=== PATIENT | female | born 1930 | race Caucasian/White ===

== ENCOUNTER → 2017-05-22 | Day surgery (SDC) | payer OTHER ==
[2017-05-16 15:26] LABS: BASOPHILS # (AUTO) 0.1 (0.0-0.1); BASOPHILS % 0.7 % (0.0-1.0); EOSINOPHILS # (AUTO) 0.3 (0.0-0.4); EOSINOPHILS % 3.4 % (0.0-6.0); HEMATOCRIT 36.1 % (34.2-44.1); HEMOGLOBIN 10.7 g/dL (12.0-16.0); LYMPHOCYTES # (AUTO) 2.8 (1.0-3.2); LYMPHOCYTES % 33.1 % (18.0-39.1); MEAN CORPUSCULAR HEMOGLOBIN 23.6 pg (28-32); MEAN CORPUSCULAR HGB CONC 29.6 g/dL (31-35); MEAN CORPUSCULAR VOLUME 79.7 fL (81-99); MONOCYTES # (AUTO) 0.9 (0.2-0.8); MONOCYTES % 10.7 % (4.4-11.3); NEUTROPHILS # (AUTO) 4.4 (2.1-6.9); NEUTROPHILS % 51.7 % (38.7-80.0); PLATELET COUNT 224 x10e3/uL (140-360); RED BLOOD COUNT 4.53 x10e6/uL (3.6-5.1); RED CELL DISTRIBUTION WIDTH 17.5 % (11.7-14.4)
[2017-05-16 16:06] LABS: ANION GAP 12.4 mmol/L (8-16); CALCIUM 9.3 mg/dL (8.4-10.2); CREATININE, SERUM 1.35 mg/dL (0.57-1.11); POTASSIUM 4.4 mmol/L (3.5-5.1)
[~2017-05-22] MED LIST: ADVAIR 250-501 EACH; ADVAIR 250-501 EACH INH; ALBUTEROL2.5 MG/3 M NEB; ALDACTONE25 MG PO; ASCORBIC ACID500 MG PO; AZITHROMYCIN250 MG PO; Acyclovir PO; BUPIVACAINE HC 0.75% PF 10ML VIAL INJ ONE; CHONDR SU A NA/HYALUR SOD 1 EACH KIT IO ONE; CYCLOPENTOLATE HCL 2% OPTH SOLN 2 ML BTL OP ONE; Cefuroxime Axetil PO; DIOVAN80 MG PO; DOXYCYCLINE HY100 MG PO; EPINEPHRINE HCL INJ 1 MG/ML AMP ONE; FUROSEMIDE20 MG PO; GATIFLOXACIN(OPTH) 5 ML LIQD ONE; IPRATROPIU0.2 MG/1 M NEB; LASIX20 MG PO; LASIX40 MG PO; LEVALBUTER0.63 MG/3 NEB; LEVAQUIN500 MG PO; LIDOCAINE 2% /EPINEPHRINE 20 ML SDV INJ ONE; LIDOCAINE HCL-PF 4% 40 MG/1 ML 5ML AMP ONE; LORATADINE10 MG PO; LYRICA50 MG PO; LYRICA75 MG PO; MEDROL4 MG/DOSE- PO; METOPROLOL SUC100 MG PO; METOPROLOL TART50 MG PO; MIDAZOLAM HCL 2 MG/2 ML VIAL ONE; MUCINEX DM ER1 EACH PO; MUCINEX600 MG PO; NORVASC2.5 MG PO; PANTOPRAZOLE SO40 MG PO; PHENYLEPHRINE HCL 2 ML DROPS ONE; PILOCARPINE HCL(OPTH) 15 ML LIQD ONE; POVIDONE IODINE 5% (OPTH) 30 ML BTL ONE; PREDNISONE20 MG PO; PROAIR HFA INH8.5 GM; PROPOFOL IV EMULSION 10 MG/ML 20 ML VIAL ONE; SERTRALINE HCL50 MG PO; SIMVASTATIN40 MG PO; SPIRIVA18 MCG INH; TOBRAMYCIN/DEXAMETHASONE(OPTH) 3.5 GM TUBE ONE; WARFARIN SODIUM1 MG PO; WARFARIN SODIUM2 MG PO; XOPENEX HFA15 G1 IH; Z CHANTIX PO; Z.0.ADVAIR 250-501 E IH; Z.0.COUMADIN3 MG PO; Z.0.DIOVAN80 MG PO; Z.0.LASIX20 MG PO; Z.0.LEVAQUIN500 MG PO; Z.0.METOPROLOL SUC10 PO; Z.0.PANTOPRAZOLE SO4 PO; Z.0.PREDNISONE20 MG PO; Z.0.SERTRALINE HCL50 PO; Z.0.SIMVASTATIN80 MG PO; Z.0.SPIRIVA18 MCG IH; ZESTRIL10 MG PO
== END | disposition home or self-care (01) ==
LOC: OR 07:04
PROVIDERS: ATTEND Ophthalmology
DX: H25.11 Age-related nuclear cataract, right eye (principal); I10 Essential (primary) hypertension; I48.91 Unspecified atrial fibrillation; J44.9 Chronic obstructive pulmonary disease, unspecified; Z01.810 Encounter for preprocedural cardiovascular examination; Z01.812 Encounter for preprocedural laboratory examination; Z79.01 Long term (current) use of anticoagulants; Z95.1 Presence of aortocoronary bypass graft; Z95.0 Presence of cardiac pacemaker
CPT/HCPCS: 36415; 66982; 80048; 85025; 93005; J0171; J2001; J2250; V2632

== ENCOUNTER 2017-06-29 01:50 | Emergency (ER) | payer OTHER ==
[~2017-06-29] VITALS: Ht 160 cm; Wt 73.9 kg
[~2017-06-29 01:50] MED LIST changes: -BUPIVACAINE HC 0.75% PF 10ML VIAL INJ ONE; -CHONDR SU A NA/HYALUR SOD 1 EACH KIT IO ONE; -CYCLOPENTOLATE HCL 2% OPTH SOLN 2 ML BTL OP ONE; -EPINEPHRINE HCL INJ 1 MG/ML AMP ONE; -GATIFLOXACIN(OPTH) 5 ML LIQD ONE; -LIDOCAINE 2% /EPINEPHRINE 20 ML SDV INJ ONE; -LIDOCAINE HCL-PF 4% 40 MG/1 ML 5ML AMP ONE; -MIDAZOLAM HCL 2 MG/2 ML VIAL ONE; -PHENYLEPHRINE HCL 2 ML DROPS ONE; -PILOCARPINE HCL(OPTH) 15 ML LIQD ONE; -POVIDONE IODINE 5% (OPTH) 30 ML BTL ONE; -PROPOFOL IV EMULSION 10 MG/ML 20 ML VIAL ONE; -TOBRAMYCIN/DEXAMETHASONE(OPTH) 3.5 GM TUBE ONE
[2017-06-29] MEDS ORDERED: ALBUTEROL SULF 0.083% NEB SOLN 3 ML NEB NEB STA (02:20)
[2017-06-29] MEDS ORDERED: IPRATROPIUM BROMIDE 0.02% 2.5 ML NEB NEB ONE (02:30)
[2017-06-29] MEDS ORDERED: METHYLPREDNISOLONE SOD SUCC 125 MG/2ML VIAL IV ONE (02:30)
[2017-06-29 02:54] LABS: BASOPHILS % 0.5 % (0.0-1.0); EOSINOPHILS # (AUTO) 0.2 (0.0-0.4); EOSINOPHILS % 2.9 % (0.0-6.0); HEMATOCRIT 33.2 % (34.2-44.1); HEMOGLOBIN 10.2 g/dL (12.0-16.0); LYMPHOCYTES # (AUTO) 1.9 (1.0-3.2); LYMPHOCYTES % 23.3 % (18.0-39.1); MEAN CORPUSCULAR HEMOGLOBIN 23.7 pg (28-32); MEAN CORPUSCULAR HGB CONC 30.7 g/dL (31-35); MEAN CORPUSCULAR VOLUME 77.2 fL (81-99); MONOCYTES % 11.8 % (4.4-11.3); NEUTROPHILS % 61.1 % (38.7-80.0); PLATELET COUNT 188 x10e3/uL (140-360); RED CELL DISTRIBUTION WIDTH 18.2 % (11.7-14.4)
[2017-06-29 03:15] LABS: ALBUMIN 3.5 g/dL (3.5-5.0); ALBUMIN/GLOBULIN RATIO 1.7 (0.8-2.0); ANION GAP 12.4 mmol/L (8-16); CALCIUM 9.2 mg/dL (8.4-10.2); CREATININE, SERUM 1.34 mg/dL (0.57-1.11); POTASSIUM 3.4 mmol/L (3.5-5.1)
[2017-06-29 03:21] LABS: CREATINE KINASE MB 1.2 ng/mL (0-5.0)
--- NOTE | 2017-06-29 04:12 | Diagnostic Imaging Report ---
CHEST SINGLE (PORTABLE), 06/29/2017 1:51 AM Technique: CHEST SINGLE (PORTABLE) Comparison: 11/20/2016 Clinical history: Shortness of breath Findings: See Impression Impression: 1. Lines/Tubes: Stable left-sided ICD, median sternotomy wires and valve prosthesis. 2. Stable mildly enlarged cardiomediastinal silhouette. 3. Emphysema with stable bibasilar linear opacities, favor atelectasis or scarring. Signed by: Dr Kasey De Luna MD on 06/29/2017 4:09 AM
== END 2017-06-29 07:48 | disposition home or self-care (01) ==
LOC: ER 01:50
DX: R06.00 Dyspnea, unspecified (principal); J44.1 Chronic obstructive pulmonary disease with (acute) exacerbation; I10 Essential (primary) hypertension; I50.9 Heart failure, unspecified; K21.9 Gastro-esophageal reflux disease without esophagitis; E78.5 Hyperlipidemia, unspecified
CPT/HCPCS: 36415; 71045; 80053; 82550; 82553; 83880; 84484; 85025; 93005; 99284; J2930

== ENCOUNTER 2017-08-01 09:42 | Observation (INO) | payer MEDICARE, OTHER ==
[~2017-08-01] VITALS: Ht 160 cm; Wt 76.7 kg
--- OUTSIDE RECORDS SUMMARY | 2017-08-01 09:46 | XMS REPORT | Continuity of Care Document ---
Author Author [facility] Organization [facility] Address [address] [place] [address] Phone Unavailable Care Team Providers Care Medical Cash Poster Name Role Phone JIAN RUBIO DO PCP Insurance Providers Guarantor Keira Paz Address [address] [place] [address] Email NONE [facility] Policy Number [id number] Subscriber's Name Keira Paz Relationship 18 Self / Same As Patient Group Name RETIRED Effective Date 11 Payer [facility] Policy Number [id number] Subscriber's Name Keira Paz Relationship 18 Self / Same As Patient Group Number [id number] Advance Directives Directive Response Recorded Date/Time Does the patient have an advance directive? No 11/11/16 5:05pm If yes, is advance directive on file with [facility]? No 11/11/16 5:05pm If not on file with [facility] will patient provide a copy? No 06/29/17 1:49am Do you have a Directive to Physician? No 06/29/17 1:49am Do you have a Medical Power of Staffing Operations Manager? No 06/29/17 1:49am Do you have an out of hospital Do Not Resuscitate Order? No 06/29/17 1:49am Do you have any special needs we should be aware of? No 06/29/17 1:49am Do you have a support person here with you today? No 06/29/17 1:49am Did patient receive Notice of Privacy Practices? Yes 06/29/17 1:49am Did patient receive patient rights and responsibilities? Yes 06/29/17 1:49am Problems Medical Problem Onset Date Status Bronchitis 02/05/2015 Acute CHF (congestive heart failure) 06/06/2015 Acute CHF (congestive heart failure) 11/06/2015 Acute COPD (chronic obstructive pulmonary disease) Unknown COPD exacerbation Unknown Acute Generalized weakness Unknown Hypoxia 11/06/2015 Acute Shortness of breath Unknown Acute UTI (urinary tract infection) 11/06/2015 Acute Medications Current Home Medications Medication Dose Units Route Directions Days Qty Instructions Start Date Albuterol Sulfate (Proair Hfa Inhaler*) 8.5 Gm Inh Furosemide (Lasix) 20 Mg Tablet 20 Mg Oral Daily 30 Tab Levalbuterol Hcl 0.63 Mg/3 Ml Vial.neb 0.63 Mg Nebullizer Three Times A Day Metoprolol Succinate 100 Mg Tab.er.24h 100 Mg Oral Daily Pantoprazole Sodium (Protonix) 40 Mg Tablet.dr 40 Mg Oral Daily Pregabalin (Lyrica) 75 Mg Cap 75 Mg Oral Daily 30 Cap Sertraline Hcl 50 Mg Tablet 50 Mg Oral Daily 30 Tab Simvastatin 40 Mg Tablet 40 Mg Oral Today At 9:00PM 30 Tab Tiotropium Archer (Spiriva) 18 Mcg Cap.w.dev 18 Mcg Inhalation Daily Valsartan (Diovan) 80 Mg Tab 80 Mg Oral Daily Warfarin Sodium 2 Mg Tablet 2 Mg Oral Every Other Day Past Home Medications Medication Directions Ordered Status Albuterol Sulfate 2.5 Mg/3 Ml Vial.neb, 3 Ml Nebullizer Rt Q4h 08/27/16 Discontinued Albuterol Sulfate 2.5 Mg/3 Ml Vial.neb, 3 Ml Nebullizer Rt Q4h 06/03/16 Discontinued Amlodipine Besylate (Norvasc) 2.5 Mg Tablet, 5 Mg Oral Daily Discontinued Azithromycin (Z-Noe) 250 Mg Tablet, 500 Mg Oral Daily 08/27/16 Discontinued Doxycycline Hyclate 100 Mg Capsule, 100 Mg Oral Twice A Day 11/15/16 Discontinued Doxycycline Hyclate 100 Mg Capsule, 100 Mg Oral Twice A Day 08/08/16 Discontinued Fluticasone/Salmeterol (Advair 250-50 Diskus) 1 Each Disk.w.dev, 1 Dose Inhalation Twice A Day Discontinued Fluticasone/Salmeterol (Advair 250-50 Diskus) 1 Each Disk.w.dev, 1 Inh Inhalation Twice A Day Discontinued Furosemide (Lasix) 40 Mg Tablet, 40 Mg Oral Twice A Day 06/03/16 Discontinued Furosemide 20 Mg Tablet, 20 Mg Oral Daily Discontinued Furosemide (Lasix) 20 Mg Tablet, 20 Mg Oral Daily Discontinued Guaifenesin (Mucinex) 600 Mg Tablet.er, 600 Mg Oral Every 6 Hours 06/03/16 Discontinued Guaifenesin/Dextromethorphan (Mucinex Dm Er 600-30 Mg Tablet) 1 Each Tab.er.12h , 1 Each Oral Every 6 Hours 08/08/16 Discontinued Ipratropium Archer 0.2 Mg/1 Ml Solution, 2.5 Ml Nebullizer Rt Q4h 08/27/16 Discontinued Ipratropium Archer 0.2 Mg/1 Ml Solution, 2.5 Ml Nebullizer Rt Q4h 06/03/16 Discontinued Levalbuterol Hcl 0.63 Mg/3 Ml Vial.neb, 0.63 Mg Nebullizer Three Times A Day Discontinued Levalbuterol Tartrate (Xopenex Hfa) 15 Gm Hfa.aer.ad, 15 Gm Inhalation Three Times A Day Discontinued Levofloxacin (Levaquin) 500 Mg Tablet, 500 Mg Oral Daily 04/15/16 Discontinued Levofloxacin (Levaquin) 500 Mg Tablet, 500 Mg Oral Daily Discontinued Lisinopril (Zestril*) 10 Mg Tablet, 10 Mg Oral Daily for High Blood Pressure Discontinued Loratadine 10 Mg Tablet, 10 Mg Oral Daily 06/03/16 Discontinued Methylprednisolone (Medrol Dose Pack) 4 Mg/Dose Pack Tab, Unknown Dose Oral Daily Discontinued Metoprolol Succinate 100 Mg Tab.sr.24h, 100 Mg Oral Daily Discontinued Pantoprazole Sodium 40 Mg Tablet.dr, 40 Mg Oral Daily Discontinued Prednisone 20 Mg Tab, 20 Mg Oral Daily 08/08/16 Discontinued Prednisone 20 Mg Tab, 40 Mg Oral Twice A Day 06/03/16 Discontinued Prednisone 20 Mg Tab, 20 Mg Oral Daily 04/15/16 Discontinued Prednisone 20 Mg Tablet, 20 Mg Oral Daily Discontinued Prednisone 20 Mg Tablet, 20 Mg Oral Twice Day For 5 Days Discontinued Prednisone 20 Mg Tablet, 20 Mg Oral Once Daily For 5 Day Discontinued Pregabalin (Lyrica) 75 Mg Cap, 75 Mg Oral Daily Discontinued Pregabalin (Lyrica) 75 Mg Cap, 75 Mg Oral Daily 02/12/15 Discontinued Sertraline Hcl 50 Mg Tablet, 50 Mg Oral Daily Discontinued Sertraline Hcl 50 Mg Tablet, 50 Mg Oral Daily Discontinued Simvastatin 80 Mg Tablet, 40 Mg Oral Daily Discontinued Spironolactone (Aldactone) 25 Mg Tablet, 25 Mg Oral Daily Discontinued Tiotropium Archer (Spiriva) 18 Mcg Cap.w.dev, 18 Mcg Inhalation Daily Discontinued Valsartan (Diovan) 80 Mg Tab, 80 Mg Oral Daily Discontinued Valsartan (Diovan) 80 Mg Tab, 80 Mg Oral Daily Discontinued Valsartan (Diovan) 80 Mg Tablet, 80 Mg Oral Daily Discontinued Varenicline Tartrate (Chantix) 0.5 Mg Tablet, 0.5 Mg Oral Daily Discontinued Warfarin Sodium 1 Mg Tablet, 1 Mg Oral Every Other Day Discontinued Warfarin Sodium (Coumadin) 3 Mg Tablet, 3 Mg Oral Daily Discontinued Family History Relationship Condition Age at Onset Recorded Date/Time 21 Son FH: lymphoma Not Recorded 11/07/2015 12:52am Social History Social History Problem Response Recorded Date/Time Onset Date Status Hx Psychiatric Problems No 11/11/2016 5:05pm Not Applicable Not Applicable Hx Eating Disorder No 11/11/2016 5:05pm Not Applicable Not Applicable Hx Substance Use Disorder No 11/11/2016 5:05pm Not Applicable Not Applicable Hx Depression No 11/11/2016 5:05pm Not Applicable Not Applicable Hx Alcohol Use No 11/11/2016 5:05pm Not Applicable Not Applicable Hx Substance Use Treatment No 11/11/2016 5:05pm Not Applicable Not Applicable Hx Physical Abuse No 11/11/2016 5:05pm Not Applicable Not Applicable Hospital Discharge Instructions No hospital discharge instruction information available. Plan of Care Discharge Date 06/29/17 7:48am Disposition HOME, SELF-CARE Condition at Discharge Stable Instructions/Education Provided Bronchitis (Acute) - Adult Forms Provided Work/School Excuse Prescriptions See Medication Section Referrals JIAN RUBIO DO Order Date: Call for an appointment Address: [address] [place] [id number] Additional Instructions/Education DC HOME FOLLOW UP WITH PCP TAKE MEDS DIRCTED. Functional Status No functional status information available. Allergies, Adverse Reactions, Alerts Allergen Type Severity Reaction Status Last Updated Codeine Allergy Unknown Active 04/10/16 Immunizations No immunization information available. Vital Signs Acute Vital Signs Vital Response Date/Time Temperature (Fahrenheit) 97.9 degrees F (97.6 - 99.5) 11/15/2016 4:00pm Pulse Pulse Rate (adult) 70 bpm (60 - 90) 06/29/2017 2:30am Pulse Pulse Rate (adult) 70 bpm (60 - 90) 06/29/2017 2:30am Respiratory Rate 18 bpm (12 - 24) 06/29/2017 2:30am Blood Pressure 111/63 mm Hg 11/30/2016 3:23am Height 5 ft 3 in 06/29/2017 2:13am Weight 163 lb 06/29/2017 2:13am Body Mass Index 28.9 kg/m^2 06/29/2017 2:13am Results Laboratory Results Test Name Result Units Flags Reference Collection Date/Time Result Date/ Time Comments Magnesium Level 2.4 MG/DL H 1.3-2.1 11/11/2016 10:16am 11/11/2016 11: 28am Thyroid Stimulating Hormone (TSH) 0.301 uIU/mL L 0.350-4.940 11/12/2016 6 :24am 11/12/2016 7:52am Prothrombin Time 23.5 seconds H 11.9-14.5 11/30/2016 1:30am 11/30/2016 2 :25am Specimen ok Prothromb Time International Ratio 1.97 11/30/2016 1:30am 2016 2:25am Oral Anticoagulant Therapy INR Values: 1. Low Intensity Therapy 1.5 - 2.0 2. Moderate Intensity Therapy 2.0 - 3.0 3. High Intensity Therapy(1) 2.5 - 3.5 4. High Intensity Therapy(2) 3.0 - 4.0 5. Panic Value INR > 5.0 Activated Partial Thromboplast Time 31.7 seconds 23.8-35.5 11/30/2016 1: 30am 11/30/2016 2:25am White Blood Count 8.21 x10e3/uL 4.8-10.8 06/29/2017 2:50am 06/29/2017 2 :58am Red Blood Count 4.30 x10e6/uL 3.6-5.1 06/29/2017 2:50am 06/29/2017 2: 58am Hemoglobin 10.2 g/dL L 12.0-16.0 06/29/2017 2:50am 06/29/2017 2:58am Hematocrit 33.2 % L 34.2-44.1 06/29/2017 2:50am 06/29/2017 2:58am Mean Corpuscular Volume 77.2 fL L 81-99 06/29/2017 2:50am 06/29/2017 2: 58am Mean Corpuscular Hemoglobin 23.7 pg L 28-32 06/29/2017 2:50am 2017 2:58am Mean Corpuscular Hemoglobin Concent 30.7 g/dL L 31-35 06/29/2017 2:50am 06/29/2017 2:58am Red Cell Distribution Width 18.2 % H 11.7-14.4 06/29/2017 2:50am 2017 2:58am Platelet Count 188 x10e3/uL 140-360 06/29/2017 2:50am 06/29/2017 2: 58am Neutrophils (%) (Auto) 61.1 % 38.7-80.0 06/29/2017 2:50am 06/29/2017 2: 58am Lymphocytes (%) (Auto) 23.3 % 18.0-39.1 06/29/2017 2:50am 06/29/2017 2: 58am Monocytes (%) (Auto) 11.8 % H 4.4-11.3 06/29/2017 2:50am 06/29/2017 2: 58am Eosinophils (%) (Auto) 2.9 % 0.0-6.0 06/29/2017 2:50am 06/29/2017 2: 58am Basophils (%) (Auto) 0.5 % 0.0-1.0 06/29/2017 2:50am 06/29/2017 2:58am IM GRANULOCYTES % 0.4 % 0.0-1.0 06/29/2017 2:50am 06/29/2017 2:58am Neutrophils # (Auto) 5.0 2.1-6.9 06/29/2017 2:50am 06/29/2017 2:58am Lymphocytes # (Auto) 1.9 1.0-3.2 06/29/2017 2:50am 06/29/2017 2:58am Monocytes # (Auto) 1.0 H 0.2-0.8 06/29/2017 2:50am 06/29/2017 2:58am Eosinophils # (Auto) 0.2 0.0-0.4 06/29/2017 2:50am 06/29/2017 2:58am Basophils # (Auto) 0.0 0.0-0.1 06/29/2017 2:50am 06/29/2017 2:58am Absolute Immature Granulocyte (auto 0.03 x10e3/uL 0-0.1 06/29/2017 2: 50am 06/29/2017 2:58am Sodium Level 134 mmol/L L 136-145 06/29/2017 2:50am 06/29/2017 3:28am Potassium Level 3.4 mmol/L L 3.5-5.1 06/29/2017 2:50am 06/29/2017 3: 28am Chloride Level 99 mmol/L 98-107 06/29/2017 2:50am 06/29/2017 3:28am Carbon Dioxide Level 26 mmol/L 22-29 06/29/2017 2:50am 06/29/2017 3: 28am Anion Gap 12.4 mmol/L 8-16 06/29/2017 2:50am 06/29/2017 3:28am Blood Urea Nitrogen 15 mg/dL 7-26 06/29/2017 2:50am 06/29/2017 3:28am Creatinine 1.34 mg/dL H 0.57-1.11 06/29/2017 2:50am 06/29/2017 3:28am BUN/Creatinine Ratio 11 6-25 06/29/2017 2:50am 06/29/2017 3:28am Estimat Glomerular Filtration Rate 38 ML/MIN L 60- 06/29/2017 2:50am 3:28am Ranges were taken from the National Kidney Disease Education Program and the National Kidney Foundation literature. Reference ranges: 60 or greater: Normal 16-59 (for 3 consecutive months): Chronic kidney disease 15 or less: Kidney failure Glucose Level 115 mg/dL 74-118 06/29/2017 2:50am 06/29/2017 3:28am Calcium Level 9.2 mg/dL 8.4-10.2 06/29/2017 2:50am 06/29/2017 3:28am Total Bilirubin 0.5 mg/dL 0.2-1.2 06/29/2017 2:50am 06/29/2017 3:28am Aspartate Amino Transf (AST/SGOT) 12 IU/L 5-34 06/29/2017 2:50am 2017 3:28am Alanine Aminotransferase (ALT/SGPT) 9 IU/L 0-55 06/29/2017 2:50am 06/29 3:28am Total Protein 5.6 g/dL L 6.5-8.1 06/29/2017 2:50am 06/29/2017 3:28am Albumin 3.5 g/dL 3.5-5.0 06/29/2017 2:50am 06/29/2017 3:28am Globulin 2.1 g/dL L 2.3-3.5 06/29/2017 2:50am 06/29/2017 3:28am Albumin/Globulin Ratio 1.7 0.8-2.0 06/29/2017 2:50am 06/29/2017 3: 28am Alkaline Phosphatase 57 IU/L 40-150 06/29/2017 2:50am 06/29/2017 3: 28am B-Type Natriuretic Peptide 125.0 pg/mL H 0-100 06/29/2017 2:50am 2017 3:28am Creatine Kinase 66 IU/L 29-168 06/29/2017 2:50am 06/29/2017 3:28am Creatine Kinase MB 1.20 ng/mL 0-5.0 06/29/2017 2:50am 06/29/2017 3: 28am Troponin I 0.028 ng/mL 0-0.300 06/29/2017 2:50am 06/29/2017 3:28am Microbiology Results Procedure Source Organism/Result Collection Date/Time Result Date/Time Result Status Blood Culture Blood NO GROWTH AFTER 5 DAYS, FINAL REPORT 11/11/2016 2:40pm 11/16/2016 2:48pm Final Sputum Culture Sputum, Expectorated Sputum PSEUDOMONAS AERUGINOSA 2016 12:21am 11/17/2016 7:39pm Final Procedures Procedure Status Date Provider(s) CATARACT SURGERY COMPLEX Completed 05/22/17 CATHI PRAJAPATI MD Computed tomography of cervical spine without contrast Active 09/14/16 HASMUKH IVEY MD Computed tomography of brain without radiopaque contrast Active 09/14/[address] maxillofacial area wo contrast Active 09/14/16 HASMUKH IVEY MD X-ray of chest, two views Active 11/15/16 ARACELY FUCHS MD Encounters Encounter Location Arrival/Admit Date Discharge/Depart Date Attending Provider Departed Emergency Room [facility] 06/29/17 1:50am 7:48am TAD MOORE MD Registered Surgical Day Care [facility] 05/22/17 7:04am CATHI PRAJAPATI MD Departed Emergency Room [facility] 11/30/16 12:54am 11/30 3:52am TAD MOORE MD Discharged Inpatient [facility] 11/11/16 12:38pm 7:09pm COLLEEN HENDERSON MD Departed Emergency Room [facility] 09/14/16 12:33pm 09/14 4:08pm HASMUKH IVEY MD
--- OUTSIDE RECORDS SUMMARY | 2017-08-01 09:46 | XMS REPORT ---
Author Author [facility] Address Unknown Phone Unavailable Care Team Providers Care Administration Physician Name Role Phone TAD MOORE Unavailable Unavailable Problems This patient has no known problems. Allergies, Adverse Reactions, Alerts This patient has no known allergies or adverse reactions. Medications This patient has no known medications. Results Test Description Test Time Test Comments Text Results Atomic Results Result Comments CHEST SINGLE (PORTABLE) [address] [address] Patient Name: ABEL PAZ MR #: [id number] : 1930 Age/Sex: 86/F Req #: [id number] Adm Physician: Ordered by: TAD MOORE MD Report #: [id number] Location: ER Room/Bed: ___ Procedure: [id number] DX/CHEST SINGLE (PORTABLE) Exam Date: 06/29/17 Exam Time: 254 REPORT STATUS: Signed CHEST SINGLE (PORTABLE), 06/29/2017 1:51 AM Technique: CHEST SINGLE (PORTABLE) Comparison: 11/20/2016 Clinical history: Shortness of breath Findings: See Impression Impression: 1. Lines/Tubes: Stable left-sided ICD, median sternotomy wires and valve prosthesis. 2. Stable mildly enlarged cardiomediastinal silhouette. 3. Emphysema with stable bibasilar linear opacities, favor atelectasis or scarring. Signed by: Dr Roberto De Luna MD on 06/29/2017 4:09 AM Dictated By: ROBERTO DE LUNA MD 8 Transcribed By: ROSY on 06/29 COPY TO: TAD MOORE MD CHEST SINGLE (PORTABLE) [place] [address] Patient Name: ABEL PAZ MR #: [id number] : 1930 Age/Sex: 86/F Req #: [id number] Adm Physician: Ordered by: TAD MOORE MD Report #: [id number] Location: ER Room/Bed: ___ Procedure: [id number] DX/CHEST SINGLE (PORTABLE) Exam Date: 11/30/16 Exam Time: 0210 REPORT STATUS: Signed EXAMINATION: CHEST SINGLE (PORTABLE) INDICATION: Chest pain. COMPARISON: 11/11/2016 FINDINGS: TUBES and LINES: AICD is intact. LUNGS: Lungs are not well inflated. Lungs are clear. There is mild prominence of the central pulmonary vasculature, consistent with pulmonary venous congestion. PLEURA: No pleural effusion or pneumothorax. HEART AND MEDIASTINUM: Cardiac size is moderately enlarged. There are atherosclerotic calcifications within the aorta. BONES AND SOFT TISSUES: No acute osseous lesion. Soft tissues are unremarkable. UPPER ABDOMEN: No free air under the diaphragm. IMPRESSION: No acute thoracic abnormality. Signed by: Dr. Jus Hardy M.D. on 2016 2:49 AM Dictated By: JUS VALENTIN MD 8 Transcribed By: ROSY on 248 COPY TO: TAD MOORE MD
[2017-08-01] MEDS ORDERED: ALBUTEROL/IPRATROPIUM 3 ML NEB NEB ONE (10:00)
[2017-08-01] MEDS ORDERED: METHYLPREDNISOLONE SOD SUCC 125 MG/2ML VIAL IV SCH ×3 (10:00→21:00)
[2017-08-01] MEDS ORDERED: ASPIRIN 81 MG CHEW TAB PO ONE (10:00)
[2017-08-01 10:08] LABS: BASOPHILS # (AUTO) 0.1 (0.0-0.1); BASOPHILS % 0.7 % (0.0-1.0); EOSINOPHILS # (AUTO) 0.2 (0.0-0.4); HEMATOCRIT 34.2 % (34.2-44.1); HEMOGLOBIN 10.4 g/dL (12.0-16.0); LYMPHOCYTES # (AUTO) 2.7 (1.0-3.2); LYMPHOCYTES % 25.4 % (18.0-39.1); MEAN CORPUSCULAR HEMOGLOBIN 24.2 pg (28-32); MEAN CORPUSCULAR HGB CONC 30.4 g/dL (31-35); MEAN CORPUSCULAR VOLUME 79.5 fL (81-99); MONOCYTES # (AUTO) 0.8 (0.2-0.8); MONOCYTES % 7.4 % (4.4-11.3); NEUTROPHILS # (AUTO) 6.9 (2.1-6.9); PLATELET COUNT 228 x10e3/uL (140-360); RED CELL DISTRIBUTION WIDTH 17.6 % (11.7-14.4)
[2017-08-01 10:17] LABS: INR 2.42; PARTIAL THROMBOPLASTIN TIME 31.5 seconds (23.8-35.5); PROTHROMBIN TIME 24.7 seconds (11.9-14.5)
--- NOTE | 2017-08-01 10:20 | Diagnostic Imaging Report ---
PROCEDURE: CHEST SINGLE (PORTABLE) COMPARISON: 06/29/2017. INDICATIONS: SHORT OF BREATH FINDINGS: Left subclavian approach implantable cardiac device body and leads are unchanged, as is a valvular prosthesis. Stable cardiomegaly with postsurgical changes of the mediastinum. Tortuosity and atherosclerotic calcification of the thoracic aorta. Bibasilar opacities are unchanged, which likely represent atelectasis or scarring as previously discussed. No new consolidation. No acute osseous abnormality. CONCLUSION: No acute cardiopulmonary abnormality. Stable appearance of the chest relative 06/29/2017 when accounting for differences in technique. Dictated by: Francisco Craft M.D. on 08/01/2017 at 10:21 Electronically approved by: Francisco Craft M.D. on 08/01/2017 at 10:21
[2017-08-01 10:26] LABS: ALBUMIN 3.5 g/dL (3.5-5.0); ALBUMIN/GLOBULIN RATIO 1.3 (0.8-2.0); ANION GAP 15.9 mmol/L (8-16); CALCIUM 9.2 mg/dL (8.4-10.2); CREATININE, SERUM 1.13 mg/dL (0.57-1.11); POTASSIUM 4.9 mmol/L (3.5-5.1)
[2017-08-01 10:32] LABS: CREATINE KINASE MB 2.3 ng/mL (0-5.0)
[2017-08-01] MEDS: FUROSEMIDE INJ 10 MG/ML 2 ML VIAL IV SCH ×2 (11:34→16:56)
[2017-08-01] MEDS: DOXYCYCLINE 100MG/NS 100ML 100 ML IV SCH ×2 (11:35→21:00)
[2017-08-01] MEDS ORDERED: ACETAMINOPHEN 325 MG TAB PO PRN (12:00)
[2017-08-01 13:23] VITALS: BP 132/65
[2017-08-01 14:00] VITALS: BP 132/65
[2017-08-01] MEDS: ALBUTEROL/IPRATROPIUM 3 ML NEB NEB SCH ×3 (14:20→23:50)
[2017-08-01 14:39] VITALS: BP 132/65
[2017-08-01 15:56] VITALS: BP 98/56
[2017-08-01 16:46] VITALS: BP 123/59
[2017-08-01] MEDS: PREGABALIN 75 MG CAP PO SCH (16:56)
[2017-08-01] MEDS: SERTRALINE HCL 50 MG TAB PO SCH (16:56)
[2017-08-01] MEDS: WARFARIN SOD 2 MG TAB PO SCH (16:56)
[2017-08-01] MEDS: PANTOPRAZOLE SOD 40 MG TABEC PO SCH (16:56)
[2017-08-01] MEDS: GUAIFENESIN 600MG/DEXTROMETHORPHAN 30MG TABSR PO SCH (17:21)
--- NOTE | 2017-08-01 17:25 | History and Physical ---
PRIMARY CARE PROVIDER: Dr. Saul Grayson. CHIEF COMPLAINT: Shortness of breath. HISTORY OF PRESENT ILLNESS: Ms. Cevallos is an 86-year-old lady with COPD who presents with 2 days of increasing shortness of breath. Yesterday had increasing difficulty cooking food. This morning, was unable to walk to the bathroom without getting short of breath and came to the emergency room for evaluation. The patient does describe cough that is occasionally productive of sputum and some wheezing this morning that prompted her to come to the ER. REVIEW OF SYSTEMS: She denies fever, chills or weight loss. She denies sinus congestion or sore throat. She denies chest pain or palpitations. She has shortness of breath, wheezing and a nonproductive and productive cough. She denies abdominal pain, nausea, vomiting or melena. She denies dysuria or flank pain. She denies rash or pruritus. She denies joint pain or swelling. She denies bleeding or bruising. She denies headache, vertigo or loss of consciousness. She denies depression, agitation, homicidal or suicidal ideation. PAST MEDICAL HISTORY: Significant for longstanding hypertension. She has coronary artery disease. 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 She has had paroxysmal atrial fibrillation and has a pacemaker placed and is on high-dose metoprolol. She has chronic systolic heart failure. She had an echocardiogram in 2012 that showed an EF of 35% to 40%. Normal LV size with diminished LV function. She also has COPD. Besides a history of CABG 12 years ago, she had a pacemaker placed sometime after that because of the AFib and sick sinus syndrome. MEDICATIONS: Include: 1. Albuterol neb treatments. 2. Spiriva daily. 3. Lasix 20 mg daily. 4. Metoprolol 100 mg daily. 5. Protonix 40 mg daily. 6. Lyrica 75 mg daily. 7. Zoloft 50 mg daily. 8. Simvastatin 40 mg at bedtime. 9. Valsartan 80 mg daily. 10. Coumadin or warfarin 2 mg every other day. ALLERGIES: SHE HAS A STATED ALLERGY TO CODEINE. FAMILY HISTORY: Significant for hypertension and heart disease. SOCIAL HISTORY: The patient . Syrian is her primary language. She does not smoke, drink or use illegal drugs. She is generally independently functioning. PHYSICAL EXAMINATION PSYCHIATRIC: She is alert and oriented times 3 with normal mood and affect. CONSTITUTIONAL: She has a normal habitus. She is in no acute distress. VITAL SIGNS: Blood pressure 132/65. Pulse 80 and regular. Respiratory rate 20. O2 sat 94%. Temperature 96.1. HEENT: Head is atraumatic. Eyes are anicteric with clear conjunctivae. Ears and nares are without erythema or discharge. Oropharynx is clear. NECK: Supple. No mass or thyromegaly. LYMPHATIC SYSTEM: She has no palpable cervical, axillary or inguinal adenopathy. CARDIOVASCULAR: Her heart has a regular rate and rhythm without murmur or extra heart sound. She has no carotid bruit. She has no peripheral edema. She has 1+ dorsal pedal pulses. RESPIRATORY: Lungs reveal markedly diminished breath sounds throughout with otherwise normal breath sounds with no wheezing. She does have a dry, hacking cough at times. She is in no acute respiratory distress. GASTROINTESTINAL: Abdomen is soft without organomegaly, masses or tenderness. She has normal bowel sounds present. CUTANEOUS: Skin is warm and dry to touch with no rash or skin breakdown. MUSCULOSKELETAL: Her joints are in normal alignment without erythema or swelling. She has no calf tenderness. NEUROLOGIC: Exam is nonfocal with intact cranial nerves and intact motor and sensory functions with no focal motor or sensory deficits. DIAGNOSTIC STUDIES: Chest x-ray shows pacemaker in place, sternotomy wires, cardiomegaly and bibasilar opacities that are unchanged from last year. She had an echo in 2013 that showed normal LV size, some mildly impaired LV function with an EF of 35% to 40%. Her EKG is fully paced. Her BNP is 203.9. Troponin 0.010. Her chemistry shows normal electrolytes. CO2 is 27, creatinine 1.13, BUN 20 for a GFR of 46, which is actually a little better than her baseline which is around 38 to 40. Calcium is 9.2. Glucose is 88. Transaminases, bilirubin and alk phos are all normal. CBC shows a white count of 10.7, which is slightly elevated, with 64% neutrophils and 25% lymphocytes. Hemoglobin 10.4, hematocrit 34.2, platelet count 228,000. Her pro time is 24.7 with an INR of 2.42, and PTT is 31.5. IMPRESSION AND PLAN 1. Acute exacerbation of chronic obstructive pulmonary disease. The patient will be given supplemental oxygen, aggressive nebulizer treatments q.4 h., IV Solu-Medrol initially loaded with 120 mg and then 60 mg q.12 h. She will begin IV doxycycline 100 mg q.12 h. and Mucinex q.6 h. as needed for expectoration. 2. Paroxysmal atrial fibrillation. The patient remains on metoprolol and Coumadin. He is currently in normal sinus rhythm and asymptomatic. 3. Hypertension complicated by coronary artery disease, chronic systolic heart failure and chronic kidney disease, stage 3. Will be using valsartan, aspirin, Plavix and Lasix. 4. Chronic systolic heart failure. IV Lasix. 5. Chronic kidney disease, stage 3. Will be using valsartan and Lasix b.i.d. 6. For prophylaxis, will use Protonix for GI prophylaxis and Coumadin for stroke and DVT prophylaxis. COLLEEN HENDERSON MD Job#: [id number]
[2017-08-01 18:33] LABS: CREATINE KINASE MB 2.9 ng/mL (0-5.0)
[2017-08-01 20:00] VITALS: BP 116/64
[2017-08-01] MEDS ORDERED: SODIUM CHLORIDE 0.9% 250ML 250 ML ONE (20:50)
[2017-08-01] MEDS: METHYLPREDNISOLONE SOD SUCC 40 MG/ML VIAL IV SCH (21:00)
[2017-08-01] MEDS: SIMVASTATIN 40 MG TAB PO SCH (21:00)
[2017-08-02] VITALS (9 sets, daily range): BP systolic 113–161; BP diastolic 56–78
[2017-08-02] MEDS: ALBUTEROL/IPRATROPIUM 3 ML NEB NEB SCH ×6 (03:00→23:25)
[2017-08-02 03:25] LABS: CREATINE KINASE MB 3.6 ng/mL (0-5.0)
[2017-08-02] MEDS: GUAIFENESIN 600MG/DEXTROMETHORPHAN 30MG TABSR PO SCH ×5 (06:00→23:08)
[2017-08-02 07:03] LABS: BASOPHILS % 0.1 % (0.0-1.0); HEMATOCRIT 31.7 % (34.2-44.1); HEMOGLOBIN 9.8 g/dL (12.0-16.0); LYMPHOCYTES % 12.8 % (18.0-39.1); MEAN CORPUSCULAR HEMOGLOBIN 24.3 pg (28-32); MEAN CORPUSCULAR HGB CONC 30.9 g/dL (31-35); MEAN CORPUSCULAR VOLUME 78.5 fL (81-99); MONOCYTES # (AUTO) 0.3 (0.2-0.8); MONOCYTES % 3.7 % (4.4-11.3); NEUTROPHILS # (AUTO) 6.3 (2.1-6.9); NEUTROPHILS % 82.9 % (38.7-80.0); PLATELET COUNT 216 x10e3/uL (140-360); RED BLOOD COUNT 4.04 x10e6/uL (3.6-5.1); RED CELL DISTRIBUTION WIDTH 17.3 % (11.7-14.4)
[2017-08-02 07:23] LABS: ANION GAP 15.6 mmol/L (8-16); CALCIUM 9.3 mg/dL (8.4-10.2); CREATININE, SERUM 1.12 mg/dL (0.57-1.11); MAGNESIUM 1.9 MG/DL (1.3-2.1); POTASSIUM 4.6 mmol/L (3.5-5.1)
[2017-08-02 07:48] LABS: THYROID STIMULATING HORMONE 0.338 uIU/mL (0.350-4.940)
[2017-08-02] MEDS: VALSARTAN 80 MG TAB PO SCH (09:00)
[2017-08-02] MEDS ORDERED: NON-FORMULARY MEDICATION (Metoprolol Succinate 100 MG) PO SCH (09:00)
[2017-08-02] MEDS: METOPROLOL SUCCINATE 50 MG TAB XL PO SCH (09:52)
[2017-08-02] MEDS: PREGABALIN 75 MG CAP PO SCH (09:52)
[2017-08-02] MEDS: FUROSEMIDE INJ 10 MG/ML 2 ML VIAL IV SCH ×2 (09:52→16:53)
[2017-08-02] MEDS: METHYLPREDNISOLONE SOD SUCC 40 MG/ML VIAL IV SCH (09:52)
[2017-08-02] MEDS: PANTOPRAZOLE SOD 40 MG TABEC PO SCH (09:52)
[2017-08-02] MEDS: SERTRALINE HCL 50 MG TAB PO SCH (09:53)
[2017-08-02] MEDS: DOXYCYCLINE 100MG/NS 100ML 100 ML IV SCH ×2 (10:08→20:33)
[2017-08-02] MEDS ORDERED: ONDANSETRON HCL 4 MG ORAL DISINTEGRATING TAB PO PRN (13:45)
[2017-08-02] MEDS ORDERED: HYDRALAZINE HCL 20 MG/ML VIAL IV PRN (13:45)
[2017-08-02 15:43] LABS: INR 2.75; PROTHROMBIN TIME 27.3 seconds (11.9-14.5)
[2017-08-02] MEDS: WARFARIN SOD 2 MG TAB PO SCH (16:12)
[2017-08-02] MEDS: SIMVASTATIN 40 MG TAB PO SCH (20:33)
[2017-08-03] MEDS: ALBUTEROL/IPRATROPIUM 3 ML NEB NEB SCH ×4 (03:00→15:00)
[2017-08-03 03:50] VITALS: BP 127/69
[2017-08-03] MEDS: GUAIFENESIN 600MG/DEXTROMETHORPHAN 30MG TABSR PO SCH ×3 (05:21→17:38)
[2017-08-03 06:32] LABS: EOSINOPHILS % 0.1 % (0.0-6.0); HEMATOCRIT 30.8 % (34.2-44.1); HEMOGLOBIN 9.4 g/dL (12.0-16.0); LYMPHOCYTES # (AUTO) 2.3 (1.0-3.2); LYMPHOCYTES % 19.7 % (18.0-39.1); MEAN CORPUSCULAR HGB CONC 30.5 g/dL (31-35); MEAN CORPUSCULAR VOLUME 78.8 fL (81-99); MONOCYTES # (AUTO) 1.1 (0.2-0.8); MONOCYTES % 9.5 % (4.4-11.3); NEUTROPHILS # (AUTO) 8.1 (2.1-6.9); NEUTROPHILS % 70.1 % (38.7-80.0); PLATELET COUNT 206 x10e3/uL (140-360); RED BLOOD COUNT 3.91 x10e6/uL (3.6-5.1); RED CELL DISTRIBUTION WIDTH 17.4 % (11.7-14.4)
[2017-08-03 07:12] LABS: ANION GAP 11.6 mmol/L (8-16); CALCIUM 9.2 mg/dL (8.4-10.2); CREATININE, SERUM 1.16 mg/dL (0.57-1.11); MAGNESIUM 1.9 MG/DL (1.3-2.1); POTASSIUM 4.6 mmol/L (3.5-5.1)
[2017-08-03 08:09] VITALS: BP 160/68
[2017-08-03] MEDS: FUROSEMIDE INJ 10 MG/ML 2 ML VIAL IV SCH ×2 (08:58→16:08)
[2017-08-03] MEDS: PREGABALIN 75 MG CAP PO SCH (08:58)
[2017-08-03] MEDS: PANTOPRAZOLE SOD 40 MG TABEC PO SCH (08:58)
[2017-08-03] MEDS: DOXYCYCLINE 100MG/NS 100ML 100 ML IV SCH (08:58)
[2017-08-03] MEDS: VALSARTAN 80 MG TAB PO SCH (08:58)
[2017-08-03] MEDS: METOPROLOL SUCCINATE 50 MG TAB XL PO SCH (08:59)
[2017-08-03] MEDS: SERTRALINE HCL 50 MG TAB PO SCH (08:59)
[2017-08-03] MEDS ORDERED: PREDNISONE 20 MG TAB PO SCH (09:00)
[2017-08-03 09:24] VITALS: BP 160/68
[2017-08-03] MEDS ORDERED: DOXYCYCLINE HY100 MG PO (10:00)
[2017-08-03] MEDS ORDERED: MUCINEX DM ER1 EACH PO (10:00)
[2017-08-03] MEDS ORDERED: PREDNISONE20 MG PO (10:00)
[2017-08-03 12:00] VITALS: BP 121/60
[2017-08-03 15:37] LABS: INR 2.45
[2017-08-03] MEDS: WARFARIN SOD 2 MG TAB PO SCH (16:08)
[2017-08-03 16:26] VITALS: BP 148/63
--- NOTE | 2017-08-04 00:47 | Discharge Summary ---
ADMISSION DIAGNOSES: 1. Acute exacerbation of chronic obstructive pulmonary disease. 2. Paroxysmal atrial fibrillation. 3. Hypertension, complicated by coronary artery disease. 4. Congestive heart failure. 5. Chronic kidney disease 3. 6. Chronic systolic heart failure. DISCHARGE DIAGNOSES: 1. Acute exacerbation of chronic obstructive pulmonary disease. 2. Paroxysmal atrial fibrillation. 3. Hypertension, complicated by coronary artery disease. 4. Congestive heart failure. 5. Chronic kidney disease 3. 6. Chronic systolic heart failure. 7. Anemia. HISTORY: Patient has a history of hypertension, CAD, CABG 12 years ago, paroxysmal AFib, pacemaker, chronic systolic heart failure with an echo in 2012 that showed an EF of 35% to 40%, COPD, and sick sinus syndrome. HOSPITAL COURSE: Y[age]kh[age]bm[age]rssv-old female with COPD, presents with 2 days of increasing shortness of breath. Yesterday, she had difficulty cooking and this morning was able to walk to the bathroom without getting short of breath. She also complains of an occasional cough with sputum and some wheezing. On admission to the ER, she was started on doxycycline IV 100 q.12., Mucinex, IV Solu-Medrol, oxygen, and nebulizers. She was continued on her home dose of metoprolol and Coumadin. She runs V-paced per tele monitor. Chest x-ray on admission showed no acute cardiopulmonary abnormality. After about 2 days of antibiotics and IV steroids, patient was weaned down to p.o. steroids and was stable to discharge home. She already uses oxygen at home, so she did not need any equipment. She lives with her daughter. She was sent home with doxycycline, Mucinex, and tapered p.o. prednisone. She will follow up with primary care in 1 to 2 weeks. Dictated by Ashley Plaza NP COLLEEN HENDERSON MD Job#: [id number]
== END 2017-08-03 18:10 | disposition home or self-care (01) ==
LOC: ER 09:42 → ERHOLD 11:01 → IMCU 13:00
PROVIDERS: ADMIT Internal Medicine; ATTEND Internal Medicine
DX: J44.1 Chronic obstructive pulmonary disease with (acute) exacerbation (principal); I13.0 Hypertensive heart and chronic kidney disease with heart failure and stage 1 through stage 4 chronic kidney disease, or unspecified chronic kidney disease; I50.22 Chronic systolic (congestive) heart failure; N18.3 Chronic kidney disease, stage 3 (moderate); I25.10 Atherosclerotic heart disease of native coronary artery without angina pectoris; Z95.1 Presence of aortocoronary bypass graft; Z95.0 Presence of cardiac pacemaker; I48.0 Paroxysmal atrial fibrillation; Z88.5 Allergy status to narcotic agent; Z79.01 Long term (current) use of anticoagulants; D64.9 Anemia, unspecified
CPT/HCPCS: 36415 ×3; 71045; 80048 ×2; 80053; 82550 ×2; 82553 ×2; 83605; 83690; 83735 ×2; 83880 ×2; 84443; 84484 ×2; 85025 ×3; 85610 ×3; 85730; 93005; 94640 ×6; 96374; 99284; G0378 ×3; J1940 ×3; J2920 ×2; J2930; J7050

== ENCOUNTER → 2017-10-02 | Day surgery (SDC) | payer MEDICARE, OTHER ==
[2017-09-25 13:08] LABS: BASOPHILS # (AUTO) 0.1 (0.0-0.1); BASOPHILS % 0.5 % (0.0-1.0); EOSINOPHILS # (AUTO) 0.2 (0.0-0.4); EOSINOPHILS % 2.4 % (0.0-6.0); HEMATOCRIT 34.8 % (34.2-44.1); HEMOGLOBIN 10.3 g/dL (12.0-16.0); LYMPHOCYTES # (AUTO) 2.6 (1.0-3.2); LYMPHOCYTES % 28.3 % (18.0-39.1); MEAN CORPUSCULAR HEMOGLOBIN 24.1 pg (28-32); MEAN CORPUSCULAR HGB CONC 29.6 g/dL (31-35); MEAN CORPUSCULAR VOLUME 81.5 fL (81-99); MONOCYTES # (AUTO) 0.8 (0.2-0.8); MONOCYTES % 8.6 % (4.4-11.3); NEUTROPHILS # (AUTO) 5.5 (2.1-6.9); PLATELET COUNT 196 x10e3/uL (140-360); RED BLOOD COUNT 4.27 x10e6/uL (3.6-5.1); RED CELL DISTRIBUTION WIDTH 17.1 % (11.7-14.4)
[2017-09-25 13:20] LABS: ANION GAP 13.6 mmol/L (8-16); CALCIUM 9.7 mg/dL (8.4-10.2); CREATININE, SERUM 1.14 mg/dL (0.57-1.11); POTASSIUM 4.6 mmol/L (3.5-5.1)
[~2017-10-02] MED LIST changes: +BUPIVACAINE HC 0.75% PF 10ML VIAL INJ ONE; +CHONDR SU A NA/HYALUR SOD 1 EACH KIT IO ONE; +CYCLOPENTOLATE HCL 2% OPTH SOLN 2 ML BTL OP ONE; +EPINEPHRINE HCL INJ 1 MG/ML AMP ONE; +GATIFLOXACIN(OPTH) 5 ML LIQD ONE; +LIDOCAINE 2% /EPINEPHRINE 20 ML SDV INJ ONE; +LIDOCAINE HCL 2% LOCAL INJ 5 ML SDV VIAL INJ ONE; +LIDOCAINE HCL-PF 4% 40 MG/1 ML 5ML AMP ONE; +PHENYLEPHRINE HCL 2 ML DROPS ONE; +PILOCARPINE HCL(OPTH) 15 ML LIQD ONE; +POVIDONE IODINE 5% (OPTH) 30 ML BTL ONE; +PROPOFOL IV EMULSION 10 MG/ML 20 ML VIAL ONE; +TOBRAMYCIN/DEXAMETHASONE(OPTH) 3.5 GM TUBE ONE
[2017-10-02 08:33] LABS: INR 1.27; PARTIAL THROMBOPLASTIN TIME 27.9 seconds (23.8-35.5); PROTHROMBIN TIME 14.9 seconds (11.9-14.5)
--- OUTSIDE RECORDS SUMMARY | 2018-01-14 13:49 | XMS REPORT | Continuity of Care Document ---
Author Author [facility] Organization [facility] Address [address] [place] [address] Phone Unavailable Care Team Providers Care Collar Turner Operator Name Role Phone JIAN RUBIO DO PCP Insurance Providers Guarantor Keira Paz Address [address] [address] Email PTDECLINED [facility] Policy Number [id number] Subscriber's Name Keira Paz Relationship 18 Self / Same As Patient Effective Date 17 [facility] Policy Number [id number] Subscriber's Name Keira Paz Relationship 18 Self / Same As Patient Group Name RETIRED Effective Date 11 Advance Directives Directive Response Recorded Date/Time Does the patient have an advance directive? No 08/01/17 1:30pm If yes, is advance directive on file with [facility]? No 08/01/17 1:30pm If not on file with [facility] will patient provide a copy? No 06/29/17 1:49am Do you have a Directive to Physician? No 08/01/17 10:59am Do you have a Medical Power of Monument Letterer? No 08/01/17 10:59am Do you have an out of hospital Do Not Resuscitate Order? No 08/01/17 10:59am Do you have any special needs we should be aware of? No 08/01/17 10:59am Do you have a support person here with you today? Yes 08/01/17 10:59am Did patient receive Notice of Privacy Practices? Yes 08/01/17 10:59am Did patient receive patient rights and responsibilities? Yes 08/01/17 10:59am Problems Medical Problem Onset Date Status Bronchitis [...] Sulfate (Proair Hfa Inhaler*) 8.5 Gm Inh Doxycycline Hyclate 100 Mg Capsule 100 Mg Oral Twice A Day 5 Days 08/03/17 Furosemide (Lasix) 20 Mg Tablet 20 Mg Oral Daily 30 Tab Guaifenesin/Dextromethorphan (Mucinex Dm Er 600-30 Mg Tablet) 1 Each Tab.er.12h 1 Each Oral Every 6 Hours 7 Days 08/03/17 Levalbuterol Hcl 0.63 Mg/3 Ml Vial.neb 0.63 Mg Nebullizer Three Times A Day Metoprolol Succinate 100 Mg Tab.er.24h 100 Mg Oral Daily Pantoprazole Sodium (Protonix) 40 Mg Tablet.dr 40 Mg Oral Daily Prednisone 20 Mg Tab 10 Mg Oral Daily 12 Days TAKE 20MG PO DAILY X 4 DAYS THEN TAKE 10MG PO DAILY X4 DAYS THEN TAKE 5MG PO DAILY X4 DAYS THEN STOP 08/03/17 Pregabalin (Lyrica) 75 Mg Cap 75 Mg Oral Daily 30 Cap Sertraline Hcl 50 Mg Tablet 50 Mg Oral Daily 30 Tab Simvastatin 40 Mg Tablet 40 Mg Oral Today At 9:00PM 30 Tab Tiotropium [place] (Spiriva) 18 Mcg Cap.w.dev 18 Mcg Inhalation [...] Oral Every 6 Hours 08/08/16 Discontinued Ipratropium [place] 0.2 Mg/1 Ml Solution, 2.5 Ml Nebullizer Rt Q4h 08/27/16 Discontinued Ipratropium [place] 0.2 Mg/1 Ml Solution, 2.5 Ml Nebullizer [...] Tablet, 25 Mg Oral Daily Discontinued Tiotropium [place] (Spiriva) 18 Mcg Cap.w.dev, 18 Mcg Inhalation [...] Onset Date Status Hx Psychiatric Problems No 08/01/2017 1:30pm Not Applicable Not Applicable Hx Eating Disorder No 08/01/2017 1:30pm Not Applicable Not Applicable Hx Substance Use Disorder No 08/01/2017 1:30pm Not Applicable Not Applicable Hx Depression No 08/01/2017 1:30pm Not Applicable Not Applicable Hx Alcohol Use No 08/01/2017 1:30pm Not Applicable Not Applicable Hx Substance Use Treatment No 08/01/2017 1:30pm Not Applicable Not Applicable Hx Physical Abuse No 08/01/2017 1:30pm Not Applicable Not Applicable Smoking Status Start Date Stop Date Former smoker Hospital Discharge Instructions No hospital discharge instruction information available. Plan of Care Discharge Date 08/03/17 6:10pm Disposition HOME, SELF-CARE Instructions/Education Provided COPD Prescriptions See Medication Section Additional Instructions/Education take medication as ordered F/U WITH PCP IN 1-2 WEEKS Functional Status Query Response Date Recorded Assistive Devices Standard Walker August 01, 2017 2:00pm Ambulation Ability Minimum Assistance August 01, 2017 2:00pm Toileting Ability Minimum Assistance August 01, 2017 2:00pm Allergies, Adverse Reactions, Alerts Allergen Type Severity Reaction Status Last Updated Codeine Allergy Unknown Active 04/10/16 Immunizations No immunization information available. Vital Signs Acute Vital Signs Vital Response Date/Time Temperature (Fahrenheit) 97.6 degrees F (97.6 - 99.5) 08/03/2017 4:26pm Pulse Pulse Rate (adult) 73 bpm (60 - 90) 08/03/2017 4:26pm Respiratory Rate 20 bpm (12 - 24) 08/03/2017 4:26pm Blood Pressure 148/63 mm Hg 08/03/2017 4:26pm Height 5 ft 3 in 08/01/2017 9:52am Weight 169 lb 08/02/2017 12:22am Body Mass Index 29.9 kg/m^2 08/02/2017 12:22am Results Laboratory Results Test Name Result Units Flags Reference Collection Date/Time Result Date/ Time Comments White Blood Count 11.53 x10e3/uL # H 4.8-10.8 08/03/2017 6:00am 2017 6:47am Red Blood Count 3.91 x10e6/uL 3.6-5.1 08/03/2017 6:00am 08/03/2017 6: 47am Hemoglobin 9.4 g/dL L 12.0-16.0 08/03/2017 6:00am 08/03/2017 6:47am Hematocrit 30.8 % L 34.2-44.1 08/03/2017 6:00am 08/03/2017 6:47am Mean Corpuscular Volume 78.8 fL L 81-99 08/03/2017 6:00am 08/03/2017 6: 47am Mean Corpuscular Hemoglobin 24.0 pg L 28-32 08/03/2017 6:00am 2017 6:47am Mean Corpuscular Hemoglobin Concent 30.5 g/dL L 31-35 08/03/2017 6:00am 08/03/2017 6:47am Red Cell Distribution Width 17.4 % H 11.7-14.4 08/03/2017 6:00am 2017 6:47am Platelet Count 206 x10e3/uL 140-360 08/03/2017 6:00am 08/03/2017 6: 47am Neutrophils (%) (Auto) 70.1 % 38.7-80.0 08/03/2017 6:00am 08/03/2017 6: 47am Lymphocytes (%) (Auto) 19.7 % 18.0-39.1 08/03/2017 6:00am 08/03/2017 6: 47am Monocytes (%) (Auto) 9.5 % 4.4-11.3 08/03/2017 6:00am 08/03/2017 6: 47am Eosinophils (%) (Auto) 0.1 % 0.0-6.0 08/03/2017 6:00am 08/03/2017 6: 47am Basophils (%) (Auto) 0.0 % 0.0-1.0 08/03/2017 6:00am 08/03/2017 6:47am IM GRANULOCYTES % 0.6 % 0.0-1.0 08/03/2017 6:00am 08/03/2017 6:47am Neutrophils # (Auto) 8.1 H 2.1-6.9 08/03/2017 6:00am 08/03/2017 6: 47am Lymphocytes # (Auto) 2.3 1.0-3.2 08/03/2017 6:00am 08/03/2017 6:47am Monocytes # (Auto) 1.1 H 0.2-0.8 08/03/2017 6:00am 08/03/2017 6:47am Eosinophils # (Auto) 0.0 0.0-0.4 08/03/2017 6:00am 08/03/2017 6:47am Basophils # (Auto) 0.0 0.0-0.1 08/03/2017 6:00am 08/03/2017 6:47am Absolute Immature Granulocyte (auto 0.07 x10e3/uL 0-0.1 08/03/2017 6: 00am 08/03/2017 6:47am Prothrombin Time 25.0 seconds H 11.9-14.5 08/03/2017 3:18pm 08/03/2017 3 :38pm Prothromb Time International Ratio 2.45 08/03/2017 3:18pm 2017 3:38pm Oral Anticoagulant Therapy INR Values: 1. Low Intensity Therapy 1.5 - 2.0 2. Moderate Intensity Therapy 2.0 - 3.0 3. High Intensity Therapy(1) 2.5 - 3.5 4. High Intensity Therapy(2) 3.0 - 4.0 5. Panic Value INR > 5.0 Activated Partial Thromboplast Time 31.5 seconds 23.8-35.5 08/01/2017 9: 52am 08/01/2017 10:19am Sodium Level 142 mmol/L 136-145 08/03/2017 6:00am 08/03/2017 7:18am Potassium Level 4.6 mmol/L 3.5-5.1 08/03/2017 6:00am 08/03/2017 7:18am Chloride Level 105 mmol/L 98-107 08/03/2017 6:00am 08/03/2017 7:18am Carbon Dioxide Level 30 mmol/L H 22-08/03/2017 6:00am 08/03/2017 7: 18am Anion Gap 11.6 mmol/L 8-08/03/2017 6:00am 08/03/2017 7:18am Blood Urea Nitrogen 30 mg/dL H 7-08/03/2017 6:00am 08/03/2017 7:18am Creatinine 1.16 mg/dL H 0.57-1.11 08/03/2017 6:00am 08/03/2017 7:18am BUN/Creatinine Ratio 26 H 6-25 08/03/2017 6:00am 08/03/2017 7:18am Estimat Glomerular Filtration Rate 45 ML/MIN L 60- 08/03/2017 6:00am 7:18am Ranges were taken from the National Kidney Disease Education Program and the National Kidney Foundation literature. Reference ranges: 60 or greater: Normal 16-59 (for 3 consecutive months): Chronic kidney disease 15 or less: Kidney failure Glucose Level 113 mg/dL 74-118 08/03/2017 6:00am 08/03/2017 7:18am Calcium Level 9.2 mg/dL 8.4-10.2 08/03/2017 6:00am 08/03/2017 7:18am Lactic Acid Level 45.4 MG/DL H 4.5-19.8 08/01/2017 6:00pm 08/01/2017 6: 24pm Magnesium Level 1.9 MG/DL 1.3-2.1 08/03/2017 6:00am 08/03/2017 7:18am Total Bilirubin 0.6 mg/dL 0.2-1.2 08/01/2017 9:52am 08/01/2017 10:28am Aspartate Amino Transf (AST/SGOT) 28 IU/L 5-34 08/01/2017 9:52am 2017 10:28am Alanine Aminotransferase (ALT/SGPT) 18 IU/L 0-55 08/01/2017 9:52am 10:28am Total Protein 6.1 g/dL L 6.5-8.1 08/01/2017 9:52am 08/01/2017 10:28am Albumin 3.5 g/dL 3.5-5.0 08/01/2017 9:52am 08/01/2017 10:28am Globulin 2.6 g/dL 2.3-3.5 08/01/2017 9:5208/01/2017 10:28am Albumin/Globulin Ratio 1.3 0.8-2.0 08/01/2017 9:5208/01/2017 10: 28am Alkaline Phosphatase 52 IU/L 40-150 08/01/2017 9:5208/01/2017 10: 28am B-Type Natriuretic Peptide 228.0 pg/mL H 0-100 08/02/2017 6:22am 2017 7:40am Creatine Kinase 77 IU/L 29-168 08/02/2017 2:54am 08/02/2017 3:19am Creatine Kinase MB 3.60 ng/mL 0-5.0 08/02/2017 2:54am 08/02/2017 3: 29am Troponin I 0.025 ng/mL 0-0.300 08/02/2017 2:54am 08/02/2017 3:29am Lipase 13 U/L 8-78 08/01/2017 9:52am 08/01/2017 10:28am Thyroid Stimulating Hormone (TSH) 0.338 uIU/mL L 0.350-4.940 08/02/2017 6 :22am 08/02/2017 7:52am Microbiology Results Procedure Source Organism/Result Collection Date/Time Result Date/Time Result Status Blood Culture Blood NO GROWTH AFTER 5 DAYS, FINAL REPORT 11/11/2016 2:40pm 11/16/2016 2:48pm Final Sputum Culture Sputum, Expectorated Sputum PSEUDOMONAS AERUGINOSA 2016 12:21am 11/17/2016 7:39pm Final Procedures Procedure Status Date Provider(s) CATARACT SURGERY COMPLEX Completed 05/22/17 CATHI PRAJAPATI MD X-ray of chest, two views Active 11/15/16 ARACELY FUCHS MD Encounters Encounter Location Arrival/Admit Date Discharge/Depart Date Attending Provider Discharged Inpatient (obs) [facility] 08/01/17 11:01am 6:10pm COLLEEN HENDERSON MD Departed Emergency Room [facility] 06/29/17 1:50am 7:48am TAD MOORE MD Registered Surgical Day Care [facility] 05/22/17 7:04am CATHI PRAJAPATI MD Departed Emergency Room [facility] 11/30/16 12:54am 11/30 3:52am TAD MOORE MD Discharged Inpatient [facility] 11/11/16 12:38pm 7:09pm COLLEEN HENDERSON MD
== END | disposition home or self-care (01) ==
LOC: OR 07:21
PROVIDERS: ATTEND Ophthalmology
DX: H25.12 Age-related nuclear cataract, left eye (principal); J44.9 Chronic obstructive pulmonary disease, unspecified; I25.810 Atherosclerosis of coronary artery bypass graft(s) without angina pectoris; I10 Essential (primary) hypertension; D64.9 Anemia, unspecified; K21.9 Gastro-esophageal reflux disease without esophagitis; Z88.5 Allergy status to narcotic agent; Z01.812 Encounter for preprocedural laboratory examination; Z79.01 Long term (current) use of anticoagulants; Z95.1 Presence of aortocoronary bypass graft; Z95.0 Presence of cardiac pacemaker; Z87.891 Personal history of nicotine dependence
CPT/HCPCS: 36415 ×2; 66982; 80048; 85025; 85610; 85730; J0171; J2001 ×2; V2632

== ENCOUNTER 2018-01-21 00:53 | Inpatient (IN) | payer MEDICARE, OTHER ==
[~2018-01-21] VITALS: Ht 160 cm; Wt 79.6 kg
[~2018-01-21 00:53] MED LIST changes: -BUPIVACAINE HC 0.75% PF 10ML VIAL INJ ONE; -CHONDR SU A NA/HYALUR SOD 1 EACH KIT IO ONE; -CYCLOPENTOLATE HCL 2% OPTH SOLN 2 ML BTL OP ONE; -EPINEPHRINE HCL INJ 1 MG/ML AMP ONE; -GATIFLOXACIN(OPTH) 5 ML LIQD ONE; -LIDOCAINE 2% /EPINEPHRINE 20 ML SDV INJ ONE; -LIDOCAINE HCL 2% LOCAL INJ 5 ML SDV VIAL INJ ONE; -LIDOCAINE HCL-PF 4% 40 MG/1 ML 5ML AMP ONE; -PHENYLEPHRINE HCL 2 ML DROPS ONE; -PILOCARPINE HCL(OPTH) 15 ML LIQD ONE; -POVIDONE IODINE 5% (OPTH) 30 ML BTL ONE; -PROPOFOL IV EMULSION 10 MG/ML 20 ML VIAL ONE; -TOBRAMYCIN/DEXAMETHASONE(OPTH) 3.5 GM TUBE ONE
[2018-01-21] MEDS ORDERED: ALBUTEROL SULF 0.083% NEB SOLN 3 ML NEB NEB STA (01:04)
[2018-01-21] MEDS ORDERED: IPRATROPIUM BROMIDE 0.02% 2.5 ML NEB NEB ONE (01:15)
[2018-01-21] MEDS ORDERED: AZITHROMYCIN 500MG/NS 250 ML 250 ML IV SCH (01:15)
[2018-01-21] MEDS ORDERED: METHYLPREDNISOLONE SOD SUCC 125 MG/2ML VIAL IV ONE (01:15)
[2018-01-21 01:49] LABS: BASOPHILS # (AUTO) 0.1 (0.0-0.1); BASOPHILS % 0.7 % (0.0-1.0); EOSINOPHILS # (AUTO) 0.3 (0.0-0.4); EOSINOPHILS % 3.6 % (0.0-6.0); HEMATOCRIT 39.8 % (34.2-44.1); HEMOGLOBIN 12.2 g/dL (12.0-16.0); LYMPHOCYTES # (AUTO) 2.1 (1.0-3.2); LYMPHOCYTES % 24.8 % (18.0-39.1); MEAN CORPUSCULAR HEMOGLOBIN 27.2 pg (28-32); MEAN CORPUSCULAR HGB CONC 30.7 g/dL (31-35); MEAN CORPUSCULAR VOLUME 88.8 fL (81-99); MONOCYTES % 11.2 % (4.4-11.3); NEUTROPHILS # (AUTO) 5.1 (2.1-6.9); NEUTROPHILS % 59.1 % (38.7-80.0); PLATELET COUNT 178 x10e3/uL (140-360); RED BLOOD COUNT 4.48 x10e6/uL (3.6-5.1); RED CELL DISTRIBUTION WIDTH 15.1 % (11.7-14.4)
[2018-01-21 01:57] LABS: INR 1.55; PROTHROMBIN TIME 19.9 seconds (11.9-14.5)
[2018-01-21] MEDS: CEFTRIAXONE SOD 1 GM VIAL IV SCH ×2 (02:02→14:20)
[2018-01-21 02:08] LABS: ALBUMIN 3.4 g/dL (3.5-5.0); ALBUMIN/GLOBULIN RATIO 1.3 (0.8-2.0); ANION GAP 15.3 mmol/L (8-16); CALCIUM 9.5 mg/dL (8.4-10.2); CREATININE, SERUM 1.25 mg/dL (0.57-1.11); MAGNESIUM 2.1 MG/DL (1.3-2.1); POTASSIUM 4.3 mmol/L (3.5-5.1)
[2018-01-21 02:15] LABS: CREATINE KINASE MB 1.5 ng/mL (0-5.0)
--- NOTE | 2018-01-21 02:23 | Diagnostic Imaging Report ---
EXAM: CHEST SINGLE (PORTABLE), AP 1 view INDICATION: Shortness of breath, cough COMPARISON: AP view of the chest August 01, 2017 FINDINGS: LINES/TUBES: Stable position left approach cardiac device. LUNGS: No consolidations. Stable bibasilar bronchial thickening. PLEURA: No effusions or pneumothorax. HEART AND MEDIASTINUM: Stable cardiomegaly. BONES AND SOFT TISSUES: No acute findings. Stable median sternotomy wires. IMPRESSION: Stable appearance of the chest. Signed by: Dr. Reba Bustamante M.D. on 01/21/2018 2:20 AM
[2018-01-21 04:17] LABS: CLARITY,URINE CLEAR (CLEAR); COLOR,URINE YELLOW (YELLOW); LEUKOCYTE ESTERASE ,URINE NEGATIVE (NEGATIVE); NITRITE,URINE NEGATIVE (NEGATIVE); PROTEIN,URINE DIPSTICK NEGATIVE (NEGATIVE)
[2018-01-21 04:18] LABS: BILIRUBIN,URINE NEGATIVE (NEGATIVE); KETONES,URINE NEGATIVE (NEGATIVE); URINE UROBILINOGEN 0.2 mg/dL (0.2 - 1)
[2018-01-21 04:22] LABS: BACTERIA,URINE MODERATE /HPF; EPITHELIAL CELLS,URINE FEW /LPF; RBC,URINE 0-5 /HPF (0-5); WBC,URINE (MAN) 0-5 /HPF (0-5)
[2018-01-21 06:17] LABS: CREATINE KINASE MB 1.6 ng/mL (0-5.0)
[2018-01-21] MEDS: METHYLPREDNISOLONE SOD SUCC 125 MG/2ML VIAL IV SCH ×3 (06:56→21:01)
[2018-01-21 12:14] VITALS: BP 150/68
[2018-01-21 12:31] VITALS: BP 150/68
[2018-01-21 12:34] VITALS: BP 150/68
[2018-01-21 14:26] LABS: CREATINE KINASE MB 1.9 ng/mL (0-5.0)
[2018-01-21 15:28] VITALS: BP 135/63
--- NOTE | 2018-01-21 16:49 | Consultation ---
DATE OF CONSULTATION: January 21, 2018 PULMONARY/CRITICAL CARE CONSULTATION REFERRING PHYSICIAN: Dr. Kev Barragan CHIEF COMPLAINT: Worsening dyspnea and congestion. HISTORY OF PRESENT ILLNESS: The patient is an 87-year-old woman. 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 She also has atrial fibrillation. She uses oxygen at home as well as bronchodilators. Over the past week, she has noticed increasing dyspnea and congestion. She reports a cough. She does not complain of any fevers. She denies any chest pain. She went to see her primary doctor who gave her azithromycin, which did not help. She subsequently came to the emergency department. PAST SURGICAL HISTORY 1. Status post coronary artery bypass grafting. 2. Status post pacemaker placement. PAST MEDICAL HISTORY 1. COPD with PFTs demonstrating severe obstructive lung disease. 2. Atrial fibrillation. 3. Systolic congestive heart failure. 4. Hypertension. SOCIAL HISTORY: The patient quit smoking 10 years ago. She does not drink alcohol. FAMILY HISTORY: Noncontributory. ALLERGIES: THE PATIENT IS ALLERGIC TO CODEINE. REVIEW OF SYSTEMS: There is no fever. She has no headache. She is not complaining of sore throat. There is no neck pain. She does not have any chest pain. She had some congestion and cough. She denies abdominal pain. There is no nausea or vomiting. She does not have any leg pain. She has no focal neurological complaints. PHYSICAL EXAMINATION VITAL SIGNS: The blood pressure is 135/63, and the saturation is 94% on 2 liters. HEENT: No facial swelling or erythema. Nasal mucosa is normal. The oropharynx is normal. LYMPHATIC: No submandibular, cervical or supraclavicular adenopathy. CARDIAC: Regular rate and rhythm with normal S1 and S2. LUNGS: Auscultation of the lungs reveals rhonchus breath sounds bilaterally. There is no wheezing. ABDOMEN: Soft and nontender. There is no rebound or guarding. EXTREMITIES: No leg edema or calf tenderness. There is no cyanosis or clubbing. SKIN: Examination shows no rash. NEUROLOGIC: Exam shows no focal abnormalities. RADIOGRAPHIC DATA: The chest x-ray shows no acute findings. There is some cardiomegaly. LABORATORY DATA: The TSC-xm-jtrkjkqyff ratio is 19:1.25. The other electrolytes are within normal limits. White blood cell count is 8.6 and hemoglobin 12.2. Platelet count is 178. IMPRESSION 1. Aykwx-wx-gwcnlbi respiratory failure. 2. Chronic obstructive pulmonary disease with acute exacerbation. 3. Chronic systolic congestive heart failure. 4. Acute kidney injury. PLAN 1. Patient will have Solu-Medrol along with bronchodilators. 2. Continue current cardiac regimen. 3. Antibiotics. 4. Repeat CMP and CBC in a.m. 5. Repeat chest x-ray in a.m. Job#: [id number]
[2018-01-21] MEDS: GUAIFENESIN 600MG/DEXTROMETHORPHAN 30MG TABSR PO SCH (17:01)
[2018-01-21 19:44] VITALS: BP 155/70
[2018-01-21] MEDS: IPRATROPIUM BROMIDE 0.02% 2.5 ML NEB NEB SCH ×2 (19:50→22:50)
[2018-01-21] MEDS: ALBUTEROL SULF 0.083% NEB SOLN 3 ML NEB NEB SCH ×2 (19:50→22:45)
[2018-01-21 20:00] VITALS: BP 155/70
[2018-01-21] MEDS: SIMVASTATIN 40 MG TAB PO SCH (21:01)
[2018-01-21] MEDS: PREGABALIN 75 MG CAP PO SCH (23:33)
[2018-01-22] VITALS (8 sets, daily range): BP systolic 118–137; BP diastolic 58–67
[2018-01-22] MEDS: AZITHROMYCIN 500MG/NS 250 ML 250 ML IV SCH ×2 (01:22→09:03)
[2018-01-22 02:08] LABS: BASOPHILS % 0.1 % (0.0-1.0); HEMATOCRIT 38.4 % (34.2-44.1); HEMOGLOBIN 12.2 g/dL (12.0-16.0); LYMPHOCYTES # (AUTO) 0.8 (1.0-3.2); LYMPHOCYTES % 11.3 % (18.0-39.1); MEAN CORPUSCULAR HEMOGLOBIN 27.3 pg (28-32); MEAN CORPUSCULAR HGB CONC 31.8 g/dL (31-35); MEAN CORPUSCULAR VOLUME 85.9 fL (81-99); MONOCYTES # (AUTO) 0.2 (0.2-0.8); MONOCYTES % 2.7 % (4.4-11.3); NEUTROPHILS # (AUTO) 5.9 (2.1-6.9); NEUTROPHILS % 85.3 % (38.7-80.0); PLATELET COUNT 176 x10e3/uL (140-360); RED BLOOD COUNT 4.47 x10e6/uL (3.6-5.1)
[2018-01-22 02:42] LABS: ALANINE AMINOTRANSFERASE 6 IU/L (0-55); ALBUMIN 2.4 g/dL (3.5-5.0); ALBUMIN/GLOBULIN RATIO 1.4 (0.8-2.0); ALKALINE PHOSPHATASE 37 IU/L (40-150); BLOOD UREA NITROGEN 18 mg/dL (7-26); CARBON DIOXIDE 15 mmol/L (22-29); GLUCOSE 132 mg/dL (74-118)
[2018-01-22 02:58] LABS: ANION GAP 14.9 mmol/L (8-16); BUN/CREATININE RATIO 27 (6-25); CHLORIDE 116 mmol/L (98-107); CREATININE, SERUM 0.66 mg/dL (0.57-1.11); EST GLOMERULAR FILTRATION RATE > 60 ML/MIN (60-); SODIUM 143 mmol/L (136-145)
[2018-01-22] MEDS: CEFTRIAXONE SOD 1 GM VIAL IV SCH ×2 (03:04→14:12)
[2018-01-22 03:07] LABS: POTASSIUM 2.9 mmol/L (3.5-5.1)
[2018-01-22 03:08] LABS: CALCIUM 6.3 mg/dL (8.4-10.2)
[2018-01-22] MEDS: IPRATROPIUM BROMIDE 0.02% 2.5 ML NEB NEB SCH ×5 (07:26→23:15)
[2018-01-22] MEDS: TIOTROPIUM 18 MCG INH POWDER INH SCH (07:26)
[2018-01-22] MEDS: ALBUTEROL SULF 0.083% NEB SOLN 3 ML NEB NEB SCH ×5 (07:26→23:15)
[2018-01-22] MEDS ORDERED: CALCIUM GLUCONATE 10% INJ 9.3 MEQ in SODIUM CHLORIDE 0.9% 100 ML 100 ML IV ONE (07:30)
[2018-01-22] MEDS ORDERED: MAGNESIUM SULFATE 2GM/50ML 50 ML IV ONE (07:30)
[2018-01-22] MEDS ORDERED: NON-FORMULARY MEDICATION (Metoprolol Succinate 100 MG) PO SCH (09:00)
[2018-01-22] MEDS: METHYLPREDNISOLONE SOD SUCC 125 MG/2ML VIAL IV SCH ×2 (09:03→20:27)
[2018-01-22] MEDS: VALSARTAN 80 MG TAB PO SCH (09:04)
[2018-01-22] MEDS: SERTRALINE HCL 50 MG TAB PO SCH (09:04)
[2018-01-22] MEDS: PREGABALIN 75 MG CAP PO SCH (09:04)
[2018-01-22] MEDS: METOPROLOL SUCCINATE 50 MG TAB XL PO SCH (09:04)
[2018-01-22] MEDS: GUAIFENESIN 600MG/DEXTROMETHORPHAN 30MG TABSR PO SCH ×2 (09:04→17:12)
[2018-01-22] MEDS: PANTOPRAZOLE SOD 40 MG TABEC PO SCH (09:04)
[2018-01-22] MEDS ORDERED: SODIUM CHLORIDE 0.9% 250ML 250 ML ONE ×2 (09:10→11:05)
[2018-01-22] MEDS ORDERED: POTASSIUM CHLORIDE 20 MEQ TAB CR PO ONE ×3 (09:30→18:15)
--- NOTE | 2018-01-22 09:55 | Diagnostic Imaging Report ---
PROCEDURE: Frontal and lateral views of the chest. COMPARISON: None. INDICATIONS: COPD FINDINGS: Lines/tubes: Left sided AICD device and leads are unchanged. Valvular prothesis is noted. Lungs: Moderately inflated lungs. Bibasilar opacities are unchanged and likely reflect atelectasis or scarring. No new consolidation. No evidence of pulmonary edema. Pleura: There is no pleural effusion or pneumothorax. Heart and mediastinum: Mild enlargement of the cardiomediastinal silhouette. Post surgical changes are present. Bones: No acute bony abnormality. IMPRESSION: No acute radiographic abnormality. Dictated by: SONIA SHELTON M.D. on 01/22/2018 at 10:04 Electronically approved by: SONIA SHELTON M.D. on 01/22/2018 at 10:04
[2018-01-22] MEDS ORDERED: POTASSIUM CHLORIDE 20MEQ/100ML 200 ML IV ONE ×2 (10:15→15:00)
[2018-01-22 10:56] LABS: INR 1.83; PROTHROMBIN TIME 22.6 seconds (11.9-14.5)
[2018-01-22] MEDS ORDERED: MAGNESIUM SULFATE 2GM/50ML 50 ML IV SCH (11:00)
[2018-01-22] MEDS: WARFARIN SOD 1 MG TAB PO SCH (17:13)
[2018-01-22] MEDS: NITROGLYCERIN 0.4 MG SUBL SL PRN (18:25)
[2018-01-22] MEDS ORDERED: NITROGLYCERIN 0.4 MG SUBL ONE (18:25)
[2018-01-22] MEDS: SIMVASTATIN 40 MG TAB PO SCH (20:27)
[2018-01-23] MEDS: CEFTRIAXONE SOD 1 GM VIAL IV SCH ×2 (01:51→13:59)
[2018-01-23] MEDS: IPRATROPIUM BROMIDE 0.02% 2.5 ML NEB NEB SCH ×6 (03:00→23:45)
[2018-01-23] MEDS: ALBUTEROL SULF 0.083% NEB SOLN 3 ML NEB NEB SCH ×6 (03:00→23:45)
[2018-01-23 04:00] VITALS: BP 127/65
[2018-01-23 05:15] LABS: INR 1.8; PROTHROMBIN TIME 22.3 seconds (11.9-14.5)
[2018-01-23] MEDS: TIOTROPIUM 18 MCG INH POWDER INH SCH (07:00)
[2018-01-23 07:53] LABS: ALBUMIN 3.3 g/dL (3.5-5.0); ALBUMIN/GLOBULIN RATIO 1.3 (0.8-2.0); ANION GAP 17.3 mmol/L (8-16); CALCIUM 9.3 mg/dL (8.4-10.2); CREATININE, SERUM 1.08 mg/dL (0.57-1.11); MAGNESIUM 2.4 MG/DL (1.3-2.1)
[2018-01-23 07:56] LABS: POTASSIUM 5.3 mmol/L (3.5-5.1)
[2018-01-23 08:15] VITALS: BP 133/61
[2018-01-23] MEDS: PANTOPRAZOLE SOD 40 MG TABEC PO SCH (08:53)
[2018-01-23] MEDS: VALSARTAN 80 MG TAB PO SCH (08:53)
[2018-01-23] MEDS: PREGABALIN 75 MG CAP PO SCH (08:53)
[2018-01-23] MEDS: AZITHROMYCIN 500MG/NS 250 ML 250 ML IV SCH (08:53)
[2018-01-23] MEDS: METOPROLOL SUCCINATE 50 MG TAB XL PO SCH (08:53)
[2018-01-23] MEDS: GUAIFENESIN 600MG/DEXTROMETHORPHAN 30MG TABSR PO SCH (08:53)
[2018-01-23] MEDS: METHYLPREDNISOLONE SOD SUCC 125 MG/2ML VIAL IV SCH ×2 (08:53→20:07)
[2018-01-23] MEDS: SERTRALINE HCL 50 MG TAB PO SCH (08:53)
[2018-01-23] MEDS ORDERED: WARFARIN SOD 2 MG TAB PO SCH (09:00)
[2018-01-23 12:00] VITALS: BP 138/63
[2018-01-23] MEDS ORDERED: SODIUM CHLORIDE 0.45% 1,000 ML IV ONE (14:30)
--- NOTE | 2018-01-23 15:10 | Progress Note ---
DATE: January 23, 2018 PULMONARY PROGRESS NOTE The patient still reports dyspnea with minimal exertion. She becomes short of breath walking to the bathroom. She still has some cough. OBJECTIVE VITAL SIGNS: The blood pressure is 133/61, saturation 96% on 4 liters. Respiratory rate 18. Pulse 78. HEENT: No facial swelling or erythema. The oropharynx is normal. LYMPHATICS: No submandibular, cervical or supraclavicular adenopathy. NECK: No JVD or thyromegaly. There is no nuclear rigidity. CARDIAC EXAM: Regular rate and rhythm with normal S1 and S2. There are no murmurs or rubs. LUNGS: Auscultation of the lungs reveals prolonged expiratory phase bilaterally. There is no wheezing. ABDOMEN: Soft and nontender. There is no rebound or guarding. EXTREMITIES: No leg edema or calf tenderness. LABORATORY DATA: The creatinine has increased from 0.66 to 1.08. The potassium is 5.3 and the magnesium is 2.4. Chloride 105 and bicarbonate is 24. The sodium is 141. IMPRESSION 1. Acute kidney injury. 2. Chronic obstructive pulmonary disease with acute exacerbation. 3. Chronic systolic congestive heart failure. PLAN: 1. The patient will need mild hydration and repeat BUN and creatinine and electrolytes in the morning. 2. Renal ultrasound along with bladder scan to rule out any urinary retention and obstruction. 3. Continue Solu-Medrol twice daily. 4. Continue current antibiotics. 5. Repeat echocardiogram. 6. I discussed the case with the patient as well as with the daughter, Krystle Tsang, and the nursing staff. Job#: [id number]
[2018-01-23 16:00] VITALS: BP 158/87
--- NOTE | 2018-01-23 16:28 | Diagnostic Imaging Report ---
EXAM: Renal Ultrasound INDICATION: \S\Increasing Creatinine COMPARISON: None TECHNIQUE: Transverse and longitudinal images of the kidneys and bladder were obtained. FINDINGS: Right Kidney: Length: 10.4 cm Appearance: Normal echogenicity. Collecting system: No hydronephrosis Stones: None Cyst/Mass: Few simple cysts as follow: 1. 2.4 x 1.7 x 2.3 cm in the interpolar region 2. 1.9 x 1.9 x 1.6 cm cyst in the upper pole 3. 2.9 x 1.4 x 2.5 cm cyst in the interpolar region Left Kidney: Length: 10.9 cm Appearance: Normal echogenicity. Collecting system: No hydronephrosis Stones: None Cyst/Mass: Few simple left renal cysts as follow: 1. 3.9 x 2.5 x 3.5 cm cyst in the upper pole 2. 2.6 x 2.8 x 2.2 cm simple cyst in the interpolar region Bladder: Normal IMPRESSION: Normal echogenicity and size of the kidneys. Few bilateral simple cysts. Signed by: Dr. Stacey Villa M.D. on 01/23/2018 4:25 PM
[2018-01-23] MEDS: WARFARIN SOD 1 MG TAB PO SCH (16:49)
[2018-01-23 18:59] LABS: CLARITY,URINE CLEAR (CLEAR); COLOR,URINE YELLOW (YELLOW); KETONES,URINE NEGATIVE (NEGATIVE); LEUKOCYTE ESTERASE ,URINE NEGATIVE (NEGATIVE); NITRITE,URINE NEGATIVE (NEGATIVE); PROTEIN,URINE DIPSTICK NEGATIVE (NEGATIVE)
[2018-01-23 19:00] LABS: BILIRUBIN,URINE NEGATIVE (NEGATIVE); URINE UROBILINOGEN 0.2 mg/dL (0.2 - 1)
[2018-01-23 19:01] LABS: EPITHELIAL CELLS,URINE RARE /LPF
[2018-01-23] MEDS: SIMVASTATIN 40 MG TAB PO SCH (20:07)
[2018-01-23 20:29] VITALS: BP 161/71
[2018-01-24 00:07] VITALS: BP 148/76
[2018-01-24] MEDS: LORAZEPAM 1 MG TAB PO PRN ×2 (01:12→20:41)
[2018-01-24] MEDS: IPRATROPIUM BROMIDE 0.02% 2.5 ML NEB NEB SCH ×5 (03:00→23:00)
[2018-01-24] MEDS: ALBUTEROL SULF 0.083% NEB SOLN 3 ML NEB NEB SCH ×5 (03:00→23:00)
[2018-01-24 05:17] LABS: BASOPHILS % 0.1 % (0.0-1.0); HEMATOCRIT 37.5 % (34.2-44.1); HEMOGLOBIN 11.7 g/dL (12.0-16.0); LYMPHOCYTES # (AUTO) 0.7 (1.0-3.2); LYMPHOCYTES % 3.4 % (18.0-39.1); MEAN CORPUSCULAR HEMOGLOBIN 27.4 pg (28-32); MEAN CORPUSCULAR HGB CONC 31.2 g/dL (31-35); MEAN CORPUSCULAR VOLUME 87.8 fL (81-99); MONOCYTES % 10.7 % (4.4-11.3); NEUTROPHILS % 84.7 % (38.7-80.0); PLATELET COUNT 195 x10e3/uL (140-360); RED BLOOD COUNT 4.27 x10e6/uL (3.6-5.1); RED CELL DISTRIBUTION WIDTH 15.1 % (11.7-14.4)
[2018-01-24 05:27] LABS: INR 1.72; PROTHROMBIN TIME 21.5 seconds (11.9-14.5)
[2018-01-24 05:33] LABS: ALBUMIN 3.3 g/dL (3.5-5.0); ALBUMIN/GLOBULIN RATIO 1.4 (0.8-2.0); ANION GAP 16.3 mmol/L (8-16); CREATININE, SERUM 1.15 mg/dL (0.57-1.11); POTASSIUM 5.3 mmol/L (3.5-5.1)
[2018-01-24 05:41] LABS: MAGNESIUM 2.3 MG/DL (1.3-2.1); PHOSPHORUS 4.7 MG/DL (2.3-4.7)
[2018-01-24 06:00] VITALS: BP 151/63
[2018-01-24] MEDS: TIOTROPIUM 18 MCG INH POWDER INH SCH (06:00)
[2018-01-24 07:15] LABS: BAND NEUTROPHILS % (MANUAL) 1 %; LYMPHOCYTES % (MANUAL) 6 % (19-48); MONOCYTES % (MANUAL) 16 % (3.4-9.0); NEUTROPHILS % (MANUAL) 77 % (40-74); PLATELET ESTIMATE ADEQUATE; PLATELET MORPHOLOGY COMMENT NORMAL; RBC MORPHOLOGY COMMENT NORMAL
[2018-01-24 08:00] VITALS: BP 152/65
[2018-01-24] MEDS: SERTRALINE HCL 50 MG TAB PO SCH (09:02)
[2018-01-24] MEDS: METOPROLOL SUCCINATE 50 MG TAB XL PO SCH (09:02)
[2018-01-24] MEDS: PREGABALIN 75 MG CAP PO SCH (09:02)
[2018-01-24] MEDS: PANTOPRAZOLE SOD 40 MG TABEC PO SCH (09:02)
[2018-01-24] MEDS: AZITHROMYCIN 500MG/NS 250 ML 250 ML IV SCH (10:25)
[2018-01-24] MEDS: CEFTRIAXONE SOD 1 GM VIAL IV SCH (10:25)
[2018-01-24] MEDS: METHYLPREDNISOLONE SOD SUCC 125 MG/2ML VIAL IV SCH ×2 (10:25→20:41)
[2018-01-24 12:00] VITALS: BP 152/65
[2018-01-24] MEDS ORDERED: SODIUM CHLORIDE 0.9% 1000ML 1,000 ML IV SCH (12:15)
[2018-01-24] MEDS ORDERED: SOD POLYSTYRENE SULFONATE SUSP 15 GM/60 ML BTL PO ONE (13:00)
[2018-01-24 16:00] VITALS: BP 144/65
[2018-01-24] MEDS: WARFARIN SOD 1 MG TAB PO SCH (16:28)
[2018-01-24 17:17] LABS: BILIRUBIN,URINE NEGATIVE (NEGATIVE); CLARITY,URINE CLEAR (CLEAR); COLOR,URINE STRAW (YELLOW); KETONES,URINE NEGATIVE (NEGATIVE); LEUKOCYTE ESTERASE ,URINE NEGATIVE (NEGATIVE); NITRITE,URINE NEGATIVE (NEGATIVE); PROTEIN,URINE DIPSTICK NEGATIVE (NEGATIVE); URINE UROBILINOGEN 0.2 mg/dL (0.2 - 1)
[2018-01-24 17:19] LABS: BACTERIA,URINE RARE /HPF; EPITHELIAL CELLS,URINE MANY /LPF; WBC,URINE (MAN) 0-5 /HPF (0-5)
[2018-01-24 17:55] LABS: EOSINOPHIL SMEAR,URINE NONE SEEN (NONE SEEN)
[2018-01-24] MEDS ORDERED: FUROSEMIDE INJ 10 MG/ML 2 ML VIAL IV ONE (18:30)
--- NOTE | 2018-01-24 19:35 | Consultation ---
DATE OF CONSULTATION: REQUESTING PHYSICIAN: Dr. Hill. REASON FOR CONSULTATION: Acute kidney disease. Thanks for allowing us to participate in Ms. Cevallos's care. HISTORY OF PRESENT ILLNESS: This is an 87-year-old female who has a history of COPD as well as systolic cardiomyopathy, home oxygen use and atrial fibrillation, came in with worsening dyspnea, felt to have acute on chronic respiratory failure, seen by pulmonary service. Presumably, this is from acute exacerbation of her COPD. It appears that her creatinine actually is quite variable looking in the past records, but for the most part stays around the 1.5 range. Briefly, it dropped to 0.6 here and subsequently come up to about 1.2 mg, but I suspect she is close to baseline when fluid status optimized. Renal ultrasound showed 2 cysts on the left, 3 on the right. There is inadequate to call it polycystic kidney disease, normal echogenicity was noted. She herself is mostly concerned with abdominal distension. Her breathing, she says she uses oxygen at home. Denies any nausea or vomiting. UA was showing hyaline cast. PAST MEDICAL HISTORY 1. Suspect the true baseline renal function is actually where it should be around now. 2. CHF. 3. Atrial fibrillation. 4. COPD, home oxygen use. 5. Hypertension. HOME MEDICATIONS: Please see list. FAMILY HISTORY: She is not sure of kidney problems. REVIEW OF SYSTEMS CONSTITUTIONAL: No fevers or chills. RESPIRATORY: Dyspnea. CARDIAC: No angina, syncope. No palpitations. GI: Some abdominal distension. NEUROLOGIC: Denies headache or seizures. Has chronic hearing loss. SKIN: No new ulcers or sores. Rest of the review is negative. SOCIAL HISTORY: Remote history of smoking. PHYSICAL EXAMINATION GENERAL: Sitting up, some labored breathing. VITAL SIGNS: Temperature 96.5, pulse 77, respiratory rate 20, blood pressure 152/65. HEENT: Atraumatic. Nasal canula in place. NECK: No JVD. CHEST: Clear with diminished breath sounds on both sides, appears to be symmetric. CARDIAC: Normal heart tones. Irregular rhythm. EXTREMITIES: Trace edema. ABDOMEN: Minimal distension. No definite guarding, rigidity, or tenderness. NEURO: Alert and appropriate. Hearing is decreased. SKIN: Evidence of sun damage. LABS: Potassium is 5.3, serum CO2 of 23, creatinine 1.15, BUN 38, sodium 140. Urine was bland with evidence of hyaline cast and some bacteria earlier on, specific gravity was 1.025. Hemoglobin is 11.7, white count is elevated since she started steroids, platelets are 195. ASSESSMENT 1. Acute kidney injury (although this is entirely not clear). 2. May have volume depletion. 3. Congestive heart failure and it seems to be compensated. 4. Mild hyperkaliemia. PLAN: Limited IV fluid. A.m. chemistries. One dose of Kayexalate. Keep low-salt intake. We will follow along. Job#: [id number] MAYCO
[2018-01-24 20:00] VITALS: BP 140/65
[2018-01-24] MEDS: SIMVASTATIN 40 MG TAB PO SCH (20:41)
[2018-01-25] VITALS: BP 136/76
[2018-01-25] MEDS: ALBUTEROL SULF 0.083% NEB SOLN 3 ML NEB NEB SCH ×6 (03:00→23:25)
[2018-01-25] MEDS: IPRATROPIUM BROMIDE 0.02% 2.5 ML NEB NEB SCH ×6 (03:00→23:25)
[2018-01-25 04:00] VITALS: BP 161/70
[2018-01-25] MEDS: TIOTROPIUM 18 MCG INH POWDER INH SCH (06:00)
[2018-01-25 07:05] LABS: ANION GAP 18.4 mmol/L (8-16); CALCIUM 8.9 mg/dL (8.4-10.2); CREATININE, SERUM 1.04 mg/dL (0.57-1.11); MAGNESIUM 2.2 MG/DL (1.3-2.1); PHOSPHORUS 4.6 MG/DL (2.3-4.7); POTASSIUM 4.4 mmol/L (3.5-5.1)
[2018-01-25 07:19] LABS: INR 1.64; PROTHROMBIN TIME 20.8 seconds (11.9-14.5)
[2018-01-25 07:38] VITALS: BP 145/64
--- NOTE | 2018-01-25 07:42 | Diagnostic Imaging Report ---
EXAM: XR CHEST 1 VIEW DATE: 01/25/2018 5:00 AM INDICATION: CHF COMPARISON: 01/22/2018, no report available FINDINGS: Lines and Tubes: Sternotomy wires, left chest wall ICD, aortic valve replacement changes, stable. Heart and Mediastinum: Enlarged. Lungs and Pleura: Mild to moderate edema. Probable small effusions. Bones and Soft Tissues: No acute findings. IMPRESSION: 1. Edema with small effusions. Signed by: Dr. Yanick Garcia MD on 01/25/2018 7:39 AM
[2018-01-25] MEDS: METHYLPREDNISOLONE SOD SUCC 125 MG/2ML VIAL IV SCH ×2 (08:51→21:57)
[2018-01-25] MEDS: CEFTRIAXONE SOD 1 GM VIAL IV SCH (08:51)
[2018-01-25] MEDS: AZITHROMYCIN 500MG/NS 250 ML 250 ML IV SCH (08:51)
[2018-01-25] MEDS: PANTOPRAZOLE SOD 40 MG TABEC PO SCH (08:52)
[2018-01-25] MEDS: SERTRALINE HCL 50 MG TAB PO SCH (08:52)
[2018-01-25] MEDS: PREGABALIN 75 MG CAP PO SCH (08:52)
[2018-01-25] MEDS: METOPROLOL SUCCINATE 50 MG TAB XL PO SCH (08:52)
[2018-01-25 11:38] VITALS: BP 147/69
[2018-01-25] MEDS ORDERED: FUROSEMIDE INJ 10 MG/ML 2 ML VIAL IV ONE (13:30)
[2018-01-25] MEDS: NITROGLYCERIN 0.4 MG SUBL SL PRN (15:15)
[2018-01-25] MEDS: LORAZEPAM 1 MG TAB PO PRN ×2 (15:57→21:57)
[2018-01-25 16:07] VITALS: BP 159/70
[2018-01-25] MEDS: WARFARIN SOD 1 MG TAB PO SCH (16:29)
[2018-01-25 20:00] VITALS: BP 158/71
[2018-01-25] MEDS: SIMVASTATIN 40 MG TAB PO SCH (21:57)
[2018-01-26] VITALS (8 sets, daily range): BP systolic 139–188; BP diastolic 63–77
[2018-01-26] MEDS: IPRATROPIUM BROMIDE 0.02% 2.5 ML NEB NEB SCH ×6 (03:22→23:35)
[2018-01-26] MEDS: ALBUTEROL SULF 0.083% NEB SOLN 3 ML NEB NEB SCH ×6 (03:22→23:35)
[2018-01-26 07:12] LABS: ANION GAP 17.3 mmol/L (8-16); CALCIUM 9.2 mg/dL (8.4-10.2); CREATININE, SERUM 1.08 mg/dL (0.57-1.11); POTASSIUM 4.3 mmol/L (3.5-5.1)
[2018-01-26] MEDS: TIOTROPIUM 18 MCG INH POWDER INH SCH (07:45)
[2018-01-26] MEDS: AZITHROMYCIN 500MG/NS 250 ML 250 ML IV SCH (09:25)
[2018-01-26] MEDS: METHYLPREDNISOLONE SOD SUCC 125 MG/2ML VIAL IV SCH ×2 (09:25→22:13)
[2018-01-26] MEDS: SERTRALINE HCL 50 MG TAB PO SCH (09:26)
[2018-01-26] MEDS: TORSEMIDE 10 MG TAB PO SCH (09:26)
[2018-01-26] MEDS: PREGABALIN 75 MG CAP PO SCH (09:26)
[2018-01-26] MEDS: METOPROLOL SUCCINATE 50 MG TAB XL PO SCH (09:26)
[2018-01-26] MEDS: PANTOPRAZOLE SOD 40 MG TABEC PO SCH (09:26)
[2018-01-26] MEDS: CHLORTHALIDONE 25 MG TAB PO SCH (09:26)
[2018-01-26] MEDS ORDERED: LORAZEPAM 0.5 MG TAB PO PRN (16:15)
[2018-01-26] MEDS: WARFARIN SOD 1 MG TAB PO SCH (17:10)
[2018-01-26] MEDS: SIMVASTATIN 40 MG TAB PO SCH (22:13)
[2018-01-27] VITALS (8 sets, daily range): BP systolic 111–165; BP diastolic 53–71
[2018-01-27] MEDS: IPRATROPIUM BROMIDE 0.02% 2.5 ML NEB NEB SCH ×6 (03:00→23:30)
[2018-01-27] MEDS: ALBUTEROL SULF 0.083% NEB SOLN 3 ML NEB NEB SCH ×6 (03:00→23:30)
[2018-01-27 06:56] LABS: ANION GAP 14.5 mmol/L (8-16); CALCIUM 9.2 mg/dL (8.4-10.2); CREATININE, SERUM 1.23 mg/dL (0.57-1.11); MAGNESIUM 2.2 MG/DL (1.3-2.1); PHOSPHORUS 3.6 MG/DL (2.3-4.7); POTASSIUM 4.5 mmol/L (3.5-5.1)
[2018-01-27 07:16] LABS: INR 2.07; PROTHROMBIN TIME 24.9 seconds (11.9-14.5)
[2018-01-27] MEDS: TIOTROPIUM 18 MCG INH POWDER INH SCH (07:57)
[2018-01-27] MEDS: AZITHROMYCIN 500MG/NS 250 ML 250 ML IV SCH (08:01)
[2018-01-27] MEDS: METHYLPREDNISOLONE SOD SUCC 125 MG/2ML VIAL IV SCH (08:01)
[2018-01-27] MEDS: PANTOPRAZOLE SOD 40 MG TABEC PO SCH (08:02)
[2018-01-27] MEDS: CHLORTHALIDONE 25 MG TAB PO SCH (08:02)
[2018-01-27] MEDS: TORSEMIDE 10 MG TAB PO SCH (08:02)
[2018-01-27] MEDS: PREGABALIN 75 MG CAP PO SCH (08:02)
[2018-01-27] MEDS: METOPROLOL SUCCINATE 50 MG TAB XL PO SCH (08:03)
[2018-01-27] MEDS: SERTRALINE HCL 50 MG TAB PO SCH (08:03)
[2018-01-27 10:46] LABS: BASOPHILS % 0.3 % (0.0-1.0); HEMATOCRIT 39.9 % (34.2-44.1); HEMOGLOBIN 12.6 g/dL (12.0-16.0); LYMPHOCYTES # (AUTO) 0.9 (1.0-3.2); LYMPHOCYTES % 9.2 % (18.0-39.1); MEAN CORPUSCULAR HEMOGLOBIN 27.6 pg (28-32); MEAN CORPUSCULAR HGB CONC 31.6 g/dL (31-35); MEAN CORPUSCULAR VOLUME 87.5 fL (81-99); MONOCYTES # (AUTO) 0.6 (0.2-0.8); NEUTROPHILS % 81.2 % (38.7-80.0); PLATELET COUNT 206 x10e3/uL (140-360); RED BLOOD COUNT 4.56 x10e6/uL (3.6-5.1); RED CELL DISTRIBUTION WIDTH 14.9 % (11.7-14.4)
[2018-01-27] MEDS ORDERED: FUROSEMIDE INJ 10 MG/ML 2 ML VIAL IV NR (11:30)
--- NOTE | 2018-01-27 12:17 | Diagnostic Imaging Report ---
Examination: Single AP view of the chest. COMPARISON: Portable chest 01/25/2018 INDICATION: Bronchitis, CHF IMPRESSION: 1. Lines and Tubes: Stable left chest wall ICD 2. No significant interval change in small bilateral pleural effusions and likely associated atelectasis. Interval improvement in bilateral mild pulmonary edema. No definite consolidation. 3. Enlarged cardiac silhouette is stable. Central pulmonary venous congestion, improved 4. No acute bony abnormalities. Signed by: Dr. Pankaj Noriega M.D. on 01/27/2018 12:13 PM
[2018-01-27 14:33] LABS: LYMPHOCYTES % (MANUAL) 13 % (19-48); MONOCYTES % (MANUAL) 5 % (3.4-9.0); NEUTROPHILS % (MANUAL) 81 % (40-74); PLATELET ESTIMATE ADEQUATE; PLATELET MORPHOLOGY COMMENT NORMAL; RBC MORPHOLOGY COMMENT NORMAL
[2018-01-27] MEDS: WARFARIN SOD 1 MG TAB PO SCH (16:39)
[2018-01-27] MEDS ORDERED: METHYLPREDNISOLONE SOD SUCC 125 MG/2ML VIAL IV SCH (21:00)
[2018-01-27] MEDS: METHYLPREDNISOLONE SOD SUCC 40 MG/ML VIAL IV SCH (21:25)
[2018-01-27] MEDS: SIMVASTATIN 40 MG TAB PO SCH (21:25)
[2018-01-28 00:21] VITALS: BP 167/76
[2018-01-28] MEDS: ALBUTEROL SULF 0.083% NEB SOLN 3 ML NEB NEB SCH ×4 (03:00→14:51)
[2018-01-28] MEDS: IPRATROPIUM BROMIDE 0.02% 2.5 ML NEB NEB SCH ×4 (03:00→14:51)
[2018-01-28 05:10] VITALS: BP 110/56
[2018-01-28] MEDS: TIOTROPIUM 18 MCG INH POWDER INH SCH (06:00)
[2018-01-28 07:00] LABS: BASOPHILS # (AUTO) 0.1 (0.0-0.1); BASOPHILS % 0.4 % (0.0-1.0); HEMATOCRIT 43.4 % (34.2-44.1); HEMOGLOBIN 13.7 g/dL (12.0-16.0); LYMPHOCYTES # (AUTO) 1.1 (1.0-3.2); LYMPHOCYTES % 9.8 % (18.0-39.1); MEAN CORPUSCULAR HEMOGLOBIN 27.4 pg (28-32); MEAN CORPUSCULAR HGB CONC 31.6 g/dL (31-35); MEAN CORPUSCULAR VOLUME 86.8 fL (81-99); MONOCYTES # (AUTO) 0.9 (0.2-0.8); MONOCYTES % 8.1 % (4.4-11.3); NEUTROPHILS % 78.7 % (38.7-80.0); PLATELET COUNT 198 x10e3/uL (140-360)
[2018-01-28 07:20] LABS: ANION GAP 18.5 mmol/L (8-16); CALCIUM 9.4 mg/dL (8.4-10.2); CREATININE, SERUM 1.31 mg/dL (0.57-1.11); MAGNESIUM 2.7 MG/DL (1.3-2.1); POTASSIUM 4.5 mmol/L (3.5-5.1)
[2018-01-28 08:00] VITALS: BP 168/70
[2018-01-28] MEDS ORDERED: PREDNISONE20 MG PO (08:18)
[2018-01-28] MEDS ORDERED: ATIVAN0.5 MG PO (08:18)
[2018-01-28] MEDS ORDERED: IPRATROPIU0.2 MG/1 M NEB (08:18)
[2018-01-28] MEDS ORDERED: LEVALBUTER0.63 MG/3 NEB (08:18)
[2018-01-28 08:20] VITALS: BP 168/70
[2018-01-28] MEDS: TORSEMIDE 10 MG TAB PO SCH (08:56)
[2018-01-28] MEDS: PREGABALIN 75 MG CAP PO SCH (08:56)
[2018-01-28] MEDS: PANTOPRAZOLE SOD 40 MG TABEC PO SCH (08:56)
[2018-01-28] MEDS: METOPROLOL SUCCINATE 50 MG TAB XL PO SCH (08:56)
[2018-01-28] MEDS: CHLORTHALIDONE 25 MG TAB PO SCH (08:56)
[2018-01-28] MEDS: SERTRALINE HCL 50 MG TAB PO SCH (08:56)
[2018-01-28] MEDS: METHYLPREDNISOLONE SOD SUCC 40 MG/ML VIAL IV SCH (08:56)
[2018-01-28] MEDS ORDERED: FUROSEMIDE INJ 10 MG/ML 4 ML VIAL IV ONE (09:00)
[2018-01-28 12:00] VITALS: BP 145/86
[2018-01-28 16:00] VITALS: BP 141/63
[2018-01-28] MEDS: WARFARIN SOD 1 MG TAB PO SCH (16:23)
--- NOTE | 2018-01-28 19:25 | Discharge Summary ---
ADMISSION DIAGNOSES 1. Acute exacerbation of chronic obstructive pulmonary disease with bronchitis. 2. Hypertension complicated by coronary artery disease. 3. Hyperlipidemia. 4. Gastroesophageal reflux disease. 5. Chronic kidney disease, 3. 6. Anemia. 7. Paroxysmal atrial fibrillation. 8. Congestive heart failure. DISCHARGE DIAGNOSES 1. Acute exacerbation of chronic obstructive pulmonary disease with bronchitis. 2. Hypertension complicated by coronary artery disease. 3. Hyperlipidemia. 4. Gastroesophageal reflux disease. 5. Chronic kidney disease, 3. 6. Anemia. 7. Paroxysmal atrial fibrillation. 8. Congestive heart failure. 9. Hypermagnesemia. 10. Hypernatremia. HISTORY: The patient has a history of COPD, sick sinus syndrome with paroxysmal atrial fibrillation, hypertension, CAD, chronic systolic CHF, chronic kidney disease 3, anemia, GERD, hyperlipidemia. PAST SURGICAL HISTORY: The patient has a surgical history of coronary artery bypass graft and pacer. FAMILY HISTORY: One of the patient's sons had a stroke. The other son had cancer and another son had a heart attack. SOCIAL HISTORY: The patient denies alcohol or illicit drug use. She admits to smoking. She quit about 3 years ago. HOSPITAL COURSE: An 87-year-old female who complains of worsening dyspnea on exertion over the last 2 weeks. Last night she could not breathe despite all efforts. Shortness of breath is worse with movement. The patient uses oxygen at home, 2-3 liters per minute. She admits to productive cough with yellow sputum and denies fever, dizziness, bilateral lower extremity edema. On admission, the patient was started on , Rocephin, IV steroids, Mucinex, and oxygen. She resumed her home medicines for hypertension, hyperlipidemia, GERD, paroxysmal atrial fibrillation and CHF. On admission, her creatinine was 1.25 with a GFR of 41. The patient had an echo that showed an EF of 35% to 40%. EKG showed V pacing at a rate of 70. Chest x-ray showed stable appearance of the chest. Renal ultrasound showed normal echogenicity and size of the kidneys, few bilateral simple cysts. The patient's BNP slowly trended up, so a repeat chest x-ray was done after giving a few doses of Lasix that showed improvement in pulmonary edema and improved central pulmonary venous congestion. Blood cultures were negative. After about a week of IV antibiotics and IV steroids, the patient is feeling much better. She will discharge home with her daughter. She has nebulizer and oxygen at home already as well as a walker. I refilled her nebs for her, gave her a prescription for a taper dosing of p.o. steroids and Ativan p.r.n. She will resume all other home medicines. She will follow up with Dr. Darby in one week and primary care in 1-2 weeks. The patient understands discharge instructions and agrees to plan. Vital signs stable. The patient afebrile. Dictated by: Ashley Plaza NP COLLEEN HENDERSON MD Job#: [id number]
== END 2018-01-28 17:09 | disposition home or self-care (01) | DRG 291 ==
LOC: ER 00:53 → ERHOLD 06:21 → MED/SURG2 12:05
PROVIDERS: ADMIT Internal Medicine; ATTEND Internal Medicine
DX: I13.0 Hypertensive heart and chronic kidney disease with heart failure and stage 1 through stage 4 chronic kidney disease, or unspecified chronic kidney disease (principal); J96.20 Acute and chronic respiratory failure, unspecified whether with hypoxia or hypercapnia; I50.23 Acute on chronic systolic (congestive) heart failure; J44.1 Chronic obstructive pulmonary disease with (acute) exacerbation; N17.9 Acute kidney failure, unspecified; J44.0 Chronic obstructive pulmonary disease with (acute) lower respiratory infection; N18.3 Chronic kidney disease, stage 3 (moderate); J20.9 Acute bronchitis, unspecified; Z95.1 Presence of aortocoronary bypass graft; Z95.810 Presence of automatic (implantable) cardiac defibrillator; K21.9 Gastro-esophageal reflux disease without esophagitis; E78.5 Hyperlipidemia, unspecified; Z99.81 Dependence on supplemental oxygen; D64.9 Anemia, unspecified; Z88.5 Allergy status to narcotic agent; Z82.49 Family history of ischemic heart disease and other diseases of the circulatory system; Z82.3 Family history of stroke; Z80.9 Family history of malignant neoplasm, unspecified; I48.91 Unspecified atrial fibrillation; Z87.891 Personal history of nicotine dependence; E87.5 Hyperkalemia; E83.51 Hypocalcemia; E87.6 Hypokalemia; D63.1 Anemia in chronic kidney disease; Z79.01 Long term (current) use of anticoagulants; I48.0 Paroxysmal atrial fibrillation
CPT/HCPCS: 36415; 71045; 71046; 76770; 80048; 80053; 81001; 81015; 82550; 82553; 83605; 83735; 83880; 84100; 84165; 84484; 84550; 85025; 85610; 85730; 87040; 87086; 93005; 93306; 94640; 96360; 99284; J0456; J0610; J0696; J1940; J2920; J2930; J3475; J3480; J7030; J7050

== ENCOUNTER 2018-05-20 07:50 | Inpatient (IN) | payer MEDICARE, OTHER ==
[~2018-05-20] VITALS: Ht 152.4 cm; Wt 80.7 kg
[~2018-05-20 07:50] MED LIST changes: +ATIVAN0.5 MG PO
[2018-05-20] MEDS ORDERED: METHYLPREDNISOLONE SOD SUCC 125 MG/2ML VIAL IV ONE (08:15)
[2018-05-20] MEDS ORDERED: ASPIRIN 81 MG CHEW TAB PO ONE (08:15)
[2018-05-20] MEDS ORDERED: ALBUTEROL/IPRATROPIUM 3 ML NEB NEB ONE (08:15)
[2018-05-20 08:21] LABS: BASOPHILS % 0.5 % (0.0-1.0); EOSINOPHILS # (AUTO) 0.3 (0.0-0.4); EOSINOPHILS % 3.1 % (0.0-6.0); HEMATOCRIT 40.3 % (34.2-44.1); HEMOGLOBIN 12.5 g/dL (12.0-16.0); LYMPHOCYTES # (AUTO) 2.5 (1.0-3.2); LYMPHOCYTES % 29.1 % (18.0-39.1); MEAN CORPUSCULAR HEMOGLOBIN 28.7 pg (28-32); MEAN CORPUSCULAR VOLUME 92.4 fL (81-99); MONOCYTES # (AUTO) 0.6 (0.2-0.8); MONOCYTES % 6.9 % (4.4-11.3); NEUTROPHILS # (AUTO) 5.1 (2.1-6.9); PLATELET COUNT 167 x10e3/uL (140-360); RED BLOOD COUNT 4.36 x10e6/uL (3.6-5.1); RED CELL DISTRIBUTION WIDTH 13.2 % (11.7-14.4)
[2018-05-20 08:38] LABS: ALBUMIN 3.5 g/dL (3.5-5.0); ALBUMIN/GLOBULIN RATIO 1.5 (0.8-2.0); ANION GAP 14.5 mmol/L (8-16); CALCIUM 9.2 mg/dL (8.4-10.2); CREATININE, SERUM 1.32 mg/dL (0.57-1.11); POTASSIUM 4.5 mmol/L (3.5-5.1)
[2018-05-20 09:24] LABS: CLARITY,URINE HAZY (CLEAR); COLOR,URINE YELLOW (YELLOW); LEUKOCYTE ESTERASE ,URINE NEGATIVE (NEGATIVE); NITRITE,URINE NEGATIVE (NEGATIVE)
[2018-05-20 09:25] LABS: BILIRUBIN,URINE NEGATIVE (NEGATIVE); KETONES,URINE NEGATIVE (NEGATIVE); PROTEIN,URINE DIPSTICK 2+ (NEGATIVE); URINE UROBILINOGEN 0.2 mg/dL (0.2 - 1)
--- NOTE | 2018-05-20 09:34 | Diagnostic Imaging Report ---
EXAMINATION: CHEST SINGLE (PORTABLE) INDICATION: Chest pain. COMPARISON: Chest radiograph 01/27/18. FINDINGS: TUBES and LINES: Left chest wall AICD device in unchanged position. Status post aortic valve replacement. LUNGS: Mild bilateral perihilar and interstitial opacities. Patchy opacities at the bilateral lung bases. PLEURA: Possible small bilateral pleural effusions. No evidence of pneumothorax. HEART AND MEDIASTINUM: The cardiomediastinal silhouette is unremarkable. Atherosclerotic calcifications of the aortic arch. BONES AND SOFT TISSUES: No acute osseous abnormality. Status post median sternotomy. UPPER ABDOMEN: No free air under the diaphragm. IMPRESSION: Mild pulmonary interstitial edema with possible small bilateral pleural effusions. Patchy opacities at the lung bases, which could represent atelectasis or pneumonia in the appropriate clinical context. Follow-up chest radiograph suggested in 6-8 weeks. Signed by: Dr. Reyna Malave MD on 05/20/2018 9:30 AM
[2018-05-20 09:35] LABS: BACTERIA,URINE FEW /HPF; EPITHELIAL CELLS,URINE MODERATE /LPF; MUCUS,URINE FEW (RARE)
[2018-05-20] MEDS ORDERED: AZITHROMYCIN 500MG/SOD CHL 0.9% 250ML BAG IV SCH (10:00)
[2018-05-20] MEDS ORDERED: CEFTRIAXONE SOD 1 GM VIAL IV SCH (10:00)
[2018-05-20] MEDS: CEFTRIAXONE SOD 1 GM/NS 50 ML 50 ML IV SCH (10:19)
[2018-05-20] MEDS: AZITHROMYCIN 500MG/NS 250 ML 250 ML IV SCH (10:56)
[2018-05-20] MEDS ORDERED: HYDROCODONE/APAP 5MG-325MG TAB PO ONE (11:30)
--- NOTE | 2018-05-20 11:55 | NUR ---
RECEIVED PT FROM ER AT THIS TIME, PT ON 3L VIA NC PT SOB WITH AMBULATION, PT ORIENTED TO ROOM AND HOSPITAL POLICY. CALL LIGHT WITH REACH SIDE RAILS UP X2 WILL CONTINUE TO MONITOR.
[2018-05-20 12:07] VITALS: BP 142/64
[2018-05-20 12:55] VITALS: BP 142/64
[2018-05-20 15:44] VITALS: BP 126/78
[2018-05-20 16:53] LABS: CREATINE KINASE MB 3.7 ng/mL (0-5.0)
--- NOTE | 2018-05-20 19:00 | NUR ---
received report from day nurse. patient is resting comfortably in bed. bed is in lowest position and call rodriguez is within reach. will continue to monitor patient.
[2018-05-20 20:00] VITALS: BP 136/63
--- NOTE | 2018-05-20 21:01 | History and Physical ---
PRIMARY CARE PROVIDER: Dr. Saul Grayson CHIEF COMPLAINT: Shortness of breath. HISTORY OF PRESENT ILLNESS: Ms. Cevallos is an 87-year-old lady with COPD and congestive heart failure, who presents with increasing shortness of breath and a dry hacking cough and wheezing. REVIEW OF SYSTEMS: She denies fever, chills, or weight loss. She denies sinus congestion or sore throat. She denies chest pain or palpitations. She has had shortness of breath, dyspnea with exertion, a dry hacking cough. She denies abdominal pain, nausea, vomiting, or melena. She denies rash or pruritus. She denies bleeding or bruising. She denies joint pain or swelling. She denies headache, vertigo, or loss of consciousness. She denies depression, agitation, homicidal or suicidal ideation. PAST MEDICAL HISTORY: Significant for long-standing hypertension. She has coronary artery disease, status post CABG 12 years ago. She has had paroxysmal atrial fibrillation and a pacemaker placed and is on high-dose metoprolol for AFib and sick sinus syndrome that occurred after the CABG 12 years ago. She also has chronic systolic heart failure with an echo a couple of years ago that showed an EF of 35% to 40% with normal LV size and diminished LV function. She also has long-standing COPD. MEDICATIONS: Include Xopenex and ipratropium neb treatments, Spiriva daily, Lasix 20 mg daily, metoprolol XL 100 mg daily, Protonix 40 mg daily, Lyrica 75 mg daily, Zoloft 50 mg daily, simvastatin 40 mg at bedtime, valsartan 80 mg daily, and Coumadin 2 mg every other day. ALLERGIES: SHE HAS A STATED ALLERGY TO CODEINE. FAMILY HISTORY: Significant for hypertension and heart disease. SOCIAL HISTORY: The patient is . Maltese is her primary language. She does not smoke, drink, or use illegal drugs, and she is generally independently functioning. PHYSICAL EXAMINATION: PSYCHIATRIC: She is alert and oriented x3 with normal mood and affect. CONSTITUTIONAL: She has a normal body habitus, is in some mild respiratory distress. VITAL SIGNS: As follows: Blood pressure 142/64. Pulse 88 and regular. She is paced on her EKG. Respiratory rate 18. O2 sat 93% on 4 liter nasal cannula. Temperature 98.8. HEENT: Her head is atraumatic. Her eyes are anicteric with clear conjunctivae. Ears and nares are without erythema or discharge. Oropharynx is clear. NECK: Supple with no mass or thyromegaly. LYMPHATIC SYSTEM: She has no palpable cervical, axillary, or inguinal adenopathy. CARDIOVASCULAR SYSTEM: Her heart has a regular rate and rhythm, again paced on her EKG. No murmur. RESPIRATORY: Lungs revealed generally diminished breath sounds with hacking cough and expiratory wheezing and some mild respiratory distress. She is on 4 liter nasal cannula. GASTROINTESTINAL: Her abdomen is soft without organomegaly, masses, or tenderness. She has normal bowel sounds present. CUTANEOUS: Her skin is warm and dry to touch with no rash or skin breakdown. MUSCULOSKELETAL: Her joints are in normal alignment without erythema or swelling. She has no calf tenderness. NEUROLOGIC: Nonfocal with intact cranial nerves and no motor or sensory deficits. DIAGNOSTIC STUDIES: Chest x-ray shows mild pulmonary edema and small bilateral effusions. She also has patchy opacities at both lung bases. Her EKG is paced. Her UA is clear. Her troponin 0.015, 0.192, both within normal limits. BNP is 242.7. Her chemistry shows normal electrolytes, CO2 28, creatinine 1.32, BUN 21 for a GFR of 38 which is roughly her baseline. Her calcium is 9.2. Glucose is 137. CBC shows a white count of 8.5 with normal differential, hemoglobin 12.5, hematocrit 40.3, and platelet count 167,000. ASSESSMENT AND PLAN: 1. Bibasilar pneumonia. Intravenous Zithromax and Rocephin. 2. Acute exacerbation of chronic obstructive pulmonary disease. Aggressive nebulizers and p.o. prednisone. 3. Hypertension, complicated by congestive heart failure and chronic kidney disease 3. Controlled. Will continue valsartan. 4. Chronic atrial fibrillation/sick sinus syndrome, status post pacemaker. Patient is fully paced. Will continue metoprolol and Coumadin. 5. Chronic kidney disease 3. Stable at the moment. Will continue to monitor. 6. For prophylaxis, the patient will be on Coumadin for deep venous thrombosis prophylaxis and stroke prophylaxis as well as Protonix for gastrointestinal prophylaxis. Job#: [id number]
[2018-05-20 21:16] LABS: INR 1.44; PROTHROMBIN TIME 18.7 seconds (11.9-14.5)
[2018-05-20] MEDS: SIMVASTATIN 40 MG TAB PO SCH (21:22)
[2018-05-20] MEDS: LORAZEPAM 0.5 MG TAB PO PRN (21:22)
[2018-05-20] MEDS: FUROSEMIDE 20 MG TAB PO SCH (21:22)
[2018-05-20] MEDS: GUAIFENESIN 600MG/DEXTROMETHORPHAN 30MG TABSR PO SCH (23:58)
[2018-05-21] VITALS (7 sets, daily range): BP systolic 118–139; BP diastolic 56–64
[2018-05-21 03:45] LABS: CREATINE KINASE MB 4.5 ng/mL (0-5.0)
[2018-05-21] MEDS: GUAIFENESIN 600MG/DEXTROMETHORPHAN 30MG TABSR PO SCH ×3 (05:13→18:47)
[2018-05-21 05:20] LABS: HEMATOCRIT 34.2 % (34.2-44.1); HEMOGLOBIN 10.6 g/dL (12.0-16.0); LYMPHOCYTES % 15.7 % (18.0-39.1); MEAN CORPUSCULAR HEMOGLOBIN 28.6 pg (28-32); MEAN CORPUSCULAR VOLUME 92.2 fL (81-99); MONOCYTES # (AUTO) 0.4 (0.2-0.8); MONOCYTES % 5.7 % (4.4-11.3); NEUTROPHILS # (AUTO) 4.8 (2.1-6.9); NEUTROPHILS % 78.3 % (38.7-80.0); PLATELET COUNT 160 x10e3/uL (140-360); RED BLOOD COUNT 3.71 x10e6/uL (3.6-5.1); RED CELL DISTRIBUTION WIDTH 13.1 % (11.7-14.4)
[2018-05-21 05:36] LABS: INR 1.53; PROTHROMBIN TIME 19.7 seconds (11.9-14.5)
[2018-05-21 05:45] LABS: ANION GAP 13.9 mmol/L (8-16); CALCIUM 8.9 mg/dL (8.4-10.2); CREATININE, SERUM 1.08 mg/dL (0.57-1.11); POTASSIUM 4.9 mmol/L (3.5-5.1)
[2018-05-21 06:52] LABS: CHOL/HDL RATIO 2.5 (3.0-3.6); MAGNESIUM 2.2 MG/DL (1.3-2.1)
[2018-05-21 07:11] LABS: THYROID STIMULATING HORMONE 0.356 uIU/mL (0.350-4.940)
[2018-05-21] MEDS: IPRATROPIUM BROMIDE 0.02% 2.5 ML NEB NEB SCH ×3 (07:30→19:18)
[2018-05-21] MEDS: LEVALBUTEROL HCL SOLN NEBU 0.63 MG/3 ML NEB IH SCH ×3 (07:30→19:18)
--- NOTE | 2018-05-21 07:55 | NUR ---
patient resting in bed, Alert with no distress, on O2 3L NC, Call light in reach,
[2018-05-21] MEDS: PREDNISONE 10 MG TAB PO SCH (08:43)
[2018-05-21] MEDS: PANTOPRAZOLE SOD 40 MG TABEC PO SCH (08:43)
[2018-05-21] MEDS: FUROSEMIDE 20 MG TAB PO SCH (08:43)
[2018-05-21] MEDS: SERTRALINE HCL 50 MG TAB PO SCH (08:43)
[2018-05-21] MEDS: PREGABALIN 75 MG CAP PO SCH (08:43)
[2018-05-21] MEDS: AZITHROMYCIN 500MG/NS 250 ML 250 ML IV SCH (08:59)
[2018-05-21] MEDS: VALSARTAN 80 MG TAB PO SCH (08:59)
[2018-05-21] MEDS ORDERED: PREDNISONE 20 MG TAB PO SCH (09:00)
[2018-05-21] MEDS: METOPROLOL SUCCINATE 50 MG TAB XL PO SCH (09:00)
[2018-05-21] MEDS ORDERED: NON-FORMULARY MEDICATION (Metoprolol Succinate 100 MG) PO SCH (09:00)
[2018-05-21] MEDS ORDERED: PANTOPRAZOLE SOD 40 MG TABEC PO SCH (09:00)
[2018-05-21] MEDS: CEFTRIAXONE SOD 1 GM/NS 50 ML 50 ML IV SCH (10:12)
--- NOTE | 2018-05-21 10:32 | Consultation ---
DATE OF CONSULTATION: May 20, 2018 CARDIOLOGY CONSULTATION REASON FOR CONSULTATION: CAD, CHF. REFERRING PHYSICIAN: Dr. Barragan HPI: This is a pleasant, 87-year-old female with multiple medical problems that presented with shortness of breath. According to the patient, for the last week she has been having shortness of breath, unable to carry out activities of daily living, accompanied with dry, hacking cough. She was brought to the emergency room for further evaluation. She was found to have acute COPD exacerbation and pneumonia. She has a history of chronic AFib, anticoagulated with Coumadin. She also has a history of chronic systolic CHF with biventricular ICD that was recently interrogated with good function. She denied any chest pain, any palpitations, any diaphoresis, any headache, nausea or vomiting. Troponin was negative. EKG showed sinus rhythm with some V pacing and BNP of 953. PAST MEDICAL HISTORY: Chronic AFib, systolic CHF, hypertension, COPD, VA, CAD with CABG, herpes, renal insufficiency, GERD, sick sinus syndrome, hyperlipidemia, AAA. PAST SURGICAL HISTORY: Aneurysm repair, open heart surgery, ICD biventricular placement. FAMILY HISTORY: Positive for heart disease and CCA. SOCIAL HISTORY: She quit smoking. She lives at home with daughter. No use of drugs. MEDICATIONS: See med list. ALLERGIES: ALLERGIC TO CODEINE. REVIEW OF SYSTEMS: Negative except those mentioned above. She is positive for shortness of breath. PHYSICAL EXAMINATION VITAL SIGNS: Temperature 98, heart rate 80, blood pressure 138/64, respirations 18, oxygen saturation 95% on 2 liters nasal cannula. GENERAL: She is awake, alert and oriented x3. HEENT: Mucous membranes moist. NECK: Supple. LUNGS: Bilateral with decreased breath sounds. CARDIOVASCULAR: Irregular with V pacing. EXTREMITIES: No edema. NEUROLOGIC: Intact. LABS: Sodium 141, potassium 4.9, chloride 105, CO2 27, BUN 26, creatinine 1.08. Glucose 135. White blood cells 6.10, hemoglobin 10.6, hematocrit 34.2, platelets 160. PT 19.7, INR 1.53. IMPRESSION 1. Efzpr-mt-csucgzb systolic congestive heart failure exacerbation. 2. Acute exacerbation of chronic obstructive pulmonary disease. 3. Chronic atrial fibrillation. 4. Coronary artery disease with implantable cardioverter-defibrillator. 5. Pneumonia. 6. Anemia. 7. Hypertension. ASSESSMENT AND PLAN 1. Will go ahead and get an echocardiogram to reassess the LV and valve function. Last echo was done in 2016 with EF 35% to 40%. 2. She had biventricular ICD that was recently interrogated in the office with good function. 3. Heart rate is controlled, and she is anticoagulated. Will continue her home medications, beta tabby, diuretic and valsartan. 4. Will put her on a low salt diet and fluid restriction. 5. Further cardiac workup pending clinical course. Thank you for this consultation. DICTATED BY: Madeline Cohen NP Job#: [id number]
[2018-05-21 10:48] LABS: CREATINE KINASE MB 4.8 ng/mL (0-5.0)
--- NOTE | 2018-05-21 11:21 | NUR ---
patient transferred to room 208, stable, no distress or SOB, Report given to floor nurse
--- NOTE | 2018-05-21 11:30 | NUR ---
PT RECEIVED TRANSFER FROM RM 178, [id number], ON N/C 3L AND GETS SOB WITH AMBULATION. PT ORIENTED TO ROOM, CALL LIGHT WITHIN REACH. DENIES PAIN OR DISCOMFORT. WILL CONTINUE TO MONITOR
--- NOTE | 2018-05-21 14:39 | NUR ---
SOCIAL WORK INITIAL ASSESSMENT Vp Account Director to bedside to discuss plan of care with patient/family. CM/SW role and care transitions discussed. Anticipated discharge plan discussed along with duration of care. CM/SW discussed patients right to make decisions in care. CM/SW work hours given. Patient lives: IN OWN HOUSE WITH DAUGHTER JEVON WHOM IS A PASS WORKER AT [employer] ON [address] Admit/Transfer: VIA ED FROM HOME POA/Emergency contact: DAUGHTER JEVON [phone] Current/Previous Home Health: HAS BUT CANNOT REMEMBER NAME DEFERS TO DAUGHTER WHOM TAKES CARE OF STUFF PCP/Follow-up Care: JOANNE Current/Previous DME: WALKER, O2 AND WHEELCHAIR AT HOME Other Services: NA Employment Status: RETIRED Areas of Concerns: NONE Referral Needs: NONE Education Needs: NONE IMM/YANG given and signed (if applicable): UPON ADMISSION Goal for discharge: RETURN HOME CM/SW left business card at the bedside with contact information. Name and number was also written on the patients whiteboard. Patient verbalized understanding of discussion. CM will follow-up with ongoing discharge and transition of care needs.
[2018-05-21] MEDS: WARFARIN SOD 2 MG TAB PO SCH (16:34)
[2018-05-21] MEDS ORDERED: METHYLPREDNISOLONE SOD SUCC 40 MG/ML VIAL 1ML IV ONE (17:00)
[2018-05-21] MEDS: FUROSEMIDE INJ 10 MG/ML 2 ML VIAL IV SCH (18:57)
--- NOTE | 2018-05-21 19:30 | NUR ---
patient received. Patient is resting in bed. Resp even and unlabored with O2 at 3l. No acute distress noted. Patient denies of any pain or discomfort. call light within reach. instruct to call for assistance. bed low/locked. continue to monitor closely
[2018-05-21] MEDS: LORAZEPAM 0.5 MG TAB PO PRN (21:12)
[2018-05-21] MEDS: SIMVASTATIN 40 MG TAB PO SCH (21:12)
--- NOTE | 2018-05-21 22:44 | Consultation ---
DATE OF CONSULTATION: PULMONARY/CRITICAL CARE CONSULTATION CHIEF COMPLAINT: Dyspnea and wheezing. HISTORY OF PRESENT ILLNESS: The patient is an 87-year-old woman. 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 She also has atrial fibrillation. She uses oxygen as well as bronchodilators at home. The patient came in complaining of worsening dyspnea and cough. She noticed wheezing. She did not complain of any chest pain. She has no fevers. She did have some leg edema. PAST SURGICAL HISTORY 1. Status post coronary artery bypass grafting. 2. Status post permanent pacemaker. PAST MEDICAL HISTORY 1. COPD with severe obstructive lung disease on PFTs. 2. Atrial fibrillation. 3. Hypertension. 4. Systolic congestive heart failure. SOCIAL HISTORY: The patient quit smoking 10 years ago. She does not drink alcohol. FAMILY HISTORY: Family history is noncontributory. ALLERGIES: THE PATIENT IS ALLERGIC TO CODEINE. REVIEW OF SYSTEMS: She has no fever. She has no headache. She has no sore throat or neck pain. She does not have any chest pain. She has no cough or congestion. She denies any abdominal pain. She does have some leg swelling. PHYSICAL EXAMINATION VITAL SIGNS: The blood pressure is 120/58 and the pulse ox 96% on 3 L. Pulse is 70 and the respiratory rate is 22. HEENT: No facial swelling or erythema. The nasal mucosa is normal. The oropharynx is normal. LYMPHATIC: No submandibular, cervical, or supraclavicular adenopathy. CARDIAC: Regular rate and rhythm with normal S1 and S2. There are no murmurs or rubs. LUNGS: Auscultation of lungs shows wheezing in both lung ang. The patient has some crackles at the lung bases. ABDOMEN: Soft and nontender. There is no rebound or guarding. EXTREMITIES: Shows 1+ to 2+ leg edema. RADIOGRAPHIC DATA: Chest x-ray shows mild interstitial edema with some small pleural effusions. LABORATORY DATA: BUN to creatinine ratio is 26 to 1.08 and the other electrolytes within normal limits. The BNP is 953. White blood cell count is 6.1 and hemoglobin is 10.6. The platelet count is 160,000. IMPRESSIONS 1. Qdpku-zn-hmzuzni systolic congestive heart failure. 2. Chronic obstructive pulmonary disease with acute exacerbation. 3. Acute kidney injury. 4. Leg edema. PLAN 1. Continue diuretics. 2. Cardiology evaluation. 3. Solu-Medrol and bronchodilators. 4. Oxygen. 5. Venous duplex studies of the legs to rule out DVT. Job#: [id number]
[2018-05-22] VITALS (8 sets, daily range): BP systolic 117–155; BP diastolic 56–67
[2018-05-22] MEDS: GUAIFENESIN 600MG/DEXTROMETHORPHAN 30MG TABSR PO SCH ×4 (00:53→17:36)
[2018-05-22] MEDS: LEVALBUTEROL HCL SOLN NEBU 0.63 MG/3 ML NEB IH SCH ×4 (01:25→20:35)
[2018-05-22] MEDS: IPRATROPIUM BROMIDE 0.02% 2.5 ML NEB NEB SCH ×4 (01:25→20:35)
[2018-05-22] MEDS: FUROSEMIDE INJ 10 MG/ML 2 ML VIAL IV SCH (05:09)
[2018-05-22 05:30] LABS: HEMATOCRIT 35.3 % (34.2-44.1); LYMPHOCYTES # (AUTO) 0.8 (1.0-3.2); LYMPHOCYTES % 11.5 % (18.0-39.1); MEAN CORPUSCULAR HEMOGLOBIN 28.3 pg (28-32); MEAN CORPUSCULAR HGB CONC 31.2 g/dL (31-35); MEAN CORPUSCULAR VOLUME 90.7 fL (81-99); MONOCYTES # (AUTO) 0.3 (0.2-0.8); MONOCYTES % 4.4 % (4.4-11.3); NEUTROPHILS # (AUTO) 6.1 (2.1-6.9); NEUTROPHILS % 83.8 % (38.7-80.0); PLATELET COUNT 154 x10e3/uL (140-360); RED BLOOD COUNT 3.89 x10e6/uL (3.6-5.1); RED CELL DISTRIBUTION WIDTH 13.2 % (11.7-14.4)
[2018-05-22 05:41] LABS: INR 1.57; PROTHROMBIN TIME 20.1 seconds (11.9-14.5)
[2018-05-22 05:56] LABS: ALBUMIN 3.4 g/dL (3.5-5.0); ALBUMIN/GLOBULIN RATIO 1.6 (0.8-2.0); ANION GAP 14.7 mmol/L (8-16); CALCIUM 9.1 mg/dL (8.4-10.2); CREATININE, SERUM 1.14 mg/dL (0.57-1.11); POTASSIUM 4.7 mmol/L (3.5-5.1)
--- NOTE | 2018-05-22 07:00 | NUR ---
SHIFT REPORT DONE WHILE ROUNDING ON PT WITH NIGHT RN. PT DENIES NEEDS AT THIS TIME.
[2018-05-22] MEDS: PREGABALIN 75 MG CAP PO SCH (08:22)
[2018-05-22] MEDS: AZITHROMYCIN 500MG/NS 250 ML 250 ML IV SCH (08:22)
[2018-05-22] MEDS: VALSARTAN 80 MG TAB PO SCH (08:22)
[2018-05-22] MEDS: PREDNISONE 10 MG TAB PO SCH (08:22)
[2018-05-22] MEDS: PANTOPRAZOLE SOD 40 MG TABEC PO SCH (08:22)
[2018-05-22] MEDS: METOPROLOL SUCCINATE 50 MG TAB XL PO SCH (08:23)
[2018-05-22] MEDS: SERTRALINE HCL 50 MG TAB PO SCH (08:23)
--- NOTE | 2018-05-22 09:04 | Progress Note ---
DATE: SUBJECTIVE: Patient received additional Lasix and Solu-Medrol last night. She reports some decrease in dyspnea and wheezing. She notes some decrease in leg edema. PHYSICAL EXAMINATION: VITAL SIGNS: The blood pressure is 147/67 and the saturation is 95%. Pulse is 78. Respiratory rate is 18. HEENT: Shows no facial swelling or erythema. CARDIAC: Reveals a regular rate and rhythm with a normal S1 and S2. There are no murmurs or rubs. CHEST: Auscultation of lungs reveals decreased wheezing and decreased crackles bilaterally. ABDOMEN: Soft and nontender. EXTREMITIES: There is decreased leg edema. LABORATORY DATA: BUN to creatinine ratio is 24 to 1.14. Other electrolytes are within normal limits. BNP has decreased to 874. IMPRESSION: 1. Nizzu-yj-xqfrzjg systolic congestive heart failure. 2. Chronic obstructive pulmonary disease with acute exacerbation. 3. Acute kidney injury. 4. Leg edema. PLAN: 1. Continue diuresis. 2. Repeat Solu-Medrol today. 3. Continue bronchodilators. 4. Oxygen. 5. Venous duplex study is pending. 6. Repeat chest x-ray and comprehensive metabolic profile tomorrow morning. Job#: [id number]
[2018-05-22] MEDS ORDERED: METHYLPREDNISOLONE SOD SUCC 40 MG/ML VIAL 1ML IV ONE (09:10)
[2018-05-22] MEDS: CEFTRIAXONE SOD 1 GM/NS 50 ML 50 ML IV SCH (10:09)
[2018-05-22] MEDS: FUROSEMIDE INJ 10 MG/ML 4 ML VIAL IV SCH (17:35)
[2018-05-22] MEDS: WARFARIN SOD 2 MG TAB PO SCH (17:35)
[2018-05-22] MEDS: SIMVASTATIN 40 MG TAB PO SCH (21:11)
[2018-05-22] MEDS: METHYLPREDNISOLONE SOD SUCC 40 MG/ML VIAL 1ML IV SCH (21:14)
[2018-05-22] MEDS: LORAZEPAM 0.5 MG TAB PO PRN (21:19)
[2018-05-23] VITALS (7 sets, daily range): BP systolic 105–139; BP diastolic 55–66
[2018-05-23] MEDS: GUAIFENESIN 600MG/DEXTROMETHORPHAN 30MG TABSR PO SCH ×5 (00:32→23:54)
[2018-05-23] MEDS: IPRATROPIUM BROMIDE 0.02% 2.5 ML NEB NEB SCH ×4 (01:00→20:15)
[2018-05-23] MEDS: LEVALBUTEROL HCL SOLN NEBU 0.63 MG/3 ML NEB IH SCH ×4 (01:00→20:15)
[2018-05-23 04:11] LABS: LYMPHOCYTES # (AUTO) 0.9 (1.0-3.2); LYMPHOCYTES % 13.3 % (18.0-39.1); MEAN CORPUSCULAR HEMOGLOBIN 28.4 pg (28-32); MEAN CORPUSCULAR HGB CONC 31.4 g/dL (31-35); MEAN CORPUSCULAR VOLUME 90.2 fL (81-99); MONOCYTES # (AUTO) 0.3 (0.2-0.8); MONOCYTES % 4.2 % (4.4-11.3); NEUTROPHILS # (AUTO) 5.7 (2.1-6.9); NEUTROPHILS % 81.9 % (38.7-80.0); PLATELET COUNT 158 x10e3/uL (140-360); RED BLOOD COUNT 3.88 x10e6/uL (3.6-5.1); RED CELL DISTRIBUTION WIDTH 13.2 % (11.7-14.4)
[2018-05-23 04:25] LABS: ALBUMIN 3.4 g/dL (3.5-5.0); ALBUMIN/GLOBULIN RATIO 1.6 (0.8-2.0); ANION GAP 15.6 mmol/L (8-16); CALCIUM 8.9 mg/dL (8.4-10.2); CREATININE, SERUM 1.16 mg/dL (0.57-1.11); MAGNESIUM 2.4 MG/DL (1.3-2.1); POTASSIUM 4.6 mmol/L (3.5-5.1)
[2018-05-23] MEDS: FUROSEMIDE INJ 10 MG/ML 4 ML VIAL IV SCH ×2 (05:28→17:26)
--- NOTE | 2018-05-23 07:00 | NUR ---
SHIFT REPORT DONE WHILE ROUNDING ON PT WITH NIGHT RN. PT DENIES NEEDS AT THIS TIME.
--- NOTE | 2018-05-23 07:06 | NUR ---
REPORT GIVEN TO ONCOMING NURSE,WALKING ROUNDS MADE.PT RESTING IN BED WITH NO S/S OF DISTRESS.
[2018-05-23] MEDS: AZITHROMYCIN 500MG/NS 250 ML 250 ML IV SCH (08:20)
[2018-05-23] MEDS: PREGABALIN 75 MG CAP PO SCH (08:20)
[2018-05-23] MEDS: PANTOPRAZOLE SOD 40 MG TABEC PO SCH (08:20)
[2018-05-23] MEDS: METHYLPREDNISOLONE SOD SUCC 40 MG/ML VIAL 1ML IV SCH ×2 (08:20→20:46)
[2018-05-23] MEDS: SERTRALINE HCL 50 MG TAB PO SCH (08:21)
[2018-05-23] MEDS ORDERED: FUROSEMIDE INJ 10 MG/ML 4 ML VIAL IV NR (08:45)
[2018-05-23] MEDS: VALSARTAN 80 MG TAB PO SCH (08:47)
[2018-05-23] MEDS: METOPROLOL SUCCINATE 50 MG TAB XL PO SCH (08:48)
--- NOTE | 2018-05-23 08:53 | Diagnostic Imaging Report ---
EXAMINATION: CHEST 2 VIEWS INDICATION: CHF COMPARISON: Chest radiograph 05/20/2017. FINDINGS: TUBES and LINES: Left chest wall AICD device in unchanged position. Status post aortic valve replacement. Multiple overlying leads. LUNGS: Interval resolution of bilateral perihilar and interstitial opacities. Mild central vascular congestion without evidence of pulmonary edema. Mild patchy bibasilar opacities, improved from the prior study. PLEURA: No evidence of pleural effusion or pneumothorax. HEART AND MEDIASTINUM: The cardiomediastinal silhouette is mildly enlarged. Atherosclerotic calcifications of the aortic arch. BONES AND SOFT TISSUES: No acute osseous abnormality. Status post median sternotomy. UPPER ABDOMEN: No free air under the diaphragm. IMPRESSION: Mild central vascular congestion with interval resolution of pulmonary interstitial edema. Improving patchy opacities of the lung bases, likely atelectasis. Signed by: Dr. Reyna Malave MD on 05/23/2018 8:50 AM
[2018-05-23 09:15] LABS: INR 1.81; PROTHROMBIN TIME 22.4 seconds (11.9-14.5)
[2018-05-23] MEDS: CEFTRIAXONE SOD 1 GM/NS 50 ML 50 ML IV SCH (09:54)
[2018-05-23] MEDS: WARFARIN SOD 2 MG TAB PO SCH (17:26)
[2018-05-23] MEDS: SIMVASTATIN 40 MG TAB PO SCH (20:44)
[2018-05-23] MEDS: LORAZEPAM 0.5 MG TAB PO PRN (20:49)
[2018-05-24] VITALS (9 sets, daily range): BP systolic 107–139; BP diastolic 53–68
[2018-05-24] MEDS: LEVALBUTEROL HCL SOLN NEBU 0.63 MG/3 ML NEB IH SCH ×4 (01:00→19:30)
[2018-05-24] MEDS: IPRATROPIUM BROMIDE 0.02% 2.5 ML NEB NEB SCH ×4 (01:00→19:30)
[2018-05-24 04:03] LABS: BASOPHILS % 0.2 % (0.0-1.0); HEMATOCRIT 37.5 % (34.2-44.1); HEMOGLOBIN 11.5 g/dL (12.0-16.0); LYMPHOCYTES # (AUTO) 0.9 (1.0-3.2); LYMPHOCYTES % 13.6 % (18.0-39.1); MEAN CORPUSCULAR HEMOGLOBIN 28.7 pg (28-32); MEAN CORPUSCULAR HGB CONC 30.7 g/dL (31-35); MONOCYTES # (AUTO) 0.3 (0.2-0.8); MONOCYTES % 4.5 % (4.4-11.3); NEUTROPHILS # (AUTO) 5.4 (2.1-6.9); NEUTROPHILS % 80.9 % (38.7-80.0); PLATELET COUNT 152 x10e3/uL (140-360); RED BLOOD COUNT 4.01 x10e6/uL (3.6-5.1)
[2018-05-24 04:04] LABS: MEAN CORPUSCULAR VOLUME 93.5 fL (81-99)
[2018-05-24 04:23] LABS: ANION GAP 14.7 mmol/L (8-16); CALCIUM 8.8 mg/dL (8.4-10.2); CREATININE, SERUM 1.18 mg/dL (0.57-1.11); MAGNESIUM 2.3 MG/DL (1.3-2.1); POTASSIUM 4.7 mmol/L (3.5-5.1)
[2018-05-24] MEDS: GUAIFENESIN 600MG/DEXTROMETHORPHAN 30MG TABSR PO SCH ×3 (06:03→17:11)
[2018-05-24] MEDS: FUROSEMIDE INJ 10 MG/ML 4 ML VIAL IV SCH ×2 (06:03→17:11)
--- NOTE | 2018-05-24 07:00 | NUR ---
SHIFT REPORT DONE WHILE ROUNDING ON PT WITH NIGHT RN. PT DENIES NEEDS AT THIS TIME.
--- NOTE | 2018-05-24 07:05 | NUR ---
REPORT GIVEN TO ONCOMING NURSE.WALKING ROUNDS MADE.PT RESTING IN BED WITH NO S/S OF DISTRESS.
[2018-05-24] MEDS: METHYLPREDNISOLONE SOD SUCC 40 MG/ML VIAL 1ML IV SCH ×2 (08:13→20:23)
[2018-05-24] MEDS: AZITHROMYCIN 500MG/NS 250 ML 250 ML IV SCH (08:13)
[2018-05-24] MEDS: PANTOPRAZOLE SOD 40 MG TABEC PO SCH (08:13)
[2018-05-24] MEDS: SERTRALINE HCL 50 MG TAB PO SCH (08:14)
[2018-05-24] MEDS: METOPROLOL SUCCINATE 50 MG TAB XL PO SCH (08:14)
[2018-05-24] MEDS: VALSARTAN 80 MG TAB PO SCH (08:14)
[2018-05-24] MEDS: PREGABALIN 75 MG CAP PO SCH (08:14)
[2018-05-24 08:29] LABS: INR 1.96; PROTHROMBIN TIME 23.9 seconds (11.9-14.5)
[2018-05-24] MEDS: CEFTRIAXONE SOD 1 GM/NS 50 ML 50 ML IV SCH (10:29)
--- NOTE | 2018-05-24 11:14 | Progress Note ---
DATE: PULMONARY PROGRESS NOTE SUBJECTIVE: The patient notes less dyspnea. She has less cough and less congestion. PHYSICAL EXAMINATION VITAL SIGNS: Patient is afebrile. The blood pressure is 132/62 and the saturation is 94%. HEENT: Shows no facial swelling or erythema. The nasal mucosa is normal. The oropharynx is normal. LYMPHATIC: Shows no submandibular, cervical or supraclavicular adenopathy. NECK: Shows no JVD or thyromegaly. There is no nuchal rigidity. CARDIAC: Reveals a regular rate and rhythm with normal S1 and S2. There are no murmurs or rubs. LUNGS: Auscultation of lungs reveals clear breath sounds bilaterally. There is no wheezing. ABDOMEN: Soft, nontender. There is no rebound or guarding. IMPRESSION 1. Hmmpt-dp-qxkacye systolic congestive heart failure. 2. Chronic obstructive pulmonary disease with acute exacerbation. 3. Acute kidney injury. PLAN 1. Decrease Solu-Medrol. 2. Continue oxygen and bronchodilators. 3. Wean diuretics. Job#: [id number]
[2018-05-24] MEDS ORDERED: FUROSEMIDE INJ 10 MG/ML 4 ML VIAL IV NR (11:45)
[2018-05-24] MEDS: WARFARIN SOD 2 MG TAB PO SCH (17:11)
--- NOTE | 2018-05-24 19:32 | NUR ---
PT IS RESTING IN BED. NO RESPIRATORY DISTRESS NOTED. BED IN THE LOWEST POSITION, LOCKED, AND CALL LIGHT WITHIN REACH. WILL CONTINUE TO MONITOR.
[2018-05-24] MEDS: SIMVASTATIN 40 MG TAB PO SCH (20:23)
[2018-05-24] MEDS: LORAZEPAM 0.5 MG TAB PO PRN (20:32)
[2018-05-24] MEDS ORDERED: METHYLPREDNISOLONE SOD SUCC 40 MG/ML VIAL 1ML IV SCH (21:00)
[2018-05-25] VITALS (10 sets, daily range): BP systolic 94–133; BP diastolic 54–60
[2018-05-25] MEDS: GUAIFENESIN 600MG/DEXTROMETHORPHAN 30MG TABSR PO SCH ×4 (00:19→16:54)
[2018-05-25 03:55] LABS: BASOPHILS % 0.1 % (0.0-1.0); HEMATOCRIT 41.3 % (34.2-44.1); HEMOGLOBIN 12.9 g/dL (12.0-16.0); LYMPHOCYTES # (AUTO) 1.3 (1.0-3.2); LYMPHOCYTES % 16.5 % (18.0-39.1); MEAN CORPUSCULAR HEMOGLOBIN 28.5 pg (28-32); MEAN CORPUSCULAR HGB CONC 31.2 g/dL (31-35); MEAN CORPUSCULAR VOLUME 91.4 fL (81-99); MONOCYTES # (AUTO) 0.5 (0.2-0.8); MONOCYTES % 5.8 % (4.4-11.3); NEUTROPHILS # (AUTO) 6.1 (2.1-6.9); NEUTROPHILS % 76.6 % (38.7-80.0); PLATELET COUNT 181 x10e3/uL (140-360); RED BLOOD COUNT 4.52 x10e6/uL (3.6-5.1)
[2018-05-25 04:13] LABS: ANION GAP 17.8 mmol/L (8-16); CALCIUM 9.2 mg/dL (8.4-10.2); CREATININE, SERUM 1.42 mg/dL (0.57-1.11); MAGNESIUM 2.6 MG/DL (1.3-2.1); POTASSIUM 4.8 mmol/L (3.5-5.1)
[2018-05-25 06:00] LABS: INR 2.29; PROTHROMBIN TIME 26.9 seconds (11.9-14.5)
[2018-05-25] MEDS: FUROSEMIDE INJ 10 MG/ML 4 ML VIAL IV SCH (06:37)
[2018-05-25] MEDS: IPRATROPIUM BROMIDE 0.02% 2.5 ML NEB NEB SCH ×4 (07:00→20:05)
[2018-05-25] MEDS: LEVALBUTEROL HCL SOLN NEBU 0.63 MG/3 ML NEB IH SCH ×4 (07:00→20:05)
--- NOTE | 2018-05-25 07:02 | NUR ---
Received patient mid fowlers position, side rails upx2, call light within reach. AAOX4 to time, person, place, situation. Respirations even and unlabored. O2 3L NC. Instructed patient to use call light for assistance. Voiced understanding.
[2018-05-25] MEDS ORDERED: SODIUM CHLORIDE 0.9% 250ML 250 ML ONE (09:14)
[2018-05-25] MEDS: PANTOPRAZOLE SOD 40 MG TABEC PO SCH (09:21)
[2018-05-25] MEDS: VALSARTAN 80 MG TAB PO SCH (09:21)
[2018-05-25] MEDS: METHYLPREDNISOLONE SOD SUCC 40 MG/ML VIAL 1ML IV SCH ×2 (09:21→21:00)
[2018-05-25] MEDS: CEFTRIAXONE SOD 1 GM/NS 50 ML 50 ML IV SCH (09:22)
[2018-05-25] MEDS: SERTRALINE HCL 50 MG TAB PO SCH (09:22)
[2018-05-25] MEDS: PREGABALIN 75 MG CAP PO SCH (09:22)
[2018-05-25] MEDS: METOPROLOL SUCCINATE 50 MG TAB XL PO SCH (09:22)
--- NOTE | 2018-05-25 15:02 | Progress Note ---
DATE: PULMONARY PROGRESS NOTE Patient still has some dyspnea with exertion and mild wheezing. She has less leg swelling. She does not have fever. PHYSICAL EXAMINATION VITALS: The blood pressure is 120/57 and saturation is 96% on 4 L. The pulse is 75. HEENT: Shows no facial swelling or erythema. The nasal mucosa is normal. The oropharynx is normal. LYMPHATIC: Shows no submandibular, cervical or suprapubic adenopathy. CARDIAC: Reveals a regular rate and rhythm with a normal S1 and S2. There are no murmurs or rubs. LUNGS: Auscultation of the lungs reveals a few expiratory wheezes bilaterally. There are no crackles. ABDOMEN: Soft and nontender. There is no rebound or guarding. EXTREMITIES: Shows no leg edema or calf tenderness. There is cyanosis or clubbing. SKIN: Shows no rashes. NEUROLOGICAL: Shows no focal abnormalities. LABORATORY DATA: BUN to creatinine ratio is increased to 44 to 1.42. The other electrolytes are within normal limits. The BNP is reduced to 208. IMPRESSION 1. Bgzmz-ve-wtfvbop systolic congestive heart failure. 2. Chronic obstructive pulmonary disease with acute exacerbation. 3. Acute kidney injury. PLAN 1. Change to p.o. Lasix because of the elevated creatinine. 2. Repeat creatinine and electrolytes in the morning. 3. Wean Solu-Medrol. 4. Continue oxygen and bronchodilators. Job#: [id number] DEE DEE
--- NOTE | 2018-05-25 15:35 | NUR ---
IMM letter delivered and explained to pt and her daughter Krystle at bedside. They verbalized understanding. Pt asked to have her daughter sign. Signed copy placed in chart. Copy to pt's daughter
[2018-05-25] MEDS: WARFARIN SOD 2 MG TAB PO SCH (16:54)
--- NOTE | 2018-05-25 19:05 | NUR ---
Bedside rounds completed with morning nurse. Pt lying in bed HOB 30 degrees. Alert to name, place, time, and situation. Denies pain at this time. O2 @3L via NC. No acute distress noted. Call rodriguez within reach. Bed low and locked. Will continue to monitor.
--- NOTE | 2018-05-25 19:25 | NUR ---
Report given to oncoming nurse of patients status. No s/s of acute distress noted.
[2018-05-25] MEDS: SIMVASTATIN 40 MG TAB PO SCH (21:00)
[2018-05-26] VITALS (7 sets, daily range): BP systolic 121–136; BP diastolic 56–65
[2018-05-26] MEDS: GUAIFENESIN 600MG/DEXTROMETHORPHAN 30MG TABSR PO SCH ×5 (00:55→23:43)
[2018-05-26] MEDS: LEVALBUTEROL HCL SOLN NEBU 0.63 MG/3 ML NEB IH SCH ×4 (01:08→19:10)
[2018-05-26] MEDS: IPRATROPIUM BROMIDE 0.02% 2.5 ML NEB NEB SCH ×4 (01:08→19:10)
[2018-05-26 06:41] LABS: ALBUMIN 3.3 g/dL (3.5-5.0); ALBUMIN/GLOBULIN RATIO 1.6 (0.8-2.0); ANION GAP 14.7 mmol/L (8-16); CALCIUM 8.8 mg/dL (8.4-10.2); CREATININE, SERUM 1.19 mg/dL (0.57-1.11); POTASSIUM 4.7 mmol/L (3.5-5.1)
[2018-05-26 06:44] LABS: BASOPHILS % 0.3 % (0.0-1.0); HEMATOCRIT 38.3 % (34.2-44.1); HEMOGLOBIN 11.8 g/dL (12.0-16.0); LYMPHOCYTES # (AUTO) 1.1 (1.0-3.2); LYMPHOCYTES % 17.1 % (18.0-39.1); MEAN CORPUSCULAR HEMOGLOBIN 28.3 pg (28-32); MEAN CORPUSCULAR HGB CONC 30.8 g/dL (31-35); MEAN CORPUSCULAR VOLUME 91.8 fL (81-99); MONOCYTES # (AUTO) 0.3 (0.2-0.8); MONOCYTES % 4.4 % (4.4-11.3); NEUTROPHILS # (AUTO) 4.9 (2.1-6.9); NEUTROPHILS % 76.6 % (38.7-80.0); PLATELET COUNT 161 x10e3/uL (140-360); RED BLOOD COUNT 4.17 x10e6/uL (3.6-5.1)
[2018-05-26 07:00] LABS: INR 2.9; PROTHROMBIN TIME 32.4 seconds (11.9-14.5)
--- NOTE | 2018-05-26 07:02 | NUR ---
Received patient walking in room. AAOX4 to time, person,place, situation. O2 3LNC Respirations even and unlabored. Denies pain at this time. Instructed to use call light for assistance. Voiced understanding.
[2018-05-26 07:04] LABS: MAGNESIUM 2.6 MG/DL (1.3-2.1); PHOSPHORUS 4.2 MG/DL (2.3-4.7)
[2018-05-26] MEDS: PANTOPRAZOLE SOD 40 MG TABEC PO SCH (08:37)
[2018-05-26] MEDS: METHYLPREDNISOLONE SOD SUCC 40 MG/ML VIAL 1ML IV SCH ×2 (08:37→20:27)
[2018-05-26] MEDS: FUROSEMIDE 40 MG TAB PO SCH (08:38)
[2018-05-26] MEDS: PREGABALIN 75 MG CAP PO SCH (08:38)
[2018-05-26] MEDS: METOPROLOL SUCCINATE 50 MG TAB XL PO SCH (08:38)
[2018-05-26] MEDS: SERTRALINE HCL 50 MG TAB PO SCH (08:38)
[2018-05-26] MEDS: VALSARTAN 80 MG TAB PO SCH (08:38)
[2018-05-26] MEDS: CEFTRIAXONE SOD 1 GM/NS 50 ML 50 ML IV SCH (10:23)
--- NOTE | 2018-05-26 13:33 | Progress Note ---
DATE: PULMONARY PROGRESS NOTE Patient reports less dyspnea. She has less cough. Overall, she feels improved. PHYSICAL EXAMINATION VITALS: The patient is afebrile. The blood pressure is 136/63 and saturation is 93%. HEENT: Shows no facial swelling or erythema. The nasal mucosa is normal. The oropharynx is normal. LYMPHATIC: Shows no submandibular, cervical or supraclavicular adenopathy. CARDIAC: Reveals a regular rate and rhythm with a normal S1 and S2. LUNGS: Auscultation of the lungs reveals clear breath sounds bilaterally. There is no wheezing. ABDOMEN: Soft and nontender. There is no rebound or guarding. EXTREMITIES: Shows no leg edema or calf tenderness. There is no cyanosis or clubbing. LABORATORY DATA: The BUN to creatinine ratio is 45 to 1.19. The other electrolytes are within normal limits. The CBC is within normal limits. IMPRESSION 1. Mcaom-dd-mqlbyvh systolic congestive heart failure. 2. Chronic obstructive pulmonary disease with acute exacerbation. 3. Acute kidney injury. PLAN 1. Taper steroids. 2. Continue current cardiac regimen. 3. Continue oxygen and bronchodilators. 4. Patient is ready for discharge from my perspective. Job#: [id number] DEE DEE
--- NOTE | 2018-05-26 14:54 | NUR ---
Nutrition Screen Note RD Recommendation for Physician: -Continue cardiac diet as ordered Plan of Care: RD following, monitoring for tolerance and adequacy Nutrition reason for involvement: LOS Primary Diagnose(s): 1. Lgnbf-[id number]-[id number] systolic congestive heart failure. 2. Chronic obstructive pulmonary disease with acute exacerbation. 3. Acute kidney injury. PMH: HTN, COPD, CHF, CAD, Afib Ht: 60in Wt:177.12lb BMI: 34.6kg/m2 IBW: 100lb RD Assessment: (05/26) Chart reviewed. Labs and meds reviewed. 87yo F, who was admitted for SOB. Visited pt in the room. Pt reported fair appetite with ~75-100% recorded meal intake. No GI complains noted. LBM 05/25. Pt denied any chewing or swallowing difficulty. No recent weight loss noted. Will continue to monitor and follow. Current Diet: Cardiac diet Malnutrition Evaluation (05/26/18) The patient does not meet criteria for a specified degree of malnutrition at this time. Will re-evaluate at follow-up as appropriate. Diet Education Needs Assessment: Diet education not indicated. Nutrition Care Level: low Signed: Tricia Alexandre, MS, RD, LD
--- NOTE | 2018-05-26 18:30 | NUR ---
Paged for clarification on coumadin orders. PT32.4 INR 2.94. Awaiting for call back
[2018-05-26] MEDS: WARFARIN SOD 2 MG TAB PO SCH (18:40)
--- NOTE | 2018-05-26 18:40 | NUR ---
Per orders. Coumadin to be held if INR >3.0. INR 2.90. Coumadin given as ordered
--- NOTE | 2018-05-26 19:26 | NUR ---
Walking rounds done, bedside report given. NO s/s of acute distress noted.
--- NOTE | 2018-05-26 19:40 | NUR ---
Received change of shift report from AM nurse. Bedside report received.
[2018-05-26] MEDS: SIMVASTATIN 40 MG TAB PO SCH (20:28)
[2018-05-26] MEDS: LORAZEPAM 0.5 MG TAB PO PRN (20:50)
--- NOTE | 2018-05-26 22:21 | NUR ---
Patient in bed at this time. Asst to BR with use of walker. O@ at 2.5 L n/c. Tele #29 AV pacing 63. IV to right arm dry and intact 22G. Denies pain but c/o anxiety. Meds given to help with anxiety. Patient received neb tx. Continue monitor.
[2018-05-27] VITALS: BP 126/61
--- NOTE | 2018-05-27 00:33 | NUR ---
Patient resting quitly at this time. Continue monitor.
[2018-05-27] MEDS: LEVALBUTEROL HCL SOLN NEBU 0.63 MG/3 ML NEB IH SCH ×3 (01:12→13:00)
[2018-05-27] MEDS: IPRATROPIUM BROMIDE 0.02% 2.5 ML NEB NEB SCH ×3 (01:12→13:00)
[2018-05-27 04:00] VITALS: BP 137/63
[2018-05-27] MEDS: GUAIFENESIN 600MG/DEXTROMETHORPHAN 30MG TABSR PO SCH ×3 (05:05→18:13)
[2018-05-27 06:54] LABS: BASOPHILS % 0.1 % (0.0-1.0); HEMATOCRIT 37.9 % (34.2-44.1); HEMOGLOBIN 12.1 g/dL (12.0-16.0); LYMPHOCYTES # (AUTO) 1.5 (1.0-3.2); LYMPHOCYTES % 15.9 % (18.0-39.1); MEAN CORPUSCULAR HEMOGLOBIN 28.7 pg (28-32); MEAN CORPUSCULAR HGB CONC 31.9 g/dL (31-35); MONOCYTES # (AUTO) 0.8 (0.2-0.8); MONOCYTES % 8.2 % (4.4-11.3); NEUTROPHILS # (AUTO) 7.1 (2.1-6.9); NEUTROPHILS % 74.3 % (38.7-80.0); PLATELET COUNT 190 x10e3/uL (140-360); RED BLOOD COUNT 4.21 x10e6/uL (3.6-5.1)
[2018-05-27 07:10] LABS: ANION GAP 12.9 mmol/L (8-16); CALCIUM 9.1 mg/dL (8.4-10.2); CREATININE, SERUM 0.99 mg/dL (0.57-1.11); POTASSIUM 4.9 mmol/L (3.5-5.1)
--- NOTE | 2018-05-27 07:10 | NUR ---
Change of shift report given to incoming nurse.
[2018-05-27 07:22] LABS: INR 2.82; PROTHROMBIN TIME 31.7 seconds (11.9-14.5)
[2018-05-27 07:47] VITALS: BP 137/64
[2018-05-27 08:26] VITALS: BP 137/64
[2018-05-27] MEDS: FUROSEMIDE 40 MG TAB PO SCH (08:58)
[2018-05-27] MEDS: VALSARTAN 80 MG TAB PO SCH (08:58)
[2018-05-27] MEDS: PREGABALIN 75 MG CAP PO SCH (08:58)
[2018-05-27] MEDS: METHYLPREDNISOLONE SOD SUCC 40 MG/ML VIAL 1ML IV SCH (08:58)
[2018-05-27] MEDS: PANTOPRAZOLE SOD 40 MG TABEC PO SCH (08:59)
[2018-05-27] MEDS: METOPROLOL SUCCINATE 50 MG TAB XL PO SCH (08:59)
[2018-05-27] MEDS: SERTRALINE HCL 50 MG TAB PO SCH (08:59)
--- NOTE | 2018-05-27 09:23 | NUR ---
IMM letter delivered and explained to pt. She verbalized understanding. Signed copy placed in chart. Copy to pt.
[2018-05-27 11:37] VITALS: BP 123/61
[2018-05-27 15:52] VITALS: BP 108/58
--- NOTE | 2018-05-27 16:46 | NUR ---
patient refused shower stating "its too cold."
[2018-05-27] MEDS: WARFARIN SOD 2 MG TAB PO SCH (18:13)
--- NOTE | 2018-05-27 19:12 | NUR ---
PIV removed with tip intact. pt escorted to front lobby entrance where daughter awaited in private auto. all personal belongings, and d/c instructions in hand at time of d/c. no RX per Dr. Barragan, pt instructed to continue home Meds and f/u with PCP.
--- NOTE | 2018-05-28 00:18 | Discharge Summary ---
PRIMARY CARE PROVIDER: Dr. Saul Grayson. BREAD RACKER: Dr. Lenin Darby. GAS ENGINE PERFORMANCE ENGINEER: Dr. Francisco Darby. ADMITTING DIAGNOSES 1. Shortness of breath. 2. Bibasilar pneumonia. 3. Acute exacerbation of chronic obstructive pulmonary disease. 4. Hypertension complicated by congestive heart failure and chronic kidney disease 3. 5. Chronic atrial fibrillation/sick sinus syndrome with pacemaker in place. 6. Chronic kidney disease stage 3. DISCHARGE DIAGNOSES 1. Shortness of breath. 2. Bibasilar pneumonia. 3. Acute exacerbation of chronic obstructive pulmonary disease. 4. Hypertension complicated by congestive heart failure and chronic kidney disease 3. 5. Chronic atrial fibrillation/sick sinus syndrome with pacemaker in place. 6. Chronic kidney disease stage 3. BRIEF HISTORY: Ms. Cevallos is an 87-year-old lady who is oxygen dependent at home due to CHF, COPD. Patient presented short of breath with audible wheezing and bibasilar infiltrates. HOSPITAL COURSE: She was admitted to the hospital, started on Zithromax and Rocephin along with a course of nebs and Mucinex. She also received some IV methylprednisolone. She was continued on the rest of her regular home meds which included Coumadin, metoprolol for her AFib, losartan for her blood pressure, and Lasix 40 mg daily. She slowly improved. She completed her course of antibiotics. Her steroids were tapered. She was feeling comfortable on 2 L nasal cannula with clear lung exam and she was discharged home to resume all of her home meds. She will resume a regular diet. Activity as tolerated. She will continue to use her home oxygen, and she will follow up with her PCP within 2 weeks. COLLEEN HENDERSON MD Job#: [id number] CF
== END 2018-05-27 19:14 | disposition home or self-care (01) | DRG 291 ==
LOC: ER 07:54 → OBSVTOIN 09:49 → ERHOLD 09:49 → IMCU 11:58 → MED/SURG2 05-21 11:18
PROVIDERS: ADMIT Internal Medicine; ATTEND Internal Medicine
DX: I13.0 Hypertensive heart and chronic kidney disease with heart failure and stage 1 through stage 4 chronic kidney disease, or unspecified chronic kidney disease (principal); J18.9 Pneumonia, unspecified organism; I50.23 Acute on chronic systolic (congestive) heart failure; J44.0 Chronic obstructive pulmonary disease with (acute) lower respiratory infection; J44.1 Chronic obstructive pulmonary disease with (acute) exacerbation; I50.22 Chronic systolic (congestive) heart failure; N17.9 Acute kidney failure, unspecified; I49.5 Sick sinus syndrome; N18.3 Chronic kidney disease, stage 3 (moderate); I25.10 Atherosclerotic heart disease of native coronary artery without angina pectoris; Z95.1 Presence of aortocoronary bypass graft; I11.0 Hypertensive heart disease with heart failure; Z95.810 Presence of automatic (implantable) cardiac defibrillator; D64.9 Anemia, unspecified; I48.2 Chronic atrial fibrillation
CPT/HCPCS: 36415; 71045; 71046; 80048; 80053; 80061; 81001; 82550; 82553; 83735; 83880; 84100; 84145; 84443; 84484; 85025; 85610; 87040; 93005; 93306; 93970; 94640; 99284; J0456; J0696; J1940; J2920; J2930; J7050; J7512

== ENCOUNTER 2018-06-16 05:22 | Inpatient (IN) | payer MEDICARE, OTHER ==
[~2018-06-16] VITALS: Ht 152.4 cm; Wt 80.7 kg
[~2018-06-16 05:22] MED LIST changes: -PROAIR HFA INH8.5 GM; +PROAIR HFA INH8.5 GM INH
[2018-06-16] MEDS ORDERED: ALBUTEROL SULF 0.083% NEB SOLN 3 ML NEB NEB STA (05:25)
[2018-06-16] MEDS ORDERED: IPRATROPIUM BROMIDE 0.02% 2.5 ML NEB NEB ONE (05:30)
[2018-06-16] MEDS ORDERED: METHYLPREDNISOLONE SOD SUCC 125 MG/2ML VIAL IV ONE (05:30)
[2018-06-16 05:44] LABS: BASOPHILS % 0.4 % (0.0-1.0); EOSINOPHILS # (AUTO) 0.4 (0.0-0.4); HEMATOCRIT 37.3 % (34.2-44.1); HEMOGLOBIN 11.3 g/dL (12.0-16.0); LYMPHOCYTES # (AUTO) 3.2 (1.0-3.2); LYMPHOCYTES % 34.1 % (18.0-39.1); MEAN CORPUSCULAR HEMOGLOBIN 28.3 pg (28-32); MEAN CORPUSCULAR HGB CONC 30.3 g/dL (31-35); MEAN CORPUSCULAR VOLUME 93.3 fL (81-99); MONOCYTES # (AUTO) 0.6 (0.2-0.8); MONOCYTES % 6.2 % (4.4-11.3); NEUTROPHILS # (AUTO) 5.1 (2.1-6.9); PLATELET COUNT 185 x10e3/uL (140-360); RED CELL DISTRIBUTION WIDTH 13.2 % (11.7-14.4)
--- NOTE | 2018-06-16 05:44 | NUR ---
pt reports unable to urinate at this time, refuses straight cath, er md aware
[2018-06-16] MEDS ORDERED: CITALOPRAM HBR20 MG PO (05:45)
[2018-06-16] MEDS ORDERED: LEVALBUTER0.63 MG/3 NEB (05:49)
[2018-06-16] MEDS ORDERED: LYRICA50 MG PO (05:51)
[2018-06-16] MEDS ORDERED: ADVAIR 500/501 EA INH (05:51)
[2018-06-16] MEDS ORDERED: WARFARIN SODIUM1 MG PO (05:53)
[2018-06-16] MEDS ORDERED: LORAZEPAM0.5 MG PO (05:55)
[2018-06-16 05:56] LABS: INR 1.38; PROTHROMBIN TIME 17.6 seconds (11.9-14.5)
[2018-06-16 05:57] LABS: PARTIAL THROMBOPLASTIN TIME 31.6 seconds (23.8-35.5)
[2018-06-16 06:03] LABS: ALANINE AMINOTRANSFERASE 17 IU/L (0-55); ALBUMIN 3.2 g/dL (3.5-5.0); ALBUMIN/GLOBULIN RATIO 1.1 (0.8-2.0); ALKALINE PHOSPHATASE 54 IU/L (40-150); ANION GAP 14.4 mmol/L (8-16); BLOOD UREA NITROGEN 18 mg/dL (7-26); BUN/CREATININE RATIO 13 (6-25); CALCIUM 9.4 mg/dL (8.4-10.2); CARBON DIOXIDE 29 mmol/L (22-29); CHLORIDE 98 mmol/L (98-107); CREATINE KINASE 49 IU/L (29-168); CREATININE, SERUM 1.36 mg/dL (0.57-1.11); EST GLOMERULAR FILTRATION RATE 37 ML/MIN (60-); GLUCOSE 209 mg/dL (74-118); POTASSIUM 4.4 mmol/L (3.5-5.1); SODIUM 137 mmol/L (136-145)
[2018-06-16 06:03] LABS: ABG HCO3 31 mmol/L (23-28); ABG PCO2 63 mmHg (41-51); ABG PO2 144 mmHg (80-105)
--- NOTE | 2018-06-16 06:13 | Diagnostic Imaging Report ---
EXAMINATION: CHEST SINGLE (PORTABLE) INDICATION: sob COMPARISON: Chest x-ray 05/23/2018 FINDINGS: AP view TUBES and LINES: Left chest wall cardiac device. LUNGS: Central vascular congestion with interstitial and bibasilar opacities. PLEURA: No pleural effusion or pneumothorax. HEART AND MEDIASTINUM: Stable mild enlargement of the cardiac silhouette. Aortic calcifications. Mediastinal surgical clips. BONES AND SOFT TISSUES: No acute osseous lesion. Median sternotomy wires. Soft tissues are unremarkable. UPPER ABDOMEN: No free air under the diaphragm. IMPRESSION: Mild cardiomegaly with mild interstitial edema. Signed by: DR. Amado Humphrey MD on 06/16/2018 6:10 AM
--- NOTE | 2018-06-16 06:28 | NUR ---
bipap removed, pt placed on 3lnc per md order
--- NOTE | 2018-06-16 06:30 | NUR ---
pt placed back on bipap sats 93%
[2018-06-16] MEDS ORDERED: CEFTRIAXONE SOD 1 GM VIAL ONE (06:35)
[2018-06-16] MEDS: AZITHROMYCIN 500MG/NS 250 ML 250 ML IV SCH (06:36)
[2018-06-16] MEDS: CEFTRIAXONE SOD 1 GM/NS 50 ML 50 ML IV SCH (06:36)
[2018-06-16] MEDS ORDERED: FUROSEMIDE INJ 10 MG/ML 2 ML VIAL IV ONE (06:45)
[2018-06-16] MEDS ORDERED: SODIUM CHLORIDE FLUSH 10 ML SYR INJ PRN (06:45)
--- NOTE | 2018-06-16 06:48 | NUR ---
received report from off going nurse. patient in room in bed. on bipap, pt awake and alert. no s/s of acute distress. patient offered guaman and declined. patient requested to be placed on bed rios. was on bed rios for roughly 2 minutes and poduced 125ml urine. pending room assignment, will continue to monitor.
[2018-06-16 07:42] LABS: CLARITY,URINE CLOUDY (CLEAR); COLOR,URINE YELLOW (YELLOW)
[2018-06-16 07:44] LABS: LEUKOCYTE ESTERASE ,URINE NEGATIVE (NEGATIVE)
[2018-06-16 07:45] LABS: KETONES,URINE NEGATIVE (NEGATIVE); NITRITE,URINE NEGATIVE (NEGATIVE); PROTEIN,URINE DIPSTICK 1+ (NEGATIVE)
[2018-06-16 07:46] LABS: BILIRUBIN,URINE NEGATIVE (NEGATIVE); URINE UROBILINOGEN 0.2 mg/dL (0.2 - 1)
[2018-06-16 07:47] LABS: BACTERIA,URINE FEW /HPF; EPITHELIAL CELLS,URINE MANY /LPF
[2018-06-16 07:48] LABS: MUCUS,URINE MODERATE (RARE)
--- NOTE | 2018-06-16 08:04 | NUR ---
moved patient from stretcher to hospital bed.
[2018-06-16] MEDS ORDERED: VALSARTAN 80 MG TAB PO SCH (09:00)
[2018-06-16] MEDS ORDERED: NON-FORMULARY MEDICATION (Metoprolol Succinate 100 MG) PO SCH (09:00)
[2018-06-16] MEDS: TIOTROPIUM 18 MCG INH POWDER INH SCH (09:00)
[2018-06-16] MEDS: PANTOPRAZOLE SOD 40 MG TABEC PO SCH (09:35)
[2018-06-16] MEDS: FUROSEMIDE INJ 10 MG/ML 2 ML VIAL IV SCH ×2 (09:35→17:25)
[2018-06-16] MEDS: METOPROLOL SUCCINATE 50 MG TAB XL PO SCH (09:36)
[2018-06-16] MEDS: ALBUTEROL/IPRATROPIUM 3 ML NEB NEB SCH ×5 (11:00→23:00)
[2018-06-16] MEDS: GUAIFENESIN 600MG/DEXTROMETHORPHAN 30MG TABSR PO SCH ×2 (12:31→17:20)
[2018-06-16] MEDS: METHYLPREDNISOLONE SOD SUCC 40 MG/ML VIAL 1ML IV SCH ×2 (12:31→17:20)
[2018-06-16] MEDS: PREGABALIN 50 MG CAP PO SCH (17:20)
[2018-06-16 17:50] LABS: CREATINE KINASE MB 3.1 ng/mL (0-5.0)
[2018-06-16] MEDS: SIMVASTATIN 40 MG TAB PO SCH (21:23)
[2018-06-16] MEDS: LORAZEPAM 0.5 MG TAB PO PRN (21:23)
--- NOTE | 2018-06-17 00:03 | Consultation ---
DATE OF CONSULTATION: Pulmonary Critical Care Consultation. CHIEF COMPLAINT: The patient reports some hemoptysis and some worsening dyspnea. HISTORY OF PRESENT ILLNESS: The patient is an 87-year-old woman. 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 She also has atrial fibrillation and is on warfarin at home. She has COPD and uses oxygen as well as bronchodilators. She has noticed worsening dyspnea and wheezing over the past several days. She also has increased coughing. This morning she coughed up some blood. She does not complain of any fevers. She is not having chest pain. PAST SURGICAL HISTORY: 1. Status post coronary artery bypass grafting. 2. Status post pacemaker. PAST MEDICAL HISTORY: 1. COPD. 2. Atrial fibrillation. 3. Hypertension. 4. Chronic systolic congestive heart failure. SOCIAL HISTORY: The patient quit smoking 10 years ago. She does not drink alcohol. ALLERGIES: THE PATIENT IS ALLERGIC TO CODEINE. FAMILY HISTORY: Family history is noncontributory. REVIEW OF SYSTEMS: The patient has no fever. She has no headache. She is not complaining of any neck pain. She does not have any chest pain. She has no nausea or vomiting. She has no leg swelling. PHYSICAL EXAMINATION: VITAL SIGNS: The patient is afebrile. The blood pressure is 100/84 and pulse is 78. The respiratory rate is 18. HEENT: Shows no facial swelling or erythema. The nasal mucosa is normal. The oropharynx is normal. LYMPHATIC: Shows no submandibular, cervical, or supraclavicular adenopathy. CARDIAC: Reveals a regular rate and rhythm with normal S1 and S2. There are no murmurs or rubs. CHEST: Auscultation of lungs reveals a few expiratory wheezes. There is prolonged expiratory phase bilaterally. There are few crackles at the bases. ABDOMEN: Soft and nontender. There is no rebound or guarding. EXTREMITIES: Show no leg edema or calf tenderness. There is no cyanosis or clubbing. SKIN: Shows no rashes. NEUROLOGIC: Shows no focal abnormalities. LABORATORY DATA: White blood cell count is 9.2 and hemoglobin is 11.3. The platelet count is 185. The BUN to creatinine ratio is 18 to 1.36. The other electrolytes are within normal limits. The BNP is 425. The INR is 1.39 and the PT is 17.6. RADIOGRAPHIC DATA: Chest x-ray shows mild cardiomegaly with interstitial edema. IMPRESSION: 1. Hemoptysis of unclear etiology. 2. Chronic obstructive pulmonary disease with acute exacerbation. 3. Acute on chronic systolic congestive heart failure. 4. Atrial fibrillation. 5. Chronic renal insufficiency. PLAN: 1. The patient went for CT scan. We are awaiting results. 2. Hold warfarin. 3. Diuretics. 4. Solu-Medrol, bronchodilators. 5. Antibiotics. 6. Cardiology evaluation. Lenin Darby MD [facility]/MODL /[id number]
[2018-06-17] MEDS: METHYLPREDNISOLONE SOD SUCC 40 MG/ML VIAL 1ML IV SCH ×4 (02:54→20:48)
[2018-06-17] MEDS: GUAIFENESIN 600MG/DEXTROMETHORPHAN 30MG TABSR PO SCH ×3 (02:54→18:28)
[2018-06-17 03:04] LABS: HEMATOCRIT 33.2 % (34.2-44.1); HEMOGLOBIN 10.5 g/dL (12.0-16.0); LYMPHOCYTES # (AUTO) 0.6 (1.0-3.2); LYMPHOCYTES % 16.8 % (18.0-39.1); MEAN CORPUSCULAR HEMOGLOBIN 28.5 pg (28-32); MEAN CORPUSCULAR HGB CONC 31.6 g/dL (31-35); MONOCYTES # (AUTO) 0.1 (0.2-0.8); MONOCYTES % 2.4 % (4.4-11.3); NEUTROPHILS # (AUTO) 2.6 (2.1-6.9); NEUTROPHILS % 80.5 % (38.7-80.0); PLATELET COUNT 160 x10e3/uL (140-360); RED BLOOD COUNT 3.69 x10e6/uL (3.6-5.1); RED CELL DISTRIBUTION WIDTH 13.2 % (11.7-14.4)
[2018-06-17 03:08] LABS: INR 1.44; PROTHROMBIN TIME 18.1 seconds (11.9-14.5)
[2018-06-17 03:24] LABS: MAGNESIUM 1.4 MG/DL (1.3-2.1)
[2018-06-17 03:30] LABS: ANION GAP 16.1 mmol/L (8-16); CALCIUM 9.2 mg/dL (8.4-10.2); CREATININE, SERUM 1.14 mg/dL (0.57-1.11); POTASSIUM 4.1 mmol/L (3.5-5.1)
[2018-06-17] MEDS: ALBUTEROL/IPRATROPIUM 3 ML NEB NEB SCH ×6 (03:42→23:00)
[2018-06-17 03:49] LABS: CREATINE KINASE MB 2.9 ng/mL (0-5.0)
[2018-06-17 03:51] LABS: FREE T4 (FREE THYROXINE) 1.1 ng/dL (0.9-1.8); THYROID STIMULATING HORMONE 0.227 uIU/mL (0.350-4.940)
[2018-06-17] MEDS: CEFTRIAXONE SOD 1 GM/NS 50 ML 50 ML IV SCH (05:57)
[2018-06-17] MEDS: AZITHROMYCIN 500MG/NS 250 ML 250 ML IV SCH (06:35)
--- NOTE | 2018-06-17 07:00 | NUR ---
REPORT TO ERICA MCCAIN
--- NOTE | 2018-06-17 08:25 | Diagnostic Imaging Report ---
EXAM: CT Chest without contrast INDICATION: Shortness of breath. COMPARISON: CTA chest 06/04/2012. Chest radiograph 06/16/2018. TECHNIQUE: Chest was scanned utilizing a multidetector helical scanner from the lung apex through the level of the adrenal glands without administration of IV contrast. Coronal and sagittal reformations were obtained. Routine protocol was performed. RADIATION DOSE: Total DLP: 510.3 mGy*cm Dose modulation, iterative reconstruction, and/or weight based adjustment of the mA/kV was utilized to reduce the radiation dose to as low as reasonably achievable. COMPLICATIONS: None FINDINGS: LINES/ TUBES: Left-sided AICD device with leads terminating the coronary sinus, right atrium, and right ventricle. LUNGS, AIRWAYS, AND PLEURA: The central airways are patent. Severe predominately centrilobular emphysematous changes of bilateral lungs. Streak artifact from AICD limits evaluation of the adjacent lung parenchyma. There are 1.5 and 1.2 cm somewhat nodular-appearing dependent consolidative opacities in the right upper lobe on images 59 and 36 respectively. There is a 7 mm right middle lobe nodule on series 3, image 79, unchanged from CT on 04/03/2013, and consistent with benign etiology. Scattered bilateral 2 mm pulmonary nodules, for example in the right upper lobe on image 66. There is consolidative opacity and bilateral lower lobes, right greater than left. No evidence of pleural effusion or pneumothorax. There is biapical pleural-parenchymal opacity. HEART AND MEDIASTINUM: There is a 1.9 cm hypodense lesion within the left thyroid lobe. Bilateral thyroid calcifications. There is moderate cardiomegaly. Extensive atherosclerotic calcifications of the coronary arteries and scattered atherosclerotic calcifications of the thoracic aorta. LAD stent is present. Likely pericardial calcification is present along the anterior aspect of the left ventricle. There is also somewhat curvilinear calcification along the peripheral aspects of the left ventricle (unclear if within the ventricle or external to the ventricle on series 2, image 93); The degree of calcification has increased on the inferior aspect and is unchanged superiorly. No evidence of pericardial effusion. Ectatic mid ascending aorta measuring up to 3.9 cm is noted, previously measuring up to 3.7 cm on CTA chest from 04/03/2013. Enlarged main pulmonary artery, measuring up to 3.7 cm. Status post mitral valve replacement. UPPER ABDOMEN: Limited non-contrast views of the upper abdomen. Subcentimeter hypodense lesion in the left hepatic lobe is too small to characterize, but likely represents a cyst. Cholelithiasis. Multiple bilateral renal cysts. An exophytic right upper pole hypodense lesion measuring up to 1.3 cm is indeterminate (series 2, image 104; 31 HU). There is a 3.3 cm cyst in the left upper pole with smooth peripheral calcifications. BONES AND SOFT TISSUES: No suspicious lytic or blastic lesions. Status post median sternotomy. Age indeterminate mild loss of vertebral body height at the T12 level. Diffuse osteopenia. IMPRESSION: Multifocal consolidative opacities in the bilateral lower lobes and right upper lobe, suspicious for aspiration or pneumonia. Given the somewhat nodular appearance of the opacities in the right upper lobe and severe emphysematous changes of the lungs, close follow-up chest CT in 3 months is recommended to assess for resolution and exclude underlying neoplasm. Calcifications along the pericardium abutting the left ventricle. Additional curvilinear calcifications along the peripheral aspect of the left ventricle, somewhat increased along the inferior aspect compared to CTA on 04/03/2013. These are indeterminate on this non-contrast study, and could reflect a combination of post-surgical changes and coronary calcifications. Underlying ventricular aneurysm is not excluded on this study, and correlation with recent prior cardiac echo is recommended. A 1.9 cm hypodense nodule in the left thyroid lobe. Thyroid ultrasound may be considered for further evaluation. Bilateral renal cysts with an indeterminate hypodense exophytic lesion in the right upper pole. If clinically indicated, renal protocol CT or MRI may be considered for further evaluation. Ectatic mid ascending aorta measuring up to 3.9 cm, previously 3.7 cm on 04/03/2013. Age indeterminate mild wedge compression deformity at T12. Signed by: Dr. Reyna Malave MD on 06/17/2018 8:41 AM
[2018-06-17] MEDS: TIOTROPIUM 18 MCG INH POWDER INH SCH (08:39)
[2018-06-17] MEDS: CITALOPRAM HYDROBROMIDE 20 MG TAB PO SCH (08:46)
[2018-06-17] MEDS: METOPROLOL SUCCINATE 50 MG TAB XL PO SCH (08:46)
[2018-06-17] MEDS: PANTOPRAZOLE SOD 40 MG TABEC PO SCH (08:46)
[2018-06-17] MEDS: FUROSEMIDE INJ 10 MG/ML 2 ML VIAL IV SCH (08:46)
[2018-06-17] MEDS: PREGABALIN 50 MG CAP PO SCH ×2 (08:46→18:27)
[2018-06-17] MEDS: SERTRALINE HCL 50 MG TAB PO SCH (08:47)
[2018-06-17 09:03] LABS: BASOPHILS % 0.2 % (0.0-1.0); HEMATOCRIT 40.7 % (34.2-44.1); HEMOGLOBIN 12.1 g/dL (12.0-16.0); LYMPHOCYTES # (AUTO) 0.6 (1.0-3.2); LYMPHOCYTES % 9.4 % (18.0-39.1); MEAN CORPUSCULAR HEMOGLOBIN 28.6 pg (28-32); MEAN CORPUSCULAR HGB CONC 29.7 g/dL (31-35); MEAN CORPUSCULAR VOLUME 96.2 fL (81-99); MONOCYTES # (AUTO) 0.2 (0.2-0.8); MONOCYTES % 2.8 % (4.4-11.3); NEUTROPHILS # (AUTO) 5.6 (2.1-6.9); NEUTROPHILS % 87.1 % (38.7-80.0); RED BLOOD COUNT 4.23 x10e6/uL (3.6-5.1); RED CELL DISTRIBUTION WIDTH 13.5 % (11.7-14.4)
[2018-06-17] MEDS: LORAZEPAM 0.5 MG TAB PO PRN ×2 (09:30→20:48)
[2018-06-17 09:54] LABS: PLATELET COUNT 128 x10e3/uL (140-360)
[2018-06-17 10:22] LABS: LYMPHOCYTES % (MANUAL) 11 % (19-48); MONOCYTES % (MANUAL) 2 % (3.4-9.0); NEUTROPHILS % (MANUAL) 87 % (40-74)
[2018-06-17 10:23] LABS: PLATELET ESTIMATE MODERATELY DECREASED
[2018-06-17 10:24] LABS: PLATELET MORPHOLOGY COMMENT NORMAL; RBC MORPHOLOGY COMMENT NORMAL
--- NOTE | 2018-06-17 11:30 | NUR ---
Cruz luong in EDM - 06/17/18 at [address] Nila GAYLE PRDER WOUND CONSULT, WOUND CULTURE, URINE CULTURE, AND TYLENOL #3 2 TABS PO Q6H PRN PAIN
--- NOTE | 2018-06-17 13:01 | NUR ---
PER DR HENDERSON ORDER BARIUM SWALLOW STUDY
--- NOTE | 2018-06-17 15:00 | NUR ---
RECEIVED PATIENT FROM ER PATIENT ARRIVED IN BED SHE IS ALERT AND ORIENTED X3, PLACED ON TELEMETRY, AND HIGH FLOW, 6 LITERS. SHE IS PACING, DENIES PAIN, SKIN ASSESSED NO OPEN AREAS NOTED, MULTIPLE BRUISES NOTED SHE IS ON COUMADIN. I CALLED DAUGHTER TO BRING MEDICATION BOTTLE FOR COUMADIN TO CLARIFY DOSAGE. PATIENT ORIENTED TO ROOM , AND USE OF CALL LIGHT BELONGINGS AND CALL LIGHT WITHIN REACH. INSTRUCTED TO CALL WHEN NEEDING TO USE BEDSIDE COMMODE, VERBALIZED UNDERSTANDING.
[2018-06-17 16:00] VITALS: BP_SYST 115; BP_SYST 142; BP_DIAS 55; BP_DIAS 82
--- NOTE | 2018-06-17 16:40 | Consultation ---
DATE OF CONSULTATION: 06/16/2018 REASON FOR CONSULTATION: CHF and shortness of breath. CONSULTING PHYSICIAN: Kev Barragan M.D. HISTORY OF PRESENT ILLNESS: This is a pleasant 87-year-old female, who presented with shortness of breath. According to the patient, she was having difficulty breathing. She started coughing and she threw up a whole lot of blood and she came into the emergency room for evaluation. She was recently admitted and discharged last month due to respiratory distress. She has history of chronic AFib and has been on Coumadin. She also has a history of chronic systolic CHF and ICD placement in the past. She denied any chest pain, any palpitation, any dizziness, any diaphoresis, or headache. Troponin was negative. EKG with no ST abnormalities. BNP is 1070. PAST MEDICAL HISTORY: Chronic AFib, chronic systolic CHF, hypertension, COPD, [place], CAD with CABG, herpes, renal insufficiency, GERD, sick sinus syndrome, hyperlipidemia, and AAA. PAST SURGICAL HISTORY: Aneurysm repair, CABG, ICD. FAMILY HISTORY: Positive for heart disease. SOCIAL HISTORY: She quit smoking in the past. She lives at her home with her daughter. MEDICATIONS: See med list. ALLERGIES: SHE IS ALLERGIC TO CODEINE. REVIEW OF SYSTEMS: Negative except those mentioned above. She is positive for shortness of breath and hemoptysis. PHYSICAL EXAMINATION: VITAL SIGNS: Temperature 98, heart rate 65, blood pressure 136/60, and respirations 17, on BiPAP. GENERAL: She is awake, alert, and oriented x3. HEENT: Mucous membranes are moist. NECK: Supple. LUNGS: Bilateral with decreased breath sounds. CARDIOVASCULAR: Irregular with V pacing. EXTREMITIES: With trace edema. NEUROLOGIC: Intact. LABORATORY DATA: Sodium 140, potassium 4.1, chloride 100, CO2 of 28, BUN 24, creatinine 1.14, and glucose 169. White blood cells 3.28, hemoglobin 10.5, hematocrit 33.2, and platelets 160. PT 18.1, PTT 32.7, and INR 1.44. IMPRESSION: 1. Acute chronic obstructive pulmonary disease exacerbation. 2. Hemoptysis. 3. Chronic atrial fibrillation. 4. Chronic systolic congestive heart failure. 5. Coronary artery disease with implantable cardioverter-defibrillator. 6. Hypertension. 7. Renal insufficiency. PLAN: 1. She was recently admitted and discharged in May. She had an echocardiogram with severe systolic function, EF 25% to 30%. 2. She is on BiPAP. 3. We will go ahead and put Coumadin on hold for now. Hematology is on board. 4. Heart rate is controlled. We will continue the same medication. Further cardiac workup pending clinical course. Thank you for this consultation. Dictated by Madeline Cohen, IGGY MD BUFFY Casanova/ANGELA /[id number]
--- NOTE | 2018-06-17 16:55 | Consultation ---
DATE OF CONSULTATION: 06/17/[address] Barragan for this consultation. REASON FOR CONSULTATION: Anemia, hemoptysis, and anticoagulation management. HISTORY OF PRESENT ILLNESS: She is a very pleasant 87 year old female with a history of COPD, atrial fibrillation, hypertension, chronic systolic congestive heart failure. The patient was on anticoagulation at home, admitted through emergency with worsening shortness of breath, fatigue, lethargic and tiredness. She also had wheezing for a few days. The patient also complaining of worsening cough associated with hemoptysis. No fevers or chills reported. At the time of admission, the patient's blood work showed INR was 1.39, hemoglobin was 11, white cell count was 9, and platelet count 185. She had CT chest, which showed severe predominantly centrilobular emphysematous changes of the bilateral lung, 1.5 to 1.2 cm somewhat nodular-appearing dependent consolidative opacities in the right upper lobe, and also it shows thyroid nodule. The patient being followed with sewer pipe layer helper. She was started on BiPAP breathing treatment. Clinically doing better. PAST MEDICAL HISTORY: Atrial fibrillation on warfarin, COPD, hypertension, chronic congestive heart failure. SOCIAL HISTORY: Active smoker, stopped smoking 10 years back. No alcohol or drugs. ALLERGIES: CODEINE. FAMILY HISTORY: Reviewed, noncontributory. REVIEW OF SYSTEMS: As per HPI. PHYSICAL EXAMINATION: GENERAL: Alert, awake, lethargic, tired, short of breath. HEENT: Normocephalic, atraumatic. Sclerae pale. Conjunctivae clear. NECK: Supple. CHEST: Bilateral wheezing. Decreased breath sounds in the bases. Crackles in the bases. CARDIOVASCULAR: Regular rate and rhythm. ABDOMEN: Soft, nontender. EXTREMITIES: No edema. PRESCHOOL TEACHER'S ASSISTANT: Intact. LABORATORY DATA: Reviewed. IMAGING DATA: Reviewed as per the HPI. ASSESSMENT AND PLAN: The patient with history of multiple medical conditions, currently in hospital with chronic obstructive pulmonary disease with acute exacerbation, acute and chronic congestive heart failure, cough with hemoptysis, and renal insufficiency. The patient's CAT scan showed severe COPD changes with some pulmonary nodules. So far, no clear etiology of hemoptysis. The patient's INR was subtherapeutic at admission. The patient's clinical condition has improved. No more hemoptysis noted. At this point, I will continue to hold anticoagulation. Monitor the patient's symptoms closely. Possibility of cough associated damage with possible hemoptysis. Monitor CBC closely. Resume anticoagulation after condition improved. The patient's INR was subtherapeutic, maybe she might benefit with Xarelto with some other anticoagulation treatment. We will continue remaining care. We will follow the patient. MD JOSE J Guerin/ANGELA /[id number]
[2018-06-17] MEDS ORDERED: FUROSEMIDE INJ 10 MG/ML 2 ML VIAL IV SCH (17:00)
[2018-06-17 17:50] VITALS: BP 142/82
[2018-06-17] MEDS: FUROSEMIDE INJ 10 MG/ML 4 ML VIAL IV SCH (18:27)
--- NOTE | 2018-06-17 18:36 | Progress Note ---
DATE: SUBJECTIVE: The patient reports no further hemoptysis. She still has some dyspnea, but it is improved slightly. She has no fever. OBJECTIVE: VITAL SIGNS: Blood pressure is 115/55 and the pulse is 68. Saturation is 100%. HEENT: Shows no facial swelling or erythema. The nasal mucosa is normal. The oropharynx is normal. LYMPHATIC: Shows no submandibular, cervical or supraclavicular adenopathy. NECK: Shows no JVD or thyromegaly. There is no nuchal rigidity. CARDIAC: Reveals regular rate and rhythm with a normal S1 and S2. There are no murmurs or rubs. LUNGS: Auscultation of lungs reveals crackles in both lung ang. ABDOMEN: Soft and nontender. There is no rebound or guarding. EXTREMITIES: Show no leg edema or calf tenderness. LABORATORY DATA: BUN to creatinine ratio has improved to 24:1.14. The other electrolytes are within normal limits. The BNP is 1070. White blood cell count is 6.4 and the hemoglobin is 12.1. Platelet count is 128. RADIOGRAPHIC DATA: Chest CT shows consolidated opacities in the lower lobes and right upper lobe. IMPRESSION: 1. Aspiration pneumonia. 2. Thrombocytopenia. 3. Chronic obstructive pulmonary disease with acute exacerbation. 4. Acute on chronic systolic congestive heart failure. 5. Atrial fibrillation. PLAN: 1. Continue antibiotics. 2. Hold warfarin. 3. Solu-Medrol. 4. Bronchodilators. 5. Oxygen. Lenin Darby MD LM/ANGELA /[id number]
[2018-06-17 19:49] VITALS: BP 124/57
[2018-06-17] MEDS: SIMVASTATIN 40 MG TAB PO SCH (20:48)
[2018-06-17 20:58] VITALS: BP 124/57
[2018-06-18] VITALS (8 sets, daily range): BP systolic 103–151; BP diastolic 55–75
[2018-06-18] MEDS: ALBUTEROL/IPRATROPIUM 3 ML NEB NEB SCH ×6 (03:30→23:00)
[2018-06-18 04:05] LABS: HEMOGLOBIN 10.3 g/dL (12.0-16.0); LYMPHOCYTES # (AUTO) 0.7 (1.0-3.2); LYMPHOCYTES % 8.8 % (18.0-39.1); MEAN CORPUSCULAR HEMOGLOBIN 27.8 pg (28-32); MEAN CORPUSCULAR HGB CONC 31.2 g/dL (31-35); MONOCYTES # (AUTO) 0.4 (0.2-0.8); NEUTROPHILS # (AUTO) 7.1 (2.1-6.9); NEUTROPHILS % 85.7 % (38.7-80.0); PLATELET COUNT 200 x10e3/uL (140-360); RED CELL DISTRIBUTION WIDTH 13.5 % (11.7-14.4)
[2018-06-18 04:17] LABS: MEAN CORPUSCULAR VOLUME 89.2 fL (81-99)
[2018-06-18 04:20] LABS: ANION GAP 13.6 mmol/L (8-16); CALCIUM 9.3 mg/dL (8.4-10.2); CREATININE, SERUM 1.2 mg/dL (0.57-1.11); MAGNESIUM 2.3 MG/DL (1.3-2.1); POTASSIUM 4.6 mmol/L (3.5-5.1)
[2018-06-18] MEDS: CEFTRIAXONE SOD 1 GM/NS 50 ML 50 ML IV SCH (05:30)
[2018-06-18] MEDS: AZITHROMYCIN 500MG/NS 250 ML 250 ML IV SCH (06:22)
[2018-06-18] MEDS: TIOTROPIUM 18 MCG INH POWDER INH SCH (07:00)
[2018-06-18] MEDS: FUROSEMIDE INJ 10 MG/ML 4 ML VIAL IV SCH ×2 (08:35→16:18)
[2018-06-18] MEDS: PREGABALIN 50 MG CAP PO SCH ×2 (08:35→16:18)
[2018-06-18] MEDS: CITALOPRAM HYDROBROMIDE 20 MG TAB PO SCH (08:35)
[2018-06-18] MEDS: PANTOPRAZOLE SOD 40 MG TABEC PO SCH (08:35)
[2018-06-18] MEDS: GUAIFENESIN 600MG/DEXTROMETHORPHAN 30MG TABSR PO SCH ×2 (08:35→16:18)
[2018-06-18] MEDS: METOPROLOL SUCCINATE 50 MG TAB XL PO SCH (08:35)
[2018-06-18] MEDS: METHYLPREDNISOLONE SOD SUCC 40 MG/ML VIAL 1ML IV SCH ×2 (08:35→20:39)
[2018-06-18] MEDS: SERTRALINE HCL 50 MG TAB PO SCH (08:36)
[2018-06-18] MEDS: LORAZEPAM 0.5 MG TAB PO PRN ×2 (08:42→20:51)
--- NOTE | 2018-06-18 10:27 | NUR ---
LINDA CARE PROVIDED. NEW PUREWICK APPLIED. 400 ML CLEAR YELLOW URINE EMPTIED.
--- NOTE | 2018-06-18 11:33 | NUR ---
PT CURRENTLY HAVING MBS STUDY AT BEDSIDE.
--- NOTE | 2018-06-18 12:15 | Progress Note ---
DATE: SUBJECTIVE: The patient is seen and examined today. The patient appeared comfortable, breathing improving, but still short of breath and some wheezing. OBJECTIVE: GENERAL: Alert, awake, and communicative. HEENT: Normocephalic and atraumatic. Sclerae pale. Conjunctivae clear. NECK: Supple. CHEST: She has decreased breath sounds in the bases. CARDIOVASCULAR: Regular rate and rhythm. ABDOMEN: Soft. EXTREMITIES: No edema. LABORATORY DATA AND IMAGING: Reviewed. ASSESSMENT AND PLAN: The patient with history of multiple medical conditions includes anemia, currently on anticoagulation for atrial fibrillation, admitted with shortness of breath and hemoptysis. The patient is clinically doing better. No more hemoptysis noted. The patient's hemoglobin is staying at stable when platelet count is stable. Discussed in detail with the patient's family including daughter and also talked with smash hand. Plan to start the patient on anticoagulation in 1 to 2 days. Choice of anticoagulation will be Xarelto this time to Xarelto or Eliquis depends on the patient's kidney function and try to prevent hypercoagulable state. We will continue to monitor hemoglobin closely. Continue we will follow the patient. MD JOSE J Guerin/ANGELA /[id number]
--- NOTE | 2018-06-18 18:41 | Progress Note ---
DATE: Pulmonary Progress Note SUBJECTIVE: The patient has no further hemoptysis. She reports less dyspnea. She did get up with physical therapy today. PHYSICAL EXAMINATION: VITAL SIGNS: The patient is afebrile. She is saturating 100% on 3 L. Her pulse is 70. HEENT: Shows no facial swelling or erythema. The nasal mucosa is normal. The oropharynx is normal. LYMPHATIC: Shows no submandibular, cervical, or supraclavicular adenopathy. CARDIAC: Reveals a regular rate and rhythm with a normal S1 and S2. There are no murmurs or rubs. LUNGS: Auscultation of lungs reveals few crackles at the bases. There is no wheezing. ABDOMEN: Soft, nontender. There is no rebound or guarding. EXTREMITIES: Show no leg edema or calf tenderness. There is no cyanosis or clubbing. SKIN: Shows no rashes. NEUROLOGICAL: Shows no focal abnormalities. LABORATORY DATA: The BUN to creatinine ratio is 34:1.2 and the other electrolytes are within normal limits. The BNP is down to 652. White blood cell count is 8.2 and the hemoglobin is 10.3. The platelet count is 200. IMPRESSION: 1. Aspiration pneumonia. 2. Chronic obstructive pulmonary disease with acute exacerbation. 3. Thrombocytopenia. 4. Acute on chronic systolic congestive heart failure. 5. Atrial fibrillation. PLAN: 1. Continue antibiotics. 2. Wean Solu-Medrol. 3. Physical therapy. 4. Bronchodilators. 5. Wean oxygen. MD CRIS Marinelli/ANGELA /[id number]
--- NOTE | 2018-06-18 20:00 | NUR ---
pt received. pt assessed. no ss of distress noted. no co pain at time. 02 nc noted. bedside monitor in place. purewick suctioning to canister. will cont to follow poc. call rodriguez within reach.
[2018-06-18] MEDS: SIMVASTATIN 40 MG TAB PO SCH (20:43)
[2018-06-19 00:15] VITALS: BP 124/66
--- NOTE | 2018-06-19 02:26 | NUR ---
pt stated she needed to have bm. assisted pt to bedside commode. 400ml clear yellow urine noted. no bm noted. linen changed. sponge bath given. oral care provided. tele replaced. assisted pt back to bed with purewick in place. pt tolerated well. no distress noted. call rodriguez within reach.
[2018-06-19] MEDS: ALBUTEROL/IPRATROPIUM 3 ML NEB NEB SCH ×5 (02:45→23:38)
[2018-06-19 02:55] VITALS: BP 124/66
--- NOTE | 2018-06-19 04:05 | NUR ---
pt resting. no ss of distress noted. call rodriguez within reach.
[2018-06-19 04:27] VITALS: BP 139/51
[2018-06-19 05:17] LABS: HEMATOCRIT 34.9 % (34.2-44.1); HEMOGLOBIN 10.7 g/dL (12.0-16.0); LYMPHOCYTES # (AUTO) 0.6 (1.0-3.2); LYMPHOCYTES % 8.4 % (18.0-39.1); MEAN CORPUSCULAR HEMOGLOBIN 28.1 pg (28-32); MEAN CORPUSCULAR HGB CONC 30.7 g/dL (31-35); MEAN CORPUSCULAR VOLUME 91.6 fL (81-99); MONOCYTES # (AUTO) 0.4 (0.2-0.8); MONOCYTES % 5.8 % (4.4-11.3); NEUTROPHILS # (AUTO) 6.5 (2.1-6.9); NEUTROPHILS % 84.7 % (38.7-80.0); PLATELET COUNT 201 x10e3/uL (140-360); RED BLOOD COUNT 3.81 x10e6/uL (3.6-5.1); RED CELL DISTRIBUTION WIDTH 13.3 % (11.7-14.4)
[2018-06-19] MEDS: CEFTRIAXONE SOD 1 GM/NS 50 ML 50 ML IV SCH (05:35)
[2018-06-19 05:38] LABS: ANION GAP 13.3 mmol/L (8-16); CALCIUM 9.1 mg/dL (8.4-10.2); CREATININE, SERUM 1.27 mg/dL (0.57-1.11); MAGNESIUM 2.4 MG/DL (1.3-2.1); POTASSIUM 4.3 mmol/L (3.5-5.1)
[2018-06-19] MEDS: AZITHROMYCIN 500MG/NS 250 ML 250 ML IV SCH (06:11)
[2018-06-19] MEDS: TIOTROPIUM 18 MCG INH POWDER INH SCH (07:05)
--- NOTE | 2018-06-19 07:37 | NUR ---
pt resting in bed. no c/o pain or s/s distress. will continue to monitor.
[2018-06-19 07:56] VITALS: BP 134/99
[2018-06-19] MEDS: PANTOPRAZOLE SOD 40 MG TABEC PO SCH (08:00)
[2018-06-19] MEDS: CITALOPRAM HYDROBROMIDE 20 MG TAB PO SCH (08:00)
[2018-06-19] MEDS: SERTRALINE HCL 50 MG TAB PO SCH (08:00)
[2018-06-19] MEDS: FUROSEMIDE INJ 10 MG/ML 4 ML VIAL IV SCH ×2 (08:00→17:00)
[2018-06-19] MEDS: PREGABALIN 50 MG CAP PO SCH ×2 (08:00→17:00)
[2018-06-19] MEDS: METOPROLOL SUCCINATE 50 MG TAB XL PO SCH (08:00)
[2018-06-19] MEDS: METHYLPREDNISOLONE SOD SUCC 40 MG/ML VIAL 1ML IV SCH ×2 (08:00→20:48)
[2018-06-19] MEDS: GUAIFENESIN 600MG/DEXTROMETHORPHAN 30MG TABSR PO SCH ×2 (08:00→17:00)
[2018-06-19 08:37] LABS: LYMPHOCYTES % (MANUAL) 5 % (19-48); MONOCYTES % (MANUAL) 4 % (3.4-9.0); NEUTROPHILS % (MANUAL) 90 % (40-74)
--- NOTE | 2018-06-19 09:12 | NUR ---
Nutrition Screen Note RD Recommendation for Physician: -Continue cardiac diet as ordered; diet texture per POSTIE Plan of Care: RD following, monitoring for tolerance and adequacy Nutrition reason for involvement: RN Consult no reason stated Primary Diagnose(s): Aspiration PNA, hemoptysis PMH: COPD, Afib, HTN, CHF Ht: 60in Wt:178lb BMI: 34.8kg/m2 IBW: 100lb RD Assessment: (06/19) Chart reviewed. Labs and meds reviewed. 87yo F, who was admitted for SOB. Currently on Solu-Medrol and Lasix. BG 140 160. MBS was completed; POSTIE placed diet order. Visited pt in the room. Pt reported improvement in her appetite with ~75% meal intake. No GI complains noted. Pt denied any chewing or swallowing difficulty. No recent weight loss noted with reported UBW ~170lbs. Will continue to monitor and follow. Please consult as needed. Current Diet: cardiac diet Malnutrition Evaluation (06/19) The patient does not meet criteria for a specified degree of malnutrition at this time. Will re-evaluate at follow-up as appropriate. Diet Education Needs Assessment: Diet education not indicated. Nutrition Care Level: low Signed: Tricia Alexandre, MS, RD, LD
--- NOTE | 2018-06-19 10:04 | NUR ---
pt downgraded to ms status, trans rm
--- NOTE | 2018-06-19 10:36 | NUR ---
per Dr Andino, wants to restart pt on xarelto 15mg po daily if ok with other MDs.
--- NOTE | 2018-06-19 12:40 | NUR ---
patient and all personal belongings transferred to room 215.
--- NOTE | 2018-06-19 12:45 | Progress Note ---
DATE: Pulmonary Critical Care Progress Note SUBJECTIVE: The patient reports some cough and congestion. Overall, she feels better. She has less fever. She has less chest pain. PHYSICAL EXAMINATION: CARDIAC: Reveals a regular rate and rhythm with a normal S1 and S2. LUNGS: Auscultation of lungs reveals rhonchorous breath sounds bilaterally. There is no wheezing. ABDOMEN: Soft and nontender. There is no rebound or guarding. EXTREMITIES: Show no leg edema or calf tenderness. There is no cyanosis or clubbing. SKIN: Shows no rashes. NEUROLOGICAL: Shows no focal abnormalities. LABORATORY DATA: BUN to creatinine ratio is 37 to 1.27. The other electrolytes are within normal limits. The platelet count is 201 and the white blood cell count is 7.6. The hemoglobin is 10.7. IMPRESSION: 1. Aspiration pneumonia. 2. Chronic obstructive pulmonary disease with acute exacerbation. 3. Thrombocytopenia. 4. Acute on chronic systolic congestive heart failure. 5. Atrial fibrillation. PLAN: 1. Continue antibiotics. 2. Wean Solu-Medrol. 3. Physical therapy. 4. Wean oxygen. Lenin Darby MD LM/MCKENNAL /[id number]
--- NOTE | 2018-06-19 12:47 | NUR ---
RCD PT FROM IMCU BY BED PT IS ALERT AND ORIENTED VITALS CHECKED PT RESTING ON BED BED LOW AND LOCKED CALL LIGHT IN REACH
--- NOTE | 2018-06-19 12:56 | Progress Note ---
DATE: SUBJECTIVE: The patient seen and examined today. The patient appeared comfortable, clinically doing better. OBJECTIVE: GENERAL: Alert, awake, communicative. HEENT: Normocephalic and atraumatic. Sclerae pale. Conjunctivae clear. NECK: Supple. CHEST: Decreased breath sounds in the bases. CARDIOVASCULAR: Regular rate and rhythm. ABDOMEN: Soft. EXTREMITIES: No edema. LABORATORY DATA AND IMAGING: Reviewed. ASSESSMENT AND PLAN: The patient with history of congestive heart failure, chronic obstructive pulmonary disease, atrial fibrillation. Clinical condition stable. Hemoglobin stable. Labs were reviewed. Anticoagulation, we will start the patient on Xarelto 15 a day. care. We will follow the patient closely. MD JOSE J Guerin/ANGELA /[id number]
--- NOTE | 2018-06-19 14:32 | NUR ---
EDUCATED ABOUT IMM, SIGNED, FILED IN CHART, WITH COPY LEFT WITH FAMILY AT BEDSIDE.
[2018-06-19 15:41] VITALS: BP 142/64
--- NOTE | 2018-06-19 18:52 | NUR ---
PT REFUSED PURE WICK SO TAKE IT OUT
--- NOTE | 2018-06-19 19:29 | NUR ---
PT RESTING ON BED BED SIDE REPORT GIVEN TO ONCOMING NURSE
--- NOTE | 2018-06-19 19:34 | NUR ---
Patient received sitting up in bed. AAO x 3. Patient had no complaints of pain. Respirations even and non-labored. Fall precautions in place. Patient instructed to call for assistance when needed. Call light within reach.
[2018-06-19 20:00] VITALS: BP 134/62
--- NOTE | 2018-06-19 20:20 | NUR ---
Patient assisted to BSC and safely transferred to bed.
[2018-06-19] MEDS: SIMVASTATIN 40 MG TAB PO SCH (20:48)
[2018-06-19] MEDS: LORAZEPAM 0.5 MG TAB PO PRN (21:34)
[2018-06-20] VITALS (8 sets, daily range): BP systolic 106–162; BP diastolic 53–67
[2018-06-20] MEDS ORDERED: SODIUM CHLORIDE 0.9% 250ML 250 ML ONE (05:08)
[2018-06-20] MEDS: CEFTRIAXONE SOD 1 GM/NS 50 ML 50 ML IV SCH (05:14)
[2018-06-20 06:09] LABS: BASOPHILS % 0.3 % (0.0-1.0); HEMATOCRIT 36.4 % (34.2-44.1); LYMPHOCYTES # (AUTO) 0.8 (1.0-3.2); LYMPHOCYTES % 11.7 % (18.0-39.1); MEAN CORPUSCULAR HEMOGLOBIN 27.4 pg (28-32); MEAN CORPUSCULAR HGB CONC 30.2 g/dL (31-35); MEAN CORPUSCULAR VOLUME 90.8 fL (81-99); MONOCYTES # (AUTO) 0.5 (0.2-0.8); MONOCYTES % 6.5 % (4.4-11.3); NEUTROPHILS # (AUTO) 5.4 (2.1-6.9); NEUTROPHILS % 78.7 % (38.7-80.0); PLATELET COUNT 204 x10e3/uL (140-360); RED BLOOD COUNT 4.01 x10e6/uL (3.6-5.1); RED CELL DISTRIBUTION WIDTH 13.3 % (11.7-14.4)
[2018-06-20] MEDS: AZITHROMYCIN 500MG/NS 250 ML 250 ML IV SCH (06:30)
[2018-06-20 06:37] LABS: ANION GAP 12.7 mmol/L (8-16); CREATININE, SERUM 1.17 mg/dL (0.57-1.11); MAGNESIUM 2.4 MG/DL (1.3-2.1); POTASSIUM 4.7 mmol/L (3.5-5.1)
[2018-06-20] MEDS: ALBUTEROL/IPRATROPIUM 3 ML NEB NEB SCH ×6 (07:00→22:30)
--- NOTE | 2018-06-20 07:00 | NUR ---
RECEIVED BEDSIDE SHIFT REPORT FROM NIGHT RN. PT DENIES NEEDS AT THIS TIME.
[2018-06-20] MEDS: TIOTROPIUM 18 MCG INH POWDER INH SCH (09:00)
[2018-06-20] MEDS: METOPROLOL SUCCINATE 50 MG TAB XL PO SCH (09:30)
[2018-06-20] MEDS: PREGABALIN 50 MG CAP PO SCH ×2 (09:30→17:23)
[2018-06-20] MEDS: APIXAB 2.5 MG TABLET PO SCH ×2 (09:30→17:23)
[2018-06-20] MEDS: CITALOPRAM HYDROBROMIDE 20 MG TAB PO SCH (09:30)
[2018-06-20] MEDS: SERTRALINE HCL 50 MG TAB PO SCH (09:30)
[2018-06-20] MEDS: GUAIFENESIN 600MG/DEXTROMETHORPHAN 30MG TABSR PO SCH ×2 (09:30→17:23)
[2018-06-20] MEDS: METHYLPREDNISOLONE SOD SUCC 40 MG/ML VIAL 1ML IV SCH ×2 (09:30→21:40)
[2018-06-20] MEDS: PANTOPRAZOLE SOD 40 MG TABEC PO SCH (09:30)
[2018-06-20] MEDS: FUROSEMIDE INJ 10 MG/ML 4 ML VIAL IV SCH ×2 (09:30→17:23)
--- NOTE | 2018-06-20 12:50 | Progress Note ---
DATE: SUBJECTIVE: The patient is seen and examined today. The patient appears comfortable. Clinically, condition is improving. No worsening event noted. OBJECTIVE: GENERAL: Alert, awake, and communicative. HEENT: Normocephalic and atraumatic. Sclerae pale. Conjunctivae clear. NECK: Supple. CHEST: Decreased breath sounds in the bases. CARDIOVASCULAR: Regular rate and rhythm. EXTREMITIES: No edema. LABORATORY DATA AND IMAGING: Reviewed. ASSESSMENT AND PLAN: The patient with history of multiple medical conditions. I am currently following for anemia. Hemoglobin has improved. Clinical condition is improving. The patient was on warfarin at home. Plan to resume anticoagulation treatment. We will communicate with block greaser and primary care team. We will start the patient on direct thrombin inhibitors the kidney function, plan is to start with Eliquis 2.5 twice a day right now. We will continue remaining here. We will follow the patient closely. MD JOSE J Guerin/ANGELA /[id number]
[2018-06-20 15:25] LABS: BAND NEUTROPHILS % (MANUAL) 2 %; LYMPHOCYTES % (MANUAL) 13 % (19-48); MONOCYTES % (MANUAL) 7 % (3.4-9.0); NEUTROPHILS % (MANUAL) 78 % (40-74); PLATELET ESTIMATE ADEQUATE; PLATELET MORPHOLOGY COMMENT NORMAL
[2018-06-20 15:26] LABS: RBC MORPHOLOGY COMMENT NORMAL
[2018-06-20] MEDS: SIMVASTATIN 40 MG TAB PO SCH (21:45)
[2018-06-20] MEDS: LORAZEPAM 0.5 MG TAB PO PRN (22:38)
[2018-06-21] VITALS (9 sets, daily range): BP systolic 116–176; BP diastolic 57–76
--- NOTE | 2018-06-21 00:10 | NUR ---
ASSESSMENT DONE.NO RESP.DISTRESS.NO PAIN VOICED.USE BED SIDE COMMODE AND VOIDED.RESTED WELL DURING NIGHT.PT REFUSED TO PUT BED ALARM.BED LOCKED AND IN LOWEST POSITION.PHONE AND CALL LIGHT WITHIN REACH.INSTRUCTED TO CALL FOR ASSISTANCE NEEDED.
[2018-06-21] MEDS: ALBUTEROL/IPRATROPIUM 3 ML NEB NEB SCH ×6 (03:00→23:00)
[2018-06-21] MEDS: CEFTRIAXONE SOD 1 GM/NS 50 ML 50 ML IV SCH (05:30)
[2018-06-21 06:00] LABS: ANION GAP 11.7 mmol/L (8-16); CALCIUM 9.1 mg/dL (8.4-10.2); CREATININE, SERUM 1.22 mg/dL (0.57-1.11); MAGNESIUM 2.5 MG/DL (1.3-2.1); POTASSIUM 4.7 mmol/L (3.5-5.1)
[2018-06-21] MEDS: AZITHROMYCIN 500MG/NS 250 ML 250 ML IV SCH (06:11)
--- NOTE | 2018-06-21 06:50 | NUR ---
REPORT GIVEN TO THE ONCOMING RN.WALKING ROUNDS DONE.STABLE CONDITION.
--- NOTE | 2018-06-21 07:00 | NUR ---
RECEIVED BEDSIDE SHIFT REPORT FROM NIGHT RN. PT DENIES NEEDS AT THIS TIME.
[2018-06-21] MEDS: TIOTROPIUM 18 MCG INH POWDER INH SCH (09:00)
[2018-06-21] MEDS: PREGABALIN 50 MG CAP PO SCH ×2 (09:56→18:04)
[2018-06-21] MEDS: FUROSEMIDE INJ 10 MG/ML 4 ML VIAL IV SCH (09:56)
[2018-06-21] MEDS: APIXAB 2.5 MG TABLET PO SCH ×2 (09:56→18:04)
[2018-06-21] MEDS: GUAIFENESIN 600MG/DEXTROMETHORPHAN 30MG TABSR PO SCH ×2 (09:56→18:04)
[2018-06-21] MEDS: METHYLPREDNISOLONE SOD SUCC 40 MG/ML VIAL 1ML IV SCH ×2 (09:56→21:30)
[2018-06-21] MEDS: SERTRALINE HCL 50 MG TAB PO SCH (09:57)
[2018-06-21] MEDS: METOPROLOL SUCCINATE 50 MG TAB XL PO SCH (09:57)
[2018-06-21] MEDS: PANTOPRAZOLE SOD 40 MG TABEC PO SCH (09:57)
[2018-06-21] MEDS: CITALOPRAM HYDROBROMIDE 20 MG TAB PO SCH (10:01)
--- NOTE | 2018-06-21 18:20 | Progress Note ---
DATE: Pulmonary Critical Care Progress Note SUBJECTIVE: The patient has no further hemoptysis. Her dyspnea has improved. She does not have any chest pain. PHYSICAL EXAMINATION: VITAL SIGNS: The patient is afebrile. The vital signs are stable. HEENT: Shows no facial swelling or erythema. The nasal mucosa is normal. The oropharynx is normal. LYMPHATIC: Shows no submandibular, cervical, or supraclavicular adenopathy. CARDIAC: Reveals regular rate and rhythm with normal S1 and S2. There are no murmurs or rubs. LUNGS: Auscultation of lungs reveals clear breath sounds bilaterally. There is no wheezing. IMPRESSION: 1. Rbuuu-oa-hanljjh systolic congestive heart failure. 2. Aspiration pneumonia. 3. Chronic obstructive pulmonary disease with acute exacerbation. 4. Atrial fibrillation. PLAN: 1. Complete course of antibiotics. 2. Restart the patient on Eliquis as opposed to Coumadin. 3. Continue bronchodilators. 4. Wean corticosteroids. 5. Tentative discharge for tomorrow. Lenin Darby MD [facility]/MODL /[id number]
--- NOTE | 2018-06-21 20:30 | NUR ---
ASSESSMENT DONE.NO RESP.DISTRESS.NO PAIN VOICED.VOIDED.HIGH FLOW O2 5L GETTING .BED LOCKED AND IN LOWEST POSITION.PHONE AND CALL LIGHT WITHIN REACH.INSTRUCTED TO CALL FOR ASSISTANCE NEEDED.
[2018-06-21] MEDS: SIMVASTATIN 40 MG TAB PO SCH (21:30)
[2018-06-21] MEDS: LORAZEPAM 0.5 MG TAB PO PRN (22:05)
[2018-06-22] VITALS: BP 134/59
[2018-06-22] MEDS: ALBUTEROL/IPRATROPIUM 3 ML NEB NEB SCH ×4 (03:00→15:36)
[2018-06-22 04:00] VITALS: BP 132/63
[2018-06-22] MEDS: CEFTRIAXONE SOD 1 GM/NS 50 ML 50 ML IV SCH (05:30)
[2018-06-22] MEDS: AZITHROMYCIN 500MG/NS 250 ML 250 ML IV SCH (06:00)
--- NOTE | 2018-06-22 07:00 | NUR ---
REPORT GIVEN TO THE ONCOMING RN.WALKING ROUNDS DONE.STABLE CONDITION.
[2018-06-22 07:05] LABS: BASOPHILS # (AUTO) 0.1 (0.0-0.1); BASOPHILS % 0.7 % (0.0-1.0); HEMATOCRIT 36.5 % (34.2-44.1); HEMOGLOBIN 11.4 g/dL (12.0-16.0); LYMPHOCYTES # (AUTO) 1.3 (1.0-3.2); LYMPHOCYTES % 12.9 % (18.0-39.1); MEAN CORPUSCULAR HEMOGLOBIN 27.9 pg (28-32); MEAN CORPUSCULAR HGB CONC 31.2 g/dL (31-35); MEAN CORPUSCULAR VOLUME 89.5 fL (81-99); MONOCYTES # (AUTO) 0.7 (0.2-0.8); MONOCYTES % 7.3 % (4.4-11.3); NEUTROPHILS # (AUTO) 7.3 (2.1-6.9); NEUTROPHILS % 73.1 % (38.7-80.0); PLATELET COUNT 247 x10e3/uL (140-360); RED BLOOD COUNT 4.08 x10e6/uL (3.6-5.1); RED CELL DISTRIBUTION WIDTH 13.2 % (11.7-14.4)
--- NOTE | 2018-06-22 07:15 | NUR ---
pt alert resp even and unlabored at this time no distress noted at this time, no has no c/o pain when asked, pt able to make needs known, call light in reach. will cont to monitor.
[2018-06-22 07:43] LABS: ANION GAP 11.9 mmol/L (8-16); CREATININE, SERUM 1.07 mg/dL (0.57-1.11); MAGNESIUM 2.5 MG/DL (1.3-2.1); PHOSPHORUS 4.5 MG/DL (2.3-4.7); POTASSIUM 4.9 mmol/L (3.5-5.1)
[2018-06-22 07:55] VITALS: BP 121/56
[2018-06-22 08:32] VITALS: BP 121/56
[2018-06-22] MEDS: SERTRALINE HCL 50 MG TAB PO SCH (09:00)
[2018-06-22] MEDS: APIXAB 2.5 MG TABLET PO SCH ×2 (09:00→17:43)
[2018-06-22] MEDS: METOPROLOL SUCCINATE 50 MG TAB XL PO SCH (09:00)
[2018-06-22] MEDS: METHYLPREDNISOLONE SOD SUCC 40 MG/ML VIAL 1ML IV SCH (09:00)
[2018-06-22] MEDS: GUAIFENESIN 600MG/DEXTROMETHORPHAN 30MG TABSR PO SCH ×2 (09:00→17:43)
[2018-06-22] MEDS: PREGABALIN 50 MG CAP PO SCH ×2 (09:00→17:43)
[2018-06-22] MEDS ORDERED: FUROSEMIDE INJ 10 MG/ML 4 ML VIAL IV SCH (09:00)
[2018-06-22] MEDS: PANTOPRAZOLE SOD 40 MG TABEC PO SCH (09:00)
[2018-06-22] MEDS: CITALOPRAM HYDROBROMIDE 20 MG TAB PO SCH (09:58)
[2018-06-22] MEDS ORDERED: PREDNISONE10 MG PO (11:14)
[2018-06-22] MEDS ORDERED: Apixab PO (11:14)
[2018-06-22 11:35] VITALS: BP 138/62
[2018-06-22 13:52] LABS: LYMPHOCYTES % (MANUAL) 10 % (19-48); METAMYELOCYTES % (MANUAL) 1 % (0-0); MONOCYTES % (MANUAL) 4 % (3.4-9.0); NEUTROPHILS % (MANUAL) 85 % (40-74)
[2018-06-22 13:53] LABS: ANISOCYTOSIS SLIGHT; HYPOCHROMASIA SLIGHT; PLATELET ESTIMATE ADEQUATE; RBC MORPHOLOGY COMMENT NORMAL
[2018-06-22 13:54] LABS: PLATELET MORPHOLOGY COMMENT MODERATE LARGE
--- NOTE | 2018-06-22 14:44 | NUR ---
CM SPOKE TO PATIENT AT BEDSIDE REGARDING IMM LETTER. IMM LETTER GIVEN WITH EXPLANATION. ORIGINAL SIGNED AND PLACED IN CHART; COPY OF ORIGINAL DOCUMENT GIVEN TO PATIENT AT BEDSIDE AND PLACED IN CARE TRANSITION FOLDER. CM CONTACT INFORMATION GIVEN TO PATIENT FOR ANY NEEDS OR CONCERNS. PATIENT WITH NO FURTHER QUESTIONS.
[2018-06-22 16:45] VITALS: BP 148/67
--- NOTE | 2018-06-22 17:39 | NUR ---
pt discharge home , pt and daughter educated on medications, iv site removed, no swelling no redness to site. pt was asked to follow up with PCP and Social Media Marketing Specialist.
[2018-06-22] MEDS: LORAZEPAM 0.5 MG TAB PO PRN (17:41)
--- NOTE | 2018-06-23 13:50 | Discharge Summary ---
ADMISSION DIAGNOSES: 1. Hemoptysis. 2. Acute on chronic systolic congestive heart failure. 3. Acute exacerbation of chronic obstructive pulmonary disease. 4. Acute on chronic respiratory failure. 5. Hypertension with congestive heart failure and chronic kidney disease 3. 6. Chronic atrial fibrillation with pacemaker. 7. Chronic kidney disease 3. DISCHARGE DIAGNOSES: 1. Hemoptysis. 2. Acute on chronic systolic congestive heart failure. 3. Acute exacerbation of chronic obstructive pulmonary disease. 4. Acute on chronic respiratory failure. 5. Hypertension with congestive heart failure and chronic kidney disease 3. 6. Chronic atrial fibrillation with pacemaker. 7. Chronic kidney disease 3. 8. Multifocal pneumonia present on admission. HISTORY: The patient has a history of COPD, CKD 3, atrial fibrillation, hypertension, chronic systolic CHF, sick sinus syndrome with pacemaker, CAD, GERD, anemia, hyperlipidemia. The patient is oxygen dependent at home. SURGICAL HISTORY: Pacemaker placement and CABG. FAMILY HISTORY: The patient's son had a stroke, another son had cancer, and another son had an NE. SOCIAL HISTORY: The patient denies current alcohol, tobacco, or illicit drug use. She quit smoking about 3 years ago. HOSPITAL COURSE: An 87-year-old female complains of coughing up blood around 4 a.m. prior to discharge while getting out of bed to give herself a breathing treatment. She denies any other bleeding. Hemoglobin is 11.3 on admission to the ER. She complains of chronic cough and wheeze secondary to COPD. She denies edema, but admits to intermittent shortness of breath. She says she takes medications as prescribed and follows the fluid restrictions given to her by her laminated plastics assembler and gluer. On admission, chest x-ray showed mild cardiomegaly and mild interstitial edema. CT of the chest showed multifocal consolidative opacities in the bilateral lower lobes and right upper lobe, suspicion for aspiration or pneumonia; a 1.9 cm hypodense nodule in the left thyroid lobe; bilateral renal cysts; ectatic mild descending aorta measuring up to 3.9 cm, previously 3.7 cm on 04/03/2013; age indeterminate mild wedge compression deformity at T12. Blood cultures were negative. Flu culture negative. The patient started on Zithromax, Rocephin, IV Solu-Medrol, and aggressive neb treatments. Initially in the ER, she was on BiPAP with FiO2 of 60%. At the time of discharge, the patient is on nasal cannula, which she uses at home. Antibiotic course has been completed. She will go home with a tapering dose of steroids p.o. and her Coumadin was switched to Eliquis 2.5 b.i.d. per Hematology. She will follow up with primary care in 1-2 weeks and Pulmonology as discussed. The patient understands discharge instructions and agrees to plan. Vital signs stable, the patient afebrile. Dictated by Ashley Plaza NP MD SADE Villanueva/MODL /[id number]
--- NOTE | 2018-06-24 10:00 | Diagnostic Imaging Report ---
PROCEDURE: X-RAY MODIFIED BARIUM SWALLOW COMPARISON: None. INDICATION: Aspiration pneumonia. Radiation Details: Fluoroscopy time: 1.5 minutes Cumulative dose: 8.2 mGy DISCUSSION: Fluoroscopic examination was performed in conjunction with speech pathology during swallowing a variety of thin and thick liquid consistencies. Provided images demonstrate no laryngeal penetration or aspiration. CONCLUSION: Modified barium swallow demonstrating no laryngeal penetration or aspiration. Please refer to the speech pathology report for further details. Signed by: Dr. Reyna Malave MD on 06/24/2018 9:57 AM
== END 2018-06-22 17:39 | disposition home or self-care (01) | DRG 177 ==
LOC: ER 05:22 → ERHOLD 06:48 → IMCU 06-17 15:39 → MED/SURG2 06-19 12:41
PROVIDERS: ADMIT Internal Medicine; ATTEND Internal Medicine
DX: J69.0 Pneumonitis due to inhalation of food and vomit (principal); I50.23 Acute on chronic systolic (congestive) heart failure; J96.20 Acute and chronic respiratory failure, unspecified whether with hypoxia or hypercapnia; I13.0 Hypertensive heart and chronic kidney disease with heart failure and stage 1 through stage 4 chronic kidney disease, or unspecified chronic kidney disease; J44.1 Chronic obstructive pulmonary disease with (acute) exacerbation; D68.32 Hemorrhagic disorder due to extrinsic circulating anticoagulants; M48.54XA Collapsed vertebra, not elsewhere classified, thoracic region, initial encounter for fracture; N18.3 Chronic kidney disease, stage 3 (moderate); I48.2 Chronic atrial fibrillation; Z79.01 Long term (current) use of anticoagulants; Z95.0 Presence of cardiac pacemaker; Z99.81 Dependence on supplemental oxygen; K21.9 Gastro-esophageal reflux disease without esophagitis; E78.5 Hyperlipidemia, unspecified; N28.1 Cyst of kidney, acquired; E04.1 Nontoxic single thyroid nodule; T45.515A Adverse effect of anticoagulants, initial encounter; D69.6 Thrombocytopenia, unspecified
CPT/HCPCS: 36415; 36600; 71045; 71250; 74230; 80048; 80053; 81001; 82550; 82553; 82805; 83036; 83605; 83735; 83880; 84100; 84145; 84439; 84443; 84484; 85025; 85610; 85730; 86850; 86900; 87040; 87400; 93005; 93306; 94640; 94660; 96367; 96374; 96376; 97139; 99285; J0456; J0696; J1940; J2920; J2930; J7050

== ENCOUNTER → 2018-08-07 | Outpatient (CLI) | payer OTHER ==
[~2018-08-07] MED LIST changes: +ADVAIR 500/501 EA INH; +Apixab PO; +CITALOPRAM HBR20 MG PO; +LORAZEPAM0.5 MG PO; +PREDNISONE10 MG PO
--- NOTE | 2018-08-07 17:00 | Diagnostic Imaging Report ---
EXAMINATION: CT of the chest without contrast TECHNIQUE: Spiral CT images of the chest were performed from the lung apices through the level of the adrenal glands without IV or oral contrast material. Coronal and sagittal reformations were accomplished. Dose reduction techniques were utilized. COMPARISON: 06/16/[address] CLINICAL HISTORY: Hemoptysis DLP: 476.92 mGy-cm DISCUSSION: Lines/Tubes: No change in the left-sided cardiac device with 3 leads present. Lungs: Again noted are severe emphysematous changes. Right lower lobe nodular consolidation slightly improved. Vague infiltrate in the right upper lobe along the minor fissure. Improved left lower lobe opacity. Airways: <The major airways are clear.> Pleura: <There is no evidence of pleural effusion or pneumothorax.> Heart and mediastinum: Again noted is the hypodense lesion in the left thyroid lobe. Moderate cardiomegaly persists. Extensive atherosclerotic calcification in the coronary arteries and thoracic aorta is present. Pericardial calcification is also identified. Left ventricular calcification likely represents an old infarct. Abdomen: Multiple renal cysts are present. Bones and soft tissues: Extensive degenerative changes of the spine with wedge deformity previously noted. IMPRESSION: Persistent right lower lobe nodular consolidation. Signed by: Dr. Mina Kwan DO on 08/07/2018 4:57 PM
== END ==
LOC: CT 13:27
PROVIDERS: ATTEND Internal Medicine Critical Care Medicine
DX: R04.2 Hemoptysis (principal)
CPT/HCPCS: 71250

== ENCOUNTER 2018-09-29 23:58 | Emergency (ER) | payer OTHER ==
[~2018-09-29] VITALS: Ht 152.4 cm; Wt 80.7 kg
[2018-09-30] MEDS ORDERED: ALBUTEROL SULF 0.083% NEB SOLN 3 ML NEB NEB STA (00:06)
[2018-09-30] MEDS ORDERED: IPRATROPIUM BROMIDE 0.02% 2.5 ML NEB NEB STA (00:06)
[2018-09-30 03:53] LABS: BASOPHILS % 0.1 % (0.0-1.0); EOSINOPHILS % 0.3 % (0.0-6.0); HEMATOCRIT 34.5 % (34.2-44.1); HEMOGLOBIN 10.8 g/dL (12.0-16.0); LYMPHOCYTES # (AUTO) 0.5 (1.0-3.2); LYMPHOCYTES % 6.3 % (18.0-39.1); MEAN CORPUSCULAR HEMOGLOBIN 27.8 pg (28-32); MEAN CORPUSCULAR HGB CONC 31.3 g/dL (31-35); MEAN CORPUSCULAR VOLUME 88.9 fL (81-99); MONOCYTES # (AUTO) 0.1 (0.2-0.8); MONOCYTES % 1.3 % (4.4-11.3); NEUTROPHILS # (AUTO) 6.9 (2.1-6.9); NEUTROPHILS % 91.7 % (38.7-80.0); PLATELET COUNT 128 x10e3/uL (140-360); RED BLOOD COUNT 3.88 x10e6/uL (3.6-5.1); RED CELL DISTRIBUTION WIDTH 14.5 % (11.7-14.4)
--- NOTE | 2018-09-30 04:03 | Diagnostic Imaging Report ---
EXAMINATION: CHEST SINGLE (PORTABLE) INDICATION: ^ERMD ORDER ^[id number] ^0116 ^Y COMPARISON: Chest CT dated 08/07/2018 and x-ray dated 06/16/2018 FINDINGS: AP view TUBES and LINES: Stable left chest wall cardiac device. LUNGS: Limited by body habitus. Pulmonary vascular congestion on mild interstitial edema. Right basilar atelectasis/scarring. PLEURA: No significant pleural effusion or pneumothorax. HEART AND MEDIASTINUM: The cardiomediastinal silhouette is enlarged. Median sternotomy wires and mediastinal surgical clips. BONES AND SOFT TISSUES: No acute osseous lesion. Soft tissues are unremarkable. UPPER ABDOMEN: No free air under the diaphragm. IMPRESSION: Limited as above. Enlarged cardiomediastinal silhouette, pulmonary vascular congestion, and mild interstitial edema. Signed by: Dr. Hernando Styles MD on 09/30/2018 4:00 AM
[2018-09-30 04:05] LABS: BILIRUBIN,URINE NEGATIVE (NEGATIVE); CLARITY,URINE CLEAR (CLEAR); COLOR,URINE YELLOW (YELLOW); KETONES,URINE NEGATIVE (NEGATIVE); LEUKOCYTE ESTERASE ,URINE NEGATIVE (NEGATIVE); NITRITE,URINE NEGATIVE (NEGATIVE); PROTEIN,URINE DIPSTICK NEGATIVE (NEGATIVE); URINE UROBILINOGEN 0.2 mg/dL (0.2 - 1)
[2018-09-30 04:12] LABS: BACTERIA,URINE FEW /HPF; EPITHELIAL CELLS,URINE FEW /LPF; MUCUS,URINE FEW (RARE)
[2018-09-30 04:14] LABS: ALBUMIN 3.6 g/dL (3.5-5.0); ALBUMIN/GLOBULIN RATIO 1.3 (0.8-2.0); CALCIUM 9.6 mg/dL (8.4-10.2); CREATININE, SERUM 1.71 mg/dL (0.57-1.11)
[2018-09-30 04:20] LABS: CREATINE KINASE MB 3.2 ng/mL (0-5.0)
[2018-09-30] MEDS ORDERED: FUROSEMIDE INJ 10 MG/ML 4 ML VIAL IV ONE (05:00)
[2018-09-30 09:59] LABS: EOSINOPHILS % (MANUAL) 2 % (0-7); LYMPHOCYTES % (MANUAL) 5 % (19-48); MONOCYTES % (MANUAL) 1 % (3.4-9.0); NEUTROPHILS % (MANUAL) 92 % (40-74); PLATELET ESTIMATE MODERATELY DECREASED; PLATELET MORPHOLOGY COMMENT NORMAL; RBC MORPHOLOGY COMMENT NORMAL
== END 2018-09-30 06:55 | disposition home or self-care (01) ==
LOC: ER 23:58
DX: R06.00 Dyspnea, unspecified (principal); J44.1 Chronic obstructive pulmonary disease with (acute) exacerbation; I50.22 Chronic systolic (congestive) heart failure
CPT/HCPCS: 36415; 71045; 80053; 81001; 82550; 82553; 83880; 84484; 85025; 93005; 99284; J1940

== ENCOUNTER 2018-10-25 02:42 | Inpatient (IN) | payer MEDICARE, OTHER ==
[~2018-10-25] VITALS: Ht 152.4 cm; Wt 79.8 kg
[2018-10-25] VITALS (9 sets, daily range): BP systolic 92–114; BP diastolic 55–72
[2018-10-25] MEDS ORDERED: ACETAMINOPHEN 1000 MG/100 ML IV STA (02:50)
[2018-10-25] MEDS ORDERED: ACETAMINOPHEN 1000 MG/100 ML 100 ML IV ONE (02:51)
[2018-10-25 03:10] LABS: BASOPHILS % 0.2 % (0.0-1.0); EOSINOPHILS # (AUTO) 0.1 (0.0-0.4); EOSINOPHILS % 0.7 % (0.0-6.0); HEMATOCRIT 37.2 % (34.2-44.1); HEMOGLOBIN 11.6 g/dL (12.0-16.0); LYMPHOCYTES # (AUTO) 2.2 (1.0-3.2); LYMPHOCYTES % 11.9 % (18.0-39.1); MEAN CORPUSCULAR HEMOGLOBIN 27.6 pg (28-32); MEAN CORPUSCULAR HGB CONC 31.2 g/dL (31-35); MEAN CORPUSCULAR VOLUME 88.4 fL (81-99); MONOCYTES # (AUTO) 1.4 (0.2-0.8); MONOCYTES % 7.5 % (4.4-11.3); NEUTROPHILS # (AUTO) 14.6 (2.1-6.9); PLATELET COUNT 175 x10e3/uL (140-360); RED BLOOD COUNT 4.21 x10e6/uL (3.6-5.1); RED CELL DISTRIBUTION WIDTH 14.4 % (11.7-14.4)
[2018-10-25 03:33] LABS: ALBUMIN 3.9 g/dL (3.5-5.0); ALBUMIN/GLOBULIN RATIO 1.3 (0.8-2.0); ANION GAP 15.2 mmol/L (8-16); CALCIUM 9.9 mg/dL (8.4-10.2); CREATININE, SERUM 1.99 mg/dL (0.57-1.11); POTASSIUM 5.2 mmol/L (3.5-5.1)
[2018-10-25 04:06] LABS: CREATINE KINASE MB 1.6 ng/mL (0-5.0)
[2018-10-25] MEDS ORDERED: VANCOMYCIN HCL 1GM/NS 250 ML BAG IV SCH (04:15)
[2018-10-25] MEDS ORDERED: LEVOFLOXACIN 750MG/D5W 150ML IV SCH (04:15)
[2018-10-25] MEDS ORDERED: VANCOMYCIN 1GM/NS 250 ML 250 ML IV SCH (04:15)
[2018-10-25] MEDS ORDERED: SPIRONOLACTONE50 MG PO (04:33)
[2018-10-25] MEDS ORDERED: SPIRIVA18 MCG INH (04:33)
[2018-10-25] MEDS ORDERED: SERTRALINE HCL100 MG PO (04:33)
[2018-10-25] MEDS ORDERED: TORSEMIDE10 MG PO (04:33)
[2018-10-25] MEDS ORDERED: PROAIR HFA INH8.5 GM INH (04:35)
--- NOTE | 2018-10-25 04:37 | NUR ---
pt placed on tele box 11
[2018-10-25] MEDS ORDERED: SOD POLYSTYRENE SULFONATE SUSP 15 GM/60 ML BTL PO ONE (05:00)
--- NOTE | 2018-10-25 05:15 | NUR ---
patient received from ER.
[2018-10-25] MEDS ORDERED: CEFEPIME HCL 2 GM/SOD CHL 0.9% 100 ML BAG IV SCH (06:00)
--- NOTE | 2018-10-25 06:04 | Diagnostic Imaging Report ---
EXAMINATION: CHEST SINGLE (PORTABLE) INDICATION: Short of breath, fever COMPARISON: Chest CT 08/07/2018, chest radiograph 09/30/2018 FINDINGS: AP view Patient rotated right. TUBES and LINES: Stable left chest wall cardiac device with leads in the right atrium and right ventricle. LUNGS: There is prominence of the central pulmonary vasculature, consistent with pulmonary venous congestion. Persistent linear opacities in the right lung. PLEURA: No pleural effusion or pneumothorax. HEART AND MEDIASTINUM: Cardiac size is moderately enlarged. BONES AND SOFT TISSUES: Sternotomy wires intact. No gross osseous or soft tissue abnormalities. UPPER ABDOMEN: No free air under the diaphragm. IMPRESSION: Moderate cardiomegaly and pulmonary vascular congestion. Chronic linear opacities in the right lung likely reflect subsegmental atelectasis. Signed by: Pillo Boss DO on 10/25/2018 6:00 AM
--- NOTE | 2018-10-25 07:00 | NUR ---
Patient endorsed to next shift for continuity of care.
--- NOTE | 2018-10-25 07:05 | NUR ---
RCD PT AT BED PT IS ALERT AND ORIENTED PT RESTING ON BED NO SIGNS OF ANY DISTRESS NOTED IV PATENT BED LOW AND LOCKED CALL LIGHT IN REACH
[2018-10-25] MEDS: CEFTRIAXONE SOD 1 GM/NS 50 ML 50 ML IV SCH (12:45)
[2018-10-25] MEDS: AZITHROMYCIN 500MG/NS 250 ML 250 ML IV SCH (12:45)
[2018-10-25] MEDS ORDERED: ALBUTEROL/IPRATROPIUM 3 ML NEB NEB PRN (12:45)
[2018-10-25 12:54] LABS: CREATINE KINASE MB 1.6 ng/mL (0-5.0)
[2018-10-25] MEDS ORDERED: LACTULOSE SYRUP 20 GM/30 ML UDC PO ONE (13:00)
[2018-10-25] MEDS ORDERED: SODIUM CHLORIDE 0.9% 250ML 250 ML ONE (13:50)
--- NOTE | 2018-10-25 14:00 | NUR ---
DEBI MARTINO TALKED TO [facility] PHARMACIST AND [facility]
[2018-10-25] MEDS: ALBUTEROL/IPRATROPIUM 3 ML NEB NEB SCH ×2 (14:20→19:40)
--- NOTE | 2018-10-25 15:00 | NUR ---
PAGED AND NOTIFIED [facility] CHANGES AND FEVER 100.6 GOT NEW ORDERS
[2018-10-25] MEDS ORDERED: ELIQUIS PO (15:30)
[2018-10-25] MEDS ORDERED: LASIX40 MG PO (15:30)
--- NOTE | 2018-10-25 16:20 | Consultation ---
DATE OF CONSULTATION: 10/25/2018 Pulmonary Critical Care Consultation CHIEF COMPLAINT: Dyspnea and congestion. HISTORY OF PRESENT ILLNESS: The patient is an 88-year-old woman. She has a history of COPD as well as systolic congestive heart failure. She has required multiple admissions for COPD exacerbation and heart failure. She uses oxygen at home as well as bronchodilators. She now comes in complaining of more fatigue and dyspnea. She does not complain of chest pain. She has no phlegm production. PAST SURGICAL HISTORY: 1. Status post coronary artery bypass grafting. 2. Status post pacemaker. PAST MEDICAL HISTORY: 1. COPD. 2. Atrial fibrillation. 3. Hypertension. 4. Chronic systolic congestive heart failure. SOCIAL HISTORY: The patient quit smoking 10 years ago. She does not drink alcohol. ALLERGIES: THE PATIENT IS ALLERGIC TO CODEINE. FAMILY HISTORY: Family history is noncontributory. REVIEW OF SYSTEMS: There are no fevers. She has no headache. She has no neck pain. She has no cough or chest congestion. She does not complain of any phlegm production. She has no abdominal pain. She has no nausea or vomiting. She has no leg edema. PHYSICAL EXAMINATION: VITAL SIGNS: The patient is afebrile. The blood pressure is 111/58 and the saturation is 96%. The pulse is 87 and the temperature is 99.3. The respiratory rate is 16. HEENT: Shows no facial swelling or erythema. The nasal mucosa is normal. The oropharynx is normal. LYMPHATIC: Shows no submandibular, cervical, or supraclavicular adenopathy. CARDIAC: Reveals regular rate and rhythm with a normal S1 and S2. There are no murmurs or rubs. LUNGS: Auscultation of lungs reveals clear breath sounds bilaterally. There is no wheezing. ABDOMEN: Soft and nontender. There is no rebound or guarding. EXTREMITIES: Show no leg edema or calf tenderness. RADIOGRAPHIC DATA: Chest x-ray shows cardiomegaly and pulmonary vascular congestion. LABORATORY DATA: White blood cell count is 18.8 and the hemoglobin is 11.6. The platelet count is 175. BUN to creatinine ratio is 29:1.99 and the potassium is 5.2. IMPRESSION: 1. Acute on chronic systolic congestive heart failure. 2. Fever with leukocytosis of unclear etiology. 3. Chronic obstructive pulmonary disease with acute exacerbation. 4. Acute on chronic renal failure. 5. Atrial fibrillation. PLAN: 1. Continue antibiotics and await culture results. 2. Continue bronchodilators. 3. Diuretics. 4. Corticosteroids. 5. Continue inhalers. MD CRIS Marinelli/ANGELA /[id number]
[2018-10-25] MEDS: PREGABALIN 50 MG CAP PO SCH (16:50)
[2018-10-25] MEDS ORDERED: ACETAMINOPHEN 325 MG TAB PO PRN (17:15)
--- NOTE | 2018-10-25 18:49 | NUR ---
PT RESTING ON BED BED SIDE REPORT GIVEN TO ONCOMING NURSE
[2018-10-25 20:23] LABS: CREATINE KINASE MB 1.6 ng/mL (0-5.0)
[2018-10-25] MEDS ORDERED: SERTRALINE HCL 100 MG TAB PO SCH (21:00)
[2018-10-25] MEDS: SIMVASTATIN 40 MG TAB PO SCH (21:25)
[2018-10-25] MEDS: FUROSEMIDE INJ 10 MG/ML 4 ML VIAL IV SCH (21:25)
[2018-10-25] MEDS: METHYLPREDNISOLONE SOD SUCC 40 MG/ML VIAL 1ML IV SCH (21:25)
--- NOTE | 2018-10-25 22:16 | Consultation ---
DATE OF CONSULTATION: Cardiology Consultation CHIEF COMPLAINT: The patient has had fatigue and dyspnea. HISTORY OF PRESENT ILLNESS: The patient is an 88-year-old female with a long history of chronic congestive heart failure and COPD, and the patient has a biventricular ICD. The patient has home oxygen. The patient has had frequent admissions for congestive heart failure and COPD exacerbation. PAST MEDICAL HISTORY: Significant for: 1. Previous coronary artery bypass grafting. 2. Biventricular ICD placement. 3. Chronic atrial fibrillation. 4. Chronic obstructive pulmonary disease. 5. Known chronic systolic congestive heart failure. SOCIAL HISTORY: The patient reports that she quit smoking. The patient does not drink. FAMILY HISTORY: There is a family history of hypertension and coronary artery disease. PHYSICAL EXAMINATION: GENERAL: The patient is an older female, in no obvious distress. VITAL SIGNS: Temperature is 98.8, pulse is 70, blood pressure is 120/70. HEAD, EARS, EYES, NOSE, AND THROAT: The patient's cranium was normocephalic and atraumatic. Extraocular muscles intact. Sclerae were anicteric. Pupils were equal, round, and reactive to light. There was no pallor or cyanosis of the oral mucosa. NECK: Supple. No jugular venous distention. No carotid bruits. CHEST: Demonstrated rhonchi bilaterally. CARDIAC: Demonstrated normal S1 and S2 with a short 2/6 systolic murmur. ABDOMEN: There is good bowel sounds. No tenderness. No masses. EXTREMITIES: No clubbing, no cyanosis, and no edema. NEUROLOGIC: The patient was alert and oriented. Cranial nerves are intact. Motor strength was intact in all limbs. IMAGING STUDIES: The patient's EKG demonstrated ventricular pacing. IMPRESSION: The patient is an 88-year-old, admitted with worsening [id number] systolic congestive heart failure and chronic obstructive pulmonary disease exacerbation. RECOMMENDATIONS: 1. The patient will need to be diuresed with IV Lasix. 2. The patient will require corticosteroids and bronchodilators for chronic obstructive pulmonary disease. 3. Hypertension. The patient's TEZ inhibitors and beta-blockers will need to be continued. MD JANEEN Castaneda/MCKENNAL /[id number] cc: Kev Barragan MD
[2018-10-26] VITALS (7 sets, daily range): BP systolic 94–109; BP diastolic 50–56
[2018-10-26] MEDS: ALBUTEROL/IPRATROPIUM 3 ML NEB NEB SCH ×4 (01:00→19:40)
[2018-10-26 04:39] LABS: BASOPHILS % 0.1 % (0.0-1.0); HEMATOCRIT 32.2 % (34.2-44.1); LYMPHOCYTES # (AUTO) 0.6 (1.0-3.2); LYMPHOCYTES % 5.2 % (18.0-39.1); MEAN CORPUSCULAR HEMOGLOBIN 27.1 pg (28-32); MEAN CORPUSCULAR HGB CONC 31.1 g/dL (31-35); MEAN CORPUSCULAR VOLUME 87.3 fL (81-99); MONOCYTES # (AUTO) 0.2 (0.2-0.8); MONOCYTES % 1.6 % (4.4-11.3); NEUTROPHILS # (AUTO) 10.6 (2.1-6.9); NEUTROPHILS % 92.3 % (38.7-80.0); PLATELET COUNT 136 x10e3/uL (140-360); RED BLOOD COUNT 3.69 x10e6/uL (3.6-5.1); RED CELL DISTRIBUTION WIDTH 14.6 % (11.7-14.4)
[2018-10-26 04:58] LABS: ANION GAP 16.3 mmol/L (8-16); CALCIUM 9.1 mg/dL (8.4-10.2); CREATININE, SERUM 1.9 mg/dL (0.57-1.11); MAGNESIUM 1.8 MG/DL (1.3-2.1); POTASSIUM 4.3 mmol/L (3.5-5.1)
[2018-10-26 05:11] LABS: B-TYPE NATRIURETIC PEPTIDE2 143.7 pg/mL (0-100)
[2018-10-26 05:23] LABS: FREE T4 (FREE THYROXINE) 1.12 ng/dL (0.8-1.8); THYROID STIMULATING HORMONE 0.516 uIU/mL (0.350-4.940)
[2018-10-26 05:44] LABS: BILIRUBIN,DIRECT 0.3 mg/dL (0.0-0.5)
--- NOTE | 2018-10-26 07:15 | NUR ---
patient endorsed to next shift for continuity of care.
[2018-10-26] MEDS: TIOTROPIUM 18 MCG INH POWDER INH SCH (07:20)
--- NOTE | 2018-10-26 07:30 | NUR ---
REC'D PT AAOX3, ON 4L/MIN VIA NC, TELE #11 PACED WITH CON'T PULSE OX, IV TO LT. FA INTACT AND PATENT, NO S/S OF DISTRESS. BED IN LOWEST POSITION, SIDE RAILS UP X2, AND CALL [facility] WITHIN REACH.
[2018-10-26] MEDS ORDERED: NON-FORMULARY MEDICATION (Spironolactone 50 MG) PO SCH (09:00)
[2018-10-26] MEDS ORDERED: TORSEMIDE 10 MG TAB PO SCH (09:00)
[2018-10-26] MEDS: FUROSEMIDE INJ 10 MG/ML 4 ML VIAL IV SCH (09:00)
[2018-10-26] MEDS ORDERED: FUROSEMIDE INJ 10 MG/ML 4 ML VIAL IV SCH (09:00)
[2018-10-26] MEDS: PANTOPRAZOLE SOD 40 MG TABEC PO SCH (09:58)
[2018-10-26] MEDS: PREGABALIN 50 MG CAP PO SCH ×2 (09:58→16:27)
[2018-10-26] MEDS: CITALOPRAM HYDROBROMIDE 20 MG TAB PO SCH (09:58)
[2018-10-26] MEDS: METHYLPREDNISOLONE SOD SUCC 40 MG/ML VIAL 1ML IV SCH ×2 (09:58→20:46)
[2018-10-26] MEDS: SPIRONOLACTONE 25 MG TAB PO SCH (09:58)
--- NOTE | 2018-10-26 10:40 | Diagnostic Imaging Report ---
EXAMINATION: CHEST 2 VIEWS INDICATION: Congestive heart failure COMPARISON: Multiple prior chest radiograph, most recently of 10/25/2018, chest CT of 08/07/2018 FINDINGS: TUBES and LINES: Left chest AICD with leads in unchanged position. EKG leads overlie the thorax. Median sternotomy wires intact. Cardiac valvular prosthesis. LUNGS: The lungs are hyperinflated. Bilateral upper lobe predominant emphysematous changes. No focal consolidation or pulmonary edema. Pulmonary nodules seen on prior chest CT are beyond the resolution of this radiograph. PLEURA: No pleural effusion or pneumothorax. HEART AND MEDIASTINUM: Cardiomediastinal silhouette is stably enlarged. BONES AND SOFT TISSUES: No acute fracture or dislocation. UPPER ABDOMEN: No free air under the diaphragm. IMPRESSION: Stable cardiomegaly. No pulmonary edema or focal pneumonia. Hyperinflated lungs with bilateral upper lobe predominant emphysema Signed by: Radha Jaramillo MD on 10/26/2018 10:36 AM
[2018-10-26] MEDS: CEFTRIAXONE SOD 1 GM/NS 50 ML 50 ML IV SCH (12:45)
[2018-10-26] MEDS: AZITHROMYCIN 500MG/NS 250 ML 250 ML IV SCH (14:00)
--- NOTE | 2018-10-26 16:06 | Progress Note ---
DATE: Pulmonary Critical Care Progress Note SUBJECTIVE: The patient notes some improvement. She has less dyspnea and less chest pain. She is not complaining of cough or congestion. PHYSICAL EXAMINATION: VITAL SIGNS: Blood pressure is 99/50, saturation 99% on 3 L. HEENT: No facial swelling or erythema. The nasal mucosa is normal. The oropharynx is normal. LYMPHATIC: No submandibular, cervical, or supraclavicular adenopathy. CARDIAC: Regular rate and rhythm with normal S1, S2. There are no murmurs or rubs. LUNGS: Auscultation of lungs shows clear breath sounds bilaterally. There is no wheezing. ABDOMEN: Soft, nontender. There is no rebound or guarding. RADIOGRAPHIC DATA: Chest x-ray shows hyperinflated lung ang consistent with COPD. IMPRESSION: 1. Chronic obstructive pulmonary disease with acute exacerbation. 2. Acute on chronic systolic congestive heart failure. 3. Paroxysmal atrial fibrillation. 4. Acute on chronic renal failure. PLAN: 1. Continue Solu-Medrol and bronchodilators. 2. Continue to monitor creatinine. 3. Hold Lasix for now as the BNP is back to normal and patient is improving. Lenin Darby MD [facility] /[id number]
--- NOTE | 2018-10-26 18:19 | NUR ---
ASSISTED PATIENT TO THE RESTROOM USING WALKER. PATIENT VOIDED WITHOUT ANY DIFFICULTIES. ASSISTED PATIENT BACK TO BED. ELEVATED HOB TO 45 DEGREES. OXYGEN DELIVERED VIA NC. NO S/S OF DISTRESS. SIDE RAILS UP X2, BED IN LOWEST POSITION, AND CALL CARLSON WITHIN REACH.
--- NOTE | 2018-10-26 19:51 | NUR ---
Received change of shift report from AM nurse. Walking rounds completed.
--- NOTE | 2018-10-26 20:29 | NUR ---
Patient c/o of chest pain while repositioning in bed. Pt states just hurt. Call Sai Chicas Informed of CP BP 129/61 104. Received order for SL Nitro. Ordered. Patient states she dont need it right now.
[2018-10-26] MEDS: LORAZEPAM 0.5 MG TAB PO PRN (20:46)
[2018-10-26] MEDS: SIMVASTATIN 40 MG TAB PO SCH (20:46)
--- NOTE | 2018-10-27 00:49 | NUR ---
PATIENT RESTING QUITLY AT THIS TIME WITH NO C/O NOTED.
[2018-10-27] MEDS: ALBUTEROL/IPRATROPIUM 3 ML NEB NEB SCH ×4 (00:50→19:35)
[2018-10-27 04:00] VITALS: BP 106/58
[2018-10-27 04:13] LABS: HEMATOCRIT 30.3 % (34.2-44.1); HEMOGLOBIN 9.5 g/dL (12.0-16.0); LYMPHOCYTES # (AUTO) 0.7 (1.0-3.2); LYMPHOCYTES % 7.2 % (18.0-39.1); MEAN CORPUSCULAR HEMOGLOBIN 27.5 pg (28-32); MEAN CORPUSCULAR HGB CONC 31.4 g/dL (31-35); MEAN CORPUSCULAR VOLUME 87.6 fL (81-99); MONOCYTES # (AUTO) 0.4 (0.2-0.8); MONOCYTES % 4.1 % (4.4-11.3); NEUTROPHILS # (AUTO) 8.4 (2.1-6.9); PLATELET COUNT 135 x10e3/uL (140-360); RED BLOOD COUNT 3.46 x10e6/uL (3.6-5.1); RED CELL DISTRIBUTION WIDTH 14.6 % (11.7-14.4)
[2018-10-27 04:28] LABS: ANION GAP 12.3 mmol/L (8-16); CALCIUM 9.2 mg/dL (8.4-10.2); CREATININE, SERUM 1.92 mg/dL (0.57-1.11); POTASSIUM 4.3 mmol/L (3.5-5.1)
[2018-10-27] MEDS: TIOTROPIUM 18 MCG INH POWDER INH SCH (07:18)
[2018-10-27 07:30] VITALS: BP 101/55
--- NOTE | 2018-10-27 07:30 | NUR ---
REC'D PT SLEEPING WITH NO S/S OF DISTRESS. CHEST RISING UP AND DOWN EFFORTLESSLY. IV TO THE RIGHT FA INTACT AND PATENT. WALKER AND BSC AT BEDSIDE. O2 DELIVERED VIA NC AT 3L/MIN. BED IN LOWEST POSITION, SIDE RAILS UPX2, AND CALL CARLSON WITHIN REACH.
[2018-10-27 07:52] VITALS: BP 101/55
[2018-10-27] MEDS: FUROSEMIDE INJ 10 MG/ML 4 ML VIAL IV SCH (09:00)
[2018-10-27] MEDS: PANTOPRAZOLE SOD 40 MG TABEC PO SCH (09:12)
[2018-10-27] MEDS: PREGABALIN 50 MG CAP PO SCH ×2 (09:12→17:20)
[2018-10-27] MEDS: SPIRONOLACTONE 25 MG TAB PO SCH (09:12)
[2018-10-27] MEDS: METHYLPREDNISOLONE SOD SUCC 40 MG/ML VIAL 1ML IV SCH ×2 (09:12→23:15)
[2018-10-27] MEDS: CITALOPRAM HYDROBROMIDE 20 MG TAB PO SCH (09:12)
[2018-10-27 12:05] VITALS: BP 118/56
[2018-10-27] MEDS: CEFTRIAXONE SOD 1 GM/NS 50 ML 50 ML IV SCH (12:45)
[2018-10-27] MEDS: AZITHROMYCIN 500MG/NS 250 ML 250 ML IV SCH (13:30)
[2018-10-27] MEDS: LORAZEPAM 0.5 MG TAB PO PRN (14:16)
--- NOTE | 2018-10-27 14:18 | NUR ---
PT C/O CHEST PAIN. CHECKED VITAL SIGNS. VITAL SIGNS STABLE. ADMINISTERED NITROGLYCERIN PRN SCHEDULED.
--- NOTE | 2018-10-27 14:23 | NUR ---
RE-CHECKED PT CHEST PAIN. PATIENT STATED THAT HER CHEST PAIN WENT AWAY. SIDE RAILS UP X2, BED IN LOWEST POSITION, AND CALL CARLSON WITHIN REACH.
[2018-10-27] MEDS: NITROGLYCERIN 0.4 MG SUBL SL PRN (14:28)
--- NOTE | 2018-10-27 14:57 | NUR ---
SPOKE WITH PATIENT WHOM TOLD ME HER DAUGHTER IS OUT OF STATE BUT TO CALL HER JEVON [phone], CALLED JEVON WHOM STATES HER MOTHER JUST CANCELLED HOME HEALTH AND THERAPY AND WILL DEFER TO HER BUT CANCEL SOON SHE GETS HOME, SHE GOES ON TO STATE HER MOTHER WILL NOT DO FOR HERSELF AND STATES IT ISNT DOING ANY GOOD AND REFUSING ALL HELP FROM THEM AT HOME SO SHE THINKS ITS POINTLESS TO COMPLETE THE REFERRAL, WILL LET MD KNOW.
[2018-10-27] MEDS ORDERED: LORAZEPAM 0.5 MG TAB PO PRN (15:15)
--- NOTE | 2018-10-27 15:41 | Progress Note ---
DATE: SUBJECTIVE: The patient is more wheezing and more dyspnea today. She does not have fever or cough. She has no chest pain. PHYSICAL EXAMINATION: VITAL SIGNS: Blood pressure is 99/55 and saturation is 98%. Pulse is 84. HEENT: No facial swelling or erythema. LYMPHATIC: No submandibular, cervical, or supraclavicular adenopathy. CARDIAC: Reveals regular rate and rhythm with normal S1 and S2. There are no murmurs or rubs heard. LUNGS: Auscultation of lungs reveals expiratory wheezing bilaterally. ABDOMEN: Soft, nontender. There is no rebound or guarding. EXTREMITIES: No leg edema or calf tenderness. There is no cyanosis or clubbing. SKIN: No rashes. IMPRESSION: 1. Chronic obstructive pulmonary disease with acute exacerbation. 2. Ptxlx-tq-sdczhtg systolic congestive heart failure. 3. Paroxysmal atrial fibrillation. 4. Dtrgx-pz-konxsza renal failure. PLAN: 1. Increase Solu-Medrol. 2. Continue current cardiac regimen. 3. Repeat chest x-ray in the morning. MD CRIS Marinelli/ANGELA /[id number]
[2018-10-27 16:10] VITALS: BP 113/57
--- NOTE | 2018-10-27 18:57 | NUR ---
PATIENT IS RESTING IN BED WITH EYES OPENED. NO S/S OF DISTRESS. OXYGEN BEING DELIVERED VIA NC. NON-SKID SOCKS ON, SIDE RAILS UPX2, BED IN LOWEST POSITION, AND CALL CARLSON WITHIN REACH.
[2018-10-27 20:00] VITALS: BP 123/56
[2018-10-27] MEDS: SIMVASTATIN 40 MG TAB PO SCH (22:29)
[2018-10-28] VITALS (9 sets, daily range): BP systolic 100–136; BP diastolic 56–80
[2018-10-28] MEDS: ALBUTEROL/IPRATROPIUM 3 ML NEB NEB SCH ×4 (01:00→19:31)
[2018-10-28 06:30] LABS: BASOPHILS % 0.1 % (0.0-1.0); HEMATOCRIT 30.7 % (34.2-44.1); HEMOGLOBIN 9.5 g/dL (12.0-16.0); LYMPHOCYTES # (AUTO) 0.7 (1.0-3.2); LYMPHOCYTES % 5.7 % (18.0-39.1); MEAN CORPUSCULAR HEMOGLOBIN 27.1 pg (28-32); MEAN CORPUSCULAR HGB CONC 30.9 g/dL (31-35); MEAN CORPUSCULAR VOLUME 87.5 fL (81-99); MONOCYTES # (AUTO) 0.4 (0.2-0.8); MONOCYTES % 3.2 % (4.4-11.3); NEUTROPHILS # (AUTO) 10.9 (2.1-6.9); NEUTROPHILS % 90.2 % (38.7-80.0); PLATELET COUNT 166 x10e3/uL (140-360); RED BLOOD COUNT 3.51 x10e6/uL (3.6-5.1); RED CELL DISTRIBUTION WIDTH 14.6 % (11.7-14.4)
[2018-10-28 06:53] LABS: ANION GAP 14.8 mmol/L (8-16); CALCIUM 9.1 mg/dL (8.4-10.2); CREATININE, SERUM 1.55 mg/dL (0.57-1.11); POTASSIUM 4.8 mmol/L (3.5-5.1)
--- NOTE | 2018-10-28 07:08 | NUR ---
RECEIVED PATIENT RESTING IN BED. NO ACUTE DISTRESS NOTED. DENIES PAIN OR DISCOMFORT. CALL LIGHT WITHIN REACH. BED IN THE LOWEST POSITION.
[2018-10-28] MEDS: TIOTROPIUM 18 MCG INH POWDER INH SCH (08:26)
[2018-10-28] MEDS: FUROSEMIDE INJ 10 MG/ML 4 ML VIAL IV SCH (08:51)
[2018-10-28] MEDS: METHYLPREDNISOLONE SOD SUCC 40 MG/ML VIAL 1ML IV SCH ×2 (08:51→23:50)
[2018-10-28] MEDS: SPIRONOLACTONE 25 MG TAB PO SCH (08:51)
[2018-10-28] MEDS: CITALOPRAM HYDROBROMIDE 20 MG TAB PO SCH (08:51)
[2018-10-28] MEDS: PANTOPRAZOLE SOD 40 MG TABEC PO SCH (08:51)
[2018-10-28] MEDS: PREGABALIN 50 MG CAP PO SCH ×2 (08:51→17:19)
--- NOTE | 2018-10-28 09:25 | NUR ---
ASSESSMENT: Spiritual distress Steeler referred by Physical Therapy. Pt lamenting losses in life. Pt states she has buried most family members including two of her sons. Pt states she lives with one of her daughters in [place] and prefers to live in [place], which is home. Pt identifies as Temple. Intervention: Provided empathic listening. Facilitated identification of emotions. Provided information about communion. Outcome: Will follow as able. AISHWARYA Ruckerin Spiritual Care Department O: [phone] Pager: [phone] ([phone] number calling from)
--- NOTE | 2018-10-28 09:57 | Diagnostic Imaging Report ---
EXAMINATION: CHEST 2 VIEWS INDICATION: COPD, shortness of breath COMPARISON: Multiple prior chest radiographs, most recently of 10/26/2018 FINDINGS: TUBES and LINES: Left chest AICD, leads in unchanged position. Sternotomy wires intact. EKG leads overlie the chest. LUNGS: The lungs are hyperinflated. Bilateral upper lobe predominant emphysematous changes. Biapical pleural parenchymal thickening/scarring. No focal consolidation or pulmonary edema. Pulmonary nodules seen on prior chest CT are beyond the resolution of this radiograph. PLEURA: No pleural effusion or pneumothorax. HEART AND MEDIASTINUM: Cardiomediastinal silhouette is stably enlarged. BONES AND SOFT TISSUES: No acute fracture or dislocation. UPPER ABDOMEN: No free air under the diaphragm. IMPRESSION: Hyperinflated lungs with bilateral upper lobe predominant emphysema. No focal pneumonia or pulmonary edema. Signed by: Radha Jaramillo MD on 10/28/2018 9:54 AM
[2018-10-28] MEDS: NITROGLYCERIN 0.4 MG SUBL SL PRN (09:58)
[2018-10-28] MEDS: CEFTRIAXONE SOD 1 GM/NS 50 ML 50 ML IV SCH (12:00)
[2018-10-28] MEDS: AZITHROMYCIN 500MG/NS 250 ML 250 ML IV SCH (12:35)
--- NOTE | 2018-10-28 13:52 | Progress Note ---
DATE: SUBJECTIVE: The patient feels better today. She has less dyspnea. She has no chest pain. She has no nausea or vomiting. PHYSICAL EXAMINATION: VITAL SIGNS: The patient is afebrile. The blood pressure is 136/64 and saturation is 98% on 4 L. Pulse is 75. HEENT: No facial swelling or erythema. The nasal mucosa is normal. The oropharynx is normal. LYMPHATIC: No submandibular, cervical, or supraclavicular adenopathy. CARDIAC: Reveals regular rate and rhythm with normal S1 and S2. There are no murmurs or rubs. LUNGS: Auscultation of lungs reveals crackles at the bases. There is no wheezing. ABDOMEN: Soft, nontender. There is no rebound or guarding. EXTREMITIES: No leg edema or calf tenderness. IMPRESSION: 1. Chronic obstructive pulmonary disease with acute exacerbation. 2. Chronic systolic cardiomyopathy. 3. Paroxysmal atrial fibrillation. PLAN: 1. Continue current regimen. 2. Out of bed as tolerated. 3. Monitor laboratory values. Lenin Darby MD [facility] /[id number]
--- NOTE | 2018-10-28 16:11 | NUR ---
SPOKE WITH PT TODAY AGAIN REGARDING HOME HEALTH CARE AGAIN, PT IS REFUSING TO HAVE HOME HEALTH HAS EVERYTHING SHE NEEDS AT HOME T MAX 101.4, HR UNCONTROLLED AT 136 PLAN DC HOME WHEN TEM AND HR CONTROLLED SOLUMEDROL INCREASED BY PULMONARY
--- NOTE | 2018-10-28 19:18 | NUR ---
REPORT GIVEN TO ONCOMING NURSE, PATIENT IS RESTING IN BED. RESPIRATIONS EVEN AND UNLABORED, NO ACUTE DISTRESS NOTED. CALL LIGHT WITHIN REACH. BED IN THE LOWEST POSITION. BED ALARM ON.
[2018-10-28] MEDS: SIMVASTATIN 40 MG TAB PO SCH (20:47)
[2018-10-29] VITALS: BP 115/59
[2018-10-29] MEDS: ALBUTEROL/IPRATROPIUM 3 ML NEB NEB SCH ×3 (01:00→14:01)
[2018-10-29 03:33] LABS: HEMATOCRIT 31.4 % (34.2-44.1); HEMOGLOBIN 9.8 g/dL (12.0-16.0); LYMPHOCYTES % 6.3 % (18.0-39.1); MEAN CORPUSCULAR HEMOGLOBIN 27.5 pg (28-32); MEAN CORPUSCULAR HGB CONC 31.2 g/dL (31-35); MEAN CORPUSCULAR VOLUME 88.2 fL (81-99); MONOCYTES % 3.9 % (4.4-11.3); NEUTROPHILS % 88.5 % (38.7-80.0); PLATELET COUNT 159 x10e3/uL (140-360); RED BLOOD COUNT 3.56 x10e6/uL (3.6-5.1); RED CELL DISTRIBUTION WIDTH 14.6 % (11.7-14.4)
[2018-10-29 03:34] LABS: LYMPHOCYTES # (AUTO) 0.5 (1.0-3.2); MONOCYTES # (AUTO) 0.3 (0.2-0.8); NEUTROPHILS # (AUTO) 7.4 (2.1-6.9)
[2018-10-29 03:49] LABS: ANION GAP 12.9 mmol/L (8-16); CALCIUM 9.1 mg/dL (8.4-10.2); CREATININE, SERUM 1.44 mg/dL (0.57-1.11); POTASSIUM 4.9 mmol/L (3.5-5.1)
[2018-10-29 04:00] VITALS: BP 119/58
--- NOTE | 2018-10-29 06:58 | NUR ---
RECEIVED PATIENT RESTING IN BED. NO ACUTE DISTRESS NOTED. DENIES PAIN OR DISCOMFORT AT THIS TIME. CALL LIGHT WITHIN REACH. BED IN THE LOWEST POSITION. BED ALARM ON.
[2018-10-29] MEDS: TIOTROPIUM 18 MCG INH POWDER INH SCH (07:28)
[2018-10-29 07:45] VITALS: BP 142/64
[2018-10-29 07:49] VITALS: BP 142/64
[2018-10-29] MEDS ORDERED: CEFTIN PO (07:55)
[2018-10-29] MEDS ORDERED: PREDNISONE10 MG PO (07:55)
[2018-10-29] MEDS: FUROSEMIDE INJ 10 MG/ML 4 ML VIAL IV SCH (08:32)
[2018-10-29] MEDS: SPIRONOLACTONE 25 MG TAB PO SCH (08:33)
[2018-10-29] MEDS: METHYLPREDNISOLONE SOD SUCC 40 MG/ML VIAL 1ML IV SCH (08:33)
[2018-10-29] MEDS: CITALOPRAM HYDROBROMIDE 20 MG TAB PO SCH (08:33)
[2018-10-29] MEDS: PREGABALIN 50 MG CAP PO SCH (08:33)
[2018-10-29] MEDS: PANTOPRAZOLE SOD 40 MG TABEC PO SCH (08:33)
[2018-10-29] MEDS: NITROGLYCERIN 0.4 MG SUBL SL PRN (09:56)
[2018-10-29 11:14] VITALS: BP 124/58
[2018-10-29] MEDS: CEFTRIAXONE SOD 1 GM/NS 50 ML 50 ML IV SCH (12:48)
[2018-10-29] MEDS: AZITHROMYCIN 500MG/NS 250 ML 250 ML IV SCH (13:52)
[2018-10-29 15:21] VITALS: BP 129/58
--- NOTE | 2018-10-29 16:06 | NUR ---
RECEIVED DC ORDER FROM IGGY MARTINO EARLIER TODAY. PER DIRECTOR INSTRUCTIONAL MATERIAL OK FOR PATIENT TO BE DISCHARGED WITHOUT PULMONARY MD CLEARANCE. PATIENT IS IN STABLE CONDITION. IV LINE TO RIGHT FOREARM DCD WITH TIP INTACT, PRESSURE APPLIED TO SITE, NO BLEEDING NOTED. DISCHARGE TEACHING PROVIDED TO PATIENT AND SON IN LAW ([place] DIAZ), THEY BOTH VERBALIZED UNDERSTANDING. DISCHARGE FOLDER WITH PRESCRIPTIONS AND DC PAPERWORK ON HAND. ALL PERSONAL ITEMS ON HAND. PATIENT ACCOMPANIED TO PRIVATE AUTO VIA WHEELCHAIR BY STAFF.
--- NOTE | 2018-10-30 00:18 | Discharge Summary ---
ADMISSION DIAGNOSES: Acute exacerbation of chronic obstructive pulmonary disease with sepsis, sdvhp-yb-mcpohxl systolic congestive heart failure, hypertension complicated by chronic kidney disease 3 and chronic systolic congestive heart failure, anxiety, gastroesophageal reflux disease, atrial fibrillation, hyperkalemia, acute kidney injury on chronic kidney disease 3. DISCHARGE DIAGNOSES: Acute exacerbation of chronic obstructive pulmonary disease with sepsis, ceofr-el-zsokogt systolic congestive heart failure, hypertension complicated by chronic kidney disease 3 and chronic systolic congestive heart failure, anxiety, gastroesophageal reflux disease, atrial fibrillation, hyperkalemia, acute kidney injury on chronic kidney disease 3, rule out flu. HISTORY: The patient has a history of COPD, CKD 3, atrial fibrillation, hypertension, chronic systolic CHF, sick sinus syndrome with pacer, CAD, GERD, anemia, anxiety, hyperlipidemia, AAA. SURGICAL HISTORY: Aneurysm repair, CABG, pacer. FAMILY HISTORY: The patient's son had a stroke, another son had cancer, and another son had a heart attack. SOCIAL HISTORY: Noncontributory. HOSPITAL COURSE: An 88-year-old female with complaints of shortness of breath, productive cough, and wheezing, that worsened over the last 2 days. She had a fever of 102.5 on admission. She had associated nausea and poor appetite. On admission, the patient was started on Zithromax, Rocephin, nebs, Mucinex, IV Solu-Medrol, and home medicines of Lasix and Aldactone. The patient's flu screen was negative. Chest x-ray showed moderate cardiomegaly and pulmonary vascular congestion, chronic linear opacities in the right lung, likely reflects subsegmental atelectasis. Repeat chest x-ray showed no focal pneumonia or pulmonary edema. Hyperinflated lungs with bilateral upper lobe predominant emphysema. Sputum culture was negative. Blood culture was negative. After a few days of antibiotics, the patient is feeling much better and is ready to discharge home. She uses oxygen at home and lives with family. Vital signs stable, the patient afebrile. The patient understands discharge instructions and agrees to plan. She will follow up with primary care and Pulmonology in 1 to 2 weeks. Dictated by Ashley Plaza NP Kev Barragan MD [facility] /[id number]
== END 2018-10-29 16:06 | disposition home or self-care (01) | DRG 871 ==
LOC: ER 02:42 → ERHOLD 04:20 → MED/SURG3 04:59
PROVIDERS: ADMIT Internal Medicine; ATTEND Internal Medicine
DX: A41.9 Sepsis, unspecified organism (principal); I50.23 Acute on chronic systolic (congestive) heart failure; J44.1 Chronic obstructive pulmonary disease with (acute) exacerbation; I13.0 Hypertensive heart and chronic kidney disease with heart failure and stage 1 through stage 4 chronic kidney disease, or unspecified chronic kidney disease; N18.3 Chronic kidney disease, stage 3 (moderate); I25.10 Atherosclerotic heart disease of native coronary artery without angina pectoris; Z95.1 Presence of aortocoronary bypass graft; I48.2 Chronic atrial fibrillation; Z79.01 Long term (current) use of anticoagulants; Z95.810 Presence of automatic (implantable) cardiac defibrillator; F41.9 Anxiety disorder, unspecified
CPT/HCPCS: 36415; 71045; 71046; 80048; 80053; 80076; 82550; 82553; 83036; 83605; 83690; 83735; 83880; 84439; 84443; 84484; 85025; 87040; 87070; 87205; 87400; 93005; 94640; 94664; 97139; 99284; J0456; J0696; J1940; J2920; J3370; J7050

== ENCOUNTER 2018-11-11 13:12 | Inpatient (IN) | payer MEDICARE, OTHER ==
[~2018-11-11] VITALS: Ht 152.4 cm; Wt 79.8 kg
[~2018-11-11 13:12] MED LIST changes: +CEFTIN PO; +ELIQUIS PO; +SERTRALINE HCL100 MG PO; +SPIRONOLACTONE50 MG PO; +TORSEMIDE10 MG PO
[2018-11-11] MEDS ORDERED: ASPIRIN 81 MG CHEW TAB PO ONE (13:30)
[2018-11-11] MEDS ORDERED: IPRATROPIUM BROMIDE 0.02% 2.5 ML NEB NEB STA (13:37)
[2018-11-11] MEDS ORDERED: METHYLPREDNISOLONE SOD SUCC 125 MG/2ML VIAL IV ONE (13:37)
[2018-11-11] MEDS ORDERED: ALBUTEROL SULF 0.083% NEB SOLN 3 ML NEB NEB ONE (13:37)
--- NOTE | 2018-11-11 13:46 | NUR ---
rt called for neb tx
[2018-11-11 13:59] LABS: BASOPHILS % 0.2 % (0.0-1.0); EOSINOPHILS # (AUTO) 0.2 (0.0-0.4); EOSINOPHILS % 1.5 % (0.0-6.0); HEMATOCRIT 38.1 % (34.2-44.1); HEMOGLOBIN 11.8 g/dL (12.0-16.0); LYMPHOCYTES # (AUTO) 2.2 (1.0-3.2); LYMPHOCYTES % 17.5 % (18.0-39.1); MEAN CORPUSCULAR HEMOGLOBIN 27.4 pg (28-32); MEAN CORPUSCULAR VOLUME 88.4 fL (81-99); MONOCYTES # (AUTO) 1.1 (0.2-0.8); NEUTROPHILS # (AUTO) 8.9 (2.1-6.9); NEUTROPHILS % 70.1 % (38.7-80.0); PLATELET COUNT 142 x10e3/uL (140-360); RED BLOOD COUNT 4.31 x10e6/uL (3.6-5.1); RED CELL DISTRIBUTION WIDTH 15.7 % (11.7-14.4)
[2018-11-11 14:12] LABS: INR 0.92; PROTHROMBIN TIME 12.8 seconds (11.9-14.5)
--- NOTE | 2018-11-11 14:17 | Diagnostic Imaging Report ---
EXAMINATION: CHEST SINGLE (PORTABLE) INDICATION: Chest pain COMPARISON: Multiple prior chest radiograph, most recently 10/28/2018 FINDINGS: LINES/TUBES:Left chest AICD with leads in unchanged position. EKG leads overlie the chest. Sternotomy wires intact. LUNGS:The lung volumes are low. There are patchy opacities at both lung bases. No bipin edema. PLEURA:No pleural effusion or pneumothorax. MEDIASTINUM:Cardiomediastinal silhouette is stably enlarged. Atherosclerotic calcifications of the thoracic aorta. BONES/SOFT TISSUES:No acute osseous injury. ABDOMEN:No free air under the diaphragm. IMPRESSION: Low lung volumes. Patchy opacities at both lung bases, most likely subsegmental atelectasis. No bipin pulmonary edema. Unchanged cardiomegaly. Signed by: Radha Jaramillo MD on 11/11/2018 2:14 PM
[2018-11-11 14:21] LABS: ALBUMIN 3.2 g/dL (3.5-5.0); ANION GAP 17.6 mmol/L (8-16); CALCIUM 9.5 mg/dL (8.4-10.2); CREATININE, SERUM 2.07 mg/dL (0.57-1.11); POTASSIUM 4.6 mmol/L (3.5-5.1)
[2018-11-11 14:27] LABS: CREATINE KINASE MB 2.2 ng/mL (0-5.0)
[2018-11-11 14:48] LABS: BILIRUBIN,URINE NEGATIVE (NEGATIVE); CLARITY,URINE SL CLOUDY (CLEAR); COLOR,URINE YELLOW (YELLOW); KETONES,URINE NEGATIVE (NEGATIVE); LEUKOCYTE ESTERASE ,URINE NEGATIVE (NEGATIVE); NITRITE,URINE NEGATIVE (NEGATIVE); PROTEIN,URINE DIPSTICK NEGATIVE (NEGATIVE); URINE UROBILINOGEN 0.2 mg/dL (0.2 - 1)
[2018-11-11 15:00] LABS: BACTERIA,URINE RARE /HPF
[2018-11-11] MEDS ORDERED: SODIUM CHLORIDE 0.9% 1000ML 2,390 ML IV SCH (15:15)
--- NOTE | 2018-11-11 16:47 | NUR ---
RCD PT FROM ER BY BED PT IS ALERT AND ORIENTED PT RESTING ON BED NO SIGNS OF ANY DISTRESS NOTED VITALS CHECKED PT ON O2 2L BY NC ,IV PATENT BY SALINE FLUSH ADMISSION ASSESSMENT AND HISTORY DONE INSTRUCTED PT REGARDING HOSPITAL POLICY AND ROUTINE BED LOW AND LOCKED CALL LIGHT IN REACH
[2018-11-11 17:00] VITALS: BP 159/67
[2018-11-11 17:55] VITALS: BP 159/67
[2018-11-11 18:18] VITALS: BP 159/67
--- NOTE | 2018-11-11 18:33 | NUR ---
PT REQUESTED MEDICATION FOR ANXIETY PAGED AND NOTIFIED SALENA PARKINSON GOT THE ORDER TO RENEW THE HOME MEDS LORAZEPAM
[2018-11-11] MEDS: LORAZEPAM 0.5 MG TAB PO PRN (18:37)
--- NOTE | 2018-11-11 18:51 | NUR ---
PT RESTING ON BED BED SIDE REPORT GIVEN TO ONCOMING NURSE
[2018-11-11] MEDS: ALBUTEROL SULF 0.083% NEB SOLN 3 ML NEB NEB SCH (20:05)
[2018-11-11] MEDS: IPRATROPIUM BROMIDE 0.02% 2.5 ML NEB NEB SCH (20:05)
[2018-11-11 20:12] VITALS: BP 101/51
[2018-11-11 20:13] VITALS: BP 101/51
[2018-11-12] VITALS (8 sets, daily range): BP systolic 91–124; BP diastolic 50–62
[2018-11-12] MEDS: IPRATROPIUM BROMIDE 0.02% 2.5 ML NEB NEB SCH ×2 (01:00→07:20)
[2018-11-12] MEDS: ALBUTEROL SULF 0.083% NEB SOLN 3 ML NEB NEB SCH ×2 (01:00→07:20)
[2018-11-12] MEDS ORDERED: ALBUTEROL/IPRATROPIUM 3 ML NEB NEB PRN (09:00)
[2018-11-12] MEDS ORDERED: ACETAMINOPHEN 325 MG TAB PO PRN (09:15)
[2018-11-12] MEDS ORDERED: HYDRALAZINE HCL 20 MG/ML VIAL IV PRN (09:15)
[2018-11-12] MEDS ORDERED: ONDANSETRON HCL INJ 2MG/ML 2ML 2 MG/ML VIAL IV PRN (09:15)
[2018-11-12] MEDS: CEFTRIAXONE SOD 1 GM/NS 50 ML 50 ML IV SCH (10:08)
[2018-11-12] MEDS: AZITHROMYCIN 500MG/NS 250 ML 250 ML IV SCH (10:09)
[2018-11-12] MEDS: PANTOPRAZOLE SOD 40 MG TABEC PO SCH (10:09)
[2018-11-12] MEDS: SPIRONOLACTONE 25 MG TAB PO SCH (10:09)
[2018-11-12] MEDS: GUAIFENESIN 600MG/DEXTROMETHORPHAN 30MG TABSR PO SCH ×2 (10:09→17:21)
[2018-11-12] MEDS: PREGABALIN 50 MG CAP PO SCH ×2 (10:09→17:21)
[2018-11-12] MEDS: APIXAB 2.5 MG TABLET PO SCH ×2 (10:09→17:21)
[2018-11-12] MEDS: FUROSEMIDE 40 MG TAB PO SCH (10:09)
[2018-11-12] MEDS: CITALOPRAM HYDROBROMIDE 20 MG TAB PO SCH (10:09)
[2018-11-12] MEDS: TORSEMIDE 10 MG TAB PO SCH (10:09)
[2018-11-12] MEDS: ALBUTEROL/IPRATROPIUM 3 ML NEB NEB SCH ×4 (11:00→23:10)
[2018-11-12] MEDS: LORAZEPAM 0.5 MG TAB PO PRN (12:37)
--- NOTE | 2018-11-12 14:31 | NUR ---
CM SPOKE TO PATIENT AND PATIENT DAUGHTER AT BEDSIDE REGARDING DISCHARGE PLAN AND PLAN OF CARE. PATIENT IS NEEDING DISEASE MANAGEMENT, PT/ OT AND RN PATSY. PATIENT REQUESTS NURSES NIGHT AND DAY. CHOICE LETTER SIGNED BY DAUGHTER REQUESTED BY PATIENT. PENDING MD ORDER TO INITIATE. Addendum: 11/12/18 at 1436 by Jenni Arias CM [facility] [employer] Address: [address] [place] [id number] FAX: [phone]
[2018-11-12] MEDS ORDERED: METHYLPREDNISOLONE SOD SUCC 125 MG/2ML VIAL IV ONE (14:44)
--- NOTE | 2018-11-12 20:00 | NUR ---
PATIENT REFUSED SCD'S
[2018-11-12] MEDS: SIMVASTATIN 40 MG TAB PO SCH (20:18)
--- NOTE | 2018-11-12 21:00 | NUR ---
Patient refused bed alarm.
--- NOTE | 2018-11-12 21:57 | Consultation ---
DATE OF CONSULTATION: 11/12/2018 Pulmonary Critical Care Consultation CHIEF COMPLAINT: Increased dyspnea. HISTORY OF PRESENT ILLNESS: The patient is an 88-year-old woman. She has a history of systolic congestive heart failure as well as COPD. She uses oxygen at home as well as bronchodilators. She came to the hospital complaining of worsening dyspnea and congestion. She denied fevers. She did not have any chest pain. She denied nausea or vomiting. She did not complain of leg swelling. PAST SURGICAL HISTORY: 1. Status post coronary artery bypass grafting. 2. Status post pacemaker. PAST MEDICAL HISTORY: 1. Chronic systolic congestive heart failure. 2. Atrial fibrillation. 3. Chronic obstructive pulmonary disease. 4. Hypertension. SOCIAL HISTORY: The patient quit smoking 10 years ago. She does not drink alcohol. ALLERGIES: THE PATIENT HAS AN ALLERGY TO CODEINE. FAMILY HISTORY: Family history is noncontributory. REVIEW OF SYSTEMS: She denied fevers. There was no headache. She had no neck pain. She did not complain of any sore throat. She did note congestion and cough. She noted difficulty breathing. She denied abdominal pain. There is no nausea or vomiting. She had no leg swelling. PHYSICAL EXAMINATION: VITAL SIGNS: The patient was afebrile. Blood pressure is 106/61 and saturation was 95%. HEENT: Shows no facial swelling or erythema. The oropharynx is normal. LYMPHATIC: Shows no submandibular, cervical, or supraclavicular adenopathy. CARDIAC: Reveals a regular rate and rhythm with a normal S1, S2. LUNGS: Auscultation of lungs reveals rhonchorous breath sounds bilaterally. There is no wheezing. ABDOMEN: Soft, nontender. There is no rebound or guarding. EXTREMITIES: Show no leg edema or calf tenderness. There is no cyanosis or clubbing. SKIN: Shows no rashes. NEUROLOGICAL: Shows no focal abnormalities. LABORATORY DATA: White blood cell count is 12.6 and hemoglobin is 11.9. The platelet count is 142. Creatinine is 2.07 and BUN is 28. The other electrolytes are within normal limits. IMPRESSION: 1. Chronic obstructive pulmonary disease with acute exacerbation. 2. Acute on chronic systolic congestive heart failure. 3. Acute kidney injury. 4. Atrial fibrillation. PLAN: 1. Solu-Medrol and antibiotics. 2. Bronchodilators. 3. Hold diuretics for now because BNP is normal and the creatinine is increasing. 4. Repeat creatinine in the morning. 5. Physical therapy. MD CRIS Marinelli/ANGELA /[id number]
[2018-11-13] VITALS (7 sets, daily range): BP systolic 97–125; BP diastolic 54–66
[2018-11-13] MEDS: ALBUTEROL/IPRATROPIUM 3 ML NEB NEB SCH ×6 (03:00→23:35)
[2018-11-13 05:05] LABS: HEMOGLOBIN 10.3 g/dL (12.0-16.0); LYMPHOCYTES # (AUTO) 0.6 (1.0-3.2); LYMPHOCYTES % 4.6 % (18.0-39.1); MEAN CORPUSCULAR HEMOGLOBIN 27.2 pg (28-32); MEAN CORPUSCULAR HGB CONC 31.2 g/dL (31-35); MEAN CORPUSCULAR VOLUME 87.1 fL (81-99); MONOCYTES # (AUTO) 0.3 (0.2-0.8); MONOCYTES % 2.7 % (4.4-11.3); NEUTROPHILS # (AUTO) 11.1 (2.1-6.9); NEUTROPHILS % 91.9 % (38.7-80.0); PLATELET COUNT 137 x10e3/uL (140-360); RED BLOOD COUNT 3.79 x10e6/uL (3.6-5.1); RED CELL DISTRIBUTION WIDTH 15.8 % (11.7-14.4)
[2018-11-13 05:38] LABS: ALBUMIN 2.9 g/dL (3.5-5.0); ANION GAP 16.8 mmol/L (8-16); CALCIUM 9.3 mg/dL (8.4-10.2); POTASSIUM 4.8 mmol/L (3.5-5.1)
[2018-11-13 06:52] LABS: LYMPHOCYTES % (MANUAL) 6 % (19-48); MONOCYTES % (MANUAL) 1 % (3.4-9.0); NEUTROPHILS % (MANUAL) 93 % (40-74)
[2018-11-13 07:04] LABS: PLATELET ESTIMATE SLIGHTLY DECREASED; PLATELET MORPHOLOGY COMMENT NORMAL; RBC MORPHOLOGY COMMENT NORMAL
--- NOTE | 2018-11-13 07:10 | NUR ---
received pt lying in bed with eyes closed, Resp even and unlabored. call light within reach.
[2018-11-13] MEDS: SPIRONOLACTONE 25 MG TAB PO SCH (08:44)
[2018-11-13] MEDS: PREGABALIN 50 MG CAP PO SCH ×2 (08:44→17:34)
[2018-11-13] MEDS: GUAIFENESIN 600MG/DEXTROMETHORPHAN 30MG TABSR PO SCH ×2 (08:44→17:34)
[2018-11-13] MEDS: PANTOPRAZOLE SOD 40 MG TABEC PO SCH (08:44)
[2018-11-13] MEDS: CEFTRIAXONE SOD 1 GM/NS 50 ML 50 ML IV SCH (08:44)
[2018-11-13] MEDS: CITALOPRAM HYDROBROMIDE 20 MG TAB PO SCH (08:44)
[2018-11-13] MEDS: APIXAB 2.5 MG TABLET PO SCH ×2 (08:44→17:34)
[2018-11-13] MEDS: AZITHROMYCIN 500MG/NS 250 ML 250 ML IV SCH (08:44)
[2018-11-13] MEDS: LORAZEPAM 0.5 MG TAB PO PRN (18:19)
--- NOTE | 2018-11-13 18:40 | Progress Note ---
DATE: 11/13/2018 SUBJECTIVE: The patient reports some improvement since yesterday. The patient has less dyspnea and less cough. She has no chest pain. PHYSICAL EXAMINATION: VITAL SIGNS: The patient is afebrile. The blood pressure is 125/66 and the saturation is 99% on 4 L. HEENT: Shows no facial swelling or erythema. The oropharynx is normal. LYMPHATIC: Shows no submandibular, cervical, or supraclavicular adenopathy. CARDIAC: Reveals regular rate and rhythm with normal S1 and S2. There are no murmurs or rubs heard. LUNGS: Auscultation of lungs shows a prolonged expiratory phase bilaterally. There is audible wheezing. ABDOMEN: Soft, nontender. There is no rebound or guarding. EXTREMITIES: Shows no leg edema or calf tenderness. LABORATORY DATA: The BUN to creatinine ratio is 46-2. The other electrolytes are within normal limits. White blood cell count is 12, and hemoglobin is 10.3. The platelet count is 137. IMPRESSION: 1. Chronic obstructive pulmonary disease with acute exacerbation. 2. Chronic systolic congestive heart failure. 3. Acute kidney injury. 4. Atrial fibrillation. PLAN: 1. Continue Solu-Medrol and bronchodilators. 2. Continue to hold diuretics and repeat creatinine tomorrow. 3. Physical therapy. 4. Oxygen. Lenin Darby MD [facility] /[id number]
--- NOTE | 2018-11-13 19:20 | NUR ---
Patient visited in room during nursing rounds. Patient alert and oriented x3. Patient on 3L NC and gets easily short of breath on physical exertion. Pt to be assisted when getting up and out of bed especially when using bedside commode prn. Pt on breathing treatment prn. Call rodriguez within reach. Will monitor pt closely.
[2018-11-13] MEDS: SIMVASTATIN 40 MG TAB PO SCH (20:45)
[2018-11-14] VITALS (8 sets, daily range): BP systolic 101–184; BP diastolic 57–87
--- NOTE | 2018-11-14 01:03 | NUR ---
TELEMETRY CALL AND STATED THAT THE PATIENT RAN 11 BEAT OF V-TAC WITH RATE OF 95. UPON ASSESSMENT, THE PATIENT CONDITION STABLE AND SHE DENIES CHEST PAIN OR RESPIRATORY DISTRESS. NON PRODUCTIVE COUGH NOTED, BLOOD PRESSURE 121/55, HEART RATE 94, AND PATIENT IS ON O2@4L/NC. PRIMARY NURSE MADE AWARE OF THE 11BEAT OF V-TAC STATED BY OUTBOARD MOTORBOAT OPERATOR.
[2018-11-14] MEDS: ALBUTEROL/IPRATROPIUM 3 ML NEB NEB SCH ×6 (02:31→23:00)
[2018-11-14 03:48] LABS: EOSINOPHILS % 0.1 % (0.0-6.0); HEMATOCRIT 30.6 % (34.2-44.1); HEMOGLOBIN 9.7 g/dL (12.0-16.0); LYMPHOCYTES # (AUTO) 1.3 (1.0-3.2); MEAN CORPUSCULAR HGB CONC 31.7 g/dL (31-35); MEAN CORPUSCULAR VOLUME 88.2 fL (81-99); MONOCYTES # (AUTO) 0.9 (0.2-0.8); MONOCYTES % 6.7 % (4.4-11.3); NEUTROPHILS % 82.5 % (38.7-80.0); PLATELET COUNT 145 x10e3/uL (140-360); RED BLOOD COUNT 3.47 x10e6/uL (3.6-5.1); RED CELL DISTRIBUTION WIDTH 15.9 % (11.7-14.4)
[2018-11-14 04:39] LABS: ANION GAP 16.7 mmol/L (8-16); CALCIUM 8.9 mg/dL (8.4-10.2); CREATININE, SERUM 1.81 mg/dL (0.57-1.11); POTASSIUM 4.7 mmol/L (3.5-5.1)
[2018-11-14 05:25] LABS: MAGNESIUM 2.4 MG/DL (1.3-2.1)
[2018-11-14] MEDS: PANTOPRAZOLE SOD 40 MG TABEC PO SCH (06:41)
--- NOTE | 2018-11-14 07:11 | NUR ---
pt asleep, upon rounds pt alert resp even and unlabored at this time, pt easily aroused, no distress noted, pt able to make needs known, call light in reach.
[2018-11-14] MEDS: CEFTRIAXONE SOD 1 GM/NS 50 ML 50 ML IV SCH (10:08)
[2018-11-14] MEDS: CITALOPRAM HYDROBROMIDE 20 MG TAB PO SCH (10:08)
[2018-11-14] MEDS: APIXAB 2.5 MG TABLET PO SCH ×2 (10:08→17:00)
[2018-11-14] MEDS: AZITHROMYCIN 500MG/NS 250 ML 250 ML IV SCH (10:08)
[2018-11-14] MEDS: GUAIFENESIN 600MG/DEXTROMETHORPHAN 30MG TABSR PO SCH ×2 (10:08→20:46)
[2018-11-14] MEDS: TORSEMIDE 10 MG TAB PO SCH (10:08)
[2018-11-14] MEDS: PREGABALIN 50 MG CAP PO SCH ×2 (10:08→17:00)
[2018-11-14] MEDS: SPIRONOLACTONE 25 MG TAB PO SCH (10:08)
--- NOTE | 2018-11-14 13:38 | Progress Note ---
DATE: 11/14/2018 SUBJECTIVE: The patient reports some improvement, although she still has dyspnea. PHYSICAL EXAMINATION: VITAL SIGNS: The blood pressure is 114/57 and the pulse is 86. Saturation is 99% on 4 L. HEENT: Shows no facial swelling or erythema. CARDIAC: Reveals regular rate and rhythm with normal S1, S2. There are no murmurs or rubs. LUNGS: Auscultation of lungs reveals prolonged expiratory phase bilaterally. The lung ang are otherwise clean. ABDOMEN: Soft, nontender. There is no rebound or guarding. EXTREMITIES: Show no leg edema or calf tenderness. There is no cyanosis or clubbing. SKIN: Shows no rashes. NEUROLOGICAL: Shows no focal abnormalities. LABORATORY DATA: White blood cell count is 13.3, and hemoglobin 9.7. The platelet count is 145. BUN to creatinine ratio is 43 to 1.81 and the other electrolytes are within normal limits. IMPRESSION: 1. Chronic obstructive pulmonary disease with acute exacerbation. 2. Chronic systolic congestive heart failure. 3. Atrial fibrillation. 4. Acute kidney injury. PLAN: 1. Continue Solu-Medrol and bronchodilators. 2. Continue current cardiac regimen. 3. Monitor creatinine. 4. Physical therapy. 5. Oxygen. Lenin Darby MD [facility] /[id number]
[2018-11-14] MEDS: LORAZEPAM 0.5 MG TAB PO PRN (15:27)
--- NOTE | 2018-11-14 16:50 | NUR ---
pt has family member at bedside, family member states pt said she has some dizziness when she get up too fast. and at home. JESSICA Ramirez with the [employer], called back orders given.
--- NOTE | 2018-11-14 19:20 | NUR ---
report given to oncoming nurse, pt stable.
--- NOTE | 2018-11-14 19:30 | NUR ---
Patient visited in room during nursing rounds. Patient alert and oriented x3. Patient on 3L NC and gets easily short of breath on physical exertion. Pt to be assisted when getting up and out of bed prn. Pt on breathing treatment prn. Call rodriguez within reach. Will monitor pt closely.
[2018-11-14] MEDS: SIMVASTATIN 40 MG TAB PO SCH (20:21)
--- NOTE | 2018-11-14 20:29 | Diagnostic Imaging Report ---
EXAMINATION: Head CT without contrast. HISTORY:Dizziness. COMPARISON:CT brain from 09/14/2016. TECHNIQUE: Multidetector axial images were obtained from the foramen magnum to the vertex without contrast. The images were reconstructed using brain and bone algorithms. Thin section brain images were reformatted into coronal and sagittal planes. Dose modulation, iterative reconstruction, and/or weight based adjustment of the mA/kV was utilized to reduce the radiation dose to as low as reasonably achievable. Intravenous contrast: None IMAGE QUALITY: Suboptimal evaluation due to motion artifacts. FINDINGS: Skull/scalp: No lytic or blastic. lesions. No surgical changes. Parenchyma: Suboptimal evaluation due to motion artifacts, despite the limitation no gross acute intracranial hemorrhage, mass or acute major vascular territorial infarct. Nonspecific bilateral frontoparietal patchy and confluent white matter hypodensity are likely related to small vessel ischemic changes. Arteries: No density suggestive of thrombosis. Dural sinuses: No abnormal density suggestive of thrombosis. Ventricles: Mild compensated dilatation due to volume loss. No acute hydrocephalus. Extra-axial spaces: No abnormal density. Brain volume: Generalized age-related cerebral volume loss. Craniocervical junction: No mass, Chiari malformation, or basilar invagination. Sella: No mass. Paranasal/mastoid sinuses: Small polyp/retention cyst in left sphenoid sinus. IMPRESSION: 1. Suboptimal evaluation due to motion artifacts, despite the limitation no gross acute intracranial abnormality. 2. Moderate to severe supratentorial white matter microvascular ischemic changes. 3. Generalized age-related cerebral volume loss. Signed by: Dr. Karmen Gooden M.D. on 11/14/2018 8:26 PM
[2018-11-15] VITALS (7 sets, daily range): BP systolic 94–150; BP diastolic 52–85
[2018-11-15] MEDS: ALBUTEROL/IPRATROPIUM 3 ML NEB NEB SCH ×6 (03:00→23:32)
[2018-11-15 06:07] LABS: BASOPHILS % 0.1 % (0.0-1.0); EOSINOPHILS # (AUTO) 0.2 (0.0-0.4); EOSINOPHILS % 1.4 % (0.0-6.0); HEMATOCRIT 33.3 % (34.2-44.1); HEMOGLOBIN 10.4 g/dL (12.0-16.0); LYMPHOCYTES # (AUTO) 1.8 (1.0-3.2); LYMPHOCYTES % 17.1 % (18.0-39.1); MEAN CORPUSCULAR HEMOGLOBIN 27.5 pg (28-32); MEAN CORPUSCULAR HGB CONC 31.2 g/dL (31-35); MEAN CORPUSCULAR VOLUME 88.1 fL (81-99); MONOCYTES # (AUTO) 0.9 (0.2-0.8); MONOCYTES % 8.6 % (4.4-11.3); NEUTROPHILS # (AUTO) 7.7 (2.1-6.9); NEUTROPHILS % 72.1 % (38.7-80.0); PLATELET COUNT 135 x10e3/uL (140-360); RED BLOOD COUNT 3.78 x10e6/uL (3.6-5.1)
[2018-11-15 06:40] LABS: ANION GAP 14.6 mmol/L (8-16); CALCIUM 8.9 mg/dL (8.4-10.2); CREATININE, SERUM 1.56 mg/dL (0.57-1.11); MAGNESIUM 2.4 MG/DL (1.3-2.1); POTASSIUM 4.6 mmol/L (3.5-5.1)
[2018-11-15] MEDS: PANTOPRAZOLE SOD 40 MG TABEC PO SCH (06:40)
--- NOTE | 2018-11-15 07:12 | NUR ---
pt asleep resp even and unlabored at this time no distress noted at this time
[2018-11-15] MEDS: LEVOFLOXACIN 750MG/D5W 150ML 150 ML IV SCH (09:40)
[2018-11-15] MEDS: CITALOPRAM HYDROBROMIDE 20 MG TAB PO SCH (09:40)
[2018-11-15] MEDS: SPIRONOLACTONE 25 MG TAB PO SCH (09:40)
[2018-11-15] MEDS: METHYLPREDNISOLONE SOD SUCC 40 MG/ML VIAL 1ML IV SCH ×2 (09:40→20:20)
[2018-11-15] MEDS: PREGABALIN 50 MG CAP PO SCH ×2 (09:49→17:13)
[2018-11-15] MEDS: APIXAB 2.5 MG TABLET PO SCH ×2 (09:49→17:13)
[2018-11-15] MEDS: TORSEMIDE 10 MG TAB PO SCH (09:49)
[2018-11-15] MEDS: GUAIFENESIN 600MG/DEXTROMETHORPHAN 30MG TABSR PO SCH ×2 (09:49→17:13)
[2018-11-15] MEDS: FUROSEMIDE 40 MG TAB PO SCH ×2 (09:49→17:13)
[2018-11-15] MEDS: LORAZEPAM 0.5 MG TAB PO PRN (12:20)
--- NOTE | 2018-11-15 13:29 | Progress Note ---
DATE: 11/15/2018 SUBJECTIVE: The patient reports some improvement. She still has some dyspnea. She has no cough. PHYSICAL EXAMINATION: VITAL SIGNS: Blood pressure is 142/85 and the saturation is 96%. HEENT: Shows no facial swelling or erythema. The oropharynx is normal. LYMPHATIC: Shows no submandibular, cervical or supraclavicular adenopathy. CARDIAC: Reveals regular rate and rhythm with normal S1 and S2. There are no murmurs or rubs. LUNGS: Auscultation of lungs reveals clear breath sounds bilaterally. There is no wheezing. ABDOMEN: Soft, nontender. There is no rebound or guarding. EXTREMITIES: There is no leg edema. IMPRESSION: 1. Chronic obstructive pulmonary disease with acute exacerbation. 2. Chronic systolic congestive heart failure. 3. Atrial fibrillation. 4. Acute kidney injury. PLAN: 1. Diuretics have been restarted. 2. Continue current cardiac regimen. 3. Wean steroids. 4. Continue bronchodilators. 5. Continue oxygen. 6. Physical therapy. Lenin Darby MD [facility] /[id number]
--- NOTE | 2018-11-15 19:00 | NUR ---
patient received awake, alert, lying quietly in bed. vss. no c/o pain noted. in use. respirations even and unlabored. pm assessment complete. patient instructed to call for assistance when needed.
--- NOTE | 2018-11-15 19:47 | NUR ---
report given to oncoming nurse, pt stable.
[2018-11-15] MEDS: SIMVASTATIN 40 MG TAB PO SCH (20:20)
[2018-11-16] VITALS (8 sets, daily range): BP systolic 108–128; BP diastolic 56–70
[2018-11-16] MEDS: ALBUTEROL/IPRATROPIUM 3 ML NEB NEB SCH ×4 (03:15→12:35)
--- NOTE | 2018-11-16 04:30 | NUR ---
am labs drawn and taken to lab at this time.
[2018-11-16 05:13] LABS: BASOPHILS % 0.1 % (0.0-1.0); HEMATOCRIT 33.7 % (34.2-44.1); HEMOGLOBIN 10.4 g/dL (12.0-16.0); LYMPHOCYTES # (AUTO) 0.4 (1.0-3.2); LYMPHOCYTES % 5.7 % (18.0-39.1); MEAN CORPUSCULAR HEMOGLOBIN 26.8 pg (28-32); MEAN CORPUSCULAR HGB CONC 30.9 g/dL (31-35); MEAN CORPUSCULAR VOLUME 86.9 fL (81-99); MONOCYTES # (AUTO) 0.2 (0.2-0.8); MONOCYTES % 2.2 % (4.4-11.3); NEUTROPHILS # (AUTO) 6.2 (2.1-6.9); NEUTROPHILS % 90.4 % (38.7-80.0); PLATELET COUNT 151 x10e3/uL (140-360); RED BLOOD COUNT 3.88 x10e6/uL (3.6-5.1); RED CELL DISTRIBUTION WIDTH 15.6 % (11.7-14.4)
[2018-11-16 05:37] LABS: ANION GAP 14.9 mmol/L (8-16); CALCIUM 9.4 mg/dL (8.4-10.2); CREATININE, SERUM 1.67 mg/dL (0.57-1.11); POTASSIUM 4.9 mmol/L (3.5-5.1)
[2018-11-16 06:43] LABS: BAND NEUTROPHILS % (MANUAL) 2 %; LYMPHOCYTES % (MANUAL) 11 % (19-48); MONOCYTES % (MANUAL) 3 % (3.4-9.0); NEUTROPHILS % (MANUAL) 84 % (40-74)
[2018-11-16 06:44] LABS: ANISOCYTOSIS S; PLATELET ESTIMATE ADEQUATE; PLATELET MORPHOLOGY COMMENT NORMAL; POIKILOCYTOSIS S; RBC MORPHOLOGY COMMENT ABNORMAL
[2018-11-16] MEDS: METHYLPREDNISOLONE SOD SUCC 40 MG/ML VIAL 1ML IV SCH ×2 (09:08→20:57)
[2018-11-16] MEDS: LEVOFLOXACIN 750MG/D5W 150ML 150 ML IV SCH (09:08)
[2018-11-16] MEDS: TORSEMIDE 10 MG TAB PO SCH (09:08)
[2018-11-16] MEDS: FUROSEMIDE 40 MG TAB PO SCH ×2 (09:08→17:00)
[2018-11-16] MEDS: CITALOPRAM HYDROBROMIDE 20 MG TAB PO SCH (09:08)
[2018-11-16] MEDS: PREGABALIN 50 MG CAP PO SCH ×2 (09:08→17:00)
[2018-11-16] MEDS: APIXAB 2.5 MG TABLET PO SCH ×2 (09:08→17:00)
[2018-11-16] MEDS: SPIRONOLACTONE 25 MG TAB PO SCH (09:08)
[2018-11-16] MEDS: GUAIFENESIN 600MG/DEXTROMETHORPHAN 30MG TABSR PO SCH ×2 (09:08→17:00)
[2018-11-16] MEDS: PANTOPRAZOLE SOD 40 MG TABEC PO SCH (09:08)
--- NOTE | 2018-11-16 11:27 | NUR ---
IMM letter delivered and explained to pt. She verbalized understanding. Signed copy placed in chart. Copy to pt.
[2018-11-16] MEDS: LORAZEPAM 0.5 MG TAB PO PRN (12:49)
--- NOTE | 2018-11-16 13:34 | NUR ---
Spoke to IGGY Ramirez regarding discharge plan. PT is recommending SNF. Ashley states pt refused SNF last time but asked CM to talk to pt to see if she would be agreeable to SNF. CM spoke to pt at bedside, explained SNF and services they provide. Pt wants CM to call her daughter Krystle and discuss with her. CM placed call to Krystle at [phone] and left for call back.
--- NOTE | 2018-11-16 14:15 | NUR ---
Received call back from pt's daughter Krystle. Discussed discharge plan, possibly to SNF. Informed her that CM spoke to pt but pt referred CM to call daughter. Krystle states she does not know if her mom would be agreeable to that. Will talk to her mom and let CM know. CM gave her a list of in network SNFs in the area.
--- NOTE | 2018-11-16 18:23 | NUR ---
patient upset and crying due to daughter explaining d/c plans to patient in regards to SNF recommendation. patient noted crying and upset stating she was "not going to eat or take anything, just let me be!" made aware of patient being distressed by this information.
--- NOTE | 2018-11-16 18:59 | Progress Note ---
DATE: 11/16/2018 SUBJECTIVE: The patient has no increased tremulousness from bronchodilators. The patient is not having any cough or fevers. OBJECTIVE: VITAL SIGNS: The patient is afebrile. The vital signs are stable. HEENT: Shows no facial swelling or erythema. The nasal mucosa is normal. The oropharynx is normal. LYMPHATIC: Shows no submandibular, cervical, or supraclavicular adenopathy. CARDIAC: Reveals a regular rate and rhythm with normal S1 and S2. There are no murmurs or rubs. LUNGS: Auscultation of lungs reveals prolonged expiratory phase. There is some wheezing. ABDOMEN: Soft and nontender. There is no rebound or guarding. EXTREMITIES: Shows no leg edema or calf tenderness. There is no cyanosis or clubbing. SKIN: Shows no rashes. NEUROLOGICAL: Shows no focal abnormalities. IMPRESSION: 1. Chronic obstructive pulmonary disease with acute exacerbation. 2. Chronic systolic congestive heart failure. 3. Atrial fibrillation. PLAN: 1. Decrease bronchodilators to avoid excessive shaking. 2. Continue current cardiac regimen. 3. Wean steroids. 4. Oxygen. 5. Physical therapy. Lenin Darby MD [facility]/MODL /[id number]
[2018-11-16] MEDS: SIMVASTATIN 40 MG TAB PO SCH (20:57)
[2018-11-17] VITALS: BP 118/60
[2018-11-17 04:00] VITALS: BP 120/56
[2018-11-17 04:57] LABS: BASOPHILS % 0.1 % (0.0-1.0); HEMATOCRIT 32.8 % (34.2-44.1); HEMOGLOBIN 10.2 g/dL (12.0-16.0); LYMPHOCYTES # (AUTO) 0.6 (1.0-3.2); LYMPHOCYTES % 6.3 % (18.0-39.1); MEAN CORPUSCULAR HEMOGLOBIN 27.1 pg (28-32); MEAN CORPUSCULAR HGB CONC 31.1 g/dL (31-35); MEAN CORPUSCULAR VOLUME 87.2 fL (81-99); MONOCYTES # (AUTO) 0.3 (0.2-0.8); MONOCYTES % 2.8 % (4.4-11.3); NEUTROPHILS # (AUTO) 8.2 (2.1-6.9); NEUTROPHILS % 89.8 % (38.7-80.0); PLATELET COUNT 179 x10e3/uL (140-360); RED BLOOD COUNT 3.76 x10e6/uL (3.6-5.1); RED CELL DISTRIBUTION WIDTH 15.8 % (11.7-14.4)
[2018-11-17 05:24] LABS: ANION GAP 16.9 mmol/L (8-16); CALCIUM 9.4 mg/dL (8.4-10.2); CREATININE, SERUM 1.78 mg/dL (0.57-1.11); POTASSIUM 4.9 mmol/L (3.5-5.1)
--- NOTE | 2018-11-17 07:05 | NUR ---
pt asleep, upon rounds pt alert resp even and unlabored at this time, pt easily aroused, no distress noted, pt able to make needs known, call light in reach
[2018-11-17 08:00] VITALS: BP 189/77
[2018-11-17] MEDS ORDERED: METHYLPREDNISOLONE SOD SUCC 40 MG/ML VIAL 1ML IV SCH (09:00)
[2018-11-17 09:19] LABS: BAND NEUTROPHILS % (MANUAL) 3 %; LYMPHOCYTES % (MANUAL) 7 % (19-48); MONOCYTES % (MANUAL) 3 % (3.4-9.0); NEUTROPHILS % (MANUAL) 87 % (40-74)
[2018-11-17 09:21] LABS: HOWELL-JOLLY BODIES FEW
[2018-11-17 09:22] LABS: ANISOCYTOSIS S; POIKILOCYTOSIS S
[2018-11-17 09:27] LABS: PLATELET ESTIMATE ADEQUATE; PLATELET MORPHOLOGY COMMENT NORMAL; RBC MORPHOLOGY COMMENT NORMAL
--- NOTE | 2018-11-17 09:29 | NUR ---
SPOKE WITH DAUGHTER JEVON AND [facility] [place] [facility], CALLED REP TO [employer] PACKET.
[2018-11-17] MEDS: GUAIFENESIN 600MG/DEXTROMETHORPHAN 30MG TABSR PO SCH (09:32)
[2018-11-17] MEDS: SPIRONOLACTONE 25 MG TAB PO SCH (09:32)
[2018-11-17] MEDS: CITALOPRAM HYDROBROMIDE 20 MG TAB PO SCH (09:32)
[2018-11-17] MEDS: PREGABALIN 50 MG CAP PO SCH (09:32)
[2018-11-17] MEDS: APIXAB 2.5 MG TABLET PO SCH (09:32)
[2018-11-17] MEDS: TORSEMIDE 10 MG TAB PO SCH (09:32)
[2018-11-17] MEDS: LEVOFLOXACIN 750MG/D5W 150ML 150 ML IV SCH (09:32)
[2018-11-17] MEDS: PANTOPRAZOLE SOD 40 MG TABEC PO SCH (09:32)
[2018-11-17] MEDS: FUROSEMIDE 40 MG TAB PO SCH (09:32)
[2018-11-17 09:37] VITALS: BP 189/77
[2018-11-17] MEDS: LORAZEPAM 0.5 MG TAB PO PRN (09:41)
[2018-11-17 12:00] VITALS: BP 116/58
--- NOTE | 2018-11-17 12:52 | NUR ---
PT ACCEPTED TO [facility], CALL REPORT TO [phone] BEATRIZ GUERRERO
--- NOTE | 2018-11-17 13:15 | NUR ---
Called and spoke with pt's daughter Krystle and informed her of acceptance at [facility]. Stated she will be at hospital shortly. ARTURO Srinivasan to call Krystle if she's not at hospital to inform her of ETA of transfer to SNF.
--- NOTE | 2018-11-17 13:30 | NUR ---
called report to C[facility] R[facility] at [facility]
--- NOTE | 2018-11-17 14:20 | Progress Note ---
DATE: 11/17/2018 SUBJECTIVE: The patient still has some dyspnea with exertion. PHYSICAL EXAMINATION: VITAL SIGNS: Blood pressure is 116/58 and saturation is 94% on 3 L. HEENT: Shows no facial swelling or erythema. CARDIAC: Reveals regular rate and rhythm with normal S1 and S2. LUNGS: Auscultation of lungs shows clear breath sounds bilaterally. There is no wheezing. ABDOMEN: Soft and nontender. There is no rebound or guarding. EXTREMITIES: Show no leg edema or calf tenderness. There is no cyanosis or clubbing. SKIN: Shows no rashes. NEUROLOGICAL: Shows no focal abnormalities. IMPRESSION: 1. Chronic obstructive pulmonary disease with acute exacerbation. 2. Chronic systolic congestive heart failure. 3. Atrial fibrillation. PLAN: 1. Continue to adjust corticosteroids. 2. Oxygen. 3. Continue current cardiac regimen. 4. Physical therapy. 5. The patient and daughter to make decision regarding possible stay at SNF. Lenin Darby MD [facility]/ANGELA /[id number]
[2018-11-17] MEDS ORDERED: ONDANSETRON HCL 4 MG ORAL DISINTEGRATING TAB PO PRN (14:30)
[2018-11-17 16:00] VITALS: BP 116/58
--- NOTE | 2018-11-17 16:25 | NUR ---
pt daughter was called to notify of pt discharge.
--- NOTE | 2018-11-17 16:30 | NUR ---
pt left via ambulance service, to [facility]. pt stable.
[2018-11-18] MEDS ORDERED: PREDNISONE 20 MG TAB PO SCH (09:00)
--- NOTE | 2018-11-19 04:27 | Discharge Summary ---
ADMISSION DIAGNOSES: 1. Acute exacerbation of chronic obstructive pulmonary disease. 2. Acute on chronic systolic congestive heart failure. 3. Hypertension. 4. Anxiety. 5. Atrial fibrillation. 6. Hypertension complicated by chronic kidney disease 3. 7. Gastroesophageal reflux disease. 8. Chronic kidney disease 3. DISCHARGE DIAGNOSES: 1. Acute exacerbation of chronic obstructive pulmonary disease. 2. Acute on chronic systolic congestive heart failure. 3. Hypertension. 4. Anxiety. 5. Atrial fibrillation. 6. Hypertension complicated by chronic kidney disease 3. 7. Gastroesophageal reflux disease. 8. Chronic kidney disease 3. 9. Pseudomonas aeruginosa sputum. HISTORY: The patient has a history of COPD with oxygen dependence, CKD-3, atrial fibrillation, hypertension, chronic systolic CHF, sick sinus syndrome with pacemaker placement, CAD, GERD, anemia, anxiety, hyperlipidemia, and AAA. SURGICAL HISTORY: Aneurysm repair, pacemaker placement, and CABG. FAMILY HISTORY: The patient's son had a stroke, another son had cancer, and another son had heart attack. SOCIAL HISTORY: Noncontributory. HOSPITAL COURSE: An 88-year-old female, complains of shortness of breath, dyspnea on exertion, wheezing and productive cough for the last 2 days. She denies nausea, vomiting, diarrhea, or fever. She uses nebs and oxygen at home with little improvement. The patient was recently discharged from the hospital for the same thing and says she felt better for a while before getting sick again. On admission, the patient was started on Zithromax and Rocephin nebs, Mucinex, and Pulmonary was consulted. She was resumed on her home diuretics for the CHF. Chest x-ray showed low lung volumes. Patchy opacities at both lung bases, most likely subsegmental atelectasis. Due to intermittent dizziness, CT of the brain was done that showed moderate to severe supratentorial white microvascular ischemic changes, generalized age related cerebral volume loss. Carotid Doppler was negative. Sputum culture came back positive for Pseudomonas aeruginosa, so the antibiotics were changed to Levaquin. White count remained stable. The patient was started on IV steroids, which was switched to p.o. steroids at time of discharge. Per the patient's request, the patient will be discharged to a [facility] facility for antibiotics and physical therapy. The patient and daughter understand discharge instructions and agrees to plan. Vital signs stable. The patient is afebrile. Dictated by Ashley M Bola, [employer] MD SADE Villanueva/ANGELA /[id number]
== END 2018-11-17 16:35 | DRG 291 ==
LOC: ER 13:12 → ERHOLD 15:31 → MED/SURG2 16:47
PROVIDERS: ADMIT Internal Medicine; ATTEND Internal Medicine
DX: I13.0 Hypertensive heart and chronic kidney disease with heart failure and stage 1 through stage 4 chronic kidney disease, or unspecified chronic kidney disease (principal); I50.23 Acute on chronic systolic (congestive) heart failure; J96.21 Acute and chronic respiratory failure with hypoxia; J44.1 Chronic obstructive pulmonary disease with (acute) exacerbation; N17.9 Acute kidney failure, unspecified; N18.3 Chronic kidney disease, stage 3 (moderate); I48.91 Unspecified atrial fibrillation; I49.5 Sick sinus syndrome; I25.10 Atherosclerotic heart disease of native coronary artery without angina pectoris; K21.9 Gastro-esophageal reflux disease without esophagitis; D64.9 Anemia, unspecified; F41.9 Anxiety disorder, unspecified; E78.5 Hyperlipidemia, unspecified; I71.4 Abdominal aortic aneurysm, without rupture; Z95.1 Presence of aortocoronary bypass graft; Z82.3 Family history of stroke; Z80.9 Family history of malignant neoplasm, unspecified; Z82.49 Family history of ischemic heart disease and other diseases of the circulatory system; Z88.5 Allergy status to narcotic agent; Z95.0 Presence of cardiac pacemaker; Z99.81 Dependence on supplemental oxygen; B96.5 Pseudomonas (aeruginosa) (mallei) (pseudomallei) as the cause of diseases classified elsewhere; R42 Dizziness and giddiness; Z95.810 Presence of automatic (implantable) cardiac defibrillator; Z87.891 Personal history of nicotine dependence
CPT/HCPCS: 36415; 70450; 71045; 80048; 80053; 81001; 82550; 82553; 83690; 83735; 83880; 84484; 85025; 85610; 87070; 87086; 87186; 87205; 93005; 93880; 94640; 97139; 99284; J0456; J0696; J2920; J2930

== ENCOUNTER 2018-12-26 19:05 | Inpatient (IN) | payer MEDICARE, OTHER ==
[~2018-12-26] VITALS: Ht 152.4 cm; Wt 79.8 kg
--- NOTE | 2018-12-26 19:05 | NUR ---
EKG OBTAINED ON ARRIVAL AT 1901.
[2018-12-26] MEDS ORDERED: ASPIRIN 81 MG CHEW TAB PO ONE ×2 (19:15→21:00)
[2018-12-26] MEDS ORDERED: METHYLPREDNISOLONE SOD SUCC 125 MG/2ML VIAL IV ONE (19:30)
[2018-12-26] MEDS ORDERED: ALBUTEROL SULF 0.083% NEB SOLN 3 ML NEB NEB ONE (19:30)
--- NOTE | 2018-12-26 19:37 | NUR ---
patient refusing bipap, dr capri blair at bedside discussing consequences of not using bipap, patient assumes risks
--- NOTE | 2018-12-26 19:40 | NUR ---
dr farooq on the phone discussing with marcle(daughter) patients care and refusal to wear bipap
[2018-12-26 19:46] LABS: BASOPHILS # (AUTO) 0.1 (0.0-0.1); BASOPHILS % 0.6 % (0.0-1.0); EOSINOPHILS # (AUTO) 0.4 (0.0-0.4); EOSINOPHILS % 4.6 % (0.0-6.0); HEMATOCRIT 33.8 % (34.2-44.1); HEMOGLOBIN 10.2 g/dL (12.0-16.0); LYMPHOCYTES # (AUTO) 2.6 (1.0-3.2); LYMPHOCYTES % 27.7 % (18.0-39.1); MEAN CORPUSCULAR HEMOGLOBIN 26.7 pg (28-32); MEAN CORPUSCULAR HGB CONC 30.2 g/dL (31-35); MEAN CORPUSCULAR VOLUME 88.5 fL (81-99); MONOCYTES # (AUTO) 0.8 (0.2-0.8); MONOCYTES % 8.8 % (4.4-11.3); NEUTROPHILS # (AUTO) 5.4 (2.1-6.9); NEUTROPHILS % 57.9 % (38.7-80.0); PLATELET COUNT 186 x10e3/uL (140-360); RED BLOOD COUNT 3.82 x10e6/uL (3.6-5.1); RED CELL DISTRIBUTION WIDTH 16.4 % (11.7-14.4)
[2018-12-26 19:52] LABS: INR 0.91; PROTHROMBIN TIME 12.7 seconds (11.9-14.5)
[2018-12-26 20:03] LABS: ALBUMIN 3.2 g/dL (3.5-5.0); ALBUMIN/GLOBULIN RATIO 1.2 (0.8-2.0); ANION GAP 15.9 mmol/L (8-16); CALCIUM 9.5 mg/dL (8.4-10.2); CREATININE, SERUM 1.21 mg/dL (0.57-1.11); POTASSIUM 3.9 mmol/L (3.5-5.1)
[2018-12-26 20:09] LABS: CREATINE KINASE MB 2.2 ng/mL (0-5.0)
[2018-12-26 20:12] LABS: B-TYPE NATRIURETIC PEPTIDE2 160.9 pg/mL (0-100)
[2018-12-26 20:36] LABS: BILIRUBIN,URINE NEGATIVE (NEGATIVE); CLARITY,URINE CLEAR (CLEAR); KETONES,URINE NEGATIVE (NEGATIVE); LEUKOCYTE ESTERASE ,URINE TRACE (NEGATIVE); NITRITE,URINE NEGATIVE (NEGATIVE); PROTEIN,URINE DIPSTICK NEGATIVE (NEGATIVE); URINE UROBILINOGEN 0.2 mg/dL (0.2 - 1)
--- NOTE | 2018-12-26 20:45 | Diagnostic Imaging Report ---
EXAMINATION: CHEST SINGLE (PORTABLE) INDICATION: Dyspnea COMPARISON: Chest radiograph 10/28/2018, chest CT 08/07/2018 FINDINGS: AP view TUBES and LINES: 3-lead left chest wall cardiac device with leads in the right atrium and right ventricle. LUNGS: Hyperinflated lungs. Right basilar hazy opacity, with partially obscured right hemidiaphragm. PLEURA: No pneumothorax. Suspect trace bilateral pleural effusions.. HEART AND MEDIASTINUM: Moderate cardiomegaly. Left coronary stent. Surgical changes of coronary artery bypass graft and cardiac valve replacement. Pericardial calcifications at the cardiac apex. BONES AND SOFT TISSUES: No acute osseous lesion. Soft tissues are unremarkable. Sternotomy wires intact. UPPER ABDOMEN: No free air under the diaphragm. IMPRESSION: Moderate cardiomegaly. Right basilar hazy opacity may reflect airspace disease or pleural effusion. Signed by: Pillo Boss DO on 12/26/2018 8:42 PM
[2018-12-26] MEDS ORDERED: SODIUM CHLORIDE FLUSH 10 ML SYR INJ PRN (21:00)
[2018-12-26 21:10] LABS: COLOR,URINE STRAW (YELLOW)
[2018-12-26 21:17] LABS: BACTERIA,URINE RARE /HPF; EPITHELIAL CELLS,URINE FEW /LPF; RBC,URINE 0-5 /HPF (0-5); WBC,URINE (MAN) 0-5 /HPF (0-5)
--- NOTE | 2018-12-26 21:50 | NUR ---
rt at bedside. 02 challenge, attempting to remove 15lpm and reduce oxygenation dosage
[2018-12-26 22:01] LABS: ABG HCO3 32 mmol/L (23-28); ABG PCO2 41 mmHg (41-51); ABG PH 7.49 (7.31-7.41); ABG PO2 67 mmHg (80-105)
--- NOTE | 2018-12-26 23:01 | NUR ---
repeat abg was shown to dr farooq by rt identification technician
--- NOTE | 2018-12-26 23:21 | NUR ---
marcel-daughter spoke about the need to obtain medication home list, per daughter she will follow up tommorow to obtain medication list and bring it to the hospital. patient unable to recall exact dosages of medications.
[2018-12-26 23:54] VITALS: BP 103/58
[2018-12-27] VITALS (11 sets, daily range): BP systolic 96–130; BP diastolic 45–69
[2018-12-27] MEDS ORDERED: ALBUTEROL/IPRATROPIUM 3 ML NEB NEB PRN (08:45)
[2018-12-27] MEDS ORDERED: TORSEMIDE 10 MG TAB PO SCH (09:00)
[2018-12-27] MEDS ORDERED: ACETAMINOPHEN/CODEINE 300MG - 30MG TAB PO PRN ×2 (09:15→19:30)
[2018-12-27] MEDS ORDERED: ALBUTEROL SULFATE HFA 8GM INHALATION AEROSOL INH PRN (09:30)
[2018-12-27] MEDS ORDERED: AZITHROMYCIN 500MG/NS 250 ML 250 ML IV SCH (09:30)
[2018-12-27] MEDS ORDERED: HYDROCODONE/CHLORPHENIRAMINE 5 ML LIQCR PO PRN (09:45)
[2018-12-27] MEDS ORDERED: GUAIFENESIN/CODEINE 10 ML CUP PO PRN (09:45)
--- NOTE | 2018-12-27 10:02 | History and Physical ---
CHIEF COMPLAINT: Worsening dyspnea and congestion. HISTORY OF PRESENT ILLNESS: The patient is an 88-year-old woman. She has a history of severe COPD and chronic systolic congestive heart failure. She also has atrial fibrillation. She uses bronchodilators and oxygen at home. She was in the office earlier this week and received a shot of Solu-Medrol. She now returns with worsening dyspnea and congestion for 3 days. She notes some cough. She has no chest pain. PAST MEDICAL HISTORY: 1. COPD. 2. Atrial fibrillation. 3. Chronic systolic congestive heart failure. 4. Chronic renal insufficiency. PAST SURGICAL HISTORY: 1. Status post coronary artery bypass grafting. 2. Status post aortic aneurysm repair. 3. Status post pacemaker. SOCIAL HISTORY: The patient quit smoking. She is not an active drinker. ALLERGIES: THERE ARE NO KNOWN DRUG ALLERGIES. FAMILY HISTORY: There is a history of coronary artery disease and cancer in the family. REVIEW OF SYSTEMS: The patient does not complain of fever. She has no headache. She is not complaining of neck pain. She has no chest pain. She is having worsening dyspnea and congestion. She has some cough. She is not having any abdominal pain. She notes no nausea or vomiting. There is no leg edema. PHYSICAL EXAMINATION: VITAL SIGNS: The patient is afebrile. The blood pressure is 101/59 and the pulse is 94. Saturation is 86% on 3 L. HEENT: Shows no facial swelling or erythema. CARDIAC: Reveals a regular rate and rhythm with normal S1 and S2. There are no murmurs or rubs. LUNGS: Auscultation of lungs shows prolonged expiratory phase bilaterally. There is no wheezing. ABDOMEN: Soft and nontender. There is no rebound or guarding. EXTREMITIES: Show no leg edema or calf tenderness. There is no cyanosis or clubbing. SKIN: Shows no rashes. NEUROLOGICAL: Shows no focal abnormalities. LABORATORY DATA: White blood cell count is 9.4 and hemoglobin is 10.2. The platelet count is 186. The BUN to creatinine ratio is 14:1.21. Troponin Is are negative. The BNP is 161. RADIOGRAPHIC DATA: Chest x-ray shows cardiomegaly and right basal infiltrate. IMPRESSION: 1. Hpkdi-wo-pvgckrp respiratory failure. 2. Chronic obstructive pulmonary disease with acute exacerbation. 3. Chronic systolic congestive heart failure. 4. Atrial fibrillation. 5. Community-acquired pneumonia with sepsis present on admission. PLAN: 1. Continue IV antibiotics. 2. Continue Solu-Medrol and bronchodilators. 3. Oral diuretics. 4. Cardiology evaluation. 5. Physical therapy. MD CRIS Marinelli/ANGELA /[id number]
[2018-12-27] MEDS ORDERED: SODIUM CHLORIDE 0.9% 250ML 250 ML ONE (10:35)
[2018-12-27] MEDS: ALBUTEROL/IPRATROPIUM 3 ML NEB NEB SCH ×4 (11:27→22:20)
[2018-12-27] MEDS: LORAZEPAM 0.5 MG TAB PO PRN (12:23)
[2018-12-27] MEDS: FUROSEMIDE 40 MG TAB PO SCH ×2 (12:23→17:51)
[2018-12-27] MEDS: PREGABALIN 50 MG CAP PO SCH ×2 (12:23→17:51)
[2018-12-27] MEDS: APIXAB 2.5 MG TABLET PO SCH ×2 (12:23→17:51)
[2018-12-27] MEDS: CITALOPRAM HYDROBROMIDE 20 MG TAB PO SCH (12:23)
[2018-12-27] MEDS: SPIRONOLACTONE 25 MG TAB PO SCH (12:23)
[2018-12-27] MEDS: GUAIFENESIN 600MG/DEXTROMETHORPHAN 30MG TABSR PO SCH ×2 (12:23→21:00)
[2018-12-27] MEDS: METHYLPREDNISOLONE SOD SUCC 40 MG/ML VIAL 1ML IV SCH ×2 (12:24→21:46)
[2018-12-27] MEDS: CEFTRIAXONE SOD 1 GM/NS 50 ML 50 ML IV SCH (12:24)
[2018-12-27 13:48] LABS: CREATINE KINASE MB 2.2 ng/mL (0-5.0)
--- NOTE | 2018-12-27 17:53 | NUR ---
Called Dr. Lenin Darby made him aware of patient's allergy to codeine and Pharmacy unable to verify, received orders to give patient the Tussionex, I will notify pharmacy.
--- NOTE | 2018-12-27 18:35 | NUR ---
Patient up to bedside commode, voided a scant amount, and very scant amount to sanitary pad, assisted patient back to bed, patient c/o of chest pain. I called Ashley Plaza, to notify of output, and chest pain, received orders to do post-void residual, troponin blood draw x1, nitroglycerin SL 0.5mg every five minutes x3 PRN, and to give a dose of PRN Lorazepam per patient's EMAR.
--- NOTE | 2018-12-27 18:45 | NUR ---
Bladder scan patient for post void residual 71cc, lab called for lab draw stat troponin.
[2018-12-27] MEDS ORDERED: ACETAMINOPHEN 325 MG TAB PO PRN (19:30)
[2018-12-27] MEDS: NITROGLYCERIN 0.4 MG SUBL SL PRN (20:56)
[2018-12-27] MEDS: SIMVASTATIN 40 MG TAB PO SCH (21:00)
--- NOTE | 2018-12-27 21:48 | NUR ---
patent refused PO meds at this time, also stated chest pain is resolved.
[2018-12-28] VITALS (9 sets, daily range): BP systolic 95–130; BP diastolic 49–71
[2018-12-28] MEDS: ALBUTEROL/IPRATROPIUM 3 ML NEB NEB SCH ×5 (03:05→23:10)
[2018-12-28 05:55] LABS: BASOPHILS % 0.1 % (0.0-1.0); HEMATOCRIT 31.5 % (34.2-44.1); HEMOGLOBIN 9.6 g/dL (12.0-16.0); LYMPHOCYTES # (AUTO) 0.8 (1.0-3.2); LYMPHOCYTES % 12.1 % (18.0-39.1); MEAN CORPUSCULAR HEMOGLOBIN 27.2 pg (28-32); MEAN CORPUSCULAR HGB CONC 30.5 g/dL (31-35); MEAN CORPUSCULAR VOLUME 89.2 fL (81-99); MONOCYTES # (AUTO) 0.3 (0.2-0.8); MONOCYTES % 3.9 % (4.4-11.3); NEUTROPHILS # (AUTO) 5.8 (2.1-6.9); NEUTROPHILS % 83.2 % (38.7-80.0); PLATELET COUNT 168 x10e3/uL (140-360); RED BLOOD COUNT 3.53 x10e6/uL (3.6-5.1); RED CELL DISTRIBUTION WIDTH 16.4 % (11.7-14.4)
[2018-12-28 06:14] LABS: ANION GAP 12.9 mmol/L (8-16); CALCIUM 9.4 mg/dL (8.4-10.2); CREATININE, SERUM 1.25 mg/dL (0.57-1.11); POTASSIUM 4.9 mmol/L (3.5-5.1)
[2018-12-28] MEDS: PANTOPRAZOLE SOD 40 MG TABEC PO SCH (06:21)
[2018-12-28] MEDS: TIOTROPIUM 18 MCG INH POWDER INH SCH (07:10)
--- NOTE | 2018-12-28 07:21 | NUR ---
reports given to upcoming nurse, questions answered.
[2018-12-28] MEDS: LORAZEPAM 0.5 MG TAB PO PRN ×2 (08:28→20:33)
[2018-12-28] MEDS: SPIRONOLACTONE 25 MG TAB PO SCH (08:28)
[2018-12-28] MEDS: CITALOPRAM HYDROBROMIDE 20 MG TAB PO SCH (08:28)
[2018-12-28] MEDS: PREGABALIN 50 MG CAP PO SCH ×2 (08:28→17:03)
[2018-12-28] MEDS: APIXAB 2.5 MG TABLET PO SCH ×2 (08:28→17:03)
[2018-12-28] MEDS: GUAIFENESIN 600MG/DEXTROMETHORPHAN 30MG TABSR PO SCH ×2 (08:28→20:33)
[2018-12-28] MEDS: FUROSEMIDE INJ 10 MG/ML 4 ML VIAL IV SCH ×2 (09:00→17:03)
--- NOTE | 2018-12-28 09:52 | NUR ---
PT LOST IV ACCESS, PENDING PICC PLACEMENT
--- NOTE | 2018-12-28 12:48 | NUR ---
ORDER REC'D FOR LTAC PATSY WENT IN TO SPEAK WITH PT ABOUT LTAC AND GET CHOICE LETTER PT REFUSED AND ASKED THAT I SPEAK WITH HER DTR JEVON WASSERMAN
--- NOTE | 2018-12-28 15:23 | Diagnostic Imaging Report ---
EXAMINATION: CHEST XRAY LINE PLACEMENT INDICATION: PICC placement COMPARISON: Chest radiograph of 12/26/2018 FINDINGS: LINES/TUBES:Interval placement of right PICC line which terminates in the superior vena cava. Unchanged left chest AICD leads. EKG LUNGS:The lungs are moderately inflated. Mild biapical pleural parenchymal thickening/scarring. No focal consolidation or pulmonary edema. Mild bibasilar subsegmental atelectasis. PLEURA:No pleural effusion or pneumothorax. MEDIASTINUM:Cardiomediastinal silhouette is stably enlarged. Atherosclerotic calcifications of the thoracic aorta. BONES/SOFT TISSUES:No acute osseous injury. ABDOMEN:No free air under the diaphragm. IMPRESSION: Interval placement of right PICC line, terminating at the superior vena cava. Otherwise, no significant interval change. Signed by: Radha Jaramillo MD on 12/28/2018 3:20 PM
--- NOTE | 2018-12-28 15:29 | NUR ---
PICC line tip in the SVC per radiologist Dr Radha Jaramillo. PICC is okay to use
--- NOTE | 2018-12-28 16:20 | Progress Note ---
DATE: 12/28/2018 SUBJECTIVE: The patient has some improvement, but still complains of dyspnea. She is awaiting a PICC line. PHYSICAL EXAMINATION: VITAL SIGNS: The patient is afebrile. Blood pressure is 119/49, saturation is 98% on 4 L. HEENT: Shows no facial swelling or erythema. CARDIAC: Reveals regular rate and rhythm with normal S1 and S2. LUNGS: Auscultation of lungs shows clear breath sounds bilaterally. There is no wheezing. ABDOMEN: Soft, nontender. There is no rebound or guarding. EXTREMITIES: Show no leg edema or calf tenderness. There is no cyanosis or clubbing. SKIN: Shows no rashes. NEUROLOGICAL: Shows no focal abnormalities. IMPRESSION: 1. Wapjx-eh-dqkpzpq respiratory failure. 2. Chronic obstructive pulmonary disease with acute exacerbation. 3. Chronic systolic congestive heart failure. 4. Atrial fibrillation. 5. Community-acquired pneumonia with sepsis, present on admission. PLAN: 1. Continue Solu-Medrol and bronchodilators. 2. Continue antibiotics. 3. Complete Cardiology evaluation. 4. Physical therapy. Lenin Darby MD LM/MCKENNAL /[id number]
[2018-12-28] MEDS: CEFTRIAXONE SOD 1 GM/NS 50 ML 50 ML IV SCH (16:33)
[2018-12-28] MEDS: METHYLPREDNISOLONE SOD SUCC 40 MG/ML VIAL 1ML IV SCH ×2 (16:33→20:33)
[2018-12-28] MEDS: AZITHROMYCIN 500MG/NS 250 ML 250 ML IV SCH (17:03)
[2018-12-28] MEDS: SIMVASTATIN 40 MG TAB PO SCH (20:33)
--- NOTE | 2018-12-29 00:17 | Consultation ---
DATE OF CONSULTATION: 12/29/2018 Cardiology Consultation CHIEF COMPLAINT: The patient is an 88-year-old with shortness of breath. HISTORY OF PRESENT ILLNESS: The patient is an 88-year-old with a known chronic systolic congestive heart failure and severe COPD, admitted with worsening dyspnea. The patient was diuresed and given bronchodilators and IV Solu-Medrol and her breathing has improved. The patient has had no chest pain. No syncope. No dizziness. PAST MEDICAL HISTORY: Significant for: 1. Chronic systolic congestive heart failure. 2. Known ejection fraction of 20%. 3. Chronic atrial fibrillation. 4. Previous coronary artery bypass grafting. 5. Defibrillator placement. 6. Severe chronic obstructive pulmonary disease. SOCIAL HISTORY: The patient has been a heavy smoker in the past, but reports quitting. The patient does not drink. FAMILY HISTORY: There is a known family history of coronary artery disease and cancer in the family. PHYSICAL EXAMINATION: GENERAL: The patient is an older female, in no obvious distress. VITAL SIGNS: Included a temperature of 98.8, blood pressure of 110/60, pulse was 90. HEAD, EARS, EYES, NOSE, AND THROAT: The patient's cranium was normocephalic and atraumatic. Extraocular muscles were intact. CARDIAC: Demonstrated a normal S1 and S2 with a short 2/6 systolic murmur. ABDOMEN: Demonstrated good bowel sounds. No tenderness and no masses. LUNGS: Demonstrated rhonchi and rales bilaterally. ABDOMEN: Demonstrated good bowel sounds. No tenderness. EXTREMITIES: 1 to 2+ edema bilaterally. NEUROLOGIC: The patient was awake and alert. Cranial nerves were intact. Motor strength was intact in all limbs. IMAGING STUDIES: The patient's EKG demonstrated AV sequential pacing. IMPRESSION: The patient is an 88-year-old admitted with kknxk-gk-vxmekzs systolic congestive heart failure, which appears to have improved after treatment. The patient is currently doing better and is stable for transfer to [facility] for continued care. Francisco Darby MD H/MODL /[id number] cc: Kev Barragan MD
[2018-12-29 01:14] VITALS: BP 113/62
[2018-12-29] MEDS: ALBUTEROL/IPRATROPIUM 3 ML NEB NEB SCH ×4 (03:05→15:15)
[2018-12-29 03:18] VITALS: BP 105/57
[2018-12-29 03:35] LABS: BASOPHILS % 0.1 % (0.0-1.0); HEMATOCRIT 30.5 % (34.2-44.1); HEMOGLOBIN 9.1 g/dL (12.0-16.0); LYMPHOCYTES # (AUTO) 0.6 (1.0-3.2); LYMPHOCYTES % 7.4 % (18.0-39.1); MEAN CORPUSCULAR HEMOGLOBIN 26.9 pg (28-32); MEAN CORPUSCULAR HGB CONC 29.8 g/dL (31-35); MEAN CORPUSCULAR VOLUME 90.2 fL (81-99); MONOCYTES # (AUTO) 0.2 (0.2-0.8); MONOCYTES % 2.4 % (4.4-11.3); NEUTROPHILS # (AUTO) 7.2 (2.1-6.9); NEUTROPHILS % 89.4 % (38.7-80.0); PLATELET COUNT 164 x10e3/uL (140-360); RED BLOOD COUNT 3.38 x10e6/uL (3.6-5.1); RED CELL DISTRIBUTION WIDTH 16.6 % (11.7-14.4)
[2018-12-29 03:52] LABS: ANION GAP 12.4 mmol/L (8-16); CALCIUM 8.9 mg/dL (8.4-10.2); CREATININE, SERUM 1.34 mg/dL (0.57-1.11); POTASSIUM 4.4 mmol/L (3.5-5.1)
[2018-12-29] MEDS: TIOTROPIUM 18 MCG INH POWDER INH SCH (06:00)
[2018-12-29] MEDS: PANTOPRAZOLE SOD 40 MG TABEC PO SCH (06:24)
[2018-12-29 07:26] VITALS: BP 118/51
[2018-12-29 08:29] VITALS: BP 118/51
[2018-12-29] MEDS: SPIRONOLACTONE 25 MG TAB PO SCH (09:17)
[2018-12-29] MEDS: CITALOPRAM HYDROBROMIDE 20 MG TAB PO SCH (09:17)
[2018-12-29] MEDS: METHYLPREDNISOLONE SOD SUCC 40 MG/ML VIAL 1ML IV SCH (09:17)
[2018-12-29] MEDS: CEFTRIAXONE SOD 1 GM/NS 50 ML 50 ML IV SCH (09:17)
[2018-12-29] MEDS: FUROSEMIDE INJ 10 MG/ML 4 ML VIAL IV SCH ×2 (09:17→16:50)
[2018-12-29] MEDS: GUAIFENESIN 600MG/DEXTROMETHORPHAN 30MG TABSR PO SCH (09:17)
[2018-12-29] MEDS: PREGABALIN 50 MG CAP PO SCH ×2 (09:17→16:50)
[2018-12-29] MEDS: APIXAB 2.5 MG TABLET PO SCH ×2 (09:17→16:50)
--- NOTE | 2018-12-29 10:34 | Progress Note ---
DATE: 12/29/2018 SUBJECTIVE: The patient is still awaiting possible transfer to [facility]. Her dyspnea is slightly improved. She has no chest pain. She has no fevers. PHYSICAL EXAMINATION: VITAL SIGNS: The patient is afebrile. The blood pressure is 118/51, saturation is 99%. HEENT: Shows no facial swelling or erythema. CARDIAC: Reveals regular rate and rhythm with normal S1, S2. There are no murmurs or rubs. LUNGS: Auscultation of lungs shows clear breath sounds bilaterally. There is no wheezing. ABDOMEN: Soft, nontender. There is no rebound or guarding. EXTREMITIES: Shows no leg edema or calf tenderness. There is no cyanosis or clubbing. SKIN: Shows no rashes. NEUROLOGICAL: Shows no focal abnormalities. IMPRESSION: 1. Oyarr-ft-nprvrsy respiratory failure. 2. Chronic obstructive pulmonary disease. 3. Chronic systolic congestive heart failure. 4. Atrial fibrillation. PLAN: 1. Continue Solu-Medrol and bronchodilators. 2. Continue antibiotics. 3. Physical therapy. 4. Awaiting possible transfer to [facility]. Lenin Darby MD LM/MCKENNAL /[id number]
[2018-12-29 11:35] VITALS: BP 118/66
[2018-12-29] MEDS: LORAZEPAM 0.5 MG TAB PO PRN (12:24)
--- NOTE | 2018-12-29 14:08 | NUR ---
SPOKE WITH DTR JEVON WASSERMAN [phone] AND SHE AND PT ARE AGREEABLE WITH [facility] CHOICE LETTER SIGNED BY PT'S DTR COPY TO PT ORIGINAL ON CHART CLINICALS SUBMITTED TO [facility] REC'D PHONE CALL THIS AM FROM DEMARCO JAMIL AT [facility] THAT PT APPROVED ICU BED 5 [facility] MOT INITIATED AND PLACED ON FRONT OF PACKET NURSE MEGHANN NOTIFIED; SHE WILL CALL DR HENDERSON FOR DC ORDERS CM CALLED AND NOTIFIED DTR JEVON OF ACCEPTANCE AND SHE IS AGREEABLE WITH TRANSFER NOTIFIED PT OF ROOM NUMBER
[2018-12-29 15:38] VITALS: BP 109/71
--- NOTE | 2018-12-29 15:52 | NUR ---
SPOKE WITH NURSE RICK WHO STATE SHE SPOKE WITH FÁTIMA [employer] SUPERVISOR FOR DR HENDERSON AND ASKED FOR DC ORDERS TO [facility] FÁTIMA STATES HE HAS TO COME SEE THE PT BEFORE HE CAN DISCHARGE AND HE IS VERY BUSY AND MAY NOT GET TO HER DISCHARGE CAILIN ESCALATED TO [facility] SUP; SHE RECOMMENDS THAT RICK CALL [facility] [employer] [facility] WHO IS OFF TODAY AND ASK FOR DC NO RESPONSE FROM [facility] ESCALATED TO DIR OF [facility]IA[facility] WHO CALLED DR HENDERSON , EXPLAINED SITUATION TO HIM AND REC'D DISCHARGE ORDERS
[2018-12-29] MEDS: AZITHROMYCIN 500MG/NS 250 ML 250 ML IV SCH (16:50)
--- NOTE | 2018-12-29 17:34 | NUR ---
notified of event
--- NOTE | 2018-12-29 17:34 | NUR ---
report called to Kayla MALDONADO at [facility] for pt transfer
[2018-12-29] MEDS: NITROGLYCERIN 0.4 MG SUBL SL PRN ×2 (19:31→19:37)
--- NOTE | 2018-12-29 19:45 | NUR ---
Patient escorted off unit by stretcher with EMS at 1940. Patient has all belongings. No acute signs of distress. Updated [place] with last vitals and medical biller.
--- NOTE | 2018-12-30 16:32 | Discharge Summary ---
ADMISSION DIAGNOSES: Acute exacerbation of chronic obstructive pulmonary disease, hypertension with chronic systolic congestive heart failure and chronic kidney disease 3, chronic systolic congestive heart failure, atrial fibrillation, hyperlipidemia, anxiety, obesity with a BMI of 34.4. DISCHARGE DIAGNOSES: Acute exacerbation of chronic obstructive pulmonary disease, hypertension with chronic systolic congestive heart failure and chronic kidney disease 3, chronic systolic congestive heart failure, atrial fibrillation, hyperlipidemia, anxiety, obesity with a BMI of 34.4. HISTORY: The patient has a history of COPD, chronic systolic CHF, hypertension, anxiety, atrial fibrillation, CKD 3, GERD, sick sinus syndrome with pacemaker, CAD, AAA, hyperlipidemia. SURGICAL HISTORY: AAA repair, pacemaker, CABG. FAMILY HISTORY: The patient's son had a stroke, another son had cancer, another son had a heart attack. SOCIAL HISTORY: Noncontributory. HOSPITAL COURSE: An 88-year-old female admits with shortness of breath, orthopnea and dyspnea on exertion for the last 3 days. She denies cough, fever, and congestion. She has associated wheeze. Symptoms worsened with activity. The patient admits frequently for COPD exacerbation. We attempted pulmonary rehab, but the patient does not have transportation. On admission, she was started on Zithromax, Rocephin, nebs, Mucinex. Pulmonology was consulted. Home medicines were renewed. Chest x-ray on admission showed moderate cardiomegaly, right basilar hazy opacity may reflect airspace disease or pleural effusion. The patient had a right PICC line placed due to long-term antibiotics. Blood cultures were negative x48 hours and in an attempt to stop recidivism, the patient will discharge to [place]. The patient and daughter understand discharge instructions and agrees to plan. Vital signs stable, the patient afebrile. Dictated by Ashley Plaza NP MD SADE Villanueva/ANGELA /[id number]
[2019-01-26] MEDS ORDERED: ATORVASTATIN CA20 MG PO (19:46)
[2019-01-26] MEDS ORDERED: ESCITALOPRAM OX10 MG PO (19:46)
[2019-01-26] MEDS ORDERED: WIXELA 250-501 EACH INH (19:46)
[2019-01-26] MEDS ORDERED: IPRAT-ALBUT 0.5-3 ML NEB (19:46)
[2019-01-26] MEDS ORDERED: METOPROLOL SUC100 MG PO (19:46)
[2019-01-26] MEDS ORDERED: DOCUSATE SODIU100 MG PO (19:46)
== END 2018-12-29 19:37 | DRG 871 ==
LOC: ER 19:05 → ERHOLD 22:48 → IMCU 23:38
PROVIDERS: ADMIT Internal Medicine; ATTEND Internal Medicine
PROC: 02HV33Z Insertion of Infusion Device into Superior Vena Cava, Percutaneous Approach (ICD-10-PCS; principal; 2018-12-28)
DX: A41.9 Sepsis, unspecified organism (principal); J96.20 Acute and chronic respiratory failure, unspecified whether with hypoxia or hypercapnia; J18.9 Pneumonia, unspecified organism; I50.23 Acute on chronic systolic (congestive) heart failure; J44.1 Chronic obstructive pulmonary disease with (acute) exacerbation; I13.0 Hypertensive heart and chronic kidney disease with heart failure and stage 1 through stage 4 chronic kidney disease, or unspecified chronic kidney disease; J44.0 Chronic obstructive pulmonary disease with (acute) lower respiratory infection; N18.3 Chronic kidney disease, stage 3 (moderate); E66.9 Obesity, unspecified; Z68.34 Body mass index [BMI] 34.0-34.9, adult; K21.9 Gastro-esophageal reflux disease without esophagitis; I49.5 Sick sinus syndrome; Z95.0 Presence of cardiac pacemaker; E78.5 Hyperlipidemia, unspecified; I25.10 Atherosclerotic heart disease of native coronary artery without angina pectoris; I48.2 Chronic atrial fibrillation; Z79.01 Long term (current) use of anticoagulants
CPT/HCPCS: 36415; 36569; 36600; 71045; 80048; 80053; 81001; 82550; 82553; 82805; 82948; 83605; 83690; 83880; 84484; 85025; 85610; 87040; 93005; 93306; 94640; 99284; J0456; J0696; J1940; J2920; J2930; J7050

== ENCOUNTER 2019-01-18 17:08 | Inpatient (IN) | payer MEDICARE, OTHER ==
[~2019-01-18] VITALS: Ht 152.4 cm; Wt 74.4 kg
--- NOTE | 2019-01-18 18:24 | NUR ---
per pt she does not want any recusitative measures
[2019-01-18 19:11] LABS: HEMATOCRIT 31.3 % (34.2-44.1); HEMOGLOBIN 9.8 g/dL (12.0-16.0); LYMPHOCYTES # (AUTO) 0.5 (1.0-3.2); LYMPHOCYTES % 3.3 % (18.0-39.1); MEAN CORPUSCULAR HEMOGLOBIN 27.1 pg (28-32); MEAN CORPUSCULAR HGB CONC 31.3 g/dL (31-35); MEAN CORPUSCULAR VOLUME 86.7 fL (81-99); MONOCYTES % 5.9 % (4.4-11.3); NEUTROPHILS # (AUTO) 14.6 (2.1-6.9); NEUTROPHILS % 89.8 % (38.7-80.0); PLATELET COUNT 134 x10e3/uL (140-360); RED BLOOD COUNT 3.61 x10e6/uL (3.6-5.1)
[2019-01-18 19:20] LABS: INR 0.98; PROTHROMBIN TIME 13.5 seconds (11.9-14.5)
--- NOTE | 2019-01-18 19:26 | Diagnostic Imaging Report ---
Examination: Single AP view of the chest. COMPARISON: December 28, 2018 INDICATION: Shortness of breath DISCUSSION: Lines/tubes: Sternotomy wires. Multi lead cardiac device. Lungs: Pulmonary venous congestion. Lower lung opacities. Pleura: Possible small effusions. Heart and mediastinum: The heart is enlarged. Prominence of the right hilum due to the aorta. Bones and soft tissues: No acute bony abnormalities. IMPRESSION: Cardiomegaly with pulmonary venous congestion. Bibasilar opacities may reflect atelectasis with small effusions. Signed by: Dr. Ralph Ly M.D. on 01/18/2019 7:23 PM
[2019-01-18 19:28] LABS: ALBUMIN 3.2 g/dL (3.5-5.0); ALBUMIN/GLOBULIN RATIO 1.5 (0.8-2.0); ANION GAP 13.3 mmol/L (8-16); CALCIUM 9.1 mg/dL (8.4-10.2); CREATININE, SERUM 1.41 mg/dL (0.57-1.11); POTASSIUM 4.3 mmol/L (3.5-5.1)
[2019-01-18 19:34] LABS: CREATINE KINASE MB 4.5 ng/mL (0-5.0)
[2019-01-18] MEDS ORDERED: LEVOFLOXACIN 750MG/D5W 150ML 150 ML IV SCH (20:00)
--- NOTE | 2019-01-18 20:00 | NUR ---
VERIFIED WITH DR QUIJANO ABOUT IVF RUNNING AT 125MLS/HR; PT WITH HX OF CHF AND DX OF PNEUMONIA; DR QUIJANO WANTS PT PLACED ON IVF AT 125MLS/HR D/T ELEVATED LACTIC ACID;
[2019-01-18] MEDS ORDERED: ALBUTEROL/IPRATROPIUM 3 ML NEB NEB ONE (20:15)
[2019-01-18] MEDS: SODIUM CHLORIDE 0.9% 1000ML 1,000 ML IV SCH (21:43)
[2019-01-18] MEDS ORDERED: ALBUTEROL/IPRATROPIUM 3 ML NEB NEB PRN (21:45)
--- NOTE | 2019-01-19 03:46 | NUR ---
PT PLACED ON HOSPITAL BED FOR SAFETY AND COMFORT MEASURES.
[2019-01-19 04:09] LABS: CREATINE KINASE MB 4.4 ng/mL (0-5.0)
--- NOTE | 2019-01-19 04:51 | NUR ---
SPOKE WITH DR PETERSEN REGARDING CONSULT FOR ELEVATED TROPONIN; AWARE - NO NEW ORDERS AT THIS TIME
[2019-01-19] MEDS: SODIUM CHLORIDE 0.9% 1000ML 1,000 ML IV SCH (07:56)
[2019-01-19] MEDS ORDERED: FUROSEMIDE INJ 10 MG/ML 2 ML VIAL IV SCH (09:15)
[2019-01-19] MEDS ORDERED: ALBUTEROL/IPRATROPIUM 3 ML NEB NEB PRN (09:30)
[2019-01-19] MEDS ORDERED: ACETAMINOPHEN 325 MG TAB PO PRN (09:30)
[2019-01-19] MEDS ORDERED: ONDANSETRON HCL INJ 2MG/ML 2ML 2 MG/ML VIAL IV PRN (09:30)
[2019-01-19] MEDS ORDERED: HYDRALAZINE HCL 20 MG/ML VIAL IV PRN (09:30)
--- NOTE | 2019-01-19 09:34 | NUR ---
DR. Juan Ramon FUCHS AND IGGY MARTINO AT BEDSIDE
[2019-01-19] MEDS ORDERED: LEVALBUTEROL HCL SOLN NEBU 0.63 MG/3 ML NEB IH PRN (09:45)
[2019-01-19] MEDS ORDERED: ALBUTEROL SULFATE HFA 8GM INHALATION AEROSOL INH PRN (09:45)
[2019-01-19 10:47] LABS: CREATINE KINASE MB 3.6 ng/mL (0-5.0)
[2019-01-19] MEDS: ALBUTEROL/IPRATROPIUM 3 ML NEB NEB SCH ×4 (11:20→23:00)
[2019-01-19] MEDS: FUROSEMIDE INJ 10 MG/ML 4 ML VIAL IV SCH ×2 (11:24→16:57)
[2019-01-19] MEDS: METHYLPREDNISOLONE SOD SUCC 40 MG/ML VIAL 1ML IV SCH ×2 (11:24→21:00)
[2019-01-19] MEDS: DOXYCYCLINE 100MG/NS 100ML 100 ML IV SCH ×2 (11:24→21:00)
[2019-01-19] MEDS: TIOTROPIUM 18 MCG INH POWDER INH SCH (11:34)
--- NOTE | 2019-01-19 11:35 | NUR ---
per Ashley, MARRIAGE PERFORMER give pt 1/2 mg ativan q6h prn; orders repeated back and confirmed
[2019-01-19] MEDS ORDERED: LORAZEPAM INJ 2 MG/ML VIAL IV PRN (11:45)
[2019-01-19] MEDS ORDERED: LORAZEPAM INJ 2 MG/ML VIAL ONE (12:15)
[2019-01-19] MEDS: APIXAB 2.5 MG TABLET PO SCH ×2 (12:45→16:58)
[2019-01-19 13:07] VITALS: BP 132/62
[2019-01-19 13:10] VITALS: BP 132/62
--- NOTE | 2019-01-19 13:10 | NUR ---
Received pt from ER at this time. Pt is aox4 and able to verbalize needs. Denies any pain at this time. Pt is on O2 4L/NC at this time. Concepcion in place and draining light yellow clear urine.
--- NOTE | 2019-01-19 14:51 | Consultation ---
DATE OF CONSULTATION: Pulmonary Critical Care Consultation CHIEF COMPLAINT: Severe fatigue and inability to walk. HISTORY OF PRESENT ILLNESS: The patient is an 88-year-old woman. She has severe COPD, atrial fibrillation and chronic systolic heart failure. She was recently hospitalized at [facility] and then transferred to [facility] for further rehabilitation. She received physical therapy as well as Solu-Medrol and antibiotics at [facility]. She was subsequently discharged home yesterday. After arriving home, she was too weak to walk. She noted dyspnea on exertion. She denied any chest pain or fevers. PAST SURGICAL HISTORY: 1. Status post coronary artery bypass grafting. 2. Status post aortic aneurysm repair. 3. Status post pacemaker. PAST MEDICAL HISTORY: 1. COPD. 2. Atrial fibrillation. 3. Chronic systolic congestive heart failure. 4. Chronic renal insufficiency. SOCIAL HISTORY: The patient no longer smokes. She is not an active drinker. ALLERGIES: NO KNOWN DRUG ALLERGIES. FAMILY HISTORY: There is a history of coronary artery disease and cancer. REVIEW OF SYSTEMS: VITAL SIGNS: The patient is afebrile. The vital signs are stable. HEENT: Shows no facial swelling or erythema. CARDIAC: Reveals regular rate and rhythm with normal S1 and S2. LUNGS: Auscultation of lungs reveals clear breath sounds bilaterally. There is no wheezing. ABDOMEN: Soft and nontender. There is no rebound or guarding. EXTREMITIES: Show 1 to 2+ leg edema. The patient reports extreme fatigue. She has difficulty walking across the room. She does not have any fevers. She denies chest pain. She does have dyspnea and some cough. She had hemoptysis earlier in the week at [facility]. She has no abdominal pain. She has no nausea or vomiting. She does have bilateral leg edema. She has severe weakness. PHYSICAL EXAMINATION: VITAL SIGNS: The patient is afebrile. The blood pressure is 109/56 and the saturation is 98% on 4 L. HEENT: Shows no facial swelling or erythema. The nasal mucosa is normal. Oropharynx normal. LYMPHATIC: Shows no submandibular, cervical, or supraclavicular adenopathy. CARDIAC: Reveals a regular rate and rhythm with normal S1 and S2. LUNGS: Auscultation of lungs reveals crackles in both bases. There is no wheezing. ABDOMEN: Soft and nontender. There is no rebound or guarding. EXTREMITIES: Shows no leg edema or calf tenderness. There is no cyanosis or clubbing. SKIN: Shows no rashes. NEUROLOGICAL: Shows no focal abnormalities. LABORATORY DATA: White blood cell count is 16.3 and the hemoglobin is 9.8. The platelet count is 134. BUN to creatinine ratio is 39 to 1.41. Other electrolytes are within normal limits. The BNP is elevated at 576. Troponin I is mildly elevated at 0.499. IMPRESSION: 1. Hxgbv-le-evbzppz systolic congestive heart failure. 2. Chronic obstructive pulmonary disease with acute exacerbation. 3. Acute kidney injury. 4. Profound deconditioning. 5. Leukocytosis secondary to steroids. PLAN: 1. The patient will receive IV Lasix as well as cardiac evaluation. 2. Continue bronchodilators and low-dose Solu-Medrol. 3. Antibiotics for COPD exacerbation. 4. Long-term prognosis is poor. I have discussed this with the daughter. She is considering either placement in a intermediate facility or hospice. 5. Case discussed with Ashley Plaza and Duy Hill. Lenin Darby MD [facility]/MODL /[id number]
--- NOTE | 2019-01-19 15:02 | Diagnostic Imaging Report ---
EXAMINATION: Head CT HISTORY: Weakness COMPARISON: Head CT 11/14/18 TECHNIQUE: Multidetector axial images were obtained without contrast from the foramen magnum to the vertex . The images were reconstructed using brain and bone algorithms. Thin section brain images were reformatted into coronal and sagittal planes. Image quality: Motion/streaking artifact limits the evaluation of the skull base and posterior cranial fossa. Dose modulation, iterative reconstruction, and/or weight based adjustment of the mA/kV was utilized to reduce the radiation dose to as low as reasonably achievable. Image quality: Artifact from patient's motion limits evaluation of the study FINDINGS: Parenchyma: 1. Persistent moderate white matter chronic microvascular ischemic changes. 2. No mass or hemorrhage. No CT evidence of acute territorial vascular insult. Extra-axial spaces:No abnormal density. No extra-axial fluid collections Brain volume: Mild to moderate generalized brain volume loss. Ventricles: No hydrocephalus or displacement. Arteries: No density suggestive of thrombus. Dural sinuses: No abnormal density. Extra-axial spaces: No abnormal density. Foramen magnum: No mass, Chiari malformation, or basilar invagination. Sella: No obvious mass. Paranasal/mastoid sinuses: Imaged portions unremarkable. Skull/Scalp: No lytic or blastic lesions. No fractures. IMPRESSION: 1. Suboptimal study due to patient's motion, grossly no acute intracranial hemorrhage, mass or hydrocephalus. 2. Unchanged moderate to severe chronic microvascular ischemic changes and mild brain volume loss. Signed by: Dr. Wendy Carney M.D. on 01/19/2019 2:58 PM
[2019-01-19 16:00] VITALS: BP 125/61
--- NOTE | 2019-01-19 16:57 | Consultation ---
DATE OF CONSULTATION: Cardiology Consultation CHIEF COMPLAINT: The patient is an 88-year-old with shortness of breath. HISTORY OF PRESENT ILLNESS: The patient is an 88-year-old with known chronic congestive heart failure. The patient has a known ejection fraction of 20% and has a biventricular defibrillator. The patient also has severe chronic obstructive pulmonary disease. The patient was discharged from [facility] yesterday and when she got home, she was too weak to walk and she started having worsening dyspnea, she came to the emergency room at [facility] and was subsequently admitted. PAST MEDICAL HISTORY: The patient's previous history is significant for: 1. Previous coronary artery bypass grafting. 2. Known ejection fraction of 20%. 3. Previous biventricular ICD placement. 4. Chronic atrial fibrillation. 5. Severe COPD. 6. Chronic renal insufficiency. SOCIAL HISTORY: The patient has been a heavy smoker in the past. She does not drink. FAMILY HISTORY: There is a known family history of coronary artery disease. PHYSICAL EXAMINATION: GENERAL: The patient is an older female, in no obvious distress. VITAL SIGNS: Include a temperature of 98.8, blood pressure of 110/60. HEAD, EARS, EYES, NOSE, AND THROAT: The patient's cranium was normocephalic and atraumatic. Extraocular muscles were intact. Sclerae were anicteric. Pupils were equal, round, reactive to light. NECK: Supple. No jugular venous distention. No carotid bruits. CHEST: Demonstrated rhonchi and wheezing bilaterally. CARDIAC: Demonstrated normal S1 and S2 with a short 2/6 systolic murmur. ABDOMINAL: Demonstrated good bowel sounds. No tenderness and no masses. EXTREMITIES: There were no clubbing, no cyanosis, and no edema. NEUROLOGICAL: The patient was alert and oriented x3. Cranial nerves II through XII were intact. Motor strength was intact in all limbs. The patient's EKG demonstrated AV sequential pacing. IMPRESSION: The patient is an 88-year-old with acute on chronic systolic congestive heart failure and exacerbation of chronic obstructive pulmonary disease. The patient will require intravenous Lasix for diuresis for acute heart failure. The patient will also require steroids and bronchodilators and antibiotics for COPD exacerbation. MD JANEEN Castaneda/MODL /[id number] cc: Kev Barragan MD
[2019-01-19] MEDS ORDERED: NON-FORMULARY MEDICATION ([Eliquis] 2.5 MG) PO SCH (17:00)
[2019-01-19] MEDS: TRAMADOL HCL 50 MG TAB PO PRN (17:05)
[2019-01-19 19:11] LABS: CREATINE KINASE MB 2.7 ng/mL (0-5.0)
[2019-01-19 20:00] VITALS: BP 122/56
--- NOTE | 2019-01-19 20:05 | NUR ---
RECEIVED PT IN BED AOX3.PT RESTING .DENIES PAIN RESPIRATIONS ARE EVEN AND UNLABORED .REDNESS TO THE SACRUM .TELE 13 PACING ..CALL LIGHT WITH IN REACH .CONTINUE TO MONITOR
[2019-01-19 20:18] VITALS: BP 125/61
[2019-01-19] MEDS ORDERED: MELATONIN 5 MG TABLET PO PRN (21:00)
[2019-01-19] MEDS: SIMVASTATIN 40 MG TAB PO SCH (21:00)
[2019-01-20] VITALS (7 sets, daily range): BP systolic 121–148; BP diastolic 59–64
[2019-01-20] MEDS: LORAZEPAM 0.5 MG TAB PO PRN ×2 (02:47→16:37)
[2019-01-20] MEDS: ALBUTEROL/IPRATROPIUM 3 ML NEB NEB SCH ×6 (03:00→23:14)
[2019-01-20 04:14] LABS: BASOPHILS % 0.1 % (0.0-1.0); HEMATOCRIT 29.8 % (34.2-44.1); HEMOGLOBIN 9.2 g/dL (12.0-16.0); LYMPHOCYTES # (AUTO) 0.4 (1.0-3.2); LYMPHOCYTES % 3.9 % (18.0-39.1); MEAN CORPUSCULAR HGB CONC 30.9 g/dL (31-35); MEAN CORPUSCULAR VOLUME 87.4 fL (81-99); MONOCYTES # (AUTO) 0.1 (0.2-0.8); MONOCYTES % 1.3 % (4.4-11.3); NEUTROPHILS # (AUTO) 8.6 (2.1-6.9); NEUTROPHILS % 93.4 % (38.7-80.0); PLATELET COUNT 109 x10e3/uL (140-360); RED BLOOD COUNT 3.41 x10e6/uL (3.6-5.1); RED CELL DISTRIBUTION WIDTH 17.1 % (11.7-14.4)
[2019-01-20 04:35] LABS: ANION GAP 12.4 mmol/L (8-16); CALCIUM 8.8 mg/dL (8.4-10.2); CREATININE, SERUM 1.1 mg/dL (0.57-1.11); POTASSIUM 4.4 mmol/L (3.5-5.1)
[2019-01-20 06:06] LABS: BASOPHILS % 0.1 % (0.0-1.0); HEMATOCRIT 29.8 % (34.2-44.1); LYMPHOCYTES # (AUTO) 0.4 (1.0-3.2); LYMPHOCYTES % 4.4 % (18.0-39.1); MEAN CORPUSCULAR HEMOGLOBIN 26.7 pg (28-32); MEAN CORPUSCULAR HGB CONC 30.2 g/dL (31-35); MEAN CORPUSCULAR VOLUME 88.4 fL (81-99); MONOCYTES # (AUTO) 0.2 (0.2-0.8); MONOCYTES % 2.6 % (4.4-11.3); NEUTROPHILS # (AUTO) 8.3 (2.1-6.9); NEUTROPHILS % 91.6 % (38.7-80.0); PLATELET COUNT 108 x10e3/uL (140-360); RED BLOOD COUNT 3.37 x10e6/uL (3.6-5.1)
[2019-01-20 06:29] LABS: ALBUMIN 2.9 g/dL (3.5-5.0); ALBUMIN/GLOBULIN RATIO 1.3 (0.8-2.0); ANION GAP 13.3 mmol/L (8-16); CALCIUM 8.7 mg/dL (8.4-10.2); CREATININE, SERUM 1.09 mg/dL (0.57-1.11); POTASSIUM 4.3 mmol/L (3.5-5.1)
--- NOTE | 2019-01-20 06:49 | NUR ---
PT C/O ANXIETY DURING THE NIGHT AND GIVEN ATIVAN .PT RESTING .CALL LIGHT WITH IN REACH BEDSIDE REPORT GIVEN TO THE ONCOMING NURSE
--- NOTE | 2019-01-20 06:52 | NUR ---
RECEIVED PATIENT RESTING IN BED. NO ACUTE DISTRESS NOTED. NO S/S OF PAIN NOTED. CALL LIGHT WITHIN REACH. BED IN THE LOWEST POSITION.
[2019-01-20] MEDS: TIOTROPIUM 18 MCG INH POWDER INH SCH (06:56)
[2019-01-20] MEDS: LORAZEPAM INJ 2 MG/ML VIAL IV PRN (07:30)
[2019-01-20] MEDS: DOXYCYCLINE 100MG/NS 100ML 100 ML IV SCH ×2 (08:34→21:02)
[2019-01-20] MEDS: FUROSEMIDE INJ 10 MG/ML 4 ML VIAL IV SCH ×2 (08:34→16:37)
[2019-01-20] MEDS: METHYLPREDNISOLONE SOD SUCC 40 MG/ML VIAL 1ML IV SCH ×2 (08:34→21:00)
[2019-01-20] MEDS: APIXAB 2.5 MG TABLET PO SCH ×2 (08:36→16:37)
[2019-01-20] MEDS: SPIRONOLACTONE 25 MG TAB PO SCH (08:36)
[2019-01-20] MEDS: CITALOPRAM HYDROBROMIDE 20 MG TAB PO SCH (08:36)
[2019-01-20] MEDS ORDERED: NON-FORMULARY MEDICATION (Spironolactone 50 MG) PO SCH (09:00)
--- NOTE | 2019-01-20 09:25 | NUR ---
REPORT GIVEN TO NURSE TAKING PATIENT FOR CONTINUITY OF CARE.
--- NOTE | 2019-01-20 09:30 | NUR ---
RECEIVED REPORT FROM NURSE- WILL CONTINUE CARE FOR PATIENT. PATIENT IS IN STABLE CONDITION WITH NO S/S OF RESPIRATORY DISTRESS. NO PAIN VOICED. PATIENT IS SITTING UP IN THE RECLINER. DE LA O INTACT AND DRAINING- URINE PALE/YELLOW; DIAPER APPLIED. TELEMETRY APPLIED AND 02 APPLIED. CALL LIGHT IS WITHIN REACH, PATIENT INSTRUCTED TO CALL FOR ASSISTANCE NEEDED.
--- NOTE | 2019-01-20 11:10 | Progress Note ---
DATE: SUBJECTIVE: The patient still has extreme fatigue and severe dyspnea with exertion. PHYSICAL EXAMINATION: VITAL SIGNS: The patient is afebrile. The blood pressure is 128/61, saturation is 95% on 4 L. HEENT: Shows no facial swelling or erythema. CARDIAC: Reveals a regular rate and rhythm with a normal S1 and S2. There are no murmurs or rubs heard. LUNGS: Auscultation of lungs reveals prolonged expiratory phase bilaterally. ABDOMEN: Soft, nontender. EXTREMITIES: There is 1 to 2+ leg edema. IMPRESSION: 1. Ihmpt-za-pvzzgmc systolic congestive heart failure. 2. Chronic obstructive pulmonary disease. 3. Acute kidney injury. 4. Leukocytosis secondary to steroids. 5. Profound deconditioning. PLAN: 1. Continue current cardiac regimen. 2. Continue low-dose Solu-Medrol and bronchodilators. 3. Continue antibiotics. 4. Physical therapy. 5. Consult Psychiatry. 6. Consult palliative care. MD CRIS Marinelil/ANGELA /[id number]
--- NOTE | 2019-01-20 11:55 | NUR ---
WOUNDCARE CONSULT 88 YO FEMALE HX OF PNEUMONIA, CHF ISAIAH 18 ON CONSERVATIVE PUP LABS: WBC-9.06,HGB-9,GLUCOSE- 212 NEGATIVE BLOOD CULTURE WOUND AREAS ASSESSED LISTED ON WOUND FLOW SHEET HEALING ABRASIONS TO LEFT GLUTEAL NOTED SURROUNDING SKIN PINK AND BLANCHABLE RECOMENDATIONS : NURSING TO CONTINUE TO PROTECT AND OFFLOAD FOLLOW PUP PROTOCOL NURSING TO CONTINUE TO PLACE AND MAINTAIN FOAM DRESSING TO GLUTEAL AREA TO PREVENT FURTHER ABRASION OF AREA NURSING TO CONTINUE TO ASSIST PATIENT OUT OF BED FOR MEALS AND MUCH TOLERATED Addendum: 01/20/19 at 1209 by Eduardo Velez RN Amended: Links added.
--- NOTE | 2019-01-20 12:03 | NUR ---
SPOKE WITH PT AT FIRST SHE WAS ADAMANT THAT SHE GO HOME, WHEN I ASKED HER ABOUT DISCHARGE PLAN AND WHO WOULD BE ABLE TO ASSIST HER AT HOME SHE ADMITTED THAT SHE WOULD NOT BE ABLE TO CARE FOR SELF AND DAUGHTER WOULD NOT BE ABLE TO HELP HER. SHE STATES IT IS OKAY TO CALL AND SPEAK WITH HER DAUGHTER JEVON. CALLED [phone] AND SPOKE WITH HER AT LENGTH ABOUT DIFFERENT OPTIONS. SHE STATES SHE IS UNABLE TO CARE FOR HER MOTHER AND GETS PHYSICALLY ILL IF SHE HAS TO CHANGE HER OR PUT A BANDAGE ON HER. GAVE OPTIONS OF PALLIATIVE CARE BUT DAUGHTER STATES THAT WILL NOT WORK DUE TO THEM ONLY COMING 1 TO 3 TIMES A WEEK, JEVON STATES HER MOTHERS ANXIETY WILL HAVE HER CALLING 911 BEFORE A NURSE WILL ANSWER THE PHONE. SPOKE ABOUT CARE HOME AND ALSO ABOUT [facility], GAVE 3 FACILITIES IN [facility], [facility], [facility] AND [facility]. DAUGHTER JEVON WILL GO LOOK AT BUILDINGS AND LET ME KNOW WHAT FACILITY CHOICE WILL BE. SPOKE WITH PATIENT AND SHE STATES WHATEVER HER DAUGHTER DECIDES. 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 SHE DID STATE SHE WILL TRY.
--- NOTE | 2019-01-20 12:04 | NUR ---
ROUNDED WITH WOUND CARE NURSE- TWO HEALING ABRASIONS NOTED TO THE PATIENT'S LEFT BUTTOCK AREA. ALLEVYN PAD APPLIED.
--- NOTE | 2019-01-20 13:56 | NUR ---
DAUGHTER JEVON CALLED BACK AND STATED SHE DID NOT UNDERSTAND THAT MEDICAID SKILLED NURSING PLACEMENT WOULD NOT GET A PRIVATE ROOM, SHE STATES THAT IS UNACCEPTABLE AND DOES NOT KNOW WHAT TO DO, SHE STATES SHE WILL NOT HAVE AN ANSWER FOR TODAY. SHE STATES SHE IS OVERWHELMED AND DOESNT KNOW WHAT TO DO. ADVISED CM AND LET KNOW WILL NEED FOLLOW UP.
--- NOTE | 2019-01-20 15:24 | NUR ---
DAUGHTER CALLED BACK AND [facility]
--- NOTE | 2019-01-20 16:08 | NUR ---
Nutrition Screen Note RD Recommendation for Physician: - Continue current diet Plan of Care: RD following, monitoring for tolerance and adequacy Nutrition reason for involvement: Nutrition Risk Trigger- MST2 Primary Diagnose(s): PNA, CHF PMH: CHF with EF of 20%, CABG, COPD, ICD placement Ht: 60 in Wt: 167.56 lb BMI: 32.7 kg/m2 IBW: [address] Assessment: (01/20) 88 YOF admitted for CHF and PNA, pt home for 1 day from [facility]. Pt discussed during am rounds, discussion with pt and daughter regarding SNF vs palliative care. Pt seen today 2/2 MST screen. Pt sleeping at time of visits, RUBY DEVELOPER reports pt has been intermittently confused, but ate well for breakfast. No GI distress or difficulties chewing or swallowing. LBM 01/19. Noted L gluteal breakdown per wound care assessment, no PU's. Chart reviewed. Labs and meds reviewed. Will monitor and continue to follow. Current Diet: Cardiac Malnutrition Evaluation (01/20/19) The patient does not meet criteria for a specified degree of malnutrition at this time. Will re-evaluate at follow-up as appropriate. Unable to assess at time of visit. Diet Education Needs Assessment: Diet education not indicated. Nutrition Care Level: Low Signed: Linh Robledo RD, LD, [facility]
--- NOTE | 2019-01-20 16:20 | NUR ---
PATIENT HAD A BOWEL MOVEMENT- LARGE STOOL AMOUNT. PATIENT BACK IN BED
--- NOTE | 2019-01-20 19:26 | NUR ---
PATIENT IS IN STABLE CONDITION WITH NO S/S OF RESPIRATORY DISTRESS. NO PAIN VOICED. DE LA O INTACT AND DRAINING. TELEMETRY AND O2 APPLIED. BEDSIDE COMMODE AVAILABLE NEAR BEDSIDE. CALL LIGHT IS WITHIN REACH, PATIENT INSTRUCTED TO CALL FOR ASSISTANCE NEEDED. BEDSIDE REPORT GIVEN TO ONCOMING NURSE.
[2019-01-20] MEDS: SIMVASTATIN 40 MG TAB PO SCH (21:00)
[2019-01-21] VITALS: BP 120/59
--- NOTE | 2019-01-21 | NUR ---
PT'S C/O PAIN TO RIGHT HAND IV,CATH TIP NOTED INTACT UPON REMOVAL.DRESSING APPLIED.NEW IV STARTED TO LEFT FOREARM 22G.
[2019-01-21] MEDS: LORAZEPAM INJ 2 MG/ML VIAL IV PRN (01:51)
[2019-01-21 03:25] LABS: HEMATOCRIT 29.9 % (34.2-44.1); HEMOGLOBIN 9.2 g/dL (12.0-16.0); LYMPHOCYTES # (AUTO) 0.5 (1.0-3.2); LYMPHOCYTES % 4.9 % (18.0-39.1); MEAN CORPUSCULAR HEMOGLOBIN 27.2 pg (28-32); MEAN CORPUSCULAR HGB CONC 30.8 g/dL (31-35); MEAN CORPUSCULAR VOLUME 88.5 fL (81-99); MONOCYTES # (AUTO) 0.3 (0.2-0.8); MONOCYTES % 3.1 % (4.4-11.3); NEUTROPHILS # (AUTO) 9.1 (2.1-6.9); NEUTROPHILS % 90.7 % (38.7-80.0); PLATELET COUNT 115 x10e3/uL (140-360); RED BLOOD COUNT 3.38 x10e6/uL (3.6-5.1)
[2019-01-21] MEDS: ALBUTEROL/IPRATROPIUM 3 ML NEB NEB SCH ×4 (03:26→15:00)
[2019-01-21] MEDS: TRAMADOL HCL 50 MG TAB PO PRN (03:30)
[2019-01-21 03:39] LABS: ANION GAP 12.3 mmol/L (8-16); CREATININE, SERUM 1.13 mg/dL (0.57-1.11); POTASSIUM 4.3 mmol/L (3.5-5.1)
[2019-01-21 04:40] VITALS: BP 105/62
--- NOTE | 2019-01-21 07:12 | NUR ---
REPORT GIVEN TO ONCOMING NURSE.WALKING ROUNDS MADE.PT RESTING IN BED WITH NO S/S OF DISTRESS.
[2019-01-21] MEDS: TIOTROPIUM 18 MCG INH POWDER INH SCH (07:30)
[2019-01-21 07:50] VITALS: BP 121/55
[2019-01-21 07:59] VITALS: BP 121/55
[2019-01-21] MEDS: SPIRONOLACTONE 25 MG TAB PO SCH (08:05)
[2019-01-21] MEDS: METHYLPREDNISOLONE SOD SUCC 40 MG/ML VIAL 1ML IV SCH (08:05)
[2019-01-21] MEDS: FUROSEMIDE INJ 10 MG/ML 4 ML VIAL IV SCH (08:05)
[2019-01-21] MEDS: CITALOPRAM HYDROBROMIDE 20 MG TAB PO SCH (08:05)
[2019-01-21] MEDS: APIXAB 2.5 MG TABLET PO SCH (08:05)
[2019-01-21] MEDS ORDERED: POLYETHYLENE GLYCOL 3350 17 GM PACK PO PRN (08:45)
[2019-01-21] MEDS ORDERED: DOCUSATE SODIUM 100 MG CAP PO SCH (09:00)
[2019-01-21] MEDS: DOXYCYCLINE 100MG/NS 100ML 100 ML IV SCH (09:47)
[2019-01-21] MEDS ORDERED: LORAZEPAM INJ 2 MG/ML VIAL IM PRN (10:00)
[2019-01-21] MEDS ORDERED: LORAZEPAM 0.5 MG TAB PO PRN (10:15)
--- NOTE | 2019-01-21 10:55 | NUR ---
JAYLYN VERDE AT 1050- PATIENT IS SITTING UP IN THE RECLINER AFTER WORKING WITH PHYSICAL THERAPY. PATIENT IN STABLE CONDITION WITH NO S/S RESPIRATORY DISTRESS. O2 APPLIED.
[2019-01-21 11:49] VITALS: BP 135/62
--- NOTE | 2019-01-21 11:49 | NUR ---
DETENTION FACILITY DISCHARGE INFORMATION PATIENT HAS BEEN ACCEPTED TO: [facility] NAME: [facility] ADDRESS:[id number] ACCEPTING MD: BEATRIZ ROOM: 310B NURSE CALL REPORT TO: [phone] AMBULANCE NEEDS TO BE HERE AT 330 TO HAVE PT AT BUILDING BY 4PM
--- NOTE | 2019-01-21 11:53 | NUR ---
CALLED AND SPOKE WITH DAUGHTER ABOUT ACCEPTANCE AND EDUCATED ABOUT IMM FILED IN CHART, COMPLETED RTF FOR TRANSFER, DAUGHTER BROUGHT HOUSEDRESS AND WOULD LIKE HER CHANGED AND NOT SENT IN HOSPITAL GOWN.
[2019-01-21] MEDS ORDERED: ONDANSETRON HCL 4 MG ORAL DISINTEGRATING TAB PO PRN (12:30)
--- NOTE | 2019-01-21 12:48 | NUR ---
PATIENT VOIDED AND HAD A BM PER BEDSIDE COMMODE. PATIENT IN STABLE CONDITION AND IS SITTING UP IN THE RECLINER.
--- NOTE | 2019-01-21 13:30 | Consultation ---
DATE OF CONSULTATION: 01/21/2019 Psychiatric Consultation REASON FOR CONSULTATION: To evaluate the patient's mood. HISTORY OF PRESENT ILLNESS: The patient is an 88-year-old female, admitted to the hospital for pneumonia and CHF. Psychiatric consultation is called to evaluate the patient's mood, depression, and anxiety. As per the medical record, the patient has history of COPD, AFib, chronic systolic congestive heart failure, and chronic renal insufficiency. Upon evaluation today, the patient is found to be lying on the bed. She is alert, awake, and oriented to situation, self, place, and year. She claims she is hospitalized due to headache and shortness of breath and weakness. She reports that she was feeling depressed due to her health and frequent hospitalization, but she is doing better today. She denies any anxiety. She denies any hallucination. She denies any suicidal or homicidal ideation. She denies any problem with sleep. She claims that her appetite has been poor for the last 3 or 4 days. She is calm and cooperative. She is not agitated or combative. As per nursing staff, the patient has been anxious intermittently. She is getting p.r.n. Ativan to help with the anxiety. PAST PSYCHIATRIC HISTORY: The patient denies past psychiatric history. However, she is taking Celexa and Ativan p.r.n. She denies past suicide attempts. She denies alcohol and drug use. FAMILY HISTORY: Denies. SOCIAL HISTORY: The patient states she lives with her daughter and son-in-law. MENTAL STATUS EXAM: The patient is an elderly female. She is alert, awake, and oriented to situation. Her mood is anxious and some depression. Affect is congruent with mood. Psychomotor state is passive. She denies any suicidal or homicidal ideation. She denies any hallucination. Thought process is concrete. No delusion elicited. Insight and judgment are fair. Memory appears to be grossly intact. CURRENT MEDICATIONS: 1. Colace. 2. Doxycycline. 3. Eliquis. 4. Aldactone. 5. Lasix. 6. Celexa 20 mg p.o. daily. 7. Methylprednisolone. 8. Spiriva. 9. Albuterol/ipratropium. 10. Tramadol p.r.n. 11. Ativan 0.5 IV q.6 hours as needed. 12. Simvastatin. 13. Ativan 0.5 mg p.o. q.12 hours as needed. 14. Melatonin. 15. Polyethylene glycol. 16. Xopenex. 17. Hydralazine. 18. Ondansetron. 19. Acetaminophen. LABORATORY DATA: Current labs; sodium 139, potassium 4.3, chloride 96, CO2 35, BUN 32, and creatinine 1.13. WBC 10.05, RBC 3.28, hemoglobin 9.2, hematocrit 29.9, and platelets 115. ASSESSMENT: Adjustment disorder with mixed mood. PLAN OF TREATMENT: 1. Continue with Celexa 20 mg p.o. daily. 2. Adjust Ativan 0.5 IV q.6 hours as needed to IM. 3. Adjust and increase Ativan p.r.n. p.o. 4. Monitor for mood. 5. Supportive therapy. Thank you for this consultation. Dictated by Indy Gifford PA-C Geovanny Colindres MD [facility]/ANGELA /[id number]
--- NOTE | 2019-01-21 14:18 | NUR ---
REPORT CALLED TO [facility]- SPOKE WITH WAQAR AT 1250. PATIENT GOING TO ROOM 310B
--- NOTE | 2019-01-21 15:21 | NUR ---
PATIENT DISCHARGE TO [facility] AT 1518 PER STRETCHER WITH 2 PERSON EMS SERVICE. PATIENT IN STABLE CONDITION WITH NO S/S OF RESPIRATORY DISTRESS. O2 APPLIED. IV SALINE LOCKED TO LEFT FOREARM 22G. TRANSFER PACKET GIVEN TO EMS SERVICE. ALL PERSONAL ITEMS WERE TAKEN WITH THE PATIENT AND EMS SERVICE.
[2019-01-21] MEDS ORDERED: FUROSEMIDE 40 MG TAB PO SCH (18:00)
[2019-01-21] MEDS ORDERED: PREDNISONE 20 MG TAB PO SCH (21:00)
--- NOTE | 2019-01-21 23:18 | Discharge Summary ---
ADMISSION DIAGNOSES: Deszh-cv-kadslue systolic congestive heart failure, chronic obstructive pulmonary disease exacerbation with septic shock, elevated troponins, hypertension with chronic kidney disease 3, anxiety, atrial fibrillation, chronic kidney disease 3, hyperlipidemia. DISCHARGE DIAGNOSES: Pwodr-tk-vjccglp systolic congestive heart failure, chronic obstructive pulmonary disease exacerbation with septic shock, elevated troponins, hypertension with chronic kidney disease 3, anxiety, atrial fibrillation, chronic kidney disease 3, hyperlipidemia, rule out myocardial infarction. HISTORY: COPD, chronic systolic CHF, hypertension, anxiety, atrial fibrillation, CKD 3, GERD, sick sinus syndrome with pacer, CAD, AAA, hyperlipidemia. SURGICAL HISTORY: AAA repair, pacer, CABG. FAMILY HISTORY: One of the patient's son had a stroke, another one had cancer, another one had a heart attack. SOCIAL HISTORY: Noncontributory. HOSPITAL COURSE: An 88-year-old female with frequent hospitalizations due to COPD exacerbation, was discharged from [facility] on the day prior to admission to [facility]. She said during the day, she was working with PT and required rest breaks, but felt okay. When she got home, she got really weak and was unable to get off the toilet. Her portable oxygen was unplugged and she could not plug it in for an hour because her daughter went to the store. On admission, the patient had a chest x-ray that showed cardiomegaly with pulmonary venous congestion. Bibasilar opacities may reflect atelectasis with small effusion. Her BNP was elevated at 576. She was started on Lasix IV, fluid restrictions. Cardiology and Pulmonology were consulted. She was given Levaquin in the ER, but Pulmonology changed it to doxycycline. The elevated troponins were likely due to fluid overload. The patient is improving with Lasix and antibiotics. No more signs of fluid overload are apparent on physical exam. Discharge plan was discussed with the patient and with daughter. The patient initially did not want snf facility and wants to return home, but the daughter says she cannot handle her at home and could not be home around the clock to care for her. The patient will discharge to SNF after it was decided that palliative care and hospice were not a good fit due to the lack of family support at home. The patient agrees and will go there temporarily for physical therapy before returning home. The patient and daughter understand discharge instructions and agreed to plan. Vital signs stable, the patient afebrile. Dictated by Ashley Plaza, REGIONAL EXTENSION SERVICE SPECIALIST MD SADE Villanueva/MODL /[id number]
== END 2019-01-21 15:18 | DRG 871 ==
LOC: ER 17:08 → ERHOLD 01-19 01:35 → MED/SURG3 01-19 12:56
PROVIDERS: ADMIT Internal Medicine; ATTEND Internal Medicine
DX: A41.9 Sepsis, unspecified organism (principal); I50.23 Acute on chronic systolic (congestive) heart failure; R65.21 Severe sepsis with septic shock; I13.0 Hypertensive heart and chronic kidney disease with heart failure and stage 1 through stage 4 chronic kidney disease, or unspecified chronic kidney disease; J44.1 Chronic obstructive pulmonary disease with (acute) exacerbation; N17.9 Acute kidney failure, unspecified; N18.3 Chronic kidney disease, stage 3 (moderate); I48.91 Unspecified atrial fibrillation; K21.9 Gastro-esophageal reflux disease without esophagitis; I49.5 Sick sinus syndrome; I25.10 Atherosclerotic heart disease of native coronary artery without angina pectoris; I71.4 Abdominal aortic aneurysm, without rupture; E78.5 Hyperlipidemia, unspecified; Z95.1 Presence of aortocoronary bypass graft; Z82.3 Family history of stroke; Z82.49 Family history of ischemic heart disease and other diseases of the circulatory system; Z88.5 Allergy status to narcotic agent; F41.9 Anxiety disorder, unspecified; Z95.0 Presence of cardiac pacemaker; R53.81 Other malaise; D72.829 Elevated white blood cell count, unspecified; F43.23 Adjustment disorder with mixed anxiety and depressed mood; T38.0X5A Adverse effect of glucocorticoids and synthetic analogues, initial encounter; D64.9 Anemia, unspecified
CPT/HCPCS: 36415; 51700; 70450; 71045; 80048; 80053; 82550; 82553; 83605; 83880; 84145; 84484; 85025; 85610; 85730; 87040; 93005; 94640; 97139; 99284; J1940; J2060; J2920; J7030

== ENCOUNTER 2019-02-12 18:57 | Inpatient (IN) | payer MEDICARE, OTHER ==
[~2019-02-12] VITALS: Ht 152.4 cm; Wt 62.6 kg
[~2019-02-12 18:57] MED LIST changes: +ATORVASTATIN CA20 MG PO; +DOCUSATE SODIU100 MG PO; +ESCITALOPRAM OX10 MG PO; +IPRAT-ALBUT 0.5-3 ML NEB; +WIXELA 250-501 EACH INH
[2019-02-12 19:45] LABS: EOSINOPHILS % 0.1 % (0.0-6.0); HEMATOCRIT 27.5 % (34.2-44.1); HEMOGLOBIN 8.1 g/dL (12.0-16.0); LYMPHOCYTES # (AUTO) 0.5 (1.0-3.2); LYMPHOCYTES % 7.5 % (18.0-39.1); MEAN CORPUSCULAR HEMOGLOBIN 26.2 pg (28-32); MEAN CORPUSCULAR HGB CONC 29.5 g/dL (31-35); MONOCYTES # (AUTO) 0.5 (0.2-0.8); MONOCYTES % 7.5 % (4.4-11.3); NEUTROPHILS # (AUTO) 5.8 (2.1-6.9); NEUTROPHILS % 83.9 % (38.7-80.0); PLATELET COUNT 201 x10e3/uL (140-360); RED BLOOD COUNT 3.09 x10e6/uL (3.6-5.1); RED CELL DISTRIBUTION WIDTH 17.2 % (11.7-14.4)
[2019-02-12 19:53] LABS: BILIRUBIN,URINE NEGATIVE (NEGATIVE); CLARITY,URINE SL CLOUDY (CLEAR); COLOR,URINE YELLOW (YELLOW); KETONES,URINE NEGATIVE (NEGATIVE); LEUKOCYTE ESTERASE ,URINE NEGATIVE (NEGATIVE); NITRITE,URINE NEGATIVE (NEGATIVE); PROTEIN,URINE DIPSTICK NEGATIVE (NEGATIVE); URINE UROBILINOGEN 0.2 mg/dL (0.2 - 1)
[2019-02-12 20:04] LABS: ALBUMIN 2.8 g/dL (3.5-5.0); ALBUMIN/GLOBULIN RATIO 1.4 (0.8-2.0); ANION GAP 14.5 mmol/L (8-16); CALCIUM 8.7 mg/dL (8.4-10.2); CREATININE, SERUM 1.54 mg/dL (0.57-1.11); POTASSIUM 4.5 mmol/L (3.5-5.1)
[2019-02-12 20:07] LABS: BACTERIA,URINE RARE /HPF; EPITHELIAL CELLS,URINE FEW /LPF
[2019-02-12 20:11] LABS: CREATINE KINASE MB 1.9 ng/mL (0-5.0)
[2019-02-12] MEDS ORDERED: ASPIRIN 81 MG CHEW TAB PO ONE (21:15)
[2019-02-12] MEDS ORDERED: HEPARIN SOD (PORCINE) 5,000 UNIT/ML VIAL IV ONE (22:00)
[2019-02-12] MEDS ORDERED: HEPARIN 25,000 UNIT 700 UNIT in DEXTROSE 5% 250ML 250 ML IV SCH (22:00)
[2019-02-12 23:12] LABS: INR 1.26; PROTHROMBIN TIME 16.4 seconds (11.9-14.5)
[2019-02-12 23:13] LABS: PARTIAL THROMBOPLASTIN TIME 27.2 seconds (23.8-35.5)
[2019-02-12] MEDS ORDERED: ATIVAN1 MG PO (23:26)
[2019-02-12] MEDS ORDERED: ADVAIR 250-501 EACH INH (23:26)
[2019-02-12] MEDS ORDERED: ACETAMINOPHEN325 M1 PO (23:26)
[2019-02-12] MEDS ORDERED: DULCOLAX SUPP10 MG RC (23:31)
[2019-02-12] MEDS ORDERED: ELIQUIS2.5 MG PO (23:31)
[2019-02-12] MEDS ORDERED: MELATONIN5 M2 PO (23:34)
[2019-02-12] MEDS ORDERED: LEVAQUIN500 MG PO (23:34)
[2019-02-12] MEDS ORDERED: LEXAPRO10 MG PO (23:34)
[2019-02-12] MEDS ORDERED: POTASSIUM CHLO20 ME1 PO (23:41)
[2019-02-12] MEDS ORDERED: OXYBUTYNIN CHLOR5 M1 PO (23:41)
[2019-02-12] MEDS ORDERED: VENELEX OINTMEN60 GM TOP (23:45)
[2019-02-12] MEDS ORDERED: ULTRACET TABLE1 EACH PO (23:45)
[2019-02-12] MEDS ORDERED: PREDNISONE20 MG PO (23:45)
[2019-02-12] MEDS ORDERED: PREDNISONE10 MG PO (23:45)
--- NOTE | 2019-02-12 23:48 | Diagnostic Imaging Report ---
EXAMINATION: CHEST SINGLE (PORTABLE) INDICATION: Chest pain COMPARISON: Chest radiograph 01/26/2019 FINDINGS: AP view TUBES and LINES: Left chest wall cardiac device with leads in the right atrium, right ventricle, and coronary sinus. . LUNGS/PLEURA: Pulmonary vascular prominence. Hazy opacities in the lung bases with obscured hemidiaphragms and blunting costophrenic sulci. Slight increase in pulmonary interstitial lung markings. Homogeneous retrocardiac opacities. No pneumothorax. HEART AND MEDIASTINUM: Moderate cardiomegaly. Aortic valve replacement unchanged. BONES AND SOFT TISSUES: No acute osseous lesion. Soft tissues are unremarkable. Sternotomy wires intact. UPPER ABDOMEN: No free air under the diaphragm. IMPRESSION: 1. Moderate cardiomegaly, pulmonary vasculature congestion, and small bilateral pleural effusions. Mild pulmonary interstitial edema is possible. 2. Homogeneous retrocardiac opacities may be pleural effusions/atelectasis, although pneumonia is possible in the proper clinical setting. Signed by: Pillo Boss DO on 02/12/2019 11:45 PM
[2019-02-13] VITALS (8 sets, daily range): BP systolic 90–101; BP diastolic 49–70
--- NOTE | 2019-02-13 00:45 | NUR ---
PT HELD IN ER AT THIS TIME ASSIGNED NURSE IN ICU/IMCU IS WITH CRITICAL PATIENT; HS AWARE
--- NOTE | 2019-02-13 01:15 | NUR ---
RESP AT BEDSIDE TO ADMINISTER HHN [place]
[2019-02-13] MEDS: ALBUTEROL/IPRATROPIUM 3 ML NEB NEB SCH ×6 (01:30→23:05)
[2019-02-13] MEDS ORDERED: LORAZEPAM 1 MG TAB ONE (03:19)
[2019-02-13] MEDS: LORAZEPAM 1 MG TAB PO SCH ×2 (03:30→16:20)
--- NOTE | 2019-02-13 03:30 | NUR ---
PT HELD IN ER AT THIS TIME ASSIGNED NURSE IN ICU/IMCU IS WITH CRITICAL PATIENT; HS AWARE
[2019-02-13 04:58] LABS: CREATINE KINASE MB 1.9 ng/mL (0-5.0)
[2019-02-13 05:23] LABS: CHOL/HDL RATIO 2.1 (3.0-3.6)
[2019-02-13] MEDS: TIOTROPIUM 18 MCG INH POWDER INH SCH (06:50)
[2019-02-13] MEDS ORDERED: TRAMADOL/APAP 37.5MG-325MG TAB PO PRN (07:30)
[2019-02-13] MEDS ORDERED: MELATONIN 5 MG TABLET PO PRN (07:30)
[2019-02-13] MEDS ORDERED: ACETAMINOPHEN 325 MG TAB PO PRN (07:45)
[2019-02-13] MEDS ORDERED: HYDRALAZINE HCL 20 MG/ML VIAL IV PRN (07:45)
[2019-02-13] MEDS ORDERED: ALBUTEROL/IPRATROPIUM 3 ML NEB NEB PRN ×2 (07:45→12:00)
[2019-02-13] MEDS ORDERED: ONDANSETRON HCL INJ 2MG/ML 2ML 2 MG/ML VIAL IV PRN (07:45)
[2019-02-13] MEDS ORDERED: FUROSEMIDE INJ 10 MG/ML 4 ML VIAL IV SCH (09:00)
[2019-02-13] MEDS ORDERED: NON-FORMULARY MEDICATION (Metoprolol Succinate 100 MG) PO SCH (09:00)
[2019-02-13] MEDS: METOPROLOL SUCCINATE 50 MG TAB XL PO SCH (09:00)
[2019-02-13] MEDS ORDERED: POTASSIUM CHLORIDE 20 MEQ TAB CR PO SCH (09:00)
[2019-02-13] MEDS: SPIRONOLACTONE 25 MG TAB PO SCH (09:00)
[2019-02-13] MEDS ORDERED: NON-FORMULARY MEDICATION (Spironolactone 50 MG) PO SCH (09:00)
[2019-02-13] MEDS: PANTOPRAZOLE SOD 40 MG TABEC PO SCH (09:07)
[2019-02-13] MEDS: DOCUSATE SODIUM 100 MG CAP PO SCH (09:07)
[2019-02-13] MEDS: OXYBUTYNIN CHLORIDE XL 5 MG TAB PO SCH (09:07)
[2019-02-13] MEDS: APIXAB 2.5 MG TABLET PO SCH ×2 (09:07→16:21)
[2019-02-13] MEDS: ESCITALOPRAM OXALATE 10 MG TAB PO SCH (09:08)
--- NOTE | 2019-02-13 11:19 | Diagnostic Imaging Report ---
EXAM: CT Abdomen and Pelvis WITHOUT contrast INDICATION: Abdominal pain. COMPARISON: None. TECHNIQUE: Abdomen and pelvis were scanned utilizing a multidetector helical scanner from the lung base to the pubic symphysis without administration of IV contrast. Absence of intravenous contrast decreases sensitivity for detection of focal lesions and vascular pathology. Coronal and sagittal reformations were obtained. Routine protocol was performed. IV CONTRAST: None. ORAL CONTRAST: Water RADIATION DOSE: Total DLP: 553.53 mGy*cm Estimated effective dose: (DLP x 0.015 x size factor) mSv COMPLICATIONS: None FINDINGS: LINES and TUBES: None. LOWER THORAX: Bilateral small pleural effusions, right greater then left associated with bibasilar compressive atelectasis. Pacemaker leads. Vascular calcifications. Calcifications of the cardiac apex. Moderate cardiomegaly. HEPATOBILIARY: Mild focal fatty infiltration in the medial segment of the left hepatic lobe adjacent to the false form ligament fissure. 5 mm low-attenuation lesion in the lateral segment of the left hepatic lobe on image 16 series 2 likely a small cyst. No biliary ductal dilation. GALLBLADDER: There are stones in the gallbladder. No wall thickening. SPLEEN: No splenomegaly. PANCREAS: No focal masses or ductal dilatation. ADRENALS: No adrenal nodules KIDNEYS/URETERS: No hydronephrosis. Bilateral simple appearing cysts, the largest in the anterior lower pole of the left kidney measuring 3.7 x 2.4 cm on image 29 series 2. There is also mildly complex cyst exophytic of the upper pole of the left kidney which contains mild wall calcifications, measuring 3.5 x 3.5 cm on image 16 series 2. Mildly high attenuation lesion in the upper pole of the right kidney medially measures 1.2 cm on image 19 series 2, which cannot be further characterized due to lack of contrast, however, most likely to represent a hyperdense cyst. No stones. GI TRACT: No abnormal distention, wall thickening, or evidence of bowel obstruction. There are diverticula within the colon without evidence of diverticulitis. Appendix is normal. PELVIC ORGANS/BLADDER: Unremarkable. LYMPH NODES: No lymphadenopathy. VESSELS: There is severe atherosclerotic disease in the aorta and major arterial branches. PERITONEUM / RETROPERITONEUM: No free air or fluid. BONES: There are degenerative changes in the lumbar spine. Mild loss of height of T12 suggesting mild compression injury. SOFT TISSUES: Unremarkable. IMPRESSION: 1. Diverticulosis coli without CT evidence of acute diverticulitis. 2. Cholelithiasis. No biliary dilatation. 3. Bilateral renal cysts as detailed above. 4. Bilateral small pleural effusions, right greater than left associated with bibasilar compressive atelectasis. Signed by: Dr. Kathleen Vences M.D. on 02/13/2019 11:15 AM
--- NOTE | 2019-02-13 11:19 | Consultation ---
DATE OF CONSULTATION: Cardiology Consultation CHIEF COMPLAINT: The patient is an 88-year-old with abdominal discomfort. HISTORY OF PRESENT ILLNESS: The patient is an 88-year-old, who came to the emergency room with full sensation in her abdomen. The patient felt like her abdomen was tight. The patient also reported some shortness of breath. The patient is having difficulty eating. The patient reports that had a bowel movement about 2-3 days ago. PAST MEDICAL HISTORY: Significant for: 1. Chronic obstructive pulmonary disease. 2. Chronic systolic congestive heart failure with an ejection fraction of 20%. 3. Defibrillator placement. 4. History of previous coronary artery bypass grafting. 5. History of abdominal aortic aneurysm repair. SOCIAL HISTORY: She lives at home. The patient has been heavy smoker in the past. The patient does not drink. FAMILY HISTORY: There is a family history of coronary artery disease and hypertension. PHYSICAL EXAMINATION: GENERAL: The patient is an older female, in no obvious distress. VITAL SIGNS: Included a temperature of 98.8, blood pressure of 98/54. HEAD, EARS, EYES, NOSE, AND THROAT: The patient's cranium was normocephalic and atraumatic. Extraocular muscles were intact. Sclerae were anicteric. Pupils were equal, round, and reactive to light. There is no pallor or cyanosis of the oral mucosa. NECK: Supple. No jugular venous distention. No carotid bruits. CHEST: Demonstrated rhonchi bilaterally. CARDIAC: Demonstrated normal S1 and S2 with a short 2/6 systolic murmur. ABDOMEN: Demonstrated good bowel sounds. No tenderness. No mass. EXTREMITIES: 1+ edema bilaterally. NEUROLOGIC: The patient was awake and alert, and moving all of her extremities. IMAGING: The patient's EKG demonstrated AV sequential pacing. IMPRESSION: The patient is an 88-year-old with chronic systolic congestive heart failure. RECOMMENDATIONS: The recommendations are as follows: 1. The patient's heparin can be discontinued. The patient has some borderline elevations in her troponin level, which do not represent a myocardial infarction. 2. The patient's Lasix and potassium will be held since she appears to be volume depleted at this time. 3. It is okay for the patient to be transferred out of the ICU to the regular floor. Francisco Darby MD Reynaldo/MCKENNAL /[id number] cc: Kev Barragan MD
[2019-02-13] MEDS ORDERED: LORAZEPAM 0.5 MG TAB ONE (12:08)
[2019-02-13] MEDS ORDERED: METHYLPREDNISOLONE SOD SUCC 40 MG/ML VIAL 1ML ONE (12:08)
[2019-02-13] MEDS ORDERED: FUROSEMIDE INJ 10 MG/ML 4 ML VIAL ONE (12:11)
[2019-02-13 12:41] LABS: CREATINE KINASE < 70 IU/L (29-168)
[2019-02-13] MEDS ORDERED: LORAZEPAM 0.5 MG TAB PO NR (13:00)
[2019-02-13] MEDS ORDERED: FUROSEMIDE INJ 10 MG/ML 4 ML VIAL IV NR (13:00)
[2019-02-13] MEDS ORDERED: METHYLPREDNISOLONE SOD SUCC 40 MG/ML VIAL 1ML IV NR (13:00)
--- NOTE | 2019-02-13 17:00 | NUR ---
The pt. is in room 106 and does not want the pur wick in place. She is uncooperative at this time stating she just wants to be cleaned up. It was explained to the pt. that she needs to wait until we can finish the tasks we are in process of completing and her response was I want to bed cleaned up now and proceeded to try to get out of bed.
--- NOTE | 2019-02-13 17:11 | NUR ---
Patient complained of abdominal pain to RN this morning. OPTICAL SALES ASSOCIATE Ashley informed. CT scan of abdomen ordered. Patient originally refused scan but changed mind and scan was completed this AM. Dr. Juan Ramon Charles at bedside while patient was becoming short of breath and agitated. Orders given for Ativan, Lasix and Solumol now. Patient has been anxious throughout shift and upset because of conflict with her daughter. Psych came and assessed patient. Orders given to transfer patient to med Surg with telemetry. Patient transferred to room 106. Patient does not appear to be in any distress at this time. Pt's daughter at bedside.
--- NOTE | 2019-02-13 17:50 | Consultation ---
DATE OF CONSULTATION: Pulmonary Critical Care Consultation CHIEF COMPLAINT: Dyspnea and abdominal discomfort. HISTORY OF PRESENT ILLNESS: The patient is an 88-year-old woman. She has severe COPD as well as chronic systolic congestive heart failure and atrial fibrillation. She has required multiple admissions to [facility] over the past year for difficulty breathing as a result of the COPD and congestive heart failure. She also required a recent admission for difficulty swallowing and esophagitis. She had an endoscopy with an esophageal dilatation. The patient has been staying [facility] facility. She has noticed some more difficulty breathing over the past couple of days. She also reported some upper abdominal pain. She felt that her anxiety was increased and she had not been receiving enough Ativan. She does not complain of fevers or chest pain. PAST SURGICAL HISTORY: 1. Status post coronary artery bypass grafting. 2. Status post aortic aneurysm repair. 3. Status post endoscopy with esophageal dilatation. 4. Status post pacemaker. PAST MEDICAL HISTORY: 1. COPD. 2. Atrial fibrillation. 3. Chronic systolic congestive heart failure. 4. Chronic renal insufficiency. SOCIAL HISTORY: The patient is not an active smoker. She is not an active drinker. She is staying with her daughter who is her main caregiver. ALLERGIES: THERE ARE NO KNOWN DRUG ALLERGIES. FAMILY HISTORY: There is a family history of coronary artery disease and cancer. REVIEW OF SYSTEMS: The patient has no headache. She has no fever. She is not complaining of any neck pain. She has no chest pain. She does have some difficulty breathing. She has some upper abdominal pain. There is no nausea or vomiting. She has no leg edema. She reports increased anxiety. PHYSICAL EXAMINATION: VITAL SIGNS: The patient is afebrile. The blood pressure is 98/54 and the saturation is 98%. Pulse is 70. HEENT: Shows no facial swelling or erythema. CARDIAC: Reveals regular rate and rhythm with normal S1 and S2. There are no murmurs or rubs. LUNGS: Auscultation of lungs shows decreased breath sounds at the bases. There is no wheezing. ABDOMEN: Soft, nontender. There is no rebound or guarding. EXTREMITIES: Shows no leg edema or calf tenderness. There is no cyanosis or clubbing. SKIN: Shows no rashes. NEUROLOGICAL: Shows no focal abnormalities. LABORATORY DATA: White blood cell count is 6.9 and hemoglobin is 8.1. The platelet count is 201. The BNP is 967. BUN to creatinine ratio is 31 to 1.54 and the other electrolytes are within normal limits. Cardiac enzymes are negative. RADIOGRAPHIC DATA: Chest x-ray shows some mild cardiomegaly and vascular congestion consistent with CHF. CT scan of the abdomen and pelvis shows diverticulosis as well as cholelithiasis and small pleural effusions. IMPRESSION: 1. Jhoxe-lh-pwywxkx systolic congestive heart failure. 2. Chronic obstructive pulmonary disease with acute exacerbation. 3. Recurrent esophagitis and dysphagia. 4. Increased anxiety. 5. Atrial fibrillation. PLAN: 1. Restart the patient's Lasix. 2. Solu-Medrol 40 mg IV q.12. 3. Restart bronchodilators. 4. Ativan p.r.n. as needed for anxiety. 5. Long-term prognosis is poor. The patient will need a disposition plan. MD CRIS Marinelli/ANGELA /[id number]
--- NOTE | 2019-02-13 18:21 | Consultation ---
DATE OF CONSULTATION: 02/13/2019 Psychiatric Consultation. The patient evaluated and events noted. REASON FOR CONSULTATION: To evaluate the patient's anxiety and mood. HISTORY OF PRESENT ILLNESS: The patient is an 88-year-old female, admitted to the hospital for non-STEMI. Psychiatric consultation is called to evaluate the patient's mood. As per the medical record, the patient has a history of chronic obstructive pulmonary disease, systolic congestive heart failure with ejection fraction of 20%, defibrillator placement, history of previous coronary artery bypass grafting, abdominal aortic aneurysm repair. Upon evaluation today, the patient is found to be in the ICU. She is alert, awake, and oriented to self and place. She thinks this current year is 1900. Her speech is wobble and rapid. Thought process is somewhat incoherent. She is anxious, tearful, claims she is depressed. Claims nobody is here for her. She denies anxiety but she appears very anxious. She complained of poor appetite and poor sleep. She reports passive wish but denies any suicidal ideation. Claims she is a faith and would not want to harm helpless and would not want to harm herself. She is not paranoid. She denies any hallucination. As per nursing staff, the patient has been restless and anxious, yelling out, screaming for the daughter. Daughter requesting to talk to Psychiatry who reports that the patient has been in a rehab facility but prior to that about 6 months ago she was doing all her ADLs and has been independent. Daughter is hoping that the patient would recuperate and strengthen her mobility to be able to go home with her daughter. She claims that the patient was at one point taking Ativan 1 mg three times a day in the intermediate. However, due to the drowsiness, daughter wanted reduction in the Ativan to q.12 1 mg. The patient's daughter admits that the patient is anxious and the medication is not adjusted to an optimal dose at this time. She also noted that the patient has been more irritable, more anxious lately. She claims that the patient has been on Lexapro for many years and it has helped her in the past. PAST PSYCHIATRIC HISTORY: The patient denies any past psych history, although she is taking high dose of benzos and antidepressant medication for many years. She denies past suicide attempts. She denies alcohol or drug use. FAMILY HISTORY: Denies. SOCIAL HISTORY: The patient lives with her family and daughter. MENTAL STATUS EXAM: The patient is elderly female. She is alert, awake, and oriented to self, place, but not year. She is anxious, depressed, tearful. Affect congruent with mood. Thought processes were logical, circumstantial. No delusion or paranoia. Denies any hallucination. Denies any suicidal or homicidal ideation. Insight and judgment are fair. Memory appears to be grossly impaired. CURRENT MEDICATIONS: 1. Lexapro 20 mg p.o. daily. 2. Protonix. 3. Oxybutynin. 4. Docusate. 5. Eliquis. 6. Ativan 1 mg p.o. b.i.d. 7. Albuterol/ipratropium. 8. Spironolactone. 9. Metoprolol. 10. Methylprednisolone sodium succinate. 11. Lasix. 12. DuoNeb p.r.n. 13. Advair. 14. Hydralazine. 15. Zofran. 16. Tylenol. 17. Tramadol/acetaminophen. 18. Spiriva. 19. Melatonin. 20. Atorvastatin. CURRENT LABS: WBC 6.92, RBC 3.09, hemoglobin 8.1, hematocrit 27.5, platelets 201. Chemistry, sodium 138, potassium 4.5, chloride 104, CO2 of 24, BUN 31, creatinine 1.54. AST 12, ALT 16. ASSESSMENT: 1. Major depressive disorder, recurrent, severe. 2. General anxiety disorder. 3. Rule out dementia. PLAN: 1. Add Ativan 0.5 mg p.o. q.8 hours p.r.n., hold for sedation or blood pressure systolic less than 90. 2. Add Abilify 2 mg p.o. daily. 3. Continue Lexapro 20 mg p.o. daily. 4. Continue Ativan 1 mg p.o. b.i.d. 5. Monitor for mood. 6. Supportive therapy. Thank you for this consultation. Dictated by Indy Gifford PA-C Geovanny Colindres MD QTV/MODL /[id number]
[2019-02-13] MEDS: SALMETEROL/FLUTICASONE 250/50 INH SCH (19:20)
[2019-02-13] MEDS: FUROSEMIDE INJ 10 MG/ML 4 ML VIAL IV SCH (21:10)
[2019-02-13] MEDS: METHYLPREDNISOLONE SOD SUCC 40 MG/ML VIAL 1ML IV SCH (21:10)
[2019-02-13] MEDS: ATORVASTATIN 20 MG TAB PO SCH (21:10)
--- NOTE | 2019-02-13 21:10 | NUR ---
PATIENT IN STABLE CONDITION, SHOWING SIGNS OF RESPIRATORY DISTRESS AFTER AMBULATING TO RESTROOM AFTER NASAL CANNULA WAS UNHOOKED. PATIENT WAS URGENTLY HOOKED BACK UP TO OXYGEN AND O2 SATURATION GRADUALLY RAISED TO 100% ON 4 LITERS OF OXYGEN. BED IS IN LOWEST POSITION POSSIBLE, BED ALARM IS ON, CALL LIGHT WITHIN EASY REACH, WILL CONTINUE TO MONITOR.
[2019-02-14] VITALS (8 sets, daily range): BP systolic 112–129; BP diastolic 67–80
[2019-02-14] MEDS: ALBUTEROL/IPRATROPIUM 3 ML NEB NEB SCH ×6 (04:20→23:00)
[2019-02-14] MEDS: LORAZEPAM 0.5 MG TAB PO PRN (04:53)
[2019-02-14 05:52] LABS: HEMATOCRIT 27.9 % (34.2-44.1); HEMOGLOBIN 8.6 g/dL (12.0-16.0); LYMPHOCYTES # (AUTO) 0.4 (1.0-3.2); LYMPHOCYTES % 10.1 % (18.0-39.1); MEAN CORPUSCULAR HEMOGLOBIN 27.1 pg (28-32); MEAN CORPUSCULAR HGB CONC 30.8 g/dL (31-35); MONOCYTES # (AUTO) 0.2 (0.2-0.8); MONOCYTES % 6.9 % (4.4-11.3); NEUTROPHILS # (AUTO) 2.8 (2.1-6.9); NEUTROPHILS % 81.3 % (38.7-80.0); PLATELET COUNT 216 x10e3/uL (140-360); RED BLOOD COUNT 3.17 x10e6/uL (3.6-5.1); RED CELL DISTRIBUTION WIDTH 17.3 % (11.7-14.4)
[2019-02-14 06:11] LABS: ALBUMIN 3.1 g/dL (3.5-5.0); ALBUMIN/GLOBULIN RATIO 1.5 (0.8-2.0); ANION GAP 14.3 mmol/L (8-16); CALCIUM 9.1 mg/dL (8.4-10.2); CREATININE, SERUM 1.1 mg/dL (0.57-1.11); POTASSIUM 4.3 mmol/L (3.5-5.1)
--- NOTE | 2019-02-14 06:41 | Diagnostic Imaging Report ---
EXAMINATION: CHEST SINGLE (PORTABLE) INDICATION: Dyspnea COMPARISON: Chest radiograph 02/12/2019; abdominal CT 02/13/2019 FINDINGS: AP view TUBES and LINES: Left chest wall cardiac device with leads in the right atrium, right ventricle, and coronary sinus.. LUNGS/PLEURA: Lungs well inflated. Central pulmonary vascular prominence. Hazy bibasilar opacities. HEART AND MEDIASTINUM: The cardiomediastinal silhouette is moderately enlarged. Aortic valve replacement. BONES AND SOFT TISSUES: No acute osseous lesion. Soft tissues are unremarkable. UPPER ABDOMEN: No free air under the diaphragm. IMPRESSION: Moderate cardiomegaly, pulmonary vascular congestion, and bilateral pleural effusions. Signed by: Pillo Boss DO on 02/14/2019 6:38 AM
[2019-02-14] MEDS: SALMETEROL/FLUTICASONE 250/50 INH SCH ×2 (07:20→19:45)
[2019-02-14] MEDS: METHYLPREDNISOLONE SOD SUCC 40 MG/ML VIAL 1ML IV SCH ×2 (08:51→20:10)
[2019-02-14] MEDS: APIXAB 2.5 MG TABLET PO SCH ×2 (08:51→17:02)
[2019-02-14] MEDS: PANTOPRAZOLE SOD 40 MG TABEC PO SCH (08:51)
[2019-02-14] MEDS: OXYBUTYNIN CHLORIDE XL 5 MG TAB PO SCH (08:51)
[2019-02-14] MEDS: ARIPIPRAZOLE 2 MG TABLET PO SCH (08:51)
[2019-02-14] MEDS: TIOTROPIUM 18 MCG INH POWDER INH SCH (08:51)
[2019-02-14] MEDS: SPIRONOLACTONE 25 MG TAB PO SCH (08:51)
[2019-02-14] MEDS: LORAZEPAM 1 MG TAB PO SCH ×2 (08:51→17:02)
[2019-02-14] MEDS: DOCUSATE SODIUM 100 MG CAP PO SCH (08:51)
[2019-02-14] MEDS: FUROSEMIDE INJ 10 MG/ML 4 ML VIAL IV SCH ×2 (08:51→20:24)
[2019-02-14] MEDS: ESCITALOPRAM OXALATE 10 MG TAB PO SCH (08:51)
[2019-02-14] MEDS: METOPROLOL SUCCINATE 50 MG TAB XL PO SCH (08:53)
[2019-02-14] MEDS ORDERED: PREDNISONE 10 MG TAB PO SCH (09:00)
--- NOTE | 2019-02-14 09:32 | NUR ---
received report from Lashell RN; pt sitting in bed, lung sounds clear to auscultation, awake, alert, oriented; will continue to monitor.
--- NOTE | 2019-02-14 12:34 | Progress Note ---
DATE: SUBJECTIVE: The patient had some chest pain this morning that was relieved with Ativan. She had some diuresis yesterday. She now complains of less dyspnea. She is not in distress. PHYSICAL EXAMINATION: VITAL SIGNS: The patient is afebrile. The blood pressure is 117/68, saturation is 100%, and the pulse is 86. HEENT: Shows no facial swelling or erythema. CARDIAC: Reveals regular rate and rhythm with normal S1 and S2. There are no murmurs or rubs. LUNGS: Auscultation of lungs shows clear breath sounds bilaterally. There is no wheezing. ABDOMEN: Soft and nontender. There is no rebound or guarding. EXTREMITIES: Shows no leg edema or calf tenderness. There is no cyanosis or clubbing. IMPRESSION: 1. Jyrsk-hc-dlgbmnl systolic congestive heart failure. 2. Chronic obstructive pulmonary disease. 3. Recurrent esophagitis and dysphagia. 4. Atrial fibrillation. PLAN: 1. Continue Lasix. 2. Continue oxygen. 3. Wean Solu-Medrol. 4. Physical therapy. MD CRIS Marinelli/ANGELA /[id number]
[2019-02-14] MEDS: METOCLOPRAMIDE HCL 10 MG/2ML VIAL IV SCH ×3 (13:47→20:10)
--- NOTE | 2019-02-14 13:53 | NUR ---
paged Dr. Barragan for GI consult, as pt has been complaining of trouble swallowing. spoke with Ashley Plaza NP who states GI consult not needed at this time, stating pt had full workup a week ago. pt was given IV Reglan; no signs of distress. will continue to monitor.
--- NOTE | 2019-02-14 15:20 | NUR ---
Per RN request, visit made by the Spiritual Care Department Pastoral Visitor, Noel Menjivar. PV provided pastoral presence, hospitality, and supportive listening. Pt requested anointing of the sick by . PV to contact [facility] [employer] for pulmonary nurse practitioner. Pastoral Visitor informed pt/family of the scope of [employer] and availability. AISHWARYA BENTON [facility] Spiritual Care Department O: [phone] Pager: [phone] ([phone] number calling from)
[2019-02-14] MEDS: ATORVASTATIN 20 MG TAB PO SCH (20:10)
[2019-02-15] VITALS (9 sets, daily range): BP systolic 104–136; BP diastolic 55–70
[2019-02-15 03:16] LABS: HEMATOCRIT 27.8 % (34.2-44.1); HEMOGLOBIN 8.3 g/dL (12.0-16.0); LYMPHOCYTES # (AUTO) 0.4 (1.0-3.2); LYMPHOCYTES % 6.3 % (18.0-39.1); MEAN CORPUSCULAR HEMOGLOBIN 26.1 pg (28-32); MEAN CORPUSCULAR HGB CONC 29.9 g/dL (31-35); MEAN CORPUSCULAR VOLUME 87.4 fL (81-99); MONOCYTES # (AUTO) 0.3 (0.2-0.8); MONOCYTES % 5.2 % (4.4-11.3); NEUTROPHILS # (AUTO) 4.8 (2.1-6.9); NEUTROPHILS % 87.4 % (38.7-80.0); PLATELET COUNT 220 x10e3/uL (140-360); RED BLOOD COUNT 3.18 x10e6/uL (3.6-5.1); RED CELL DISTRIBUTION WIDTH 17.2 % (11.7-14.4)
[2019-02-15] MEDS: ALBUTEROL/IPRATROPIUM 3 ML NEB NEB SCH ×6 (03:40→23:00)
[2019-02-15 03:46] LABS: ANION GAP 13.3 mmol/L (8-16); CALCIUM 9.1 mg/dL (8.4-10.2); CREATININE, SERUM 1.09 mg/dL (0.57-1.11); POTASSIUM 4.3 mmol/L (3.5-5.1)
--- NOTE | 2019-02-15 07:12 | NUR ---
walking rounds completed with shift engineer RN, received shift change report, pt sleeping in semi fowlers, easily arousable; will continue to monitor.
[2019-02-15] MEDS: METOCLOPRAMIDE HCL 10 MG/2ML VIAL IV SCH ×4 (07:30→20:43)
[2019-02-15] MEDS ORDERED: ONDANSETRON HCL 4 MG ORAL DISINTEGRATING TAB PO PRN (07:30)
[2019-02-15] MEDS: METHYLPREDNISOLONE SOD SUCC 40 MG/ML VIAL 1ML IV SCH ×2 (08:36→20:43)
[2019-02-15] MEDS: FUROSEMIDE INJ 10 MG/ML 4 ML VIAL IV SCH ×2 (08:36→20:43)
[2019-02-15] MEDS: ARIPIPRAZOLE 2 MG TABLET PO SCH (08:37)
[2019-02-15] MEDS: SPIRONOLACTONE 25 MG TAB PO SCH (08:37)
[2019-02-15] MEDS: DOCUSATE SODIUM 100 MG CAP PO SCH (08:38)
[2019-02-15] MEDS: LORAZEPAM 1 MG TAB PO SCH ×2 (08:38→17:49)
[2019-02-15] MEDS: OXYBUTYNIN CHLORIDE XL 5 MG TAB PO SCH (08:38)
[2019-02-15] MEDS: APIXAB 2.5 MG TABLET PO SCH ×2 (08:39→17:49)
[2019-02-15] MEDS: ESCITALOPRAM OXALATE 10 MG TAB PO SCH (08:39)
[2019-02-15] MEDS: PANTOPRAZOLE SOD 40 MG TABEC PO SCH (08:40)
[2019-02-15] MEDS: METOPROLOL SUCCINATE 50 MG TAB XL PO SCH (08:41)
[2019-02-15] MEDS: LORAZEPAM 0.5 MG TAB PO PRN (08:41)
[2019-02-15] MEDS: SALMETEROL/FLUTICASONE 250/50 INH SCH ×2 (09:00→20:30)
[2019-02-15] MEDS: TIOTROPIUM 18 MCG INH POWDER INH SCH (09:00)
--- NOTE | 2019-02-15 09:39 | NUR ---
ORDERS TO CM TO DISCUSS DC PLAN WITH PT AND DTR; PT SEEMS TO WANT HOSPICE INTERMITTENTLY CM SPOKE WITH SALENA NOLAN TAP BUILDER WHO GAVE ORDER FOR PALLIATIVE CARE CONSULT NOTIFIED RAMIREZ VENTURA WITH [facility] PALLIATIVE CARE OF CONSULT PH: [phone]
--- NOTE | 2019-02-15 09:55 | NUR ---
Pt sleeping soundly and no family present. Logging Equipment Operator left a card describing availability of patient access specialist and instructions on how to contact a patient access specialist. AISHWARYA BENTON [employer] Spiritual Care Department O: [phone] Pager: [phone] ([phone] number calling from)
--- NOTE | 2019-02-15 10:08 | Progress Note ---
DATE: Pulmonary Critical Care SUBJECTIVE: The patient is sad and tearful this morning. Her dyspnea is stable. She is not having any chest pain. PHYSICAL EXAMINATION: VITAL SIGNS: The patient is afebrile. The vital signs are stable. HEENT: Shows no facial swelling or erythema. CARDIAC: Reveals regular rate and rhythm with normal S1, S2. LUNGS: Auscultation of lungs reveals rhonchorous breath sounds bilaterally. There is no wheezing. ABDOMEN: Soft, nontender. There is no rebound or guarding. EXTREMITIES: Show no leg edema or calf tenderness. There is no cyanosis or clubbing. SKIN: Shows no rashes. IMPRESSION: 1. Acute on chronic systolic congestive heart failure. 2. Chronic obstructive pulmonary disease. 3. Atrial fibrillation. 4. Recurrent esophagitis and dysphagia. PLAN: 1. Continue Solu-Medrol. 2. Continue diuretics. 3. Ativan as needed p.r.n. 4. Continue physical therapy. 5. Continue oxygen. Lenin Darby MD [facility]/MODL /[id number]
--- NOTE | 2019-02-15 10:15 | NUR ---
WOUNDCARE CONSULT FOR 88 YO FEMALE ISAIAH SCORE 14 ON MODERATE PUP AND ON ALTERNATING PRESSURE MATTRESS LABS: WBC-5.53, HGB -8.3, GLUCOSE 171 TOTAL SKIN ASESSMENT DONE PATIENT PRESENTS WITH KYPOSIS AND STAGE 2 ULCERATION TO LEFT MID BACK 4WBO9XNN.1CM , STG 2 ULCERATION TO UPPER LEFT BUTTOCKS .5CMX.5CM.X.1CM AND LOWER LEFT BUTTOCK 1CMX.5CMX .1CM RECOMMENDATIONS: NURSING TO CONTINUE TO TURN AND OFFLOAD PATIENT MAINTAINING MODERATE PUP INTERVENTIONS NURSING TO ASSIST PATIENT OUT OF BED FOR MEALS AND MUCH TOLERATED NURSING TO APPLY SERRANO VENELEX OINTMENT TO STAGE 2 ULCERATIONS UPPER AND LOWER LEFT BUTTOCKS AND LEFT MID BACK COVER WITH ALLEVYN FOAM DRESSING Addendum: 02/15/19 at 1029 by Eduardo Velez RN Amended: Links added.
--- NOTE | 2019-02-15 13:38 | NUR ---
SPOKE WITH PALLIATIVE NURSE ABOUT DIFFERENT OPTIONS. PT IS [facility] AND WAS SKILLED THERE. SPEAKING WITH THE BUILDING, THERE MAY BE A POSSIBILITY TO GET BACK BUT NOT LIKELY WITH THERAPY ONLY BUT IT WOULD BE UP TO THE INSURANCE AND WHAT THE FACILITY IS STATING IT ISN'T VERY REALISTIC, THE FACILITY STATES THE DAUGHTER WAS GIVEN THE PAPERWORK FOR MEDICAID PENDING AND SHE HAS NOT RETURNED THEM YET. THE PT CAN RETURN TO THE BUILDING BUT WOULD HAVE TO RETURN PRIVATE PAY UNTIL THE MEDICAID IS APPROVED. 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
[2019-02-15] MEDS ORDERED: ALBUTEROL/IPRATROPIUM 3 ML NEB NEB PRN (14:30)
--- NOTE | 2019-02-15 16:12 | Progress Note ---
DATE: 02/15/2019 Psychiatric Progress Note SUBJECTIVE: The patient evaluated and events noted. The patient is in the room. She is alert, awake, and oriented to situation. She states that she is feeling better. She has intermittent sleep issue and intermittent appetite issue. She reports less depressed and less anxious. However, as per note from [employer], she was found to get tearful and depressed this morning. The patient denies any suicidal ideation. Denies any hallucination. She is getting p.r.n. Ativan. She denies any side effects from medication. ASSESSMENT: 1. Major depressive disorder, recurrent, moderate. 2. Generalized anxiety disorder. 3. Rule out dementia. PLAN: 1. To continue p.r.n. Ativan. 2. Increase Abilify to 4 mg p.o. daily. 3. Continue Lexapro 20 mg p.o. daily. 4. Continue Ativan as scheduled. 5. Monitor for mood. 6. Supportive therapy. Thank you for this consultation. Dictated by Indy Gifford PA-C Geovanny Colindres MD [facility]/MODL /[id number]
[2019-02-15] MEDS: ATORVASTATIN 20 MG TAB PO SCH (20:43)
--- NOTE | 2019-02-15 21:20 | NUR ---
pt received. pt assessed. no ss of distress noted. o2 nc noted. tele in place. will cont to follow poc. call rodriguez within reach.
[2019-02-16] VITALS (7 sets, daily range): BP systolic 107–128; BP diastolic 59–89
[2019-02-16] MEDS: ALBUTEROL/IPRATROPIUM 3 ML NEB NEB SCH ×6 (01:30→23:00)
[2019-02-16 03:24] LABS: HEMOGLOBIN 8.8 g/dL (12.0-16.0); LYMPHOCYTES # (AUTO) 0.4 (1.0-3.2); LYMPHOCYTES % 5.6 % (18.0-39.1); MEAN CORPUSCULAR HEMOGLOBIN 26.4 pg (28-32); MEAN CORPUSCULAR HGB CONC 30.3 g/dL (31-35); MEAN CORPUSCULAR VOLUME 87.1 fL (81-99); MONOCYTES # (AUTO) 0.4 (0.2-0.8); MONOCYTES % 5.3 % (4.4-11.3); NEUTROPHILS # (AUTO) 6.7 (2.1-6.9); NEUTROPHILS % 87.3 % (38.7-80.0); PLATELET COUNT 219 x10e3/uL (140-360); RED BLOOD COUNT 3.33 x10e6/uL (3.6-5.1)
--- NOTE | 2019-02-16 03:30 | NUR ---
blood collected and sent to lab. assisted pt to bedside commode and back to bed. no distress noted. call rodriguez within reach.
[2019-02-16 03:40] LABS: ANION GAP 14.5 mmol/L (8-16); CALCIUM 9.3 mg/dL (8.4-10.2); CREATININE, SERUM 1.15 mg/dL (0.57-1.11); POTASSIUM 4.5 mmol/L (3.5-5.1)
[2019-02-16] MEDS: SALMETEROL/FLUTICASONE 250/50 INH SCH ×2 (06:58→19:15)
[2019-02-16] MEDS: TIOTROPIUM 18 MCG INH POWDER INH SCH (08:48)
[2019-02-16] MEDS: ARIPIPRAZOLE 2 MG TABLET PO SCH (09:00)
[2019-02-16] MEDS: ESCITALOPRAM OXALATE 10 MG TAB PO SCH (09:00)
[2019-02-16] MEDS: PANTOPRAZOLE SOD 40 MG TABEC PO SCH (09:00)
[2019-02-16] MEDS: METOPROLOL SUCCINATE 50 MG TAB XL PO SCH (09:00)
[2019-02-16] MEDS: APIXAB 2.5 MG TABLET PO SCH ×2 (09:00→17:00)
[2019-02-16] MEDS: DOCUSATE SODIUM 100 MG CAP PO SCH (09:00)
[2019-02-16] MEDS: OXYBUTYNIN CHLORIDE XL 5 MG TAB PO SCH (09:00)
[2019-02-16] MEDS: SPIRONOLACTONE 25 MG TAB PO SCH (09:00)
[2019-02-16] MEDS: BALSAM PERU/CASTOR OIL 60 GM OINT...G. TP SCH (09:00)
[2019-02-16] MEDS: FUROSEMIDE INJ 10 MG/ML 4 ML VIAL IV SCH ×2 (09:00→21:45)
--- NOTE | 2019-02-16 09:40 | NUR ---
Patient refused all her Home medications, attempted X2. not in any distress
--- NOTE | 2019-02-16 10:21 | Progress Note ---
DATE: SUBJECTIVE: The patient still has some dyspnea. She is still requiring oxygen. PHYSICAL EXAMINATION: VITAL SIGNS: The patient is afebrile. The vital signs are stable. HEENT: Shows no facial swelling or erythema. CARDIAC: Reveals a regular rate and rhythm with normal S1 and S2. LUNGS: Auscultation of lungs reveals a prolonged expiratory phase. ABDOMEN: Soft, nontender. There is no rebound or guarding. EXTREMITIES: Show no leg edema or calf tenderness. There is no cyanosis or clubbing. SKIN: Shows no rashes. NEUROLOGICAL: Shows no focal abnormalities. IMPRESSION: 1. Ntfft-nr-wfdrlzo systolic congestive heart failure. 2. Chronic obstructive pulmonary disease. 3. Atrial fibrillation. 4. Dysphagia. PLAN: 1. Taper Solu-Medrol. 2. Continue diuretics. 3. Physical therapy. 4. Wean oxygen as tolerated. MD CRIS Marinelli/ANGELA /[id number]
--- NOTE | 2019-02-16 10:50 | NUR ---
ASSESSMENT: Spiritual distress Pt overwhelmed and states "I want to ." Pt's daughter at bedside. Pt states she wants a farmworkers. Pt's daughter states she "called for a farmworkers about 45 minutes ago." Intervention: Provided calming pastoral presence. Facilitated spiritual discussion and assessment of spiritual needs. Provided prayer with pt. Outcome: Will follow up as able. AISHWARYA BENTON [facility] Spiritual Care Department O: [phone] Pager: [phone] ([phone] number calling from)
[2019-02-16] MEDS: LORAZEPAM 1 MG TAB PO SCH ×2 (12:41→17:51)
[2019-02-16] MEDS: METHYLPREDNISOLONE SOD SUCC 40 MG/ML VIAL 1ML IV SCH ×2 (13:15→21:45)
--- NOTE | 2019-02-16 16:00 | NUR ---
THROUGHOUT THE DAY HAD SEVERAL MEETINGS WITH THE PT, HER DAUGHTER , THE [facility], PALLIATIVE CARE NURSE, CM, MYSELF. DAUGHTER AGREED VERBALLY TO SEE AND SPEAK WITH MISTI WITH [facility], FILED CHOICE ON CHART AND CONTACTED REP. LET ALL KNOW THAT THE PT OPTIONS ARE DWINDLING, SHE NO LONGER MEETS SNF CRITERIA. PT DAUGHTER STATES SHE IS NOT ABLE TO AFFORD TO PAY PRIVATE PAY. [facility] NO LONGER HAS A BED THEY ARE AT MAX FOR MEDICAID PENDING, THEY HAVE 1 PRIVATE PAY BED WILL WILL BE $5355.30 A MONTH TO BE PAID UP FRONT, DAUGHTER SAYS THAT IS NOT FEASIBLE. SPOKE ABOUT HOME, DAUGHTER STATES THAT IS NOT FEASABLE. DAUGHTER FEELS GANGED UP ON THAT SHE CANNOT TAKE PATIENT HOME AND PT IS REFUSING TO GO TO A SNF AND STATING WE ARE SENDING HER AGAINST HER WILL, PT CRIED AND STATES NO ONE LOVES HER, OR WILL TAKE CARE OF HER, KEEPS STATING SHE WANTS TO . NO ACTIVE PLAN, ASKED FOR LAST RIGHTS BUT WOULD NOT FOCUS ON [employer] IN FRONT OF OTHER PEOPLE IN ROOM. I LEFT ROOM WHEN IT BECAME APPARENT THE PT WAS LOOKING OUT OF THE CORNER OF HER EYE TO SEE IF HER DAUGHTER WAS RESPONDING TO HER BEHAVIOR. WHEN THE REP CAME I TOOK HER AND THE PALLIATIVE CARE NURSE IN WITH DAUGHTER AND PT TO DISCUSS OPTIONS WITH HOSPICE, DAUGHTER IS TO LOOK AT [facility]. THOSE 2 FACILITIES WILL NOT MAKE PT PAY UPFRONT FOR MEDICAID PENDING BED ON HOSPICE. REP WILL LET ME KNOW OUTCOME.
[2019-02-16] MEDS: METOCLOPRAMIDE HCL 10 MG TAB PO SCH ×2 (16:30→21:45)
--- NOTE | 2019-02-16 18:25 | NUR ---
PATIENT REFUSING ALL HER MEDICATIONS EXCEPT ATIVAN PO, NATURAL SCIENCES PROFESSOR OF DR HENDERSON AWARE ABOUT IT
[2019-02-16] MEDS: ATORVASTATIN 20 MG TAB PO SCH (21:45)
--- NOTE | 2019-02-16 22:20 | Progress Note ---
DATE: 02/16/2019 Psychiatric Progress Note SUBJECTIVE: The patient evaluated and events noted. The patient is in the room. She is alert, awake, and oriented to situation. She states that she is feeling less anxious and less depressed. She is not agitated. She denies any suicidal and homicidal ideation. She denies any hallucination. She reports sleeping okay. She denies any side effects to medications. ASSESSMENT: 1. Major depressive disorder, recurrent, moderate. 2. Generalized anxiety disorder. 3. Rule out dementia. PLAN: 1. Continue with p.r.n. Ativan. 2. Continue Abilify 4 mg p.o. daily. 3. Continue Lexapro 20 mg p.o. daily. 4. Continue Ativan schedule. 5. Monitor for mood. 6. Supportive therapy. Thank you for this consultation. Dictated by Indy Gifford PA-C Geovanny Colindres MD QTV/MODL /[id number]
[2019-02-17] VITALS (7 sets, daily range): BP systolic 119–128; BP diastolic 58–78
[2019-02-17] MEDS: ALBUTEROL/IPRATROPIUM 3 ML NEB NEB SCH ×6 (03:00→23:00)
--- NOTE | 2019-02-17 04:33 | Diagnostic Imaging Report ---
EXAMINATION: CHEST SINGLE (PORTABLE) INDICATION: CHF, COPD. COMPARISON: Chest radiograph 02/14/2019. FINDINGS: AP view TUBES and LINES: Left sided AICD device with leads in the right atrium, right ventricle, and coronary sinus. LUNGS/PLEURA: Lungs are well inflated. Central pulmonary vascular prominence with mild interstitial opacities. Hazy bibasilar opacities. Small bilateral pleural effusions. HEART AND MEDIASTINUM: The cardiomediastinal silhouette is moderately enlarged. Aortic valve replacement. BONES AND SOFT TISSUES: No acute osseous lesion. Soft tissues are unremarkable. UPPER ABDOMEN: No free air under the diaphragm. IMPRESSION: Moderate cardiomegaly, mild pulmonary interstitial edema, and small bilateral pleural effusions. Signed by: Dr. Reyna Malave MD on 02/17/2019 4:30 AM
[2019-02-17] MEDS: SALMETEROL/FLUTICASONE 250/50 INH SCH ×2 (07:50→19:00)
[2019-02-17] MEDS: TIOTROPIUM 18 MCG INH POWDER INH SCH (07:51)
[2019-02-17] MEDS: SPIRONOLACTONE 25 MG TAB PO SCH (09:01)
[2019-02-17] MEDS: DOCUSATE SODIUM 100 MG CAP PO SCH (09:01)
[2019-02-17] MEDS: LORAZEPAM 1 MG TAB PO SCH ×2 (09:01→17:36)
[2019-02-17] MEDS: PANTOPRAZOLE SOD 40 MG TABEC PO SCH (09:01)
[2019-02-17] MEDS: METOCLOPRAMIDE HCL 10 MG TAB PO SCH ×4 (09:01→20:54)
[2019-02-17] MEDS: ESCITALOPRAM OXALATE 10 MG TAB PO SCH (09:01)
[2019-02-17] MEDS: FUROSEMIDE INJ 10 MG/ML 4 ML VIAL IV SCH ×2 (09:01→20:54)
[2019-02-17] MEDS: ARIPIPRAZOLE 2 MG TABLET PO SCH (09:01)
[2019-02-17] MEDS: OXYBUTYNIN CHLORIDE XL 5 MG TAB PO SCH (09:01)
[2019-02-17] MEDS: METHYLPREDNISOLONE SOD SUCC 40 MG/ML VIAL 1ML IV SCH ×2 (09:01→20:54)
[2019-02-17] MEDS: APIXAB 2.5 MG TABLET PO SCH ×2 (09:01→17:36)
[2019-02-17] MEDS: METOPROLOL SUCCINATE 50 MG TAB XL PO SCH (09:02)
--- NOTE | 2019-02-17 11:25 | NUR ---
WAS NOTIFIED BY MAHIN MULLEN DENIED PT, FAXED CLINICALS TO [facility] [phone] AND CALLED RAJESH AT [facility] TO SEE IF HE HAS A HALFWAY BED AVAILABLE. SENT [facility] PHONE NUMBER TO DAVID AND SHE WILL FOLLOW UP.
--- NOTE | 2019-02-17 13:00 | NUR ---
WOUND CARE CONSULT FOR FOLLOW UP SCREENING FOR 88 YO FEMALE INTERMEDIATE RESIDENT HEALING STAGE 2 ULCERATION NOTED AND SHOWS NEW HEALING AND PROGRESS TOWARDS CLOSURE NURSING CONTINUES TO MONITOR AND ASSIST PATIENT OUT OF BED FOR MEALS AND TOLERATED NURSING CONTINUES TO ASSIST PATIENT WITH EVERY 2 HOUR TURNS AND PILLOW SUSPENSION OF HEELS WHEN IN BED NURSING TO CONTINUE TO MAINTAIN CONSERVATIVE PUP STATUS AND INTERVENTIONS Addendum: 02/17/19 at 1308 by Eduardo Velez RN Amended: Links added.
--- NOTE | 2019-02-17 13:06 | NUR ---
PT C/O ABD PAIN . STATES SHE NEEDS LAX SPOKE TO [facility] WITH MD HENDERSON NEW ORDERS RECEIVED
[2019-02-17] MEDS ORDERED: POLYETHYLENE GLYCOL 3350 17 GM PACK PO PRN (13:15)
--- NOTE | 2019-02-17 13:20 | NUR ---
NURSING FACILITY DISCHARGE INFORMATION PATIENT HAS BEEN ACCEPTED TO: [facility] NAME: [facility] ADDRESS: [address] [place] [address] [place] [address] ACCEPTING [facility] OPERATOR: BISHOP CURRAN MD: NIYAH ROOM: 112B NURSE CALL REPORT TO: [phone]
[2019-02-17] MEDS: LORAZEPAM 0.5 MG TAB PO PRN (13:29)
[2019-02-17] MEDS: BALSAM PERU/CASTOR OIL 60 GM OINT...G. TP SCH (14:26)
--- NOTE | 2019-02-17 15:42 | Progress Note ---
DATE: 02/17/2019 Psychiatric Progress Note SUBJECTIVE: The patient is alert, awake, and oriented to situation. She is calm and cooperative. She reports intermittent anxiety. She states that she wants to go home. She denies any suicidal ideation. She denies any hallucination. She states that she is sleeping well. She is eating well. She denies any side effects from medication. ASSESSMENT: 1. Major depressive disorder, recurrent, moderate. 2. Generalized anxiety disorder. 3. Rule out dementia. PLAN: 1. Continue with p.r.n. Ativan. 2. Continue with Abilify daily. 3. Continue with Lexapro daily. 4. Continue with Ativan as scheduled. 5. Monitor for mood. 6. Supportive therapy. Dictated by Indy Gifford PA-C Geovanny Colindres MD QTV/MODL /[id number]
[2019-02-17] MEDS: ATORVASTATIN 20 MG TAB PO SCH (20:54)
[2019-02-18 00:01] VITALS: BP 129/60
[2019-02-18 04:00] VITALS: BP 125/58
[2019-02-18] MEDS: ALBUTEROL/IPRATROPIUM 3 ML NEB NEB SCH ×3 (07:55→14:45)
[2019-02-18] MEDS: SALMETEROL/FLUTICASONE 250/50 INH SCH (08:00)
[2019-02-18] MEDS: TIOTROPIUM 18 MCG INH POWDER INH SCH (08:01)
[2019-02-18 08:03] VITALS: BP 118/62
[2019-02-18] MEDS: DOCUSATE SODIUM 100 MG CAP PO SCH (08:10)
[2019-02-18] MEDS: LORAZEPAM 1 MG TAB PO SCH ×2 (08:10→16:31)
[2019-02-18] MEDS: APIXAB 2.5 MG TABLET PO SCH ×2 (08:10→16:31)
[2019-02-18] MEDS: PANTOPRAZOLE SOD 40 MG TABEC PO SCH (08:11)
[2019-02-18] MEDS: OXYBUTYNIN CHLORIDE XL 5 MG TAB PO SCH (08:11)
[2019-02-18] MEDS: ESCITALOPRAM OXALATE 10 MG TAB PO SCH (08:11)
[2019-02-18 08:12] VITALS: BP 156/80
[2019-02-18] MEDS: ARIPIPRAZOLE 2 MG TABLET PO SCH (08:12)
[2019-02-18] MEDS: FUROSEMIDE INJ 10 MG/ML 4 ML VIAL IV SCH (08:12)
[2019-02-18] MEDS: METOPROLOL SUCCINATE 50 MG TAB XL PO SCH (08:12)
[2019-02-18] MEDS: SPIRONOLACTONE 25 MG TAB PO SCH (08:12)
[2019-02-18] MEDS: METOCLOPRAMIDE HCL 10 MG TAB PO SCH ×3 (08:12→16:31)
[2019-02-18] MEDS: METHYLPREDNISOLONE SOD SUCC 40 MG/ML VIAL 1ML IV SCH (08:12)
[2019-02-18 08:47] LABS: BASOPHILS % 0.1 % (0.0-1.0); HEMATOCRIT 31.2 % (34.2-44.1); HEMOGLOBIN 9.3 g/dL (12.0-16.0); LYMPHOCYTES # (AUTO) 1.2 (1.0-3.2); LYMPHOCYTES % 9.4 % (18.0-39.1); MEAN CORPUSCULAR HEMOGLOBIN 26.2 pg (28-32); MEAN CORPUSCULAR HGB CONC 29.8 g/dL (31-35); MEAN CORPUSCULAR VOLUME 87.9 fL (81-99); MONOCYTES # (AUTO) 1.2 (0.2-0.8); MONOCYTES % 9.4 % (4.4-11.3); NEUTROPHILS # (AUTO) 9.6 (2.1-6.9); NEUTROPHILS % 78.1 % (38.7-80.0); PLATELET COUNT 250 x10e3/uL (140-360); RED BLOOD COUNT 3.55 x10e6/uL (3.6-5.1); RED CELL DISTRIBUTION WIDTH 16.7 % (11.7-14.4)
[2019-02-18 09:11] LABS: ALBUMIN 3.4 g/dL (3.5-5.0); ALBUMIN/GLOBULIN RATIO 1.7 (0.8-2.0); ANION GAP 13.9 mmol/L (8-16); CALCIUM 9.5 mg/dL (8.4-10.2); CREATININE, SERUM 1.06 mg/dL (0.57-1.11); POTASSIUM 4.9 mmol/L (3.5-5.1)
--- NOTE | 2019-02-18 11:16 | Progress Note ---
DATE: SUBJECTIVE: The patient is sitting in the chair next to the bed. She reports less dyspnea today. She is not complaining of pain or anxiety. PHYSICAL EXAMINATION: VITAL SIGNS: The patient is afebrile. The blood pressure is 125/58 and saturation is 99%. HEENT: Shows no facial swelling or erythema. CARDIAC: Reveals a regular rate and rhythm with a normal S1 and S2. There are no murmurs or rubs. LUNGS: Auscultation of lungs shows prolonged expiratory phase bilaterally. There is no wheezing. ABDOMEN: Soft and nontender. There is no rebound or guarding. EXTREMITIES: Shows no leg edema or calf tenderness. There is no cyanosis or clubbing. SKIN: Shows no rashes. NEUROLOGICAL: Shows no focal abnormalities. RADIOGRAPHIC DATA: Chest x-ray from yesterday shows moderate cardiomegaly with mild pulmonary interstitial edema. IMPRESSION: 1. Qpxha-ic-lkmkwsw systolic congestive heart failure. 2. Chronic obstructive pulmonary disease. 3. Atrial fibrillation. 4. Dysphagia. PLAN: 1. Continue diuretics. 2. Physical therapy. 3. Wean oxygen as tolerated. 4. Palliative care. Lenin Darby MD [facility]/ANGELA /[id number]
[2019-02-18] MEDS: BALSAM PERU/CASTOR OIL 60 GM OINT...G. TP SCH (11:40)
[2019-02-18 12:38] VITALS: BP 125/66
--- NOTE | 2019-02-18 13:04 | NUR ---
RESIDENTIAL FACILITY DISCHARGE INFORMATION PATIENT HAS BEEN ACCEPTED TO: NAME: [facility] ADDRESS: [id number] ACCEPTING MD: JOSE E ROOM: 136A NURSE CALL REPORT TO: [phone] HOSPICE TO TRANSPORT
--- NOTE | 2019-02-18 13:06 | NUR ---
SPOKE WITH DAUGHTER ABOUT MEDICARE LETTER VERBALLY VIA PHONE, SHE STATES SHE UNDERSTANDS, WILL FILE IN CHART AND LEAVE COPY IN ROOM FOR PT RECORDS.
--- NOTE | 2019-02-18 14:23 | NUR ---
CALLED REPORT TO [facility] ON HOSPICE SPOKE WITH ABEL MORRIS
--- NOTE | 2019-02-18 14:25 | NUR ---
IV DC PRESSURE DRESSING APPLIED AND TAPED TELE DC
--- NOTE | 2019-02-18 14:41 | Progress Note ---
DATE: 02/18/2019 Psychiatric Progress Note SUBJECTIVE: The patient is evaluated and events noted. The patient is in the room with her son-in-law. She is alert, awake, and oriented to situation. She is calm. She reports feeling depressed. She wants to go home. She denies any hallucination. Denies any suicidal ideation. The patient denies any problems with sleep. She denies any side effects from medication. ASSESSMENT: 1. Major depressive disorder, recurrent, moderate. 2. Generalized anxiety disorder. 3. Rule out dementia. PLAN: 1. Continue with p.r.n. Ativan. 2. Continue with Abilify. 3. Continue with Lexapro. 4. Continue with Ativan as scheduled. 5. Monitor for mood. 6. Supportive therapy. Dictated by Indy Gifford PA-C MD DANIAL [facility]/ANGELA /[id number]
[2019-02-18 16:14] VITALS: BP 112/63
[2019-02-18] MEDS ORDERED: PREDNISONE 10 MG TAB PO SCH (17:00)
[2019-02-18] MEDS ORDERED: PREDNISONE 20 MG TAB PO SCH (17:00)
--- NOTE | 2019-02-18 17:18 | NUR ---
PT OFF UNIT TO [facility] VIA AMBULANCE
[2019-02-18] MEDS ORDERED: FUROSEMIDE 40 MG TAB PO SCH (18:00)
--- NOTE | 2019-02-19 04:56 | Discharge Summary ---
CONSULTING PHYSICIANS: 1. Geovanny Colindres MD. 2. Lenin Darby MD. 3. Francisco Darby MD. 4. Juan Easley MD. PRIMARY CARE PHYSICIAN: Saul Grayson DO. CHIEF COMPLAINT: The patient got admitted with shortness of breath. ALLERGIES: CODEINE. HOSPITAL COURSE: This is an 88-year-old female with recurrent hospitalization, and past medical history that includes COPD, CHF with ejection fraction of 20%, defibrillator, CAD with CABG, and history of aortic aneurysm, who got admitted with complaints of shortness of breath and abdominal pain. She was most recently admitted and discharged from hospital with the same symptoms. She got evaluated by Pulmonary and Psych. Received IV steroid and IV antibiotics. She is also refusing to eat, she was evaluated by Psych. Family and patient decided for palliative care and getting discharged to [facility] under hospice care. PHYSICAL EXAMINATION: VITAL SIGNS: Includes; temperature 96.2, heart rate 90, blood pressure of 125/66, respiratory rate 18, and oxygen saturation is 100% at 3 to 4 L of nasal cannula. HEENT: Shows no facial swelling or erythema. CARDIAC: Regular rate and rhythm with a normal S1 and S2. LUNGS: Auscultation of lungs shows prolonged expiratory phase bilaterally. No wheezing. ABDOMEN: Soft and nontender. There is no rebound or guarding. EXTREMITIES: Shows no leg edema or calf tenderness. SKIN: Shows no rashes. NEUROLOGIC: Shows no focal abnormalities. LABORATORY DATA: Labs 02/18/2019; sodium 137, potassium 4.9, chloride 93, CO2 of 35, BUN 29, creatinine 1.06, and glucose 121. WBC 12.2, hemoglobin 9.3, hematocrit 31.2, and platelets 250. DIAGNOSES: 1. Chronic obstructive pulmonary disease. 2. Sgrmw-nz-hvjhadn systolic congestive heart failure. 3. Atrial fibrillation. 4. Anxiety and depression. 5. Palliative care. 6. The patient upon transfer is fair. Dictated by Precious Renteria NP MD RENATO Villanueva/ANGELA /[id number]
== END 2019-02-18 17:18 | DRG 280 ==
LOC: ER 18:57 → ERHOLD 21:07 → ICU 02-13 05:13 → MED/SURG 02-13 17:05
PROVIDERS: ADMIT Internal Medicine; ATTEND Internal Medicine
DX: I13.0 Hypertensive heart and chronic kidney disease with heart failure and stage 1 through stage 4 chronic kidney disease, or unspecified chronic kidney disease (principal); I21.4 Non-ST elevation (NSTEMI) myocardial infarction; I50.23 Acute on chronic systolic (congestive) heart failure; J44.1 Chronic obstructive pulmonary disease with (acute) exacerbation; F33.2 Major depressive disorder, recurrent severe without psychotic features; F41.9 Anxiety disorder, unspecified; N18.3 Chronic kidney disease, stage 3 (moderate); I48.91 Unspecified atrial fibrillation; Z79.01 Long term (current) use of anticoagulants; I25.10 Atherosclerotic heart disease of native coronary artery without angina pectoris; Z95.1 Presence of aortocoronary bypass graft; F41.1 Generalized anxiety disorder; K20.9 Esophagitis, unspecified; R62.7 Adult failure to thrive; Z68.27 Body mass index [BMI] 27.0-27.9, adult; R09.02 Hypoxemia
CPT/HCPCS: 36415; 71045; 74176; 80048; 80053; 80061; 81001; 82550; 82553; 83690; 83880; 84484; 85025; 85610; 85730; 93005; 94640; 94664; 96360; 97139; 99284; J1940; J2765; J2920; J7512

== ENCOUNTER 2019-03-03 08:16 | Inpatient (IN) | payer MEDICARE, OTHER ==
[~2019-03-03] VITALS: Ht 153 cm; Wt 62.6 kg
[~2019-03-03 08:16] MED LIST changes: +ACETAMINOPHEN325 M1 PO; +ATIVAN1 MG PO; +DULCOLAX SUPP10 MG RC; +ELIQUIS2.5 MG PO; +LEXAPRO10 MG PO; +MELATONIN5 M2 PO; +OXYBUTYNIN CHLOR5 M1 PO; +POTASSIUM CHLO20 ME1 PO; +ULTRACET TABLE1 EACH PO; +VENELEX OINTMEN60 GM TOP
[2019-03-03] MEDS ORDERED: SODIUM CHLORIDE 0.9% 1000ML 1,000 ML IV ONE (09:00)
[2019-03-03] MEDS ORDERED: PANTOPRAZOLE 40 MG 10ML VIAL IV ONE (09:30)
--- NOTE | 2019-03-03 09:35 | Diagnostic Imaging Report ---
EXAMINATION: CHEST SINGLE (PORTABLE) INDICATION: Cough, shortness of breath COMPARISON: Multiple prior chest radiograph, most recently 02/17/2019 FINDINGS: LINES/TUBES:Left chest AICD unchanged. LUNGS:The lungs are moderately inflated. There is perihilar fullness and indistinctness of the pulmonary vasculature. Bibasilar patchy opacities right greater than left. PLEURA:Small right pleural effusion. No pneumothorax. MEDIASTINUM:Cardiomediastinal silhouette is stably enlarged. Atherosclerotic calcifications of the thoracic aorta. Postoperative findings of prior CABG and valve replacement. BONES/SOFT TISSUES:No acute osseous injury. Sternotomy wires intact. ABDOMEN:No free air under the diaphragm. IMPRESSION: Cardiomegaly and worsening pulmonary edema. Bibasilar patchy opacities right greater than left, more likely subsegmental atelectasis than superimposed aspiration or pneumonia. Small right pleural effusion. Signed by: Radha Jaramillo MD on 03/03/2019 9:32 AM
[2019-03-03 10:10] LABS: BASOPHILS % 0.1 % (0.0-1.0); EOSINOPHILS % 0.1 % (0.0-6.0); HEMATOCRIT 29.6 % (34.2-44.1); LYMPHOCYTES % 7.6 % (18.0-39.1); MEAN CORPUSCULAR HEMOGLOBIN 25.8 pg (28-32); MEAN CORPUSCULAR HGB CONC 30.4 g/dL (31-35); MEAN CORPUSCULAR VOLUME 84.8 fL (81-99); MONOCYTES # (AUTO) 0.8 (0.2-0.8); NEUTROPHILS # (AUTO) 11.4 (2.1-6.9); NEUTROPHILS % 85.1 % (38.7-80.0); PLATELET COUNT 169 x10e3/uL (140-360); RED BLOOD COUNT 3.49 x10e6/uL (3.6-5.1); RED CELL DISTRIBUTION WIDTH 17.6 % (11.7-14.4)
[2019-03-03 10:24] LABS: INR 1.49; PROTHROMBIN TIME 18.6 seconds (11.9-14.5)
[2019-03-03 10:25] LABS: PARTIAL THROMBOPLASTIN TIME 32.8 seconds (23.8-35.5)
[2019-03-03 11:52] LABS: ALBUMIN 2.6 g/dL (3.5-5.0); ALBUMIN/GLOBULIN RATIO 0.9 (0.8-2.0); ANION GAP 13.1 mmol/L (8-16); CREATININE, SERUM 1.06 mg/dL (0.57-1.11); POTASSIUM 4.1 mmol/L (3.5-5.1)
[2019-03-03] MEDS ORDERED: CEFTRIAXONE SOD 1 GM/NS 50 ML 50 ML IV ONE (12:30)
[2019-03-03] MEDS ORDERED: AZITHROMYCIN 500MG/NS 250 ML 250 ML IV ONE (12:30)
[2019-03-03] MEDS ORDERED: ALBUTEROL/IPRATROPIUM 3 ML NEB NEB ONE (12:30)
[2019-03-03] MEDS ORDERED: ASPIRIN 81 MG CHEW TAB PO ONE (12:45)
[2019-03-03] MEDS ORDERED: AZITHROMYCIN 500MG/SOD CHL 0.9% 250ML BAG IV SCH (12:45)
--- NOTE | 2019-03-03 13:54 | NUR ---
CALLED AND NOTIFIED HOSPICE NURSE THAT PATIENT WAS BEING ADMITTED.
[2019-03-03] MEDS ORDERED: BISACODYL 10 MG SUPP PR PRN (14:00)
[2019-03-03] MEDS ORDERED: ALBUTEROL/IPRATROPIUM 3 ML NEB NEB PRN (14:00)
[2019-03-03] MEDS ORDERED: TRAMADOL/APAP 37.5MG-325MG TAB PO PRN (14:00)
[2019-03-03] MEDS ORDERED: SODIUM CHLORIDE 0.9% 250ML 250 ML ONE (14:47)
--- NOTE | 2019-03-03 14:55 | History and Physical ---
CHIEF COMPLAINT: Dyspnea and pulmonary edema. HISTORY OF PRESENT ILLNESS: The patient is an 88-year-old woman. She has chronic systolic congestive heart failure and atrial fibrillation. She also has COPD. She has required multiple admissions to [facility] over the past 1-2 years. She now returns complaining of worsening dyspnea as well as some hemoptysis. She denies fever. She is not having chest pain. PAST SURGICAL HISTORY: 1. Status post coronary artery bypass grafting. 2. Status post aortic aneurysm repair. 3. Status post endoscopy with esophageal dilatation. 4. Status post pacemaker. PAST MEDICAL HISTORY: 1. Systolic congestive heart failure. 2. COPD. 3. Atrial fibrillation. 4. Renal insufficiency. SOCIAL HISTORY: The patient is not an active smoker. She is not an active drinker. ALLERGIES: THERE ARE NO KNOWN DRUG ALLERGIES. FAMILY HISTORY: There is a history of coronary artery disease and cancer. REVIEW OF SYSTEMS: There is no history of headache. She has no history of fevers. She is not having any neck pain. She does report hemoptysis as well as difficulty breathing. She denies chest pain. She has no abdominal pain. She has no nausea or vomiting. She does have some leg swelling. She is not having any focal neurological complaints. PHYSICAL EXAMINATION: VITAL SIGNS: The patient is afebrile. The blood pressure is 107/55 and saturation is 99% on 4 L. HEENT: Shows no facial swelling or erythema. CARDIAC: Reveals regular rate and rhythm with normal S1, S2. There are no murmurs or rubs heard. LUNGS: Auscultation of lungs reveals crackles in both lung ang. ABDOMEN: Soft, nontender. There is no rebound or guarding. EXTREMITIES: Shows no leg edema. NEUROLOGICAL: Shows no focal abnormalities. LABORATORY DATA: White blood cell count is 13.7, hemoglobin is 9, platelet count is 169. The BUN to creatinine ratio is 27 to 1.06. BNP is 1446. Other electrolytes are within normal limits. IMPRESSION: 1. Ndqhy-zi-wvagfju systolic congestive heart failure. 2. Chronic obstructive pulmonary disease with acute exacerbation. 3. Hemoptysis. 4. Anemia secondary to chronic blood loss. 5. Atrial fibrillation. PLAN: 1. Hold Eliquis. 2. Lasix 40 mg IV q.12. 3. Low-dose Solu-Medrol. 4. Antibiotics. 5. Physical therapy. MD CRIS Marinelli/ANGELA /[id number]
--- NOTE | 2019-03-03 15:00 | NUR ---
received pt from ER at 1432. pt alert and oriented x2. pt changed to hospital gown and, cleaned and diaper placed. pt on telemetry box 11 with cont pulse ox. pt screams sje cannot breath. Resp therapist at bedside to assure pt of resp status. pt on 4lnc sats 92%. Pt given meds for anxiety and pain to decrease agitation.
--- NOTE | 2019-03-03 15:10 | NUR ---
Pt states she has difficulty breathing. Pt on 4lNC, sats 88%. Notified resp therapy to assess pt.
[2019-03-03] MEDS ORDERED: METHYLPREDNISOLONE SOD SUCC 40 MG/ML VIAL 1ML IV SCH (15:30)
[2019-03-03 15:39] VITALS: BP 121/59
[2019-03-03] MEDS ORDERED: FUROSEMIDE INJ 10 MG/ML 4 ML VIAL IV SCH (16:00)
[2019-03-03 16:17] VITALS: BP 121/59
[2019-03-03] MEDS ORDERED: LORAZEPAM 1 MG TAB PO SCH (17:00)
[2019-03-03] MEDS ORDERED: APIXAB 2.5 MG TABLET PO SCH (17:00)
[2019-03-03 17:01] VITALS: BP 121/59
--- NOTE | 2019-03-03 17:46 | NUR ---
PTS IN RESPIRATOE\RY DISTRESS RESPIRATION 30/MT PAGED AND NOTIFIED DR FUCHS GOT THE ORDER TO BIPAP ,TRANSFER TO ICU NOTIFIED TO RYISOCasa
[2019-03-03] MEDS ORDERED: FUROSEMIDE INJ 10 MG/ML 4 ML VIAL IV ONE (18:00)
--- NOTE | 2019-03-03 18:05 | NUR ---
Pt transferred to ICU with RT and RN. Report given to Mitzy MALDONADO.
--- NOTE | 2019-03-03 18:20 | NUR ---
recvd pt on bipap, screaming intermittenly attempting to remove mask. daughter at bedside. updated on current status. no iv in place to give meds at this time. pt placed on monitor @1830 24g iv in rt wrist, given iv lasix. daughter notified us pt does not want to be intubated. notified this to dr ibanez. orders recvd and being changed.
[2019-03-03 18:30] LABS: ABG HCO3 21 mmol/L (23-28); ABG PCO2 30 mmHg (41-51); ABG PH 7.45 (7.31-7.41); ABG PO2 142 mmHg (80-105)
[2019-03-03] MEDS ORDERED: SALMETEROL/FLUTICASONE 250/50 INH SCH (19:00)
--- NOTE | 2019-03-03 20:53 | NUR ---
Spoke with daughter Krsytle Tsang at 2004 regarding patient condition and to verify code status. Daughter states she wants to change code status to full DNR- no intubation/mech ventilation, no meds, no vasopressors, no compressions. weight caller Nilo spoke with daughter as well and verified daughter's statement. Dr. Darby notified of code status change, unresponsiveness, and RR up to 30s-40s. stated to make the patient FULL DNR and elevate HOB, continue bipap.
[2019-03-03] MEDS ORDERED: MELATONIN 5 MG TABLET PO SCH (21:00)
[2019-03-03] MEDS ORDERED: CEFTRIAXONE SOD 1 GM/NS 50 ML 50 ML IV SCH (21:00)
[2019-03-03] MEDS ORDERED: ATORVASTATIN 20 MG TAB PO SCH (21:00)
[2019-03-03] MEDS ORDERED: CEFTRIAXONE SOD 1 GRAM/0.9% SOD CHL 50ML BAG IV SCH (21:00)
--- NOTE | 2019-03-03 22:20 | NUR ---
Patient's rhythm changed to asystole at 2143. No BP was able to be obtained, no spontaneous respirations at 2144. Family at bedside. sugar refiner at bedside.
--- NOTE | 2019-03-03 22:54 | NUR ---
Dr. Jackson pronounced TOD at 2150.
--- NOTE | 2019-03-03 23:16 | NUR ---
Dr. Darby notified of patient's at 081.
--- NOTE | 2019-03-03 23:44 | NUR ---
Unable to chart VS due to technical issue. VS monitored by RN.
--- NOTE | 2019-03-04 00:48 | NUR ---
[facility] employee took patient off unit at 0018.
[2019-03-04] MEDS ORDERED: FUROSEMIDE INJ 10 MG/ML 4 ML VIAL IV SCH (04:00)
[2019-03-04] MEDS ORDERED: TIOTROPIUM 18 MCG INH POWDER INH SCH (06:00)
[2019-03-04] MEDS ORDERED: PANTOPRAZOLE SOD 40 MG TABEC PO SCH (09:00)
[2019-03-04] MEDS ORDERED: OXYBUTYNIN CHLORIDE XL 5 MG TAB PO SCH (09:00)
[2019-03-04] MEDS ORDERED: DOCUSATE SODIUM 100 MG CAP PO SCH (09:00)
[2019-03-04] MEDS ORDERED: SALMETEROL/FLUTICASONE 250/50 INH SCH (09:00)
[2019-03-04] MEDS ORDERED: AZITHROMYCIN 500MG/NS 250 ML 250 ML IV SCH (09:00)
[2019-03-04] MEDS ORDERED: ESCITALOPRAM OXALATE 10 MG TAB PO SCH (09:00)
--- NOTE | 2019-04-06 13:04 | Discharge Summary ---
Summary DISCHARGE DIAGNOSES: 1. Uvxrq-qk-wqgnbya respiratory failure. 2. Mdptw-mu-wmrowuj systolic congestive heart failure. 3. Chronic obstructive pulmonary disease. 4. Metabolic encephalopathy. HISTORY OF PRESENT ILLNESS: The patient is an 88-year-old woman. She is chronically ill and has severe systolic cardiomyopathy as well as COPD. She has required frequent hospitalizations over the past several years for COPD exacerbation and congestive heart failure. She was only at home briefly before coming back to the hospital with worsening dyspnea and congestion. She did not complain of fever or chest pain. HOSPITAL COURSE: The patient was admitted. She was started on IV Solu-Medrol along with bronchodilators and antibiotics. She also received diuretics. She was started on BiPAP. The patient opted for a DNR status. She did not want heroic measures. Her Solu-Medrol, antibiotics, and diuretics were continued along with comfort measures. She on March 03 at 2150. She was not resuscitated in accordance with her wishes. DISPOSITION: The patient at the time of discharge. MD CRIS Marinelli/ANGELA /[id number]
== END 2019-03-04 00:18 | disposition expired | DRG 291 ==
LOC: ER 08:16 → ERHOLD 12:46 → MED/SURG2 14:35 → ICU 18:05
PROVIDERS: ADMIT Internal Medicine Critical Care Medicine; ATTEND Internal Medicine Critical Care Medicine
PROC: 5A09357 Assistance with Respiratory Ventilation, Less than 24 Consecutive Hours, Continuous Positive Airway Pressure (ICD-10-PCS; principal; 2019-03-03)
DX: I11.0 Hypertensive heart disease with heart failure (principal); J96.21 Acute and chronic respiratory failure with hypoxia; G93.41 Metabolic encephalopathy; J44.1 Chronic obstructive pulmonary disease with (acute) exacerbation; R04.2 Hemoptysis; I50.23 Acute on chronic systolic (congestive) heart failure; D50.0 Iron deficiency anemia secondary to blood loss (chronic); I48.91 Unspecified atrial fibrillation; Z66 Do not resuscitate; N28.9 Disorder of kidney and ureter, unspecified; R00.1 Bradycardia, unspecified; Z79.01 Long term (current) use of anticoagulants; Z95.0 Presence of cardiac pacemaker; Z87.891 Personal history of nicotine dependence; Z95.1 Presence of aortocoronary bypass graft; Z82.49 Family history of ischemic heart disease and other diseases of the circulatory system; Z80.9 Family history of malignant neoplasm, unspecified
CPT/HCPCS: 36415; 71045; 80053; 82805; 83605; 83880; 84484; 85025; 85610; 85730; 87040; 99285; J0456; J0696; J1940; J2920; J7030; J7050